=== PATIENT | female | born 1965 | race Caucasian/White ===

== ENCOUNTER 2017-11-02 11:31 | Outpatient (CLI) | payer BC, SELFPAY ==
[2017-11-02 11:46] VITALS: BP 132/89; PULSE 65; RESP 20; TEMP 36.7; O2SAT 94
--- NOTE | 2017-11-02 12:06 | DI.REPORT_ITS ---
SYMPTOMS/DIAGNOSIS: SACROILIAC JOINT INJECTION, SACROILIAC JOINT DYSFUNCTION PAIN CLINIC: Fluoroscopy Time: 15.0 sec 6.15 mGy An image submitted from the pain clinic reveals needle localization of the right SI joint in conjunction with a sacroiliac joint injection. Please see Dr. Huber's procedure report for further information.
[2017-11-02 12:08] VITALS: BP 146/92; PULSE 65; RESP 17; O2SAT 96
[2017-11-02] MEDS: methylPREDNISolone ACETATE 80 MG/ML VIAL IJ (12:08)
--- NOTE | 2017-11-02 12:18 | PDOC.PAIN ---
Date of Service: 11/02/17 Time of Service: 12:19 Pain Clinic Procedure Note INTRA-ARTICULAR SI JOINT INJECTION CASSIE NICHOLSON has been referred to the [facility] for intra-articular SI joint injection. COMMENTS: She was previously seen in the office. She is allergic to iodine and chloroprep DX: Sacroiliac joint dysfunction Patient was interviewed and the medical record reviewed. There were no medical, pharmacologic, radiographic or other structural contraindications to attempting fluoroscopically guided intra-articular SI joint injection. Risks and expected side effects as well as potential benefit of the procedure were reviewed and voiced concerns addressed. The printed consent form was signed and witnessed. Standard time-out procedure was performed. Patient was placed in the prone position on the fluoroscopy table and automated blood pressure cuff and pulse oximeter applied. The skin entry point for approaching right SI joint was identified under the most advantageous fluoroscopic view and marked. Following thorough Chlorhexadine preparation of the skin and draping and 1% lidocaine infiltration of the skin entry point and subcutaneous tissues, a 22 gauge spinal needle was placed under fluoroscopic guidance into right SI joint was identified under the most advantageous fluoroscopic view and marked. Following thorough alcohol preparation of the skin and draping and 1% lidocaine infiltration of the skin entry point and subcutaneous tissues, a 22 gauge spinal needle was placed under fluoroscopic guidance into right/left/bilateral:[id number]} Next, 1ml 1% lidocaine, and 80mg Depomedrol were injected intra-articularily with an initial reproduction of a significant component of the usual pain. Vital signs were stable throughout the procedure and were as recorded in the docflowsheet by the nursing staff. If given, dosages of intravenous drugs for anxiolysis and analgesia were documented in MAR. Follow up plans and appointments were discussed with the patient. Post procedure instruction was given as documented in nursing documentation and having met discharge criteria, and was discharged from the [facility]. COMMENTS: Call with any questions. CC: May Watson
--- NOTE | 2017-11-02 12:30 | PDOC.PAIN_ITS ---
Date of Service: 11/02/17 Time of Service: 12:19 Pain Clinic Procedure Note INTRA-ARTICULAR SI JOINT INJECTION CASSIE NICHOLSON has been referred to the [facility] for intra- articular SI joint injection. COMMENTS: She was previously seen in the office. She is allergic to iodine and chloroprep DX: Sacroiliac joint dysfunction Patient was interviewed and the medical record reviewed. There were no medical , pharmacologic, radiographic or other structural contraindications to attempting fluoroscopically guided intra-articular SI joint injection. Risks and expected side effects as well as potential benefit of the procedure were reviewed and voiced concerns addressed. The printed consent form was signed and witnessed. Standard time-out procedure was performed. Patient was placed in the prone position on the fluoroscopy table and automated blood pressure cuff and pulse oximeter applied. The skin entry point for approaching right SI joint was identified under the most advantageous fluoroscopic view and marked. Following thorough Chlorhexadine preparation of the skin and draping and 1% lidocaine infiltration of the skin entry point and subcutaneous tissues, a 22 gauge spinal needle was placed under fluoroscopic guidance into right SI joint was identified under the most advantageous fluoroscopic view and marked. Following thorough alcohol preparation of the skin and draping and 1% lidocaine infiltration of the skin entry point and subcutaneous tissues, a 22 gauge spinal needle was placed under fluoroscopic guidance into right/left/bilateral:[id number]} Next, 1ml 1% lidocaine, and 80mg Depomedrol were injected intra-articularily with an initial reproduction of a significant component of the usual pain. Vital signs were stable throughout the procedure and were as recorded in the docflowsheet by the nursing staff. If given, dosages of intravenous drugs for anxiolysis and analgesia were documented in MAR. Follow up plans and appointments were discussed with the patient. Post procedure instruction was given as documented in nursing documentation and having met discharge criteria, and was discharged from the [facility]. COMMENTS: Call with any questions. CC: May Watson
== END 2017-11-02 11:32 ==
PROVIDERS: PCP Nurse Practitioner Family; Visit Provider Preventive Medicine Occupational Medicine
DX: M54.5 Low back pain (principal); M53.3 Sacrococcygeal disorders, not elsewhere classified
CPT/HCPCS: 27096; 72200; J1040

== ENCOUNTER 2017-11-15 11:16 | Outpatient (CLI) | payer BC, SELFPAY ==
[2017-11-15 12:23] LABS: COMMENT (LAB VIEW ONLY) 133.81 mg/dL; Microalb ug/mg Crea 9.9 ug/mg Cr
[2017-11-15 12:33] LABS: ALT 69 U/L (12-78); AST 60 U/L (15-37); Albumin 3.6 g/dL (3.4-5.0); Alkaline Phosphatase 197 U/L (46-116); Anion Gap 8.2 mmol/L (3-11); BUN 19 mg/dL (7-18); Bilirubin, Total 0.1 mg/dL (0.2-1.0); CO2 27.8 mmol/L (21.0-32.0); CREATININE 0.77 mg/dL (0.55-1.02); Calcium 8.6 mg/dL (8.5-10.1); Chloride 104 mmol/L (98-107); Glucose 138 mg/dL (70-100); Potassium 4.5 mmol/L (3.5-5.1); Sodium 140 mmol/L (136-145); Total Protein 7.1 g/dL (6.4-8.2)
[2017-11-15 12:58] LABS: Hemoglobin A1C 7.1 % (4.5-6.2)
== END 2017-11-15 11:36 ==
PROVIDERS: PCP Nurse Practitioner Family; Visit Provider Nurse Practitioner Family
DX: I10 Essential (primary) hypertension (principal); E11.9 Type 2 diabetes mellitus without complications; K76.0 Fatty (change of) liver, not elsewhere classified
CPT/HCPCS: 36415; 80053; 82043; 82570; 83036

== ENCOUNTER 2018-01-16 12:38 | Outpatient (CLI) | payer BC, SELFPAY ==
[2018-01-16 12:54] VITALS: BP 135/91; PULSE 74; RESP 18; TEMP 37.2; O2SAT 97
--- NOTE | 2018-01-16 13:58 | PDOC.PAIN2_ITS ---
History of Present Illness History of Present Illness Chief Complaint: Right mid posterior chest pain Review of Systems Medications/Allergies Allergies Allergy/AdvReac Type Severity Reaction Status Date / Time Iodine and Iodide Containing Allergy Mild Skin Rash Unverified 01/16/18 12:50 Produc codeine AdvReac Intermediate Nausea Unverified 01/16/18 12:50 prochlorperazine edisylate AdvReac Intermediate Nausea Unverified 01/16/18 12:50 [From Compazine] prochlorperazine maleate AdvReac Intermediate Nausea Unverified 01/16/18 12:50 [From Compazine] oxycodone HCl [From Percocet] AdvReac Mild Nausea Unverified 01/16/18 12:50 CHLORA PREP Allergy Intermediate skin Uncoded 01/16/18 12:50 blisters STERI STRIPS Allergy Intermediate skin Uncoded 01/16/18 12:50 blisters Medications: Current Medications Bupivacaine HCl (Marcaine 0.5% Sdv) 0 ml IJ DIRECTED MICA Stop: 01/16/18 23:59 Dexamethasone Sodium Phosphate () 0 mg IJ DIRECTED MICA Stop: 01/16/18 23:59 Lidocaine HCl (Xylocaine-Mpf 1% Inj) 0 ml IJ DIRECTED MICA Stop: 01/16/18 23:59 Methylprednisolone Acetate (Depo-Medrol) 0 mg IJ DIRECTED MICA Stop: 01/16/18 23:59 Objective Exam Vitals and I&O: Vital Signs Temperature 37.2 C 01/16/18 12:54 Pulse 74 01/16/18 12:54 Respiratory Rate 18 01/16/18 12:54 Blood Pressure 135/91 H 01/16/18 12:54 Pulse Oximetry 97 01/16/18 12:54 Oxygen Delivery Method Room Air 01/16/18 12:54 Oxygen Flow Rate 0 01/16/18 12:54 Procedures Procedures: Procedure: Trigger point injection Timeout and informed consent was obtained. Patient has tenderness palpation in the paraspinous muscles on the right side of her thoracic spine at the mid to lower thoracic region. Patient was sterilely prepped with alcohol. Using a 27-gauge 1.5 inch needle total of 8 dose of 1% lidocaine was injected at 2 different locations. Patient tolerated procedure well. Pain went from a 7/10-3/10. Stool. She will follow- up as needed. She is now complaining of pain in the right SI region again. Her last injection was in September 2017 which he has had at least 2 months relief. Impression: #1 myofascial pain right chest wall. #2 right SI joint dysfunction Recommendation: #1. If she still having mid back pain would obtain an x-ray of thoracic spine. If another trigger point injection is anticipated will use ultrasound guidance. 2. We will schedule her for repeat right SI joint injection. Ambulatory Orders Medication Instructions Recorded lorazepam [Ativan] 1 mg PO BID 01/04/13 aspirin [Aspir-81] 1 tab PO DAILY 12/19/13 cyproheptadine 8 mg PO HS 10/28/14 multivitamin [Daily Multi-Vitamin] 1 ea PO DAILY 10/28/14 lancets #100 ea 04/15/15 citalopram 40 mg PO DAILY tab-cap 06/28/16 fluticasone [Flonase Allergy 1 - 2 spry NS DAILY PRN #3 bottle 11/10/16 Relief] losartan 100 mg PO DAILY #90 tab-cap 01/13/17 atenolol 25 mg PO DAILY #45 tab-cap 01/23/17 olanzapine 15 mg PO DAILY tab-cap 02/02/17 hydroxyzine pamoate [Vistaril] 25 mg PO PRN 03/24/17 prazosin 4 mg PO HS 03/24/17 nitroglycerin [Nitrostat] 0.4 mg SUBLINGUAL Q5 MIN PRN X3 05/26/17 PRN #1 bottle atorvastatin 40 mg PO DAILY #90 tab-cap 06/02/17 rabeprazole 20 mg PO DAILY #90 tab-cap 06/23/17 carbamazepine 200 - 400 mg PO See Instructions 08/17/17 tab-cap amlodipine 5 mg PO BID #180 tab-cap 08/21/17 blood sugar diagnostic [Blood #120 strip 08/25/17 Glucose Test Strip] insulin glargine [Lantus Solostar] 64 units SUB-Q HS #3 box 08/25/17 pen needle, diabetic [Pen [place]] #4 box 08/25/17 empagliflozin 25 mg tablet 25 mg PO DAILY #90 tab-cap 11/20/17 insulin aspart U-100 100 unit/mL 4 unit SC AC #15 syringe 11/23/17 subcutaneous pen nystatin 100,000 unit/gram topical 1 applic TP BID #15 gm 11/23/17 cream blood-glucose meter #1 each 11/24/17 cyclobenzaprine 10 mg tablet 10 mg PO BID PRN 30 Days #60 tab 01/01/18
[2018-01-16] MEDS: Lidocaine 1% Pres-Free 5 ML VIAL IJ (14:36)
== END 2018-01-16 12:58 ==
PROVIDERS: PCP Nurse Practitioner Family; Visit Provider Anesthesiology Pain Medicine
DX: R07.89 Other chest pain (principal); M54.5 Low back pain; M53.3 Sacrococcygeal disorders, not elsewhere classified
CPT/HCPCS: 20552

== ENCOUNTER 2018-01-30 09:53 | Outpatient (CLI) | payer BC, SELFPAY ==
--- NOTE | 2018-01-30 06:00 | DI.RAD_ITS ---
SYMPTOM/DIAGNOSIS: SACROILIAC JOINT DYSFUNCTION C-ARM FLUOROSCOPY: Fluoroscopy Time: 51.1sec,21.79mgy Fluoroscopy was provided for guidance with Pain Clinic injection. Hard copy images show needle placement at the right S-I joint. Please see procedure note for details.
[2018-01-30 10:02] VITALS: BP 127/91; PULSE 94; RESP 22; TEMP 36.8; O2SAT 97
[2018-01-30] MEDS: Omnipaque 240 MG/ML 50 ML BTL IJ ×2 (11:04→11:24)
[2018-01-30] MEDS: methylPREDNISolone ACETATE 80 MG/ML VIAL IJ (11:25)
[2018-01-30] MEDS: Bupivacaine 0.5% Pres-Free 10 ML VIAL IJ (11:26)
[2018-01-30 11:30] VITALS: BP 131/82; PULSE 94; RESP 21; O2SAT 93
--- NOTE | 2018-01-30 11:42 | PDOC.PAIN ---
Pain Clinic Procedure Note Current Active Problems Problem Status Onset Sacroiliac joint dysfunction of right side Chronic INTRA-ARTICULAR SI JOINT INJECTION CASSIE NICHOLSON has been referred to the [facility] for intra-articular SI joint injection. COMMENTS: Patient had previous SI joint injection that lasted for approximately 3 months. This will be her third SI joint injection. Patient was interviewed and the medical record reviewed. There were no medical, pharmacologic, radiographic or other structural contraindications to attempting fluoroscopically guided intra-articular SI joint injection. Risks and expected side effects as well as potential benefit of the procedure were reviewed and voiced concerns addressed. The printed consent form was signed and witnessed. Standard time-out procedure was performed. Patient was placed in the prone position on the fluoroscopy table and automated blood pressure cuff and pulse oximeter applied. The skin entry point for approaching {right/} SI joints was identified under the most advantageous fluoroscopic view and marked. Following thorough Chlorhexadine preparation of the skin and draping and 1% lidocaine infiltration of the skin entry point and subcutaneous tissues, a 22 gauge spinal needle was placed under fluoroscopic guidance into {right} SI joints was identified under the most advantageous fluoroscopic view and marked. Following thorough Chlorhexadine preparation of the skin and draping and 1% lidocaine infiltration of the skin entry point and subcutaneous tissues, a 22 gauge spinal needle was placed under fluoroscopic guidance into {right} SI joint. Intra-articular placement was confirmed by a clear arthrogram resulting from the injection of 0.25ml Omnipaque 240, 1ml 0.5% bupivacaine, and half ml (40mg) of 80mg concentration Depomedrol were injected intra-articularily with an initial reproduction of a significant component of the usual pain. Vital signs were stable throughout the procedure and were as recorded in the docflowsheet by the nursing staff. If given, dosages of intravenous drugs for anxiolysis and analgesia were documented in MAR. Follow up plans and appointments were discussed with the patient. Post procedure instruction was given as documented in nursing documentation and having met discharge criteria, and was discharged from the [facility]. COMMENTS: Pain went from 5/10-0/10. She will follow-up as needed. Consider evaluating for facet arthropathy if still having back pain above the level. Consider SI joint fusion if not getting long-term relief. CC: May Watson
--- NOTE | 2018-01-30 11:45 | PDOC.PAIN_ITS ---
Pain Clinic Procedure Note Current Active Problems Problem Status Onset Sacroiliac joint dysfunction of right side Chronic INTRA-ARTICULAR SI JOINT INJECTION CASSIE NICHOLSON has been referred to the [facility] for intra- articular SI joint injection. COMMENTS: Patient had previous SI joint injection that lasted for approximately 3 months. This will be her third SI joint injection. Patient was interviewed and the medical record reviewed. There were no medical , pharmacologic, radiographic or other structural contraindications to attempting fluoroscopically guided intra-articular SI joint injection. Risks and expected side effects as well as potential benefit of the procedure were reviewed and voiced concerns addressed. The printed consent form was signed and witnessed. Standard time-out procedure was performed. Patient was placed in the prone position on the fluoroscopy table and automated blood pressure cuff and pulse oximeter applied. The skin entry point for approaching {right/} SI joints was identified under the most advantageous fluoroscopic view and marked. Following thorough Chlorhexadine preparation of the skin and draping and 1% lidocaine infiltration of the skin entry point and subcutaneous tissues, a 22 gauge spinal needle was placed under fluoroscopic guidance into {right} SI joints was identified under the most advantageous fluoroscopic view and marked. Following thorough Chlorhexadine preparation of the skin and draping and 1% lidocaine infiltration of the skin entry point and subcutaneous tissues, a 22 gauge spinal needle was placed under fluoroscopic guidance into {right} SI joint. Intra-articular placement was confirmed by a clear arthrogram resulting from the injection of 0.25ml Omnipaque 240, 1ml 0.5% bupivacaine, and half ml (40mg) of 80mg concentration Depomedrol were injected intra- articularily with an initial reproduction of a significant component of the usual pain. Vital signs were stable throughout the procedure and were as recorded in the docflowsheet by the nursing staff. If given, dosages of intravenous drugs for anxiolysis and analgesia were documented in MAR. Follow up plans and appointments were discussed with the patient. Post procedure instruction was given as documented in nursing documentation and having met discharge criteria, and was discharged from the [facility]. COMMENTS: Pain went from 5/10-0/10. She will follow-up as needed. Consider evaluating for facet arthropathy if still having back pain above the level. Consider SI joint fusion if not getting long-term relief. CC: May Watson
== END 2018-01-30 10:13 ==
PROVIDERS: PCP Nurse Practitioner Family; Visit Provider Anesthesiology Pain Medicine
DX: M54.5 Low back pain (principal); M53.3 Sacrococcygeal disorders, not elsewhere classified; G89.29 Other chronic pain
CPT/HCPCS: 27096; 72200; J1040; Q9967

== ENCOUNTER 2018-02-20 09:36 | Outpatient (CLI) | payer BC, SELFPAY ==
[2018-02-20 09:42] VITALS: BP 137/89; PULSE 69; RESP 18; TEMP 37; O2SAT 95
[2018-02-20 10:09] VITALS: PULSE 72; O2SAT 95
--- NOTE | 2018-02-20 10:20 | PDOC.PAIN ---
Pain Clinic Procedure Note Current Active Problems Problem Status Onset Muscle pain Acute RIGHT LATISSIMUS DORSI MUSCLE INJECTIONS Pre-Procedural Evaluation: CASSIE NICHOLSON has been referred to the [facility] for a right Latissimus Dorsi trigger point injection for a chief complaint of right lateral chest wall pain over the right latissimus dorsi muscle. Pre-procedure Pain Score 5/10 Patient was interviewed and the medical record reviewed. There were no medical, pharmacologic, radiographic, or other structural contraindications to preforming a trigger point injection. Risks and expected side effects as well as potential benefits of the procedure were reviewed. The patient consent form was signed and witnessed. Standard time-out procedure was performed. Procedure Description: The patient was placed in the prone position and automated blood pressure cuff and pulse oximeter applied for monitoring during the procedure and recorded in the medical record. The site was then prepared in the usual sterile fashion, using thorough alcohol preparation of the skin and sterile draping. Skin and subcutaneous tissues were anesthetized with 2 mL of 1% Lidocaine. A 22G 3.5 inch needle was placed in three locations along the Latissimus Dorsi muscle. Once the needle tip was at the target area, a mixture of 1mL of 1% Lidocaine and 1/3 cc of Depomedrol (40mg/cc) was delivered to each target after negative aspiration for blood. The needle was place lateral to the rib cage and from posterior to anterior and never pointing at the lungs.. Post-procedure Pain Score: 0/10 Vital signs were stable throughout the procedure and were as recorded in the docflowsheet by the nursing staff. Follow up plans and appointments were discussed with the patient.Post procedure instruction was given as documented in nursing documentation and having met discharge criteria, they were discharged from the [facility]. COMMENTS: She will watch her blood sugars. This procedure can be completed up to 3 times every 12 months if it if found to be helpful.
[2018-02-20] MEDS: methylPREDNISolone ACETATE 40 MG/ML VIAL IM (10:28)
== END 2018-02-20 09:56 ==
PROVIDERS: PCP Nurse Practitioner Family; Visit Provider Preventive Medicine Occupational Medicine
DX: M79.12 Myalgia of auxiliary muscles, head and neck (principal)
CPT/HCPCS: 20552; J1030

== ENCOUNTER 2018-04-12 00:51 | Outpatient (CLI) | payer BC, SELFPAY ==
--- NOTE | 2018-04-12 14:38 | DI.MRI_ITS ---
SYMPTOMS/DIAGNOSIS: MID THORACIC BACK PAIN RADIATING TO RT, M54.6 THORACIC SPINE MRI: MRI examination of the thoracic spine was performed according to the usual protocol. No bony signal abnormality seen. The bony spinal canal and neural foramina appear well maintained. No disc herniation seen. The spinal cord shows normal diameter and normal signal throughout. CONCLUSION: Negative thoracic spine MRI.
== END 2018-04-12 01:11 ==
PROVIDERS: PCP Nurse Practitioner Family; Visit Provider Nurse Practitioner Family
DX: M54.6 Pain in thoracic spine (principal)
CPT/HCPCS: 72146

== ENCOUNTER 2018-04-17 00:38 | Outpatient (CLI) | payer BC, SELFPAY ==
--- NOTE | 2018-04-17 11:39 | DI.MAMMO_ITS ---
SYMPTOM/DIAGNOSIS: SCREENING, Z12.31 MAMMOGRAMS: Mammograms were interpreted according to the usual protocol including computer analysis with CAD system, tomosynthesis and C view imaging. Comparison is made with prior examinations. Breast density, Category B. No suspicious masses or microcalcifications are seen. There is no definite evidence of malignancy. IMPRESSION: Negative mammogram. Routine screening is recommended. Category 1. MQSA ASSESSMENT OF FINDINGS: Negative. Category 1. Patient will receive a letter notifying them of these results. BI-RADS category B. There are scattered areas of fibroglandular density.
== END 2018-04-17 00:58 ==
PROVIDERS: PCP Nurse Practitioner Family; Visit Provider Nurse Practitioner Family
DX: Z12.31 Encounter for screening mammogram for malignant neoplasm of breast (principal)
CPT/HCPCS: 77063; 77067

== ENCOUNTER 2018-07-17 16:06 | Emergency (ER) | payer BC, SELFPAY ==
[2018-07-17 16:10] VITALS: BP 159/96; PULSE 91; RESP 16; TEMP 36.7; O2SAT 95
--- NOTE | 2018-07-17 16:26 | W.ED.GENAD ---
Discharge Plan Disposition Patient Disposition: HOME Condition: Fair Discharge Details Chief Complaint: Nk/Back Pain Clinical Impression: Back pain, Back muscle spasm Primary Care Provider: May Watson ED Provider: Mary Negron Home Meds and New Rx's Prescriptions: New diazepam [Valium] 5 mg tablet 5 mg PO TID-QID PRN (Reason: muscle spasm) Qty: 10 RF: 0 Continued nystatin 100,000 unit/gram cream 1 applic TP BID Qty: 15 RF: 0 Novolog Flexpen U-100 Insulin 100 unit/mL insulin pen 6 unit SC AC RF: 0 cyproheptadine 4 MG tablet 8 mg PO HS RF: 0 lancets 1 EACH misc 1 ea Miscellaneous AC & HS Qty: 100 RF: 11 citalopram 40 MG tablet 40 mg PO DAILY RF: 0 olanzapine 10 MG tablet 15 mg PO DAILY RF: 0 prazosin 2 MG capsule 4 mg PO HS RF: 0 hydroxyzine pamoate [Vistaril] 25 MG capsule 25 mg PO PRN RF: 0 amlodipine 5 MG tablet 5 mg PO BID Qty: 180 RF: 3 Blood Glucose Test 1 EACH strip 1 ea Miscellaneous AC & HS Qty: 120 RF: 11 pen needle, diabetic [Pen Needle] 1 EACH needle 1 ea SQ QID Qty: 4 RF: 3 Jardiance 25 mg tablet 25 mg PO DAILY Qty: 90 RF: 3 blood-glucose meter misc .Route .MEDSUPPLY Qty: 1 RF: 0 losartan 100 mg tablet 100 mg PO DAILY Qty: 90 RF: 3 atenolol 50 mg tablet 25 mg PO DAILY Qty: 45 RF: 3 atorvastatin 40 mg tablet 40 mg PO DAILY Qty: 90 RF: 3 carbamazepine 200 mg tablet 200 mg PO TID RF: 0 Lantus Solostar U-100 Insulin 100 unit/mL (3 mL) insulin pen 64 unit Sub-Q HS Qty: 30 RF: 3 rabeprazole 20 mg tablet,delayed release (DR/EC) 20 mg PO DAILY Qty: 90 RF: 3 gabapentin 600 mg tablet 600 mg PO TID 60 Days Qty: 180 RF: 5 fluticasone propionate [Flonase Allergy Relief] 50 mcg/actuation spray,suspension 1 - 2 spray NS DAILY PRN (Reason: nasal congestion) Qty: 3 RF: 3 lorazepam [Ativan] 1 MG tablet 1 mg PO BID RF: 0 aspirin [Aspir-81] 81 MG tablet,delayed release (DR/EC) 1 tab PO DAILY RF: 0 nitroglycerin [Nitrostat] 0.4 MG tablet, sublingual 0.4 mg Sublingual Q5 MIN PRN X3 PRNQty: 1 RF: 0 Discontinued tizanidine 4 mg tablet 4 mg PO TID PRN (Reason: muscle spasticity) 60 Days Qty: 180 RF: 5 No Action naproxen 500 mg tablet 500 mg PO BID Qty: 10 RF: 1 diazepam 5 mg tablet 5 mg PO BID-TID PRN (Reason: muscle spasm pain) Qty: 14 RF: 0 Discharge Instructions Instructions: Diazepam (By mouth), Muscle Spasm (ED) Additional Instructions: Encourage hydration. Encourage gentle stretching and frequent ambulation. Continue with pain medications as previously prescribed. Stop the tizanidine and use the Valium as prescribed to help with muscle spasms. Do not drive while taking this medication. Please contact pain management and primary care tomorrow to schedule follow-up as soon as possible for reevaluation discussed continued medication management. If you develop fever/chills, weakness, sensation changes, changes in your bowel or bladder habits or other new/worsening symptoms please seek care urgently once again. Referrals: Janel Mcneil [NURSE PRACTITIONER] - May Watson NP [Primary Care Provider] - Discharge Data Discharge Date/Time-TO BE ENTERED AT DEPARTURE: 07/17/18 16:54 Medical Decision Making Barby is a 52 year old female with history of chornic back pain presenting today with c/c of back spasms. Reviewed notes from pain management, this has been an issue for hte patient hisotrically. She has been on Tizanidine which initially helped but has stopped working well for her over the past several weeks. States that spasms have bene increasing and can radiate along her right side. Denies recent trauma. No fevers/chills. No bowel/bladder dysfunction. Neuro exam is intact. Patient has palpable pain over area of spasm on the right side. No evidence of rash. Lungs are clear. Patient has no signs of infection. No midline tenderness on exam. Patient had been on baclofen as well as other anti-inflammatories without success. This seems to be primarily spasm driven, plan to treat with new muscle relaxer. Advised that she stop the tizanidine, will prescribe Valium. Advised that this is addicting and will only give a short course to help with this exacerbating situation. Advised that she will need to follow-up with her primary care pain management in regard to her chronic back pain further. As the patient drove herself here, I am unable to give her any at this time but will prescribe a few since she may take some once home. She was given strict return precautions. All of her questions and concerns were addressed and she is in agreement this plan. HPI General Mode of arrival: ambulatory. Date/Time Provider Initiated Documentation: 07/17/18 16:25. Limitations to Documentation: no limitations. Information obtained by: patient and RN notes reviewed. History of Present Illness 52 year old F presents to the emergency department with the chief complaint of right sided back spasms, described as severe, with intensity rated at 9. Quality is described as other (spasm), and is localized to the back. Patient reports no radiation. Patient started experiencing this week(s) (3) and it has been constant. No relieving factors improve symptom(s), Immoblization worsens symptoms . Patient notes denies chest pain, cough, diaphoresis, fever/chills, headaches, nausea/vomiting, rash, shortness of breath and weakness. Related Data Home Medications Medication Instructions Recorded Confirmed lorazepam [Ativan] 1 mg PO BID 01/04/13 07/18/18 aspirin [Aspir-81] 1 tab PO DAILY 12/19/13 07/18/18 cyproheptadine 8 mg PO HS 10/28/14 07/18/18 lancets #100 ea 04/15/15 07/18/18 citalopram 40 mg PO DAILY tab-cap 06/28/16 07/18/18 olanzapine 15 mg PO DAILY tab-cap 02/02/17 07/18/18 hydroxyzine pamoate [Vistaril] 25 mg PO PRN 03/24/17 07/18/18 prazosin 4 mg PO HS 03/24/17 07/18/18 nitroglycerin [Nitrostat] 0.4 mg SUBLINGUAL Q5 MIN PRN X3 05/26/17 07/18/18 PRN #1 bottle amlodipine 5 mg PO BID #180 tab-cap 08/21/17 07/18/18 Blood Glucose Test #120 strip 08/25/17 07/18/18 pen needle, diabetic [Pen Needle] #4 box 08/25/17 07/18/18 empagliflozin 25 mg tablet 25 mg PO DAILY #90 tab-cap 11/20/17 07/18/18 nystatin 100,000 unit/gram topical 1 applic TP BID #15 gm 11/23/17 07/18/18 cream blood-glucose meter #1 each 11/24/17 07/18/18 losartan 100 mg tablet 100 mg PO DAILY #90 tab-cap 01/17/18 07/18/18 atenolol 50 mg tablet 25 mg PO DAILY #45 tab-cap 02/07/18 07/18/18 atorvastatin 40 mg tablet 40 mg PO DAILY #90 tab-cap 04/09/18 07/18/18 carbamazepine 200 mg tablet 200 mg PO TID 04/11/18 07/18/18 insulin glargine (U-100) 100 64 unit SUB-Q HS #30 syringe 04/26/18 07/18/18 unit/mL (3 mL) subcutaneous pen rabeprazole 20 mg tablet,delayed 20 mg PO DAILY #90 tab-cap 05/02/18 07/18/18 release gabapentin 600 mg tablet 600 mg PO TID 60 Days #180 tab 05/14/18 07/18/18 fluticasone propionate 50 1 - 2 spray NS DAILY PRN #3 unit 05/31/18 07/18/18 mcg/actuation nasal spray,suspension insulin aspart U- 100 100 unit/mL 6 unit SC AC syringe 07/02/18 07/18/18 subcutaneous pen diazepam [Valium] 5 mg PO TID-QID PRN #10 tab 07/17/18 07/18/18 diazepam 5 mg tablet 5 mg PO BID-TID PRN #14 tab 07/18/18 07/18/18 naproxen 500 mg tablet 500 mg PO BID #10 tab 07/18/18 07/18/18 Previous Rx's Medication Instructions Recorded nitroglycerin [Nitrostat] 0.4 mg SUBLINGUAL Q5 MIN PRN X3 05/26/17 PRN #1 bottle amlodipine 5 mg PO BID #180 tab-cap 08/21/17 Blood Glucose Test #120 strip 08/25/17 pen needle, diabetic [Pen Needle] #4 box 08/25/17 empagliflozin 25 mg tablet 25 mg PO DAILY #90 tab-cap 11/20/17 nystatin 100,000 unit/gram topical 1 applic TP BID #15 gm 11/23/17 cream blood-glucose meter #1 each 11/24/17 losartan 100 mg tablet 100 mg PO DAILY #90 tab-cap 01/17/18 atenolol 50 mg tablet 25 mg PO DAILY #45 tab-cap 02/07/18 atorvastatin 40 mg tablet 40 mg PO DAILY #90 tab-cap 04/09/18 insulin glargine (U-100) 100 64 unit SUB-Q HS #30 syringe 04/26/18 unit/mL (3 mL) subcutaneous pen rabeprazole 20 mg tablet,delayed 20 mg PO DAILY #90 tab-cap 05/02/18 release gabapentin 600 mg tablet 600 mg PO TID 60 Days #180 tab 05/14/18 fluticasone propionate 50 1 - 2 spray NS DAILY PRN #3 unit 05/31/18 mcg/actuation nasal spray,suspension diazepam [Valium] 5 mg PO TID-QID PRN #10 tab 07/17/18 diazepam 5 mg tablet 5 mg PO BID-TID PRN #14 tab 07/18/18 naproxen 500 mg tablet 500 mg PO BID #10 tab 07/18/18 Allergies Allergy/AdvReac Type Severity Reaction Status Date / Time Iodine and Iodide Containing Allergy Mild Skin Rash Verified 07/18/18 13:18 Produc codeine AdvReac Intermediate Nausea Verified 07/18/18 13:18 prochlorperazine edisylate AdvReac Intermediate Nausea Verified 07/18/18 13:18 [From Compazine] prochlorperazine maleate AdvReac Intermediate Nausea Verified 07/18/18 13:18 [From Compazine] oxycodone HCl [From Percocet] AdvReac Mild Nausea Verified 07/18/18 13:18 CHLORA PREP Allergy Intermediate skin Uncoded 07/17/18 16:19 blisters STERI STRIPS Allergy Intermediate skin Uncoded 07/17/18 16:19 blisters General Stated Complaint: Nk/Back Pain FRED: 4 Review of Systems Constitutional Reports as per HPI, Denies chills, Denies fatigue, Denies fever(s) and Denies headache(s) ENT Denies headache(s) and Denies neck pain Cardiovascular Reports as per HPI, Denies chest pain and Denies dyspnea Respiratory Reports as per HPI, Denies cough and Denies dyspnea Gastrointestinal Denies abdominal pain and Denies change in bowel habits Genitourinary Denies flank pain, Denies urinary incontinence and Denies urinary hesitancy Musculoskeletal Reports as per HPI, Reports back pain, Reports muscle cramps, Denies muscle weakness, Denies neck pain and Denies numbness Integumentary/Breasts Reports as per HPI and Denies rash Neurologic Reports as per HPI, Denies headache(s) and Denies numbness Endocrine Denies fatigue [facility] Medical History Unstable angina pectoris (Inactive 06/07/17) PTSD (post-traumatic stress disorder) (Chronic) LEISA (obstructive sleep apnea) (Chronic 09/21/14) Migraine headache (Chronic 10/28/14) Hypertension (Chronic 10/28/14) Hyperlipidemia (Chronic 10/28/14) Heart murmur (Chronic 10/28/14) Gastroesophageal reflux disease with esophagitis (Chronic) Fatty liver (Chronic 02/05/15) DM (diabetes mellitus), type 2 (Chronic 10/28/14) Cholelithiasis (Chronic 10/28/14) Bipolar affective disorder (Chronic) Allergic rhinitis (Chronic 10/28/14) Adult BMI > 30 (Chronic) 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) Allergic rhinitis Bipolar disorder GERD (gastroesophageal reflux disease) Heart murmur History of migraine headaches Hyperlipidemia LEISA (obstructive sleep apnea) PTSD (post-traumatic stress disorder) T2DM (type 2 diabetes mellitus) Unstable angina pectoris Surgical History Arthroplasty of knee (Resolved 01/22/16) partial hysterectomy (Resolved) varicose veins (Resolved 08/23/04) Cholecystectomy (04/09/12) Colonscopy (06/11/15) EGD (11/14/06) EGD w/biopsies (06/11/15) EGD with biopsy (09/08/08) EGD/colonoscopy (07/19/04) Excision, Lipoma (06/12/08) Left heart Catheterization, Angiography (03/29/18) ORIF radial fx (10/05/15) Revision L carpal tunnel release (04/18/14) Social History Smoking/Tobacco Use Status: Never Alcohol Intake: current Alcohol Intake frequency: holidays/special occasions only Drug use: Never Substance use type: does not use Adopted: Yes Caregiver/Support person: No Household members: other Details: but not together Number of Children: 2 Communication Needs: None Education Level: high school Details: 8th Pets and animals: Yes Pets and animals: dog(s) Sexually active: Yes Current gender identity: female What type of physical activity do you participate in: walking Duration: 15-30 minutes/day Frequency: daily Seatbelt use: always Drive intox or ride w/intox route delivery service driver: No Water heater temp set <120 deg: Yes Working smoke detector in home: Yes Fire extinguisher in home: Yes Carbon monox detector in home: Yes Firearms in home: Yes Do you feel safe in your relationship?: Yes Exam Const General: cooperative, healthy appearing, comfortable, no acute distress and well developed Nutritional Appearance: well nourished and obese Orientation: alert and awake HENMT Head: normal to inspection Mouth: moist mucous membranes Neck Neck: normal visual inspection and full ROM Resp Effort & Inspection: normal respiratory effort, able to speak in complete sentences and no respiratory distress Auscultation: clear to auscultation bilaterally, no rales, no rhonchi and no wheezes Cardio Rate: regular rate Rhythm: regular rhythm Heart Sounds: S1 normal and S2 normal GI Inspection: obesity Palpation: soft, not firm, no guarding and nontender Back/Spine/Pelvis Back: no CVA tenderness Thoracic/Lumbar Spine: No thoraco-lumbar ROM normal (limited with extension and rotation to the left), thoraco-lumbar spasm (right side lumbar spine) and No lumbar spinal tenderness (no midline or paraspinal tenderness) Sacroiliac joints: on the right tender to palpation Skin General skin exam: no rashes or lesions noted Trauma: no lacerations or abrasions Neuro General: alert and awake Cognition: normal cognition Speech: speech normal Gait: normal gait Motor: muscle tone normal throughout and strength 5/5 throughout Sensory Exam: no sensory deficits noted (no saddle paresthesias) Extrem General: normal to inspection, normal capillary refill, no joint enlargement, no pedal edema, no calf tenderness and normal gait Psych Appearance: grossly normal and well kempt Mental Status: mental status grossly normal Speech and Movement: speech and movement normal Course Vital Signs Temperature 36.7 C 07/17/18 16:10 Pulse 91 H 07/17/18 16:10 Respiratory Rate 16 07/17/18 16:10 Blood Pressure 159/96 H 07/17/18 16:10 Pulse Oximetry 95 07/17/18 16:10 Temperature 36.7 C 07/17/18 16:10 Temperature Source Temporal Artery Scan 07/17/18 16:10 Pulse 91 H 07/17/18 16:10 Respiratory Rate 16 07/17/18 16:10 Respiratory Effort Non-Labored 07/17/18 16:14 Blood Pressure 159/96 H 07/17/18 16:10 Blood Pressure Position Sitting 07/17/18 16:10 Pulse Oximetry 95 07/17/18 16:10 Oxygen Delivery Method Room Air 07/17/18 16:10 Oxygen Flow Rate 0 07/17/18 16:10 Pain Level 9 07/17/18 16:10
[2018-07-17 16:53] VITALS: BP 159/96; PULSE 91; RESP 16; TEMP 36.7; O2SAT 95
== END 2018-07-17 16:54 | disposition home or self-care (01) ==
PROVIDERS: Emergency Provider Physician Assistant; PCP Nurse Practitioner Family
DX: M62.830 Muscle spasm of back (principal); G89.29 Other chronic pain; M54.9 Dorsalgia, unspecified
CPT/HCPCS: 99283

== ENCOUNTER 2018-07-25 12:09 | Outpatient (CLI) | payer BC, SELFPAY ==
[2018-07-25 13:48] LABS: Anion Gap 10.1 mmol/L (3-11); BUN 19 mg/dL (7-18); CO2 26.9 mmol/L (21.0-32.0); CREATININE 0.66 mg/dL (0.55-1.02); Calcium 8.3 mg/dL (8.5-10.1); Chloride 106 mmol/L (98-107); Glucose 213 mg/dL (70-100); Potassium 4.2 mmol/L (3.5-5.1); Sodium 143 mmol/L (136-145)
== END 2018-07-25 12:29 ==
PROVIDERS: PCP Nurse Practitioner Family; Visit Provider Student in an Organized Health Care Education/Training Program
DX: F19.90 Other psychoactive substance use, unspecified, uncomplicated (principal)
CPT/HCPCS: 36415; 80048

== ENCOUNTER 2018-08-13 14:16 | Outpatient (REF) | payer BC, SELFPAY ==
[2018-08-16 13:11] LABS: 6-monoacetylmorphine Not Detected ng/mL (Cutoff: 25); Amphetamines Negative ng/mL (Cutoff: 500); Barbiturates Negative ng/mL (Cutoff: 200); Benzodiazepines Negative ng/mL (Cutoff: 100); Buprenorphine Not Detected ng/mL (Cutoff: 5); Cocaine Negative ng/mL (Cutoff: 150); Codeine Not Detected ng/mL (Cutoff: 25); Comment Normal; Creatinine, U 49.1 mg/dL; Dihydrocodeine Not Detected ng/mL (Cutoff: 25); EDDP Not Detected ng/mL (Cutoff: 25); Fentanyl Not Detected ng/mL (Cutoff: 2); Hydrocodone Not Detected ng/mL (Cutoff: 25); Hydromorphone Not Detected ng/mL (Cutoff: 25); Hydromorphone-3-beta-glucuroni Not Detected ng/mL (Cutoff: 100); Meperidine Not Detected ng/mL (Cutoff: 25); Methadone Not Detected ng/mL (Cutoff: 25); Morphine Not Detected ng/mL (Cutoff: 25); N-desmethyltapentadol Not Detected ng/mL (Cutoff: 50); Naloxone Not Detected ng/mL (Cutoff: 25); Norbuprenorphine Not Detected ng/mL (Cutoff: 5); Norfentanyl Not Detected ng/mL (Cutoff: 2); Norhydrocodone Not Detected ng/mL (Cutoff: 25); Normeperidine Not Detected ng/mL (Cutoff: 25); Noroxycodone Not Detected ng/mL (Cutoff: 25); Noroxymorphone Not Detected ng/mL (Cutoff: 25); O-desmethyltramadol Present ng/mL (Cutoff: 25); Phencyclidine Negative ng/mL (Cutoff: 25); Propoxyphene Not Detected ng/mL (Cutoff: 25); Specific Gravity 1.011; Tapentadol Not Detected ng/mL (Cutoff: 25); Tetrahydrocannabinol Negative ng/mL (Cutoff: 50); Tramadol Present ng/mL (Cutoff: 25); pH 5.5
== END 2018-08-13 14:36 ==
LOC: LBN 14:16
PROVIDERS: PCP Nurse Practitioner Family; Visit Provider Nurse Practitioner Family
DX: Z79.891 Long term (current) use of opiate analgesic (principal)
CPT/HCPCS: 80307; 80364

== ENCOUNTER 2018-10-02 09:55 | Outpatient (CLI) | payer BC, SELFPAY ==
[2018-10-02 10:04] VITALS: BP 139/86; PULSE 66; RESP 20; TEMP 36.8; O2SAT 95
--- NOTE | 2018-10-02 10:31 | PDOC.PAIN_ITS ---
Pain Clinic Procedure Note Current Active Problems Problem Status Onset Sacroiliac joint dysfunction of right side INTRA-ARTICULAR SI JOINT INJECTION CASSIE NICHOLSON has been referred to the [facility] for intra- articular SI joint injection. COMMENTS: Great relief for >12 months with the last right SIJ injection. Allergy to Iodine so we used Alcohol skin prep and no Iodine contrast. Patient was interviewed and the medical record reviewed. There were no medical, pharmacologic, radiographic or other structural contraindications to attempting fluoroscopically guided intra-articular SI joint injection. Risks and expected side effects as well as potential benefit of the procedure were reviewed and voiced concerns addressed. The printed consent form was signed and witnessed. Standard time-out procedure was performed. Patient was placed in the prone position on the fluoroscopy table and automated blood pressure cuff and pulse oximeter applied. The skin entry point for approaching right SI joint was identified under the most advantageous fluoroscopic view and marked. Following thorough Chlorhexadine preparation of the skin and draping and 1% lidocaine infiltration of the skin entry point and subcutaneous tissues, a 22 gauge 5 spinal needle was placed under fluoroscopic guidance into right SI joint was identified under the most advantageous fluoroscopic view and marked. Following thorough Chlorhexadine preparation of the skin and draping and 1% lidocaine infiltration of the skin entry point and subcutaneous tissues, a 22 gauge spinal needle was placed under fluoroscopic guidance into right SI joint. Intra-articular placement was confirmed by AP and lateral non-contrasted images, 1ml 1% lidocaine, and 80mg Depomedrol (80 mg/cc) were injected intra-articularily with an initial reproduction of a significant component of the usual pain. Vital signs were stable throughout the procedure and were as recorded in the docflowsheet by the nursing staff. If given, dosages of intravenous drugs for anxiolysis and analgesia were documented in MAR. Follow up plans and appointments were discussed with the patient. Post procedure instruction was given as documented in nursing documentation and having met discharge criteria, and was discharged from the [facility]. COMMENTS: If this procedure is found to be effective, it can be completed up to 3 times per 12 months. CC: May Watson APRN
--- NOTE | 2018-10-02 10:32 | DI.RAD_ITS ---
SYMPTOM/DIAGNOSIS: SACROILIAC JOINT DYSFUNCTION. PAIN CLINIC: Fluoroscopy Time: 17.7 seconds fluoroscopy was utilized by Dr. Huber during the performance of a right sacroiliac joint injection. Please refer to the procedure report for complete details.
[2018-10-02] MEDS: methylPREDNISolone ACETATE 80 MG/ML VIAL IM (10:34)
[2018-10-02 10:48] VITALS: BP 155/88; PULSE 65; RESP 18; O2SAT 94
== END 2018-10-02 10:15 ==
PROVIDERS: PCP Nurse Practitioner Family; Visit Provider Preventive Medicine Occupational Medicine
DX: M54.5 Low back pain (principal); M53.3 Sacrococcygeal disorders, not elsewhere classified
CPT/HCPCS: 27096; 72200; J1040

== ENCOUNTER 2018-11-06 08:59 | Outpatient (REF) | payer BC, SELFPAY ==
[2018-11-09 12:43] LABS: 6-monoacetylmorphine Not Detected ng/mL (Cutoff: 25); Amphetamines Negative ng/mL (Cutoff: 500); Barbiturates Negative ng/mL (Cutoff: 200); Benzodiazepines Negative ng/mL (Cutoff: 100); Buprenorphine Not Detected ng/mL (Cutoff: 5); Cocaine Negative ng/mL (Cutoff: 150); Codeine Not Detected ng/mL (Cutoff: 25); Comment Normal; Creatinine, U 115.5 mg/dL; Dihydrocodeine Not Detected ng/mL (Cutoff: 25); EDDP Not Detected ng/mL (Cutoff: 25); Fentanyl Not Detected ng/mL (Cutoff: 2); Hydrocodone Not Detected ng/mL (Cutoff: 25); Hydromorphone Not Detected ng/mL (Cutoff: 25); Hydromorphone-3-beta-glucuroni Not Detected ng/mL (Cutoff: 100); Meperidine Not Detected ng/mL (Cutoff: 25); Methadone Not Detected ng/mL (Cutoff: 25); Morphine Not Detected ng/mL (Cutoff: 25); N-desmethyltapentadol Not Detected ng/mL (Cutoff: 50); Naloxone Not Detected ng/mL (Cutoff: 25); Norbuprenorphine Not Detected ng/mL (Cutoff: 5); Norfentanyl Not Detected ng/mL (Cutoff: 2); Norhydrocodone Not Detected ng/mL (Cutoff: 25); Normeperidine Not Detected ng/mL (Cutoff: 25); Noroxycodone Not Detected ng/mL (Cutoff: 25); Noroxymorphone Not Detected ng/mL (Cutoff: 25); O-desmethyltramadol Present ng/mL (Cutoff: 25); Phencyclidine Negative ng/mL (Cutoff: 25); Propoxyphene Not Detected ng/mL (Cutoff: 25); Specific Gravity 1.016; Tapentadol Not Detected ng/mL (Cutoff: 25); Tetrahydrocannabinol Negative ng/mL (Cutoff: 50); Tramadol Present ng/mL (Cutoff: 25); pH 5.7
== END 2018-11-06 09:19 ==
LOC: LBN 08:59
PROVIDERS: PCP Nurse Practitioner Family; Visit Provider Nurse Practitioner Family
DX: M54.5 Low back pain (principal); M62.830 Muscle spasm of back; Z79.891 Long term (current) use of opiate analgesic
CPT/HCPCS: 80307; 80364

== ENCOUNTER 2018-11-26 01:04 | Outpatient (CLI) | payer BC, SELFPAY ==
[2018-11-26 11:05] LABS: Hemoglobin A1C 6.9 % (4.5-6.2)
[2018-11-26 11:28] LABS: COMMENT (LAB VIEW ONLY) 115.31 mg/dL; Microalb ug/mg Crea 7.5 ug/mg Cr
[2018-11-26 11:32] LABS: ALT 56 U/L (14-59); AST 37 U/L (15-37); Albumin 3.6 g/dL (3.4-5.0); Alkaline Phosphatase 175 U/L (46-116); Anion Gap 6.9 mmol/L (3-11); BUN 19 mg/dL (7-18); Bilirubin, Total 0.2 mg/dL (0.2-1.0); CO2 31.1 mmol/L (21.0-32.0); CREATININE 0.67 mg/dL (0.55-1.02); Calcium 8.6 mg/dL (8.5-10.1); Calculated LDL 80 mg/dL; Chloride 105 mmol/L (98-107); Cholesterol 149 mg/dL (50-200); Glucose 130 mg/dL (70-100); HDL Cholesterol 41 mg/dL (40-60); Potassium 4.3 mmol/L (3.5-5.1); Sodium 143 mmol/L (136-145); Total Protein 6.8 g/dL (6.4-8.2); Triglyceride 143 mg/dL (30-150)
== END 2018-11-26 01:24 ==
PROVIDERS: PCP Nurse Practitioner Family; Visit Provider Nurse Practitioner Family
DX: E78.5 Hyperlipidemia, unspecified (principal); E11.9 Type 2 diabetes mellitus without complications; I10 Essential (primary) hypertension; K76.0 Fatty (change of) liver, not elsewhere classified
CPT/HCPCS: 36415; 80053; 80061; 82043; 82570; 83036

== ENCOUNTER 2019-01-09 21:54 | Emergency (ER) | payer BC, SELFPAY ==
--- NOTE | 2019-01-09 00:12 | DI.CT_ITS ---
EXAM: CT RENAL COLIC WO CLINICAL HISTORY: right sided back pain TECHNIQUE: CT examination of the abdomen and pelvis was performed without contrast administration. COMPARISON: ABD PELVIS WITH CONTRAST from 05/15/2015 FINDINGS: Images obtained through the lung bases are unremarkable. Visualized portions of the liver and splee n appear intact. Adrenals and kidneys are unremarkable in appearance. No evidence of urinary tract calcification or obstruction. Urinary bladder nearly empty. No significant abdominal wall hernia se en. Slight prominence of mesenteric lymph nodes, nonspecific. Appendix is normal except for apparen t small quantity of ingested high density material. No evidence of bowel obstruction or diverticulit is. Uterus atrophic or absent. Abdominal aorta is of normal diameter. Gallbladder has been surgically removed. No biliary dilatation seen. Pancreas is unremarkable. IMPRESSION: No evidence of acute intra-abdominal process. No urinary tract calcification or obstruction.
[2019-01-09 21:49] VITALS: BP 142/91; PULSE 98; RESP 24; TEMP 36.4; O2SAT 94
--- NOTE | 2019-01-09 21:50 | W.ED.GENAD ---
Discharge Plan Disposition Patient Disposition: HOME Condition: Good Discharge Details Chief Complaint: Nk/Back Pain Clinical Impression: Back pain Primary Care Provider: May Watson ED Provider: Cristi Anglin Home Meds and New Rx's Prescriptions: No Action gabapentin 600 mg tablet 600 mg PO TID 60 Days Qty: 180 RF: 5 nystatin 100,000 unit/gram cream 1 applic TP BID PRN (Reason: intertrigo) Qty: 15 RF: 3 Narcan 4 mg/actuation spray,non-aerosol 1 spray ALICIA ONCE PRNRF: 0 tramadol 50 mg tablet 50 mg PO BID MDD 2 tablets/day PRN (Reason: pain) 28 Days Qty: 56 RF: 0 cyproheptadine 4 MG tablet 8 mg PO HS RF: 0 (DME) lancets 1 EACH misc 1 ea Miscellaneous AC & HS Qty: 100 RF: 11 citalopram 40 MG tablet 40 mg PO DAILY RF: 0 olanzapine 10 MG tablet 15 mg PO DAILY RF: 0 prazosin 2 MG capsule 4 mg PO HS RF: 0 hydroxyzine pamoate [Vistaril] 25 MG capsule 25 mg PO PRN RF: 0 (DME) Blood Glucose Test 1 EACH strip 1 ea Miscellaneous AC & HS Qty: 120 RF: 11 (DME) pen needle, diabetic [Pen Needle] 1 EACH needle 1 ea SQ QID Qty: 4 RF: 3 (DME) blood-glucose meter misc See Dose Instructions .Route .MEDSUPPLY Qty: 1 RF: 0 losartan 100 mg tablet 100 mg PO DAILY Qty: 90 RF: 3 atenolol 50 mg tablet 25 mg PO DAILY Qty: 45 RF: 3 atorvastatin 40 mg tablet 40 mg PO DAILY Qty: 90 RF: 3 carbamazepine 200 mg tablet 200 mg PO TID RF: 0 rabeprazole 20 mg tablet,delayed release (DR/EC) 20 mg PO DAILY Qty: 90 RF: 3 fluticasone propionate [Flonase Allergy Relief] 50 mcg/actuation spray,suspension 1 - 2 spray NS DAILY PRN (Reason: nasal congestion) Qty: 3 RF: 3 amlodipine 5 mg tablet 5 mg PO BID Qty: 180 RF: 3 Jardiance 25 mg tablet 25 mg PO DAILY Qty: 90 RF: 3 (DME) FreeStyle Laila 14 Day Sensor Kit See Rx Instructions .ROUTE .MEDSUPPLY Qty: 6 RF: 3 (DME) FreeStyle Laila 14 Day [facility] [place] Rx Instructions .ROUTE .MEDSUPPLY Qty: 1 RF: 0 Novolog Flexpen U-100 Insulin 100 unit/mL (3 mL) insulin pen 6 unit SC AC Qty: 6 RF: 3 Lantus Solostar U-100 Insulin 100 unit/mL (3 mL) insulin pen 64 unit Sub-Q HS Qty: 18 RF: 3 lorazepam [Ativan] 1 MG tablet 1 mg PO BID RF: 0 aspirin [Aspir-81] 81 MG tablet,delayed release (DR/EC) 1 tab PO DAILY RF: 0 nitroglycerin [Nitrostat] 0.4 MG tablet, sublingual 0.4 mg Sublingual Q5 MIN PRN X3 PRNQty: 1 RF: 0 Discharge Instructions Instructions: Back Pain (ED) Additional Instructions: At this time your CT scan shows no acute concerning life-threatening abnormalities. Your pain appears to be consistent with your exacerbations of your regular back pain. Please continue your home medications. Please use the heating pad as directed. The Lidoderm patch can stay on for 12 hours. If you notice any worsening of your symptoms, or any new symptoms such as vomiting, diarrhea, fever, chills, shortness of breath, chest pain, numbness, numbness or tingling in her groin, bowel or bladder incontinence, weakness, or fainting , please return immediately to the emergency department for reevaluation. Please follow up with your primary care provider as soon as possible for reassessment and reevaluation. As always, it was a pleasure participating in your medical care today. Referrals: May Watson NP [Primary Care Provider] - Discharge Data Discharge Date/Time-TO BE ENTERED AT DEPARTURE: 01/10/19 01:30 Medical Decision Making <PIETER Oconnell - Last Filed: 01/15/19 15:49> Patient is a 53-year-old female presents today with chief complaint of right lower back pain. She reports that 2 weeks ago she slipped and fell on his right side. States that she just had her pedicure and that the lotion on her feet cause her to fall onto her right hip. States that initially she was not having any discomfort in her back but that over the past 2 days, pain is progressive. She reports the pain is as severe. Patient has a sore throat for muscle spasms. She does describe this as a spasm pain but states is much more intense than her typical back pain. She denies any incontinence. No change in bowel bladder habits. No fevers. Denies pain radiating in any limbs. No weakness, paresthesias. On exam, patient appears quite uncomfortable. She is frequently readjusting and every movement, it seems to cause increased discomfort. She is afebrile. No pain is elicited on exam. She indicates the right SI joint and superior to this is area of discomfort but no CVA tenderness. No midline tenderness, no paraspinal tenderness with palpation. I am unable to palpate any area of muscle spasm at this time. Abdomen is benign. Patient is sounding like a potential kidney stone. She is reported but the pain does not radiate into the extremity, can radiate slightly forward into the abdomen just to be consistent with kidney stone. She has not had this historically. No hematuria or dysuria. Patient does feel that discomfort is associated with her previous back pain and spasm. Will give Tylenol, ibuprofen, Valium and Lidoderm patch. Immediately after the patient received her p.o. medications include Tylenol, ibuprofen and Valium, patient began vomiting. Medications that she took in promptly came back up. Will begin an IV, hydrate the patient, obtain baseline labs and give medication through this alternative route. Labs reviewed, no leukocytosis patient is anemic. BUN is slightly elevated 22. Elevated at 180 which is typical for the patient. Urinalysis significant for trace ketones and 11 mg/dL glucose. Is negative. Patient is feeling improved after the above intervention. patient to get a renal noncontrast CT. Patient is requesting further analgesics prior to CT as she is concern for laying supine. Will augment the above with 1 mg of Dilaudid. At the end of my shift, care was transitioned to Dr. Anglin with imaging and final disposition pending. <Cristi Anglin, - Last Filed: 01/10/19 00:59> Case was signed out to me by my colleague Mary Vilchis. We are pending CT scan results at that time. CT scan results have returned demonstrate no evidence of acute intra-abdominal or back pathology. Per virtual radiology. On reassessment the patient states that she feels 100% better. She still does have some mild lingering pain. Repeat bedside exam demonstrates no evidence of saddle anesthesia, no clinical history of bowel or bladder incontinence, and signs and symptoms clinically inconsistent with cauda equina syndrome. At this time with the patient's notable improvement of symptomatology I do feel that she can be safely discharged home with close follow-up. We discussed red flags which to return, and patient and family understand. I have extensively reviewed the treatment plan and discharge instructions with the patient and their family. I have addressed all patient concerns at this time. The patient and family was made aware of what symptoms to monitor for that would warrant a return to the emergency department. Discussed the plan with the patient and family, they demonstrate verbal understanding and agreement with our assessment and plan at this time. FINDINGS: Liver: Normal. No mass. Gallbladder and bile ducts: Cholecystectomy. Pancreas: Normal. No ductal dilation. Spleen: Normal. No splenomegaly. Adrenals: Normal. No mass. Kidneys and ureters: Nonspecific bilateral perinephric fat stranding. Stomach and bowel: Unremarkable. No obstruction. No mucosal thickening. Appendix: Tiny foci of high density within the appendix (series 2 image 93) likely represent residual contrast from previous study or possibly tiny appendicolith. There is no evidence of appendicitis. Intraperitoneal space: Unremarkable. No free air. No significant fluid collection. Vasculature: Mild atherosclerotic calcification. No abdominal aortic aneurysm. Lymph nodes: Scattered subcentimeter mesenteric lymph nodes similar to the comparison study. No pathologically enlarged lymph nodes demonstrated. Scattered subcentimeter inguinal lymph nodes similar to prior study. Bladder: Unremarkable as visualized. Reproductive: Uterus not visualized consistent with a hysterectomy. Bones/joints: Unremarkable. No acute fracture. Soft tissues: Unremarkable. IMPRESSION: No acute findings to account for the patient's symptoms. Thank you for allowing us to participate in the care of your patient. Dictated and Authenticated by: Volodymyr Sanchez MD 01/10/2019 12:44 AM Eastern Time ([place] & [place]) HPI <PIETER Oconnell - Last Filed: 01/15/19 15:49> General Mode of arrival: EMS. Date/Time Provider Initiated Documentation: 01/09/19 23:30. Limitations to Documentation: no limitations. Information obtained by: patient, EMS and RN notes reviewed. History of Present Illness 53 year old F presents to the emergency department with the chief complaint of right lower back pain, described as severe and similar to prior episodes, with intensity rated at 10. Quality is described as stabbing, and is localized to the back. Patient reports no radiation. Patient started experiencing this week(s) (fell 2 weeks ago which started but pain exacerbated tonight) and it has been constant. Immobilization improves symptom(s), Movement worsens symptoms . Patient notes no other symptoms.. Patient did receive the following treatments prior to arrival, other (tramadol) Related Data Home Medications Medication Instructions Recorded Confirmed lorazepam [Ativan] 1 mg PO BID 01/04/13 01/09/19 aspirin [Aspir-81] 1 tab PO DAILY 12/19/13 01/09/19 cyproheptadine 8 mg PO HS 10/28/14 01/09/19 lancets #100 ea 04/15/15 01/09/19 citalopram 40 mg PO DAILY tab-cap 06/28/16 01/09/19 olanzapine 15 mg PO DAILY tab-cap 02/02/17 01/09/19 hydroxyzine pamoate [Vistaril] 25 mg PO PRN 03/24/17 01/09/19 prazosin 4 mg PO HS 03/24/17 01/09/19 nitroglycerin [Nitrostat] 0.4 mg SUBLINGUAL Q5 MIN PRN X3 05/26/17 01/09/19 PRN #1 bottle Blood Glucose Test #120 strip 08/25/17 01/09/19 pen needle, diabetic [Pen Needle] #4 box 08/25/17 01/09/19 blood-glucose meter #1 each 11/24/17 01/09/19 losartan 100 mg tablet 100 mg PO DAILY #90 tab-cap 01/17/18 01/09/19 atenolol 50 mg tablet 25 mg PO DAILY #45 tab-cap 02/07/18 01/09/19 atorvastatin 40 mg tablet 40 mg PO DAILY #90 tab-cap 04/09/18 01/09/19 carbamazepine 200 mg tablet 200 mg PO TID 04/11/18 01/09/19 rabeprazole 20 mg tablet,delayed 20 mg PO DAILY #90 tab-cap 05/02/18 01/09/19 release fluticasone propionate 50 1 - 2 spray NS DAILY PRN #3 unit 05/31/18 01/09/19 mcg/actuation nasal spray,suspension amlodipine 5 mg tablet 5 mg PO BID #180 tab-cap 08/10/18 01/09/19 gabapentin 600 mg tablet 600 mg PO TID 60 Days #180 tab 08/13/18 01/09/19 naloxone 4 mg/actuation nasal spray 1 spray ALICIA ONCE PRN 09/05/18 01/09/19 empagliflozin 25 mg tablet 25 mg PO DAILY #90 tab-cap 11/15/18 01/09/19 nystatin 100,000 unit/gram topical 1 applic TP BID PRN #15 gm 11/29/18 01/09/19 cream flash glucose scanning reader #1 each 11/30/18 01/09/19 flash glucose sensor #6 each 11/30/18 01/09/19 tramadol 50 mg tablet 50 mg PO BID PRN 28 Days #56 tab 01/02/19 01/09/19 MDD 2 tablets/day insulin aspart U-100 100 unit/mL 6 unit SC AC #6 syringe 01/14/19 (3 mL) subcutaneous pen insulin glargine 100 unit/mL (3 64 unit SUB-Q HS #18 syringe 01/14/19 mL) subcutaneous pen Previous Rx's Medication Instructions Recorded nitroglycerin [Nitrostat] 0.4 mg SUBLINGUAL Q5 MIN PRN X3 05/26/17 PRN #1 bottle Blood Glucose Test #120 strip 08/25/17 pen needle, diabetic [Pen Needle] #4 box 08/25/17 blood-glucose meter #1 each 11/24/17 losartan 100 mg tablet 100 mg PO DAILY #90 tab-cap 01/17/18 atenolol 50 mg tablet 25 mg PO DAILY #45 tab-cap 02/07/18 atorvastatin 40 mg tablet 40 mg PO DAILY #90 tab-cap 04/09/18 rabeprazole 20 mg tablet,delayed 20 mg PO DAILY #90 tab-cap 05/02/18 release fluticasone propionate 50 1 - 2 spray NS DAILY PRN #3 unit 05/31/18 mcg/actuation nasal spray,suspension amlodipine 5 mg tablet 5 mg PO BID #180 tab-cap 08/10/18 gabapentin 600 mg tablet 600 mg PO TID 60 Days #180 tab 08/13/18 empagliflozin 25 mg tablet 25 mg PO DAILY #90 tab-cap 11/15/18 nystatin 100,000 unit/gram topical 1 applic TP BID PRN #15 gm 11/29/18 cream flash glucose scanning reader #1 each 11/30/18 flash glucose sensor #6 each 11/30/18 tramadol 50 mg tablet 50 mg PO BID PRN 28 Days #56 tab 01/02/19 MDD 2 tablets/day insulin aspart U-100 100 unit/mL 6 unit SC AC #6 syringe 01/14/19 (3 mL) subcutaneous pen insulin glargine 100 unit/mL (3 64 unit SUB-Q HS #18 syringe 01/14/19 mL) subcutaneous pen Allergies Allergy/AdvReac Type Severity Reaction Status Date / Time Iodine and Iodide Containing Allergy Mild Skin Rash Verified 01/09/19 21:59 Produc codeine AdvReac Intermediate Nausea Verified 01/09/19 21:59 prochlorperazine edisylate AdvReac Intermediate Nausea Verified 01/09/19 21:59 [From Compazine] prochlorperazine maleate AdvReac Intermediate Nausea Verified 01/09/19 21:59 [From Compazine] oxycodone HCl [From Percocet] AdvReac Mild Nausea Verified 01/09/19 21:59 CHLORA PREP Allergy Intermediate skin Uncoded 01/09/19 21:59 blisters STERI STRIPS Allergy Intermediate skin Uncoded 01/09/19 21:59 blisters General FRED: 4 Review of Systems <PIETER Oconnell - Last Filed: 01/15/19 15:49> Constitutional Constitutional: Reports as per HPI, Denies chills, Denies fatigue, Denies fever(s), Denies frequent falls and Denies headache(s) Eyes Eyes: Denies change in vision ENT Ears, Nose, Mouth, and Throat: Denies headache(s) Cardiovascular Cardiovascular: Denies chest pain, Denies dyspnea and Denies dyspnea on exertion Respiratory Respiratory: Denies cough, Denies dyspnea and Denies dyspnea on exertion Gastrointestinal Gastrointestinal: Denies abdominal pain, Denies change in bowel habits and Denies fecal incontinence Genitourinary Genitourinary: Reports as per HPI, Denies urinary incontinence and Denies urinary hesitancy Musculoskeletal Musculoskeletal: Reports as per HPI, Reports back pain, Denies muscle weakness, Denies numbness, Denies radiating pain into limb, Reports stiffness and Denies tingling Integumentary/Breasts Skin/Breast: Reports as per HPI and Denies rash Neurologic Neurologic: Reports as per HPI, Denies frequent falls, Denies headache(s), Denies focal weakness, Denies numbness, Denies radicular pain, Denies sensory deficit, Denies tingling and Denies paresthesias Endocrine Endocrine: Denies fatigue PFS <PIETER Oconnell - Last Filed: 01/15/19 15:49> Medical History Adult BMI > 30 (Chronic) Allergic rhinitis (Chronic 10/28/14) Aortic regurgitation (Chronic) 05/26/2017 echo: mild-moderate --> repeat echo 2-3 years Back pain (Chronic 10/28/14) Bipolar affective disorder (Chronic) [facility] Bipolar disorder Cholelithiasis (Chronic 10/28/14) Chronic pain (Chronic) Drug overdose (Resolved 10/28/14) Fatty liver (Chronic 02/05/15) GI consult, probable metabolic syndrome Gastroesophageal reflux disease with esophagitis (Chronic) Heart murmur History of colonic polyps (Inactive 06/11/15) History of migraine headaches Hyperlipidemia (Chronic 10/28/14) 11/2016 labwork: 10-year ASCVD risk = ~5.7% --> continue current moderate intensity statin therapy Hypertension (Chronic 10/28/14) Migraine headache (Chronic 10/28/14) LEISA (obstructive sleep apnea) (Chronic 09/21/14) moderate, AHI 15, Dr Elliott [facility] PTSD (post-traumatic stress disorder) (Chronic) [facility] 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 Dr. Stearns. Cholecystectomy (04/09/12) Colonscopy (06/11/15) Reji Dumont EGD (11/14/06) EGD w/biopsies (06/11/15) Reji Dumont MD EGD with biopsy (09/08/08) EGD/colonoscopy (07/19/04) Excision, Lipoma (06/12/08) right back Left heart Catheterization, Angiography (06/01/17) ORIF radial fx (10/05/15) [facility] 1998 or 1999 de Quervain's release left wrist Dr [id number] L distal radius and ulna partial hysterectomy (Resolved) retained ovaries per pt Revision L carpal tunnel release (04/18/14) Flexor tenosynovectomy, hardware removal, Dr Ocasio [facility] varicose veins (Resolved 08/23/04) Social History Smoking/Tobacco Use Status: Never Alcohol Intake: current Alcohol Intake frequency: holidays/special occasions only Drug use: Never Substance use type: does not use Adopted: Yes Caregiver/Support person: No Household members: other Details: but not together Number of Children: 2 Communication Needs: None Education Level: high school Details: 8th Pets and animals: Yes Pets and animals: dog(s) Sexually active: Yes Current gender identity: female What type of physical activity do you participate in: walking Duration: 15-30 minutes/day Frequency: daily Seatbelt use: always Drive intox or ride w/intox contract driver: No Water heater temp set <120 deg: Yes Working smoke detector in home: Yes Fire extinguisher in home: Yes Carbon monox detector in home: Yes Firearms in home: Yes Do you feel safe at home: Yes Do you feel safe in your relationship?: Yes Exam <PIETER Oconnell - Last Filed: 01/15/19 15:49> Const General: cooperative, healthy appearing, well developed, well groomed and acute distress mild (patient appears uncomfortable) Nutritional Appearance: well nourished and obese Orientation: alert and awake Eyes General: appearance normal, both eyes and all related structures Neck Neck: normal visual inspection, full ROM, no lymphadenopathy and no meningeal signs Resp Effort & Inspection: normal respiratory effort and able to speak in complete sentences Auscultation: clear to auscultation bilaterally, no rales, no rhonchi and no wheezes Cardio Rate: regular rate Rhythm: regular rhythm Heart Sounds: S1 normal and S2 normal GI Inspection: obesity Palpation: soft, not firm, no guarding, not rigid and nontender Auscultation: normal bowel sounds Back/Spine/Pelvis Back: no CVA tenderness Cervical Spine: normal cervical lordosis, cervical ROM normal, No cervical spasm and No cervical spinal tenderness Thoracic/Lumbar Spine: thoracic and lumbar spine normal to inspection, No thoraco-lumbar ROM normal (limited with all movements, particularly worse with forward flexion), No paraspinal tenderness, No thoraco-lumbar spasm, No thoracic spinal tenderness and No lumbar spinal tenderness Pelvis: no pain with anterior-posterior compression and no pain with lateral compression Sacroiliac joints: on the right nontender (this is where patient points as area of discomfort) Skin General skin exam: no rashes or lesions noted Neuro General: alert and awake Cognition: normal cognition Speech: speech normal Gait: antalgic (bending slightly forward) Motor: muscle tone normal throughout, strength 5/5 throughout, no movement abnormalities noted and no fasciculations Sensory Exam: no sensory deficits noted (no saddle paresthesias) DTR's: Rt Patellar: 2+, Lt Patellar: 2+, Rt Ankle: 2+ and Lt Ankle: 2+ Extrem General: normal to inspection, full ROM, normal capillary refill, no joint enlargement, no pedal edema, no calf tenderness and normal gait Psych Appearance: grossly normal and well kempt Mental Status: mental status grossly normal Speech and Movement: speech and movement normal Sign Out <PIETER Oconnell - Last Filed: 01/15/19 15:49> Sign Out Data: Sign Out Comment: Care transitioned to Dr. Anglin with imaging pending. Right lower back pain, CT to evaluate for possible stone. Improving after pain medication. Last updated by Mary Negron PA at 01/10/19 00:04
[2019-01-09] MEDS: Ibuprofen 600 MG TAB PO (22:11)
[2019-01-09] MEDS: Acetaminophen 325 MG TAB 650 MG PO (22:11)
[2019-01-09] MEDS: diazePAM 5 MG TAB PO (22:11)
[2019-01-09] MEDS: Lidocaine 5% Patch 1 PATCH TP (22:12)
[2019-01-09] MEDS: Ondansetron 4 MG/2 ML VIAL IVP (22:44)
[2019-01-09] MEDS: Ketorolac 30 MG/ML VIAL IVP (22:44)
[2019-01-09] MEDS: Normal Saline 1,000 ML 1000 ML IV (22:45)
[2019-01-09] MEDS: diazePAM 10 MG/2 ML SYR 5 MG IVP (22:49)
[2019-01-09 22:50] LABS: Abs Immature Grans 0.02 k/cumm (0.0-0.09); Absolute Basophil Count 0.02 k/cumm (0.0-0.2); Absolute Eosinophil Count 0.08 k/cumm (0.0-0.7); Absolute Lymphocyte Count 1.71 k/cumm (1.2-3.4); Absolute Monocyte Count 0.48 k/cumm (0.11-0.7); Absolute Neutrophil Count 5.04 k/cumm (1.2-6.7); Basophils % 0.3; Eosinophils % 1.1; HCT 45.2 % (36.0-46.0); HGB 14.8 g/dL (12.0-15.5); Immature Grans % 0.3; Lymphocytes % 23.3; Mean Corp. HGB Concentration 32.7 g/dL (32.0-36.0); Mean Corpuscular Hemoglobin 28.7 pg (27.0-33.0); Mean Corpuscular Volume 87.8 fL (80-95); Mean Platelet Volume 10.8 fL (8.0-11.0); Monocytes % 6.5; Neutrophils % 68.5; Platelet Count 202 x1000/uL (130-400); RBC 5.15 m/cumm (4.00-5.20); RBC Distribution Width 13.4 % (11.7-14.6); White Blood Cell Count 7.35 k/cumm (4.4-10.8)
[2019-01-09 23:02] LABS: ALT 49 U/L (14-59); AST 27 U/L (15-37); Albumin 3.7 g/dL (3.4-5.0); Alkaline Phosphatase 180 U/L (46-116); Anion Gap 11.5 mmol/L (3-11); BUN 22 mg/dL (7-18); Bilirubin, Total 0.2 mg/dL (0.2-1.0); CO2 26.5 mmol/L (21.0-32.0); CREATININE 0.81 mg/dL (0.55-1.02); Calcium 9.1 mg/dL (8.5-10.1); Chloride 103 mmol/L (98-107); Glucose 148 mg/dL (70-100); Potassium 4.2 mmol/L (3.5-5.1); Sodium 141 mmol/L (136-145); Total Protein 7.9 g/dL (6.4-8.2)
[2019-01-09] MEDS: HYDROmorphone 2 MG/ML VIAL 1 MG IVP (23:36)
[2019-01-09 23:43] LABS: Bilirubin Negative (Negative); Blood Negative (Negative); Clarity Clear (Clear); Glucose 500 mg/dL (Negative); Ketones Trace mg/dL (Negative); Leukocyte Esterase Negative (Negative); Nitrite Negative (Negative); Urobilinogen 0.2 EU/dL (Up TO 0.2); pH 5.5 (5-8)
[2019-01-10 00:42] VITALS: BP 146/87; PULSE 98; RESP 18; O2SAT 95
--- NOTE | 2019-01-10 00:44 | DI.VRAD_ITS ---
PROCEDURE INFORMATION: Exam: CT Abdomen And Pelvis Without Contrast Exam date and time: 01/09/2019 11:51 PM Clinical history: 53 years old, female; Abdominal pain; Localized; Patient HX: Fall onto right side 2 weeks ago TECHNIQUE: Imaging protocol: Computed tomography of the abdomen and pelvis without contrast. Radiation optimization: All CT scans at this facility use at least one of these dose optimization techniques: automated exposure control; mA and/or kV adjustment per patient size (includes targeted exams where dose is matched to clinical indication); or iterative reconstruction. COMPARISON: CT ABD PELVIS WITH CONTRAST 05/15/2015 1:35 PM FINDINGS: Liver: Normal. No mass. Gallbladder and bile ducts: Cholecystectomy. Pancreas: Normal. No ductal dilation. Spleen: Normal. No splenomegaly. Adrenals: Normal. No mass. Kidneys and ureters: Nonspecific bilateral perinephric fat stranding. Stomach and bowel: Unremarkable. No obstruction. No mucosal thickening. Appendix: Tiny foci of high density within the appendix (series 2 image 93) likely represent residual contrast from previous study or possibly tiny appendicolith. There is no evidence of appendicitis. Intraperitoneal space: Unremarkable. No free air. No significant fluid collection. Vasculature: Mild atherosclerotic calcification. No abdominal aortic aneurysm. Lymph nodes: Scattered subcentimeter mesenteric lymph nodes similar to the comparison study. No pathologically enlarged lymph nodes demonstrated. Scattered subcentimeter inguinal lymph nodes similar to prior study. Bladder: Unremarkable as visualized. Reproductive: Uterus not visualized consistent with a hysterectomy. Bones/joints: Unremarkable. No acute fracture. Soft tissues: Unremarkable. IMPRESSION: No acute findings to account for the patient's symptoms. Dictated and Authenticated by: Volodymyr Sanchez MD. Ordering:KAMAR Hernandez MD
[2019-01-10] MEDS: diazePAM 10 MG/2 ML SYR 5 MG IVP (01:01)
[2019-01-10 01:25] VITALS: BP 133/79; PULSE 82; RESP 17; TEMP 36.8; O2SAT 94
== END 2019-01-10 01:30 | disposition home or self-care (01) ==
LOC: ER 01-10 01:34
PROVIDERS: Physician Assistant; Emergency Provider Student in an Organized Health Care Education/Training Program; PCP Nurse Practitioner Family
DX: M54.5 Low back pain (principal); W01.0XXA Fall on same level from slipping, tripping and stumbling without subsequent striking against object, initial encounter; I10 Essential (primary) hypertension; E11.9 Type 2 diabetes mellitus without complications; Z79.4 Long term (current) use of insulin
CPT/HCPCS: 80053; 99283; 74176; 81003; 85025; J1885; J2405; J3360

== ENCOUNTER 2019-01-27 10:50 | Emergency (ER) | payer BC, SELFPAY ==
[2019-01-27] VITALS (18 sets, daily range): BP systolic 131–163; BP diastolic 84–106; PULSE 66–76; RESP 28; TEMP 36.6; O2SAT 91–98
[2019-01-27] MEDS: Normal Saline 1,000 ML 1000 ML IV ×2 (11:19→13:19)
[2019-01-27 11:25] LABS: Abs Immature Grans 0.02 k/cumm (0.0-0.09); Absolute Basophil Count 0.02 k/cumm (0.0-0.2); Absolute Eosinophil Count 0.02 k/cumm (0.0-0.7); Absolute Lymphocyte Count 1.67 k/cumm (1.2-3.4); Absolute Monocyte Count 0.27 k/cumm (0.11-0.7); Absolute Neutrophil Count 5.38 k/cumm (1.2-6.7); Basophils % 0.3; Eosinophils % 0.3; HGB 14.8 g/dL (12.0-15.5); Immature Grans % 0.3; Lymphocytes % 22.6; Mean Corp. HGB Concentration 33.6 g/dL (32.0-36.0); Mean Corpuscular Hemoglobin 29.2 pg (27.0-33.0); Mean Platelet Volume 11.1 fL (8.0-11.0); Monocytes % 3.7; Neutrophils % 72.8; Platelet Count 263 x1000/uL (130-400); RBC 5.06 m/cumm (4.00-5.20); White Blood Cell Count 7.38 k/cumm (4.4-10.8)
--- NOTE | 2019-01-27 11:34 | W.ED.GENAD ---
Discharge Plan Disposition Patient Disposition: HOME Condition: Improving Discharge Details Chief Complaint: Nausea/Vomit/Diar Clinical Impression: Abdominal pain, vomiting, and diarrhea Primary Care Provider: May Watson ED Provider: Marysol Saez Home Meds and New Rx's Prescriptions: New promethazine 25 mg tablet 25 mg PO TID PRN (Reason: nausea and vomiting) Qty: 7 RF: 0 Continued gabapentin 600 mg tablet 600 mg PO TID 60 Days Qty: 180 RF: 5 nystatin 100,000 unit/gram cream 1 applic TP BID PRN (Reason: intertrigo) Qty: 15 RF: 3 Narcan 4 mg/actuation spray,non-aerosol 1 spray ALICIA ONCE PRNRF: 0 tramadol 50 mg tablet 50 mg PO BID MDD 2 tablets/day PRN (Reason: pain) 28 Days Qty: 56 RF: 0 cyproheptadine 4 MG tablet 8 mg PO HS RF: 0 (DME) lancets 1 EACH misc 1 ea Miscellaneous AC & HS Qty: 100 RF: 11 citalopram 40 MG tablet 40 mg PO DAILY RF: 0 olanzapine 10 MG tablet 15 mg PO DAILY RF: 0 prazosin 2 MG capsule 4 mg PO HS RF: 0 hydroxyzine pamoate [Vistaril] 25 MG capsule 25 mg PO PRN RF: 0 (DME) Blood Glucose Test 1 EACH strip 1 ea Miscellaneous AC & HS Qty: 120 RF: 11 (DME) pen needle, diabetic [Pen Needle] 1 EACH needle 1 ea SQ QID Qty: 4 RF: 3 (DME) blood-glucose meter misc See Dose Instructions .Route .MEDSUPPLY Qty: 1 RF: 0 atorvastatin 40 mg tablet 40 mg PO DAILY Qty: 90 RF: 3 carbamazepine 200 mg tablet 200 mg PO TID RF: 0 rabeprazole 20 mg tablet,delayed release (DR/EC) 20 mg PO DAILY Qty: 90 RF: 3 fluticasone propionate [Flonase Allergy Relief] 50 mcg/actuation spray,suspension 1 - 2 spray NS DAILY PRN (Reason: nasal congestion) Qty: 3 RF: 3 amlodipine 5 mg tablet 5 mg PO BID Qty: 180 RF: 3 Jardiance 25 mg tablet 25 mg PO DAILY Qty: 90 RF: 3 (DME) FreeStyle Laila 14 Day Sensor Kit See Rx Instructions .ROUTE .MEDSUPPLY Qty: 6 RF: 3 (DME) FreeStyle Laila 14 Day Sunspot Misc See Rx Instructions .ROUTE .MEDSUPPLY Qty: 1 RF: 0 Novolog Flexpen U-100 Insulin 100 unit/mL (3 mL) insulin pen 6 unit SC AC Qty: 6 RF: 3 Lantus Solostar U-100 Insulin 100 unit/mL (3 mL) insulin pen 64 unit Sub-Q HS Qty: 18 RF: 3 atenolol 50 mg tablet 25 mg PO DAILY Qty: 45 RF: 3 losartan 100 mg tablet 100 mg PO DAILY Qty: 90 RF: 3 lorazepam [Ativan] 1 MG tablet 1 mg PO BID RF: 0 aspirin [Aspir-81] 81 MG tablet,delayed release (DR/EC) 1 tab PO DAILY RF: 0 nitroglycerin [Nitrostat] 0.4 MG tablet, sublingual 0.4 mg Sublingual Q5 MIN PRN X3 PRNQty: 1 RF: 0 Discharge Instructions Instructions: Acute Nausea and Vomiting (ED), Acute Diarrhea (ED), Abdominal Pain (ED) Additional Instructions: Drink plenty of fluids and get plenty of rest. Alternate Tylenol and Motrin as needed and directed for pain. Take the Phenergan as needed and directed for nausea and vomiting. Be sure to follow a bland diet over the next few days including crackers, rice, pretzels, toast. Advance your diet as tolerated. Follow-up with your primary care doctor within the next week for reevaluation. Return to the emergency department if you develop any worsening or new concerning symptoms. Discharge Data Discharge Date/Time-TO BE ENTERED AT DEPARTURE: 01/27/19 14:07 Discharge Physician: Marysol Saez Medical Decision Making 1105 -- 53-year-old female with a history of obesity, diabetes, GERD, hypertension, hyperlipidemia, PTSD who presents with vomiting and upper abdominal pain since last evening. Glucose at home today for 140. She did not take her meds today. States the vomitus has been food or clear. She denies any known sick contacts, antibiotics, recent travel or food source as the cause. She denies fever or diarrhea. She states the abdominal pain is upper and cramping and aching and she associates it mainly with her vomiting. Afebrile. Patient appears uncomfortable due to nausea. Minimal epigastric tenderness. Differential diagnosis includes gastroenteritis, peptic ulcer, gastritis, small bowel obstruction, etc. Will place an IV, bolus IV fluids, screening labs, urinalysis as well as CT abdomen and pelvis. 1230 --radiology called to state that they scanned the contrast after she was given this and it indicated that she had an iodine allergy. Discussed with patient and she states she mainly gets skin rash with topical iodine but has never had IV contrast as far she knows. When questioned about throat swelling she then admits to this but she had not complained of this initially. Will give 50 mg of Benadryl and 125 of Solu-Medrol. Patient is also complaining of persistent pain and now starting with diarrhea. Will give a dose of morphine and reassess. 1400 --labs and imaging reviewed and unremarkable. Normal white blood cell count. Normal electrolytes. Troponin negative. Urinalysis negative for infection. CT negative for any acute findings. Patient states she feels much better and denies any further nausea vomiting or pain. She has had no further episodes of diarrhea. She denies any rash or any sensation of throat swelling, itching or difficulty breathing. She states she has tolerated Phenergan in the past. We will send home with a prescription for Phenergan. She is advised to follow-up with her primary care doctor return here at any time if worse. Medical Records Medical records reviewed: Yes I reviewed the patient's medical records. Imaging Data Radiologic Study: Radiologist's impression: CT Abdomen And Pelvis With Contrast Exam date and time: 01/27/2019 12:32 PM Age: 53 years old Clinical history: Other: Upper abd pain, vomiting; Additional info: First scan did not have adequate contrast highlighting patients anatomy. 2nd scan performed. TECHNIQUE: Imaging protocol: Computed tomography of the abdomen and pelvis with intravenous contrast. Radiation optimization: All CT scans at this facility use at least one of these dose optimization techniques: automated exposure control; mA and/or kV adjustment per patient size (includes targeted exams where dose is matched to clinical indication); or iterative reconstruction. Contrast material: OMNIPAQUE 350; Contrast volume: 128 ml; Contrast route: IV; COMPARISON: CT RENAL COLIC WO 01/10/2019 12:09 AM FINDINGS: Liver: Normal. No mass. Gallbladder and bile ducts: Status post cholecystectomy. Pancreas: Normal. No ductal dilation. Spleen: Normal. No splenomegaly. Adrenals: Normal. No mass. Kidneys and ureters: Left renal cyst. Stomach and bowel: Diverticulosis without acute diverticulitis. Appendix: No evidence of appendicitis. Intraperitoneal space: Unremarkable. No free air. No significant fluid collection. Vasculature: Unremarkable. No abdominal aortic aneurysm. Lymph nodes: Shotty pericecal adenopathy. Bladder: Unremarkable as visualized. Reproductive: Status post hysterectomy. Bones/joints: Mild lumbar spondylosis. Soft tissues: Unremarkable. IMPRESSION: No acute abnormality seen to account for the patient's symptoms. Lab Data Lab results reviewed: Yes I reviewed the patient's lab results. Labs: Laboratory Tests Range/Units 01/27/19 01/27/19 01/27/19 11:04 11:04 11:31 WBC (4.4-10.8) k/cumm 7.38 RBC (4.00-5.20) m/cumm 5.06 Hgb (12.0-15.5) g/dL 14.8 Hct (36.0-46.0) % 44.0 MCV (80-95) fL 87.0 MCH (27.0-33.0) pg 29.2 MCHC (32.0-36.0) g/dL 33.6 RDW (11.7-14.6) % 13.0 Plt Count (130-400) x1000/uL 263 MPV (8.0-11.0) fL 11.1 H Immature Gran % 0.3 Neutrophils % 72.8 Lymphocytes % 22.6 Monocytes % 3.7 Eosinophils % 0.3 Basophils % 0.3 Absolute Neutrophils (1.2-6.7) k/cumm 5.38 Absolute Lymphocytes (1.2-3.4) k/cumm 1.67 Absolute Monocytes (0.11-0.7) k/cumm 0.27 Absolute Eosinophils (0.0-0.7) k/cumm 0.02 Absolute Basophils (0.0-0.2) k/cumm 0.02 Sodium (136-145) mmol/L 136 Potassium (3.5-5.1) mmol/L 3.9 Chloride (98-107) mmol/L 105 Carbon Dioxide (21.0-32.0) mmol/L 24.1 Anion Gap (3-11) mmol/L 6.9 BUN (7-18) mg/dL 11 Creatinine (0.55-1.02) mg/dL 0.69 Estimated GFR/1.73 m2 (mL/min/1.73m2) >= 60.00 Glucose (74-106) mg/dL 142 H Calcium (8.5-10.1) mg/dL 8.9 Magnesium (1.8-2.4) mg/dL 1.9 Total Bilirubin (0.2-1.0) mg/dL 0.3 AST (15-37) U/L 34 ALT (14-59) U/L 45 Alkaline Phosphatase (46-116) U/L 171 H Troponin I (<0.06) ng/Ml < 0.05 Total Protein (6.4-8.2) g/dL 7.6 Albumin (3.4-5.0) g/dL 3.7 Urine Color (Yellow) Yellow Urine Clarity (Clear) Clear Urine pH (5-8) 6.0 Ur Specific Clute (1.005-1.025) 1.020 Urine Protein (Negative) mg/dL Trace H Urine Ketones (Negative) mg/dL 80 H Urine Blood (Negative) Negative Urine Nitrite (Negative) Negative Urine Bilirubin (Negative) Negative Urine Urobilinogen (Up TO 0.2) EU/dL 0.2 Ur Leukocyte Esterase (Negative) Negative Urine RBC (0-2) HPF Negative Urine WBC (0-5) HPF 0-2 Ur Epithelial Cells (Negative) HPF Many Urine Crystals (Negative) HPF Negative Urine Bacteria (Negative) HPF Few Urine Casts (Negative) LPF Negative Urine Mucus (Negative) Moderate Ur Culture Indicated? No/sq. contamination Urine Glucose (Negative) mg/dL 500 H HPI General Mode of arrival: ambulatory. Date/Time Provider Initiated Documentation: 01/27/19 10:52. Limitations to Documentation: no limitations. Information obtained by: patient. History of Present Illness 53 year old F presents to the emergency department with the chief complaint of vomiting, described as moderate, Quality is described as aching, and is localized to the abdomen. Patient started experiencing this day(s) (1) and it has been constant. No relieving factors improve symptom(s), No exacerbating factors reported . Patient notes fever/chills (chills, no known fever ), malaise and nausea/vomiting (multiple times); denies chest pain, cough, diaphoresis, headaches, loss of appetite, rash, seizure, shortness of breath, syncope and weakness. Patient did receive the following treatments prior to arrival, none Related Data Home Medications Medication Instructions Recorded Confirmed lorazepam [Ativan] 1 mg PO BID 01/04/13 01/27/19 aspirin [Aspir-81] 1 tab PO DAILY 12/19/13 01/27/19 cyproheptadine 8 mg PO HS 10/28/14 01/27/19 lancets #100 ea 04/15/15 01/27/19 citalopram 40 mg PO DAILY tab-cap 06/28/16 01/27/19 olanzapine 15 mg PO DAILY tab-cap 02/02/17 01/27/19 hydroxyzine pamoate [Vistaril] 25 mg PO PRN 03/24/17 01/27/19 prazosin 4 mg PO HS 03/24/17 01/27/19 nitroglycerin [Nitrostat] 0.4 mg SUBLINGUAL Q5 MIN PRN X3 05/26/17 01/27/19 PRN #1 bottle Blood Glucose Test #120 strip 08/25/17 01/27/19 pen needle, diabetic [Pen Needle] #4 box 08/25/17 01/27/19 blood-glucose meter #1 each 11/24/17 01/27/19 atorvastatin 40 mg tablet 40 mg PO DAILY #90 tab-cap 04/09/18 01/27/19 carbamazepine 200 mg tablet 200 mg PO TID 04/11/18 01/27/19 rabeprazole 20 mg tablet,delayed 20 mg PO DAILY #90 tab-cap 05/02/18 01/27/19 release fluticasone propionate 50 1 - 2 spray NS DAILY PRN #3 unit 05/31/18 01/27/19 mcg/actuation nasal spray,suspension amlodipine 5 mg tablet 5 mg PO BID #180 tab-cap 08/10/18 01/27/19 gabapentin 600 mg tablet 600 mg PO TID 60 Days #180 tab 08/13/18 01/27/19 naloxone 4 mg/actuation nasal spray 1 spray ALICIA ONCE PRN 09/05/18 01/27/19 empagliflozin 25 mg tablet 25 mg PO DAILY #90 tab-cap 11/15/18 01/27/19 nystatin 100,000 unit/gram topical 1 applic TP BID PRN #15 gm 11/29/18 01/27/19 cream flash glucose scanning reader #1 each 11/30/18 01/27/19 flash glucose sensor #6 each 11/30/18 01/27/19 tramadol 50 mg tablet 50 mg PO BID PRN 28 Days #56 tab 01/02/19 01/27/19 MDD 2 tablets/day insulin aspart U-100 100 unit/mL 6 unit SC AC #6 syringe 01/14/19 01/27/19 (3 mL) subcutaneous pen insulin glargine 100 unit/mL (3 64 unit SUB-Q HS #18 syringe 01/14/19 01/27/19 mL) subcutaneous pen atenolol 50 mg tablet 25 mg PO DAILY #45 tab-cap 01/23/19 01/27/19 losartan 100 mg tablet 100 mg PO DAILY #90 tab-cap 01/23/19 01/27/19 promethazine 25 mg PO TID PRN #7 tab 01/27/19 Previous Rx's Medication Instructions Recorded nitroglycerin [Nitrostat] 0.4 mg SUBLINGUAL Q5 MIN PRN X3 05/26/17 PRN #1 bottle Blood Glucose Test #120 strip 08/25/17 pen needle, diabetic [Pen Needle] #4 box 08/25/17 blood-glucose meter #1 each 11/24/17 atorvastatin 40 mg tablet 40 mg PO DAILY #90 tab-cap 04/09/18 rabeprazole 20 mg tablet,delayed 20 mg PO DAILY #90 tab-cap 05/02/18 release fluticasone propionate 50 1 - 2 spray NS DAILY PRN #3 unit 05/31/18 mcg/actuation nasal spray,suspension amlodipine 5 mg tablet 5 mg PO BID #180 tab-cap 08/10/18 gabapentin 600 mg tablet 600 mg PO TID 60 Days #180 tab 08/13/18 empagliflozin 25 mg tablet 25 mg PO DAILY #90 tab-cap 11/15/18 nystatin 100,000 unit/gram topical 1 applic TP BID PRN #15 gm 11/29/18 cream flash glucose scanning reader #1 each 11/30/18 flash glucose sensor #6 each 11/30/18 tramadol 50 mg tablet 50 mg PO BID PRN 28 Days #56 tab 01/02/19 MDD 2 tablets/day insulin aspart U-100 100 unit/mL 6 unit SC AC #6 syringe 01/14/19 (3 mL) subcutaneous pen insulin glargine 100 unit/mL (3 64 unit SUB-Q HS #18 syringe 01/14/19 mL) subcutaneous pen atenolol 50 mg tablet 25 mg PO DAILY #45 tab-cap 01/23/19 losartan 100 mg tablet 100 mg PO DAILY #90 tab-cap 01/23/19 promethazine 25 mg PO TID PRN #7 tab 01/27/19 Allergies Allergy/AdvReac Type Severity Reaction Status Date / Time Iodine and Iodide Containing Allergy Mild Skin Rash Verified 01/27/19 11:10 Produc codeine AdvReac Intermediate Nausea Verified 01/27/19 11:10 prochlorperazine edisylate AdvReac Intermediate Nausea Verified 01/27/19 11:10 [From Compazine] prochlorperazine maleate AdvReac Intermediate Nausea Verified 01/27/19 11:10 [From Compazine] oxycodone HCl [From Percocet] AdvReac Mild Nausea Verified 01/27/19 11:10 CHLORA PREP Allergy Intermediate skin Uncoded 01/27/19 11:10 blisters STERI STRIPS Allergy Intermediate skin Uncoded 01/27/19 11:10 blisters General Stated Complaint: Nausea/Vomit/Diar FRED: 3 Review of Systems All systems reviewed & are unremarkable except as noted in HPI and below Constitutional Constitutional: Reports as per HPI, Reports chills and Denies fever(s) Eyes Eyes: Denies blurry vision ENT Ears, Nose, Mouth, and Throat: Denies dizziness, Denies sore throat and Denies throat swelling Cardiovascular Cardiovascular: Denies chest pain and Denies dyspnea Respiratory Respiratory: Denies cough and Denies dyspnea Gastrointestinal Gastrointestinal: Reports abdominal pain, Denies diarrhea and Reports vomiting Genitourinary Genitourinary: Denies hematuria and Denies dysuria Musculoskeletal Musculoskeletal: Denies back pain and Denies numbness Integumentary/Breasts Skin/Breast: Denies lesions and Denies rash Neurologic Neurologic: Denies dizziness, Denies focal weakness and Denies numbness Allergic/Immunologic Allergic/Immunologic: Denies throat swelling [facility] Medical History Adult BMI > 30 (Chronic) Allergic rhinitis (Chronic 10/28/14) Aortic regurgitation (Chronic) 05/26/2017 echo: mild-moderate --> repeat echo 2-3 years Back pain (Chronic 10/28/14) Bipolar affective disorder (Chronic) [facility] Bipolar disorder Cholelithiasis (Chronic 10/28/14) Chronic pain (Chronic) Drug overdose (Resolved 10/28/14) Fatty liver (Chronic 02/05/15) GI consult, probable metabolic syndrome Gastroesophageal reflux disease with esophagitis (Chronic) Heart murmur History of colonic polyps (Inactive 06/11/15) History of migraine headaches Hyperlipidemia (Chronic 10/28/14) 11/2016 labwork: 10-year ASCVD risk = ~5.7% --> continue current moderate intensity statin therapy Hypertension (Chronic 10/28/14) Migraine headache (Chronic 10/28/14) LEISA (obstructive sleep apnea) (Chronic 09/21/14) moderate, AHI 15, Dr Elliott [facility] PTSD (post-traumatic stress disorder) (Chronic) [facility] 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 Dr. Stearns. Cholecystectomy (04/09/12) Colonscopy (06/11/15) Reji Dumont EGD (11/14/06) EGD w/biopsies (06/11/15) Reji Dumont MD EGD with biopsy (09/08/08) EGD/colonoscopy (07/19/04) Excision, Lipoma (06/12/08) right back Left heart Catheterization, Angiography (06/01/17) ORIF radial fx (10/05/15) [facility] 1998 or 1999 de Quervain's release left wrist Dr [id number] L distal radius and ulna partial hysterectomy (Resolved) retained ovaries per pt Revision L carpal tunnel release (04/18/14) Flexor tenosynovectomy, hardware removal, Dr Ocasio [facility] varicose veins (Resolved 08/23/04) Social History Smoking/Tobacco Use Status: Never Alcohol Intake: current Alcohol Intake frequency: holidays/special occasions only Drug use: Never Substance use type: does not use Adopted: Yes Caregiver/Support person: No Household members: other Details: but not together Number of Children: 2 Communication Needs: None Education Level: high school Details: 8th Pets and animals: Yes Pets and animals: dog(s) Sexually active: Yes Current gender identity: female What type of physical activity do you participate in: walking Duration: 15-30 minutes/day Frequency: daily Seatbelt use: always Drive intox or ride w/intox charter driver: No Water heater temp set <120 deg: Yes Working smoke detector in home: Yes Fire extinguisher in home: Yes Carbon monox detector in home: Yes Firearms in home: Yes Do you feel safe at home: Yes Do you feel safe in your relationship?: Yes Exam Const General: cooperative, healthy appearing and no acute distress HENMT Head: normal to inspection Face and sinus: normal facial exam Eyes General: appearance normal, both eyes and all related structures EOM: EOM intact bilaterally Neck Neck: normal visual inspection and No submandibular swelling Lymphatic: no lymphadenopathy noted Chest Chest: normal inspection of the chest and no tenderness Resp Effort & Inspection: normal respiratory effort and able to speak in complete sentences Auscultation: clear to auscultation bilaterally Cardio Rate: regular rate Rhythm: regular rhythm GI Inspection: normal to inspection Palpation: soft, not firm, not rigid and tender in the epigastrum Auscultation: normal bowel sounds Skin General skin exam: no rashes or lesions noted Neuro General: alert, awake and oriented x3 Cognition: normal cognition Speech: speech normal Motor: muscle tone normal throughout Sensory Exam: no sensory deficits noted Extrem General: normal to inspection, full ROM, normal capillary refill, no calf tenderness bilaterally and no edema Psych Appearance: grossly normal Mental Status: mental status grossly normal Speech and Movement: speech and movement normal Affect: normal affect Course Vital Signs Vital signs: Vital Signs Temperature 97.8 F 01/27/19 10:58 Pulse 76 01/27/19 10:58 Respiratory Rate 28 H 01/27/19 10:58 Blood Pressure 154/106 H 01/27/19 10:58 Pulse Oximetry 98 01/27/19 10:58 Temperature 97.8 F 01/27/19 10:58 Temperature Source Oral 01/27/19 10:58 Pulse 76 01/27/19 10:58 Respiratory Rate 28 H 01/27/19 10:58 Respiratory Effort Non-Labored 01/27/19 10:59 Blood Pressure 154/106 H 01/27/19 10:58 Blood Pressure Position Sitting 01/27/19 10:58 Pulse Oximetry 98 01/27/19 10:58 Oxygen Delivery Method Room Air 01/27/19 10:58 Oxygen Flow Rate 0 01/27/19 10:58 Pain Level 0 01/27/19 10:58 Lab/Test Results Lab/Test Results: Laboratory Tests Range/Units 01/27/19 11:04 WBC (4.4-10.8) k/cumm 7.38 RBC (4.00-5.20) m/cumm 5.06 Hgb (12.0-15.5) g/dL 14.8 Hct (36.0-46.0) % 44.0 MCV (80-95) fL 87.0 MCH (27.0-33.0) pg 29.2 MCHC (32.0-36.0) g/dL 33.6 RDW (11.7-14.6) % 13.0 Plt Count (130-400) x1000/uL 263 MPV (8.0-11.0) fL 11.1 H Immature Gran % 0.3 Neutrophils % 72.8 Lymphocytes % 22.6 Monocytes % 3.7 Eosinophils % 0.3 Basophils % 0.3 Absolute Neutrophils (1.2-6.7) k/cumm 5.38 Absolute Lymphocytes (1.2-3.4) k/cumm 1.67 Absolute Monocytes (0.11-0.7) k/cumm 0.27 Absolute Eosinophils (0.0-0.7) k/cumm 0.02 Absolute Basophils (0.0-0.2) k/cumm 0.02
[2019-01-27] MEDS: Metoclopramide 10 MG/2 ML VIAL IVP (11:37)
[2019-01-27] MEDS: Ketorolac 30 MG/ML VIAL IVP (11:37)
[2019-01-27] MEDS: Normal Saline 50 ML 100 ML (11:37)
[2019-01-27 11:38] LABS: ALT 45 U/L (14-59); AST 34 U/L (15-37); Albumin 3.7 g/dL (3.4-5.0); Alkaline Phosphatase 171 U/L (46-116); Anion Gap 6.9 mmol/L (3-11); BUN 11 mg/dL (7-18); Bilirubin, Total 0.3 mg/dL (0.2-1.0); CO2 24.1 mmol/L (21.0-32.0); CREATININE 0.69 mg/dL (0.55-1.02); Calcium 8.9 mg/dL (8.5-10.1); Chloride 105 mmol/L (98-107); Glucose 142 mg/dL (74-106); Magnesium 1.9 mg/dL (1.8-2.4); Potassium 3.9 mmol/L (3.5-5.1); Sodium 136 mmol/L (136-145); Total Protein 7.6 g/dL (6.4-8.2); Troponin I < 0.05 ng/Ml (<0.06)
[2019-01-27 11:41] LABS: Bilirubin Negative (Negative); Blood Negative (Negative); Clarity Clear (Clear); Glucose 500 mg/dL (Negative); Ketones 80 mg/dL (Negative); Leukocyte Esterase Negative (Negative); Nitrite Negative (Negative); Urobilinogen 0.2 EU/dL (Up TO 0.2)
[2019-01-27 11:49] LABS: Bacteria Few HPF (Negative); C & S Indicated? No/Sq. Contamination; Casts Negative LPF (Negative); Crystals Negative HPF (Negative); Epithelial Cells Many HPF (Negative); Mucus Moderate (Negative); RBC Negative HPF (0-2); WBC 0-2 HPF (0-5)
--- NOTE | 2019-01-27 12:51 | DI.CT_ITS ---
EXAM: CT ABDOMEN PELVIS W CLINICAL HISTORY: upper abd pain, vomiting TECHNIQUE: Post IV contrast. Without oral contrast. 128 cc's of Omnipaque 350 was utilized. COMPARISON: CT RENAL COLIC WO from 01/10/2019 FINDINGS: Lung bases are clear. Liver shows diffuse fatty infiltration. Patient is status post cholecystectomy . There is no biliary dilatation. The pancreas, spleen, adrenals and kidneys are unremarkable. Bladde r appears intact. The patient is status post hysterectomy. The ovaries are normal in size. There are a few scattered diverticula. There is no evidence of diverticulitis. There is a normal quantity of st ool. The appendix appears normal. There is no small bowel dilatation, free air or free fluid. Mild at herosclerotic changes of the abdominal aorta. IMPRESSION: No acute abnormality.
[2019-01-27] MEDS: Omnipaque 350 MG/ML 100 ML BTL IJ (12:52)
[2019-01-27] MEDS: Normal Saline Flush 10 ML SYR IVP (12:54)
[2019-01-27] MEDS: methylPREDNISolone SUCC 125 MG VIAL IVP (13:09)
[2019-01-27] MEDS: diphenhydrAMINE 50 MG/ML VIAL IVP (13:10)
--- NOTE | 2019-01-27 13:45 | DI.VRAD_ITS ---
PROCEDURE INFORMATION: Exam: CT Abdomen And Pelvis With Contrast Exam date and time: 01/27/2019 12:32 PM Age: 53 years old Clinical history: Other: Upper abd pain, vomiting; Additional info: First scan did not have adequate contrast highlighting patients anatomy. 2nd scan performed. TECHNIQUE: Imaging protocol: Computed tomography of the abdomen and pelvis with intravenous contrast. Radiation optimization: All CT scans at this facility use at least one of these dose optimization techniques: automated exposure control; mA and/or kV adjustment per patient size (includes targeted exams where dose is matched to clinical indication); or iterative reconstruction. Contrast material: OMNIPAQUE 350; Contrast volume: 128 ml; Contrast route: IV; COMPARISON: CT RENAL COLIC WO 01/10/2019 12:09 AM FINDINGS: Liver: Normal. No mass. Gallbladder and bile ducts: Status post cholecystectomy. Pancreas: Normal. No ductal dilation. Spleen: Normal. No splenomegaly. Adrenals: Normal. No mass. Kidneys and ureters: Left renal cyst. Stomach and bowel: Diverticulosis without acute diverticulitis. Appendix: No evidence of appendicitis. Intraperitoneal space: Unremarkable. No free air. No significant fluid collection. Vasculature: Unremarkable. No abdominal aortic aneurysm. Lymph nodes: Shotty pericecal adenopathy. Bladder: Unremarkable as visualized. Reproductive: Status post hysterectomy. Bones/joints: Mild lumbar spondylosis. Soft tissues: Unremarkable. IMPRESSION: No acute abnormality seen to account for the patient's symptoms. COMMENT: Preliminary interpretation is based on receipt of 1321 image(s). A final report will be issued subsequently. Dictated and Authenticated by: Kristan Dewitt MD. Ordering:DAJUAN Gregg MD
[2019-01-27] MEDS: Promethazine 25 MG TAB 50 MG PO (14:04)
== END 2019-01-27 14:07 | disposition home or self-care (01) ==
PROVIDERS: Emergency Provider Physician Assistant; PCP Nurse Practitioner Family
DX: R10.13 Epigastric pain (principal); R11.2 Nausea with vomiting, unspecified; R19.7 Diarrhea, unspecified; I10 Essential (primary) hypertension; E11.9 Type 2 diabetes mellitus without complications; Z79.4 Long term (current) use of insulin
CPT/HCPCS: 36415; 80053; 96361; 96374; 96375; 99285; 74177; 81003; 81015; 83735; 84484; 85025; J1200; J1885; J2765; J2930; J3490

== ENCOUNTER 2019-01-28 08:13 | Observation (INO) | payer BC, SELFPAY ==
[2019-01-28] VITALS (10 sets, daily range): BP systolic 138–163; BP diastolic 77–98; PULSE 58–80; RESP 16–20; TEMP 36.5–37.6; O2SAT 89–98
[2019-01-28] MEDS: Lactated Ringers 1,000 ML 1000 ML IV (08:50)
[2019-01-28] MEDS: Ondansetron 4 MG/2 ML VIAL IVP ×2 (09:01→17:26)
[2019-01-28 09:11] LABS: Abs Immature Grans 0.01 k/cumm (0.0-0.09); Absolute Basophil Count 0.02 k/cumm (0.0-0.2); Absolute Eosinophil Count 0.01 k/cumm (0.0-0.7); Absolute Neutrophil Count 5.88 k/cumm (1.2-6.7); Basophils % 0.3; Eosinophils % 0.1; HCT 42.4 % (36.0-46.0); HGB 14.1 g/dL (12.0-15.5); Immature Grans % 0.1; Lymphocytes % 18.9; Mean Corp. HGB Concentration 33.3 g/dL (32.0-36.0); Mean Corpuscular Hemoglobin 29.1 pg (27.0-33.0); Mean Corpuscular Volume 87.4 fL (80-95); Mean Platelet Volume 10.8 fL (8.0-11.0); Monocytes % 6.3; Neutrophils % 74.3; Platelet Count 265 x1000/uL (130-400); RBC 4.85 m/cumm (4.00-5.20); RBC Distribution Width 13.1 % (11.7-14.6); White Blood Cell Count 7.92 k/cumm (4.4-10.8)
[2019-01-28 09:22] LABS: ALT 44 U/L (14-59); AST 36 U/L (15-37); Albumin 3.6 g/dL (3.4-5.0); Alkaline Phosphatase 162 U/L (46-116); Anion Gap 10.2 mmol/L (3-11); BUN 13 mg/dL (7-18); Bilirubin, Total 0.3 mg/dL (0.2-1.0); CO2 25.8 mmol/L (21.0-32.0); CREATININE 0.77 mg/dL (0.55-1.02); Calcium 8.8 mg/dL (8.5-10.1); Chloride 106 mmol/L (98-107); Glucose 131 mg/dL (74-106); Potassium 3.8 mmol/L (3.5-5.1); Sodium 142 mmol/L (136-145); Total Protein 7.5 g/dL (6.4-8.2)
[2019-01-28 09:23] LABS: Magnesium 2.1 mg/dL (1.8-2.4)
[2019-01-28 09:32] LABS: Troponin I < 0.05 ng/Ml (<0.06)
[2019-01-28 09:38] LABS: Lipase 67 U/L (73-393)
[2019-01-28] MEDS: Lactated Ringers 1,000 ML 125 ML IV (09:45)
[2019-01-28] MEDS: Pantoprazole 40 MG VIAL IVP (10:01)
--- NOTE | 2019-01-28 10:38 | ED.GENADUL_ITS ---
Discharge Plan Discharge Details Chief Complaint: Nausea/Vomit/Diar Primary Care Provider: May Watson ED Provider: Ileana Naqvi Home Meds and New Rx's Prescriptions: No Action gabapentin 600 mg tablet 600 mg PO TID 60 Days Qty: 180 RF: 5 nystatin 100,000 unit/gram cream 1 applic TP BID PRN (Reason: intertrigo) Qty: 15 RF: 3 Narcan 4 mg/actuation spray,non-aerosol 1 spray ALICIA ONCE PRNRF: 0 tramadol 50 mg tablet 50 mg PO BID MDD 2 tablets/day PRN (Reason: pain) 28 Days Qty: 56 RF: 0 cyproheptadine 4 MG tablet 8 mg PO HS RF: 0 (DME) lancets 1 EACH misc 1 ea Miscellaneous AC & HS Qty: 100 RF: 11 citalopram 40 MG tablet 40 mg PO DAILY RF: 0 olanzapine 10 MG tablet 15 mg PO DAILY RF: 0 prazosin 2 MG capsule 4 mg PO HS RF: 0 hydroxyzine pamoate [Vistaril] 25 MG capsule 25 mg PO PRN RF: 0 (DME) Blood Glucose Test 1 EACH strip 1 ea Miscellaneous AC & HS Qty: 120 RF: 11 (DME) pen needle, diabetic [Pen Needle] 1 EACH needle 1 ea SQ QID Qty: 4 RF: 3 (DME) blood-glucose meter misc See Dose Instructions .Route .MEDSUPPLY Qty: 1 RF: 0 atorvastatin 40 mg tablet 40 mg PO DAILY Qty: 90 RF: 3 carbamazepine 200 mg tablet 200 mg PO TID RF: 0 rabeprazole 20 mg tablet,delayed release (DR/EC) 20 mg PO DAILY Qty: 90 RF: 3 fluticasone propionate [Flonase Allergy Relief] 50 mcg/actuation spray,suspension 1 - 2 spray NS DAILY PRN (Reason: nasal congestion) Qty: 3 RF: 3 amlodipine 5 mg tablet 5 mg PO BID Qty: 180 RF: 3 Jardiance 25 mg tablet 25 mg PO DAILY Qty: 90 RF: 3 (DME) FreeStyle Laila 14 Day Sensor Kit See Rx Instructions .ROUTE .MEDSUPPLY Qty: 6 RF: 3 (DME) FreeStyle Laila 14 Day [place] Misc See Rx Instructions .ROUTE .MEDSUPPLY Qty: 1 RF: 0 Novolog Flexpen U-100 Insulin 100 unit/mL (3 mL) insulin pen 6 unit SC AC Qty: 6 RF: 3 Lantus Solostar U-100 Insulin 100 unit/mL (3 mL) insulin pen 64 unit Sub-Q HS Qty: 18 RF: 3 atenolol 50 mg tablet 25 mg PO DAILY Qty: 45 RF: 3 losartan 100 mg tablet 100 mg PO DAILY Qty: 90 RF: 3 lorazepam [Ativan] 1 MG tablet 1 mg PO BID RF: 0 aspirin [Aspir-81] 81 MG tablet,delayed release (DR/EC) 1 tab PO DAILY RF: 0 nitroglycerin [Nitrostat] 0.4 MG tablet, sublingual 0.4 mg Sublingual Q5 MIN PRN X3 PRNQty: 1 RF: 0 promethazine 25 mg tablet 25 mg PO TID PRN (Reason: nausea and vomiting) Qty: 7 RF: 0 Medical Decision Making There is a 53-year-old woman who presents for intractable nausea and vomiting. Patient reports she was seen in the emergency room yesterday had CT evaluation as well as labs. Was provided multiple medications to try to control her nausea. Patient reports she has had 3 days of nausea vomiting and diarrhea. Diarrhea did begin yesterday. Diarrhea is mostly watery with some associated mucus in her bowel movements. Patient is complaining of epigastric discomfort which is persistent at this time. Patient has numerous episodes of vomiting daily which is certainly could be contributing to her epigastric discomfort. Patient is a diabetic as well as has a psych history. Patient is concerned that she has been unable to hold down her medications for the last 3 days. Patient's blood sugars have been within normal range at home per her account. Patient denies urinary urgency, frequency or dysuria. Patient again is feeling dehydrated after persistent vomiting at home since discharge yesterday. Patient does report historically she did require admission to the hospital after a similar episode of persistent vomiting. Patient denies any significant change in her abdominal discomfort. Patient reports persistent abdominal distention. IV fluids again ordered, LR ordered, Zofran, morphine ordered for patient's discomfort. Labs obtained. Will defer CT imaging at this time as she had a normal CAT scan yesterday with similar complaints with minimal change Patient reports no significant improvement after approximately 45 minutes after initial medications provided. Will add Phenergan as well as another dose of morphine and Protonix. Labs are quite reassuring today. No significant leukocytosis. No significant shift or electrolyte abnormalities. Lipase is not noted to be elevated. I consider gastroparesis as a possible source of patient's persistence and difficult management of her vomiting. Gastritis remains in the differential diagnosis. Patient has no significant identifying factors relating to infection, she is afebrile and she has no associated leukocytosis. Patient is status post cholecystectomy several years ago. After discussion with this patient her preference is to be admitted at this time. Spoke with Hosptialist, Dr. Peralta, who will admit this patient. HPI General Date/Time Provider Initiated Documentation: 01/28/19 08:14 . HPI Narrative: This is a 53-year-old patient who presents to the emergency room today for persistent nausea. Patient reports nausea with several episodes of vomiting. Patient was discharged with Phenergan yesterday. Patient reports unable to hold down anything. No relief with nausea medications. Patient reports she is been unable to take her insulin and diabetic meds for the last 3 days. Patient reports significant upper abdominal pain. Patient did have a CT evaluation of her abdomen yesterday which did not reveal any significant acute pathology. Patient has upper abdominal discomfort associated with several episodes of vomiting daily, constant nausea. Patient reports associated watery diarrhea with associated mucus. Which began yesterday. Patient denies measured fever or chills. Patient denies urinary urgency, frequency or dysuria. Patient is feeling weak and fatigued. Denies active chest pain. Denies neck or back pain. No extremity swelling. No blood in vomitus or bowel movements. Related Data Home Medications Medication Instructions Recorded Confirmed lorazepam [Ativan] 1 mg PO BID 01/04/13 01/28/19 aspirin [Aspir-81] 1 tab PO DAILY 12/19/13 01/28/19 cyproheptadine 8 mg PO HS 10/28/14 01/28/19 lancets #100 ea 04/15/15 01/28/19 citalopram 40 mg PO DAILY tab-cap 06/28/16 01/28/19 olanzapine 15 mg PO DAILY tab-cap 02/02/17 01/28/19 hydroxyzine pamoate [Vistaril] 25 mg PO PRN 03/24/17 01/28/19 prazosin 4 mg PO HS 03/24/17 01/28/19 nitroglycerin [Nitrostat] 0.4 mg SUBLINGUAL Q5 MIN PRN X3 05/26/17 01/28/19 PRN #1 bottle Blood Glucose Test #120 strip 08/25/17 01/28/19 pen needle, diabetic [Pen Needle] #4 box 08/25/17 01/28/19 blood-glucose meter #1 each 11/24/17 01/28/19 atorvastatin 40 mg tablet 40 mg PO DAILY #90 tab-cap 04/09/18 01/28/19 carbamazepine 200 mg tablet 200 mg PO TID 04/11/18 01/28/19 rabeprazole 20 mg tablet,delayed 20 mg PO DAILY #90 tab-cap 05/02/18 01/28/19 release fluticasone propionate 50 1 - 2 spray NS DAILY PRN #3 unit 05/31/18 01/28/19 mcg/actuation nasal spray,suspension amlodipine 5 mg tablet 5 mg PO BID #180 tab-cap 08/10/18 01/28/19 gabapentin 600 mg tablet 600 mg PO TID 60 Days #180 tab 08/13/18 01/28/19 naloxone 4 mg/actuation nasal spray 1 spray ALICIA ONCE PRN 09/05/18 01/28/19 empagliflozin 25 mg tablet 25 mg PO DAILY #90 tab-cap 11/15/18 01/28/19 nystatin 100,000 unit/gram topical 1 applic TP BID PRN #15 gm 11/29/18 01/28/19 cream flash glucose scanning reader #1 each 11/30/18 01/28/19 flash glucose sensor #6 each 11/30/18 01/28/19 tramadol 50 mg tablet 50 mg PO BID PRN 28 Days #56 tab 01/02/19 01/28/19 MDD 2 tablets/day insulin aspart U-100 100 unit/mL 6 unit SC AC #6 syringe 01/14/19 01/28/19 (3 mL) subcutaneous pen insulin glargine 100 unit/mL (3 64 unit SUB-Q HS #18 syringe 01/14/19 01/28/19 mL) subcutaneous pen atenolol 50 mg tablet 25 mg PO DAILY #45 tab-cap 01/23/19 01/28/19 losartan 100 mg tablet 100 mg PO DAILY #90 tab-cap 01/23/19 01/28/19 promethazine 25 mg PO TID PRN #7 tab 01/27/19 01/28/19 Previous Rx's Medication Instructions Recorded nitroglycerin [Nitrostat] 0.4 mg SUBLINGUAL Q5 MIN PRN X3 05/26/17 PRN #1 bottle Blood Glucose Test #120 strip 08/25/17 pen needle, diabetic [Pen Needle] #4 box 08/25/17 blood-glucose meter #1 each 11/24/17 atorvastatin 40 mg tablet 40 mg PO DAILY #90 tab-cap 04/09/18 rabeprazole 20 mg tablet,delayed 20 mg PO DAILY #90 tab-cap 05/02/18 release fluticasone propionate 50 1 - 2 spray NS DAILY PRN #3 unit 05/31/18 mcg/actuation nasal spray,suspension amlodipine 5 mg tablet 5 mg PO BID #180 tab-cap 08/10/18 gabapentin 600 mg tablet 600 mg PO TID 60 Days #180 tab 08/13/18 empagliflozin 25 mg tablet 25 mg PO DAILY #90 tab-cap 11/15/18 nystatin 100,000 unit/gram topical 1 applic TP BID PRN #15 gm 11/29/18 cream flash glucose scanning reader #1 each 11/30/18 flash glucose sensor #6 each 11/30/18 tramadol 50 mg tablet 50 mg PO BID PRN 28 Days #56 tab 01/02/19 MDD 2 tablets/day insulin aspart U-100 100 unit/mL 6 unit SC AC #6 syringe 01/14/19 (3 mL) subcutaneous pen insulin glargine 100 unit/mL (3 64 unit SUB-Q HS #18 syringe 01/14/19 mL) subcutaneous pen atenolol 50 mg tablet 25 mg PO DAILY #45 tab-cap 01/23/19 losartan 100 mg tablet 100 mg PO DAILY #90 tab-cap 01/23/19 promethazine 25 mg PO TID PRN #7 tab 01/27/19 Allergies Allergy/AdvReac Type Severity Reaction Status Date / Time Iodine and Iodide Containing Allergy Mild Skin Rash Verified 01/28/19 08:25 Produc codeine AdvReac Intermediate Nausea Verified 01/28/19 08:25 prochlorperazine edisylate AdvReac Intermediate Nausea Verified 01/28/19 08:25 [From Compazine] prochlorperazine maleate AdvReac Intermediate Nausea Verified 01/28/19 08:25 [From Compazine] oxycodone HCl [From Percocet] AdvReac Mild Nausea Verified 01/28/19 08:25 CHLORA PREP Allergy Intermediate skin Uncoded 01/28/19 08:25 blisters STERI STRIPS Allergy Intermediate skin Uncoded 01/28/19 08:25 blisters General Stated Complaint: Nausea/Vomit/Diar FRED: 3 Review of Systems All systems reviewed & are unremarkable except as noted in HPI and below Constitutional Constitutional: Denies chills, Reports fatigue, Denies fever(s) and Reports malaise ENT Ears, Nose, Mouth, and Throat: Reports dry mouth and Denies otalgia Cardiovascular Cardiovascular: Denies chest pain and Denies syncope Respiratory Respiratory: Denies cough Gastrointestinal Gastrointestinal: Reports abdominal pain, Reports diarrhea, Reports nausea and Reports vomiting Neurologic Neurologic: Denies syncope Endocrine Endocrine: Reports fatigue [facility] Social History Smoking/Tobacco Use Status: Never Alcohol Intake: never Drug use: Never Substance use type: does not use Adopted: Yes Caregiver/Support person: No Household members: other Details: but not together Number of Children: 2 Communication Needs: None Education Level: high school Details: 8th Pets and animals: Yes Pets and animals: dog(s) Sexually active: Yes Current gender identity: female What type of physical activity do you participate in: walking Duration: 15-30 minutes/day Frequency: daily Seatbelt use: always Drive intox or ride 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 Well hydrated. Alert and alert. HENMT: Head nomocephalic, normal to inspection. Atraumatic. Hearing grossly normal. External ear canal no erythema or swelling. TM normal bilaterally. Nose normal to inspection. No rhinnorhea. Normal facial exam. Oral mucosa normal. Tounge normal. Dentition normal. Normal posterior oropharynx. Uvula midline. EYES: General normal appearance. Alignment normal. Eyelids normal. Conjunctiva normal. Sclera normal. PERRL. NECK: Normal visual inspection. FROM. No lymphadenopathy. Trachea midline. No Midline tenderness. CHEST: Normal insepection of the chest. RESP: Normal respiratory effort. Speaking full sentences. No cough. No wheezing. No retractions. Clear to auscaltation. Breath sound equal and present bilaterally. CARDIO: No JVD. Normal PMI. Regular Rate. Regular Rhythm. Normal peripheral pulses. GI: Normal inspection of abdomen. Soft. Moderate epigastric tenderness. Hypoactive bowel sounds present in all 4 quadrants. No rebound. No gaurding. SKIN: Normal. Dry. No rashes. NEURO: Alert and awake. Speech clear. PSYCH: Normal affect. Cooperative. Course Vital Signs Vital signs: Vital Signs Temperature 36.6 C 01/28/19 08:18 Pulse 80 01/28/19 08:18 Respiratory Rate 20 01/28/19 08:18 Blood Pressure 162/98 H 01/28/19 08:18 Pulse Oximetry 96 01/28/19 08:18 Temperature 36.6 C 01/28/19 08:18 Temperature Source Temporal Artery Scan 01/28/19 08:18 Pulse 80 01/28/19 08:18 Respiratory Rate 20 01/28/19 08:18 Respiratory Effort Non-Labored 01/28/19 08:23 Blood Pressure 162/98 H 01/28/19 08:18 Blood Pressure Position Supine 01/28/19 08:18 Pulse Oximetry 96 01/28/19 08:18 Oxygen Delivery Method Room Air 01/28/19 08:18 Oxygen Flow Rate 0 01/28/19 08:18 Pain Level 8 01/28/19 09:02 Lab/Test Results Lab/Test Results: 01/28/19 08:39 Nasopharynx Influenza Types A,B Antigen - Final Laboratory Tests Range/Units 01/28/19 01/28/19 01/28/19 08:50 08:50 08:50 WBC (4.4-10.8) k/cumm 7.92 RBC (4.00-5.20) m/cumm 4.85 Hgb (12.0-15.5) g/dL 14.1 Hct (36.0-46.0) % 42.4 MCV (80-95) fL 87.4 MCH (27.0-33.0) pg 29.1 MCHC (32.0-36.0) g/dL 33.3 RDW (11.7-14.6) % 13.1 Plt Count (130-400) x1000/uL 265 MPV (8.0-11.0) fL 10.8 Immature Gran % 0.1 Neutrophils % 74.3 Lymphocytes % 18.9 Monocytes % 6.3 Eosinophils % 0.1 Basophils % 0.3 Absolute Neutrophils (1.2-6.7) k/cumm 5.88 Absolute Lymphocytes (1.2-3.4) k/cumm 1.50 Absolute Monocytes (0.11-0.7) k/cumm 0.50 Absolute Eosinophils (0.0-0.7) k/cumm 0.01 Absolute Basophils (0.0-0.2) k/cumm 0.02 Sodium (136-145) mmol/L 142 Potassium (3.5-5.1) mmol/L 3.8 Chloride (98-107) mmol/L 106 Carbon Dioxide (21.0-32.0) mmol/L 25.8 Anion Gap (3-11) mmol/L 10.2 BUN (7-18) mg/dL 13 Creatinine (0.55-1.02) mg/dL 0.77 Estimated GFR/1.73 m2 (mL/min/1.73m2) >= 60.00 Glucose (74-106) mg/dL 131 H Calcium (8.5-10.1) mg/dL 8.8 Magnesium (1.8-2.4) mg/dL 2.1 Total Bilirubin (0.2-1.0) mg/dL 0.3 AST (15-37) U/L 36 ALT (14-59) U/L 44 Alkaline Phosphatase (46-116) U/L 162 H Troponin I (<0.06) ng/Ml < 0.05 Total Protein (6.4-8.2) g/dL 7.5 Albumin (3.4-5.0) g/dL 3.6 Lipase (73-393) U/L 67 L
[2019-01-28 11:06] LABS: Clarity Clear (Clear)
[2019-01-28 11:07] LABS: Bilirubin Negative (Negative); Blood Trace-intact (Negative); Glucose 500 mg/dL (Negative); Ketones 40 mg/dL (Negative); Leukocyte Esterase Negative (Negative); Nitrite Negative (Negative); Urobilinogen 0.2 EU/dL (Up TO 0.2); pH 5.5 (5-8)
[2019-01-28 11:29] LABS: Bacteria Few HPF (Negative); C & S Indicated? No; Casts Negative LPF (Negative); Crystals Negative HPF (Negative); Epithelial Cells Few HPF (Negative); Mucus Trace (Negative); RBC 0-2 HPF (0-2); WBC 0-2 HPF (0-5)
[2019-01-28 12:05] LABS: Troponin I < 0.05 ng/Ml (<0.06)
[2019-01-28] MEDS: Normal Saline 1,000 ML 100 ML IV ×2 (12:26→22:26)
[2019-01-28] MEDS: diphenhydrAMINE 50 MG/ML VIAL IM/IVP (12:27)
[2019-01-28] MEDS: Gabapentin 600 MG TAB PO ×2 (14:27→20:01)
[2019-01-28] MEDS: Enoxaparin 40 MG/0.4 ML SYR SC (14:27)
[2019-01-28] MEDS: methylPREDNISolone SUCC 40 MG VIAL 20 MG IVP ×2 (14:28→21:18)
[2019-01-28] MEDS: MORPHine 2 MG/ML SYR IVP (15:37)
--- NOTE | 2019-01-28 15:52 | W.PM.HP.N ---
Date of service: 01/28/19 Time of Service: 15:52 Assessment and Plan Assessment and plan (1) Nausea & vomiting: Status: Acute Assessment and plan: Persistent. Differentials include gastroparesis, gastritis, viral process. Troponin <0.05 x2, third pending. Continue IV fluids, antiemetics, morphine for pain as needed. NPO after midnight for gastric emptying study tomorrow. Repeat labs tomorrow morning. (2) Type 2 diabetes mellitus, with long-term current use of insulin: Status: Chronic Assessment and plan: Continue long-acting insulin at decreased dose in the setting of poor p.o. intake. Monitor blood glucose at AC. Short acting insulin per sliding scale. Adjust insulin regimen as needed. Qualifiers: Diabetes mellitus complication status: without complication Qualified Code(s): E11.9 - Type 2 diabetes mellitus without complications; Z79.4 - extermination inspector (current) use of insulin (3) Bipolar affective disorder: Status: Chronic Assessment and plan: Appears stable. Continue home regimen. (4) Gastroesophageal reflux disease with esophagitis: Status: Chronic Assessment and plan: With epigastric discomfort in the setting of GI upset with nausea and vomiting. Continue IV Protonix. (5) Hypertension: Status: Chronic Assessment and plan: Blood pressure within a reasonable range. Continue home regimen, continue to monitor blood pressure. Qualifiers: Hypertension type: essential hypertension Qualified Code(s): I10 - Essential (primary) hypertension (6) Hyperlipidemia: Status: Chronic Assessment and plan: Continue atorvastatin. Qualifiers: Hyperlipidemia type: unspecified Qualified Code(s): E78.5 - Hyperlipidemia, unspecified (7) LEISA (obstructive sleep apnea): Status: Chronic Assessment and plan: CPAP while asleep. (8) DVT prophylaxis: Status: Acute Assessment and plan: Subcutaneous Lovenox. (9) Discharge planning issues: Status: Acute Assessment and plan: She is a FULL CODE. This case was discussed with Dr. Peralta who is in agreement. History of Present Illness History of Present Illness Chief Complaint: Nausea, vomiting, abdominal pain. Narrative: Malia Wynne is a very pleasant 53 year old female with a past medical history significant for type 2 diabetes, obstructive sleep apnea, for which she wears CPAP, migraines, GERD, bipolar disorder, history of suicide attempts, back pain, history of fatty liver, who presented to the emergency department yesterday with nausea and vomiting. She was treated and released. She presented again today with reports of persistent nausea and vomiting as well as abdominal cramping and diarrhea. She was started on IV fluids and received zofran and morphine and then phenergan and protonix due to persistent symptoms. Imaging of her abdomen was not repeated today as her CT abdomen/pelvis yesterday was unremarkable. Her labs did not show leukocytosis or electrolyte abnormalities. Her blood glucose was 131 by labs in the ED. Her UA was not suspicious for infection. Flu swab was negative. Her troponins were <0.05x2. She is admitted to the med/surg floor for further evaluation and management. At the time of her presentation, she had just received an antiemetic, her nausea was under control. She continues to have abdominal cramping and epigastric discomfort. She has not vomited since she has been on the med/surg floor. She had watery diarrhea last night, no diarrhea today. She reported dizziness when standing prior to coming in to the hospital. She has not been eating or drinking at home as she does not have an appetite. She denies chest pain/pressure, palpitations, shortness of breath, coughing, wheezing. No dysuria, hematuria, frequency or urgency of urination. She is concerned about not keeping her medications down for days. Review of Systems All systems reviewed & are unremarkable except as noted in HPI and below [facility] Medical History Adult BMI > 30 (Chronic) Allergic rhinitis (Chronic 10/28/14) Aortic regurgitation (Chronic) 05/26/2017 echo: mild-moderate --> repeat echo 2-3 years Back pain (Chronic 10/28/14) Bipolar affective disorder (Chronic) [facility] Bipolar disorder Cholelithiasis (Chronic 10/28/14) Chronic pain (Chronic) Drug overdose (Resolved 10/28/14) Fatty liver (Chronic 02/05/15) GI consult, probable metabolic syndrome Gastroesophageal reflux disease with esophagitis (Chronic) Heart murmur History of colonic polyps (Inactive 06/11/15) History of migraine headaches Hyperlipidemia (Chronic 10/28/14) 11/2016 labwork: 10-year ASCVD risk = ~5.7% --> continue current moderate intensity statin therapy Hypertension (Chronic 08/25/15) Migraine headache (Chronic 10/28/14) LEISA (obstructive sleep apnea) (Chronic 09/21/14) moderate, AHI 15, Dr Elliott [facility] PTSD (post-traumatic stress disorder) (Chronic) 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 Dr. Stearns. Cholecystectomy (04/09/12) Colonscopy (06/11/15) Reji Dumont EGD (11/14/06) EGD w/biopsies (06/11/15) Reji Dumont MD EGD with biopsy (09/08/08) EGD/colonoscopy (07/19/04) Excision, Lipoma (06/12/08) right back Left heart Catheterization, Angiography (06/01/17) ORIF radial fx (10/05/15) [facility] 1998 or 1999 de Quervain's release left wrist Dr [id number] L distal radius and ulna partial hysterectomy (Resolved) retained ovaries per pt Revision L carpal tunnel release (04/18/14) Flexor tenosynovectomy, hardware removal, Dr Ocasio [facility] varicose veins (Resolved 08/23/04) Family History Mother Heart disease Cancer lung Father Diabetes Heart disease CABG triple vessel, pacemaker Social History Smoking/Tobacco Use Status: Never Alcohol Intake: never Drug use: Never Substance use type: does not use Adopted: Yes Caregiver/Support person: No Household members: other Details: but not together Number of Children: 2 Communication Needs: None Education Level: high school Details: 8th Pets and animals: Yes Pets and animals: dog(s) Sexually active: Yes Current gender identity: female What type of physical activity do you participate in: walking Duration: 15-30 minutes/day Frequency: daily Seatbelt use: always Drive intox or ride w/intox box truck driver: No Water heater temp set <120 deg: Yes Working smoke detector in home: Yes Fire extinguisher in home: Yes Carbon monox detector in home: Yes Firearms in home: Yes Do you feel safe at home: Yes Do you feel safe in your relationship?: Yes Meds Home Medications and Allergies Home Medications Medication Instructions Recorded Confirmed Type lorazepam [Ativan] 1 mg PO BID 01/04/13 01/28/19 History aspirin [Aspir-81] 1 tab PO DAILY 12/19/13 01/28/19 History cyproheptadine 8 mg PO HS 10/28/14 01/28/19 History lancets #100 ea 04/15/15 01/28/19 History citalopram 40 mg PO DAILY tab-cap 06/28/16 01/28/19 History olanzapine 15 mg PO DAILY tab-cap 02/02/17 01/28/19 History hydroxyzine pamoate [Vistaril] 25 mg PO PRN 03/24/17 01/28/19 History prazosin 4 mg PO HS 03/24/17 01/28/19 History nitroglycerin [Nitrostat] 0.4 mg SUBLINGUAL Q5 MIN PRN X3 05/26/17 01/28/19 Rx PRN #1 bottle Blood Glucose Test #120 strip 08/25/17 01/28/19 Rx pen needle, diabetic [Pen Needle] #4 box 08/25/17 01/28/19 Rx blood-glucose meter #1 each 11/24/17 01/28/19 Rx atorvastatin 40 mg tablet 40 mg PO DAILY #90 tab-cap 04/09/18 01/28/19 Rx carbamazepine 200 mg tablet 200 mg PO TID 04/11/18 01/28/19 History rabeprazole 20 mg tablet,delayed 20 mg PO DAILY #90 tab-cap 05/02/18 01/28/19 Rx release fluticasone propionate 50 1 - 2 spray NS DAILY PRN #3 unit 05/31/18 01/28/19 Rx mcg/actuation nasal spray,suspension amlodipine 5 mg tablet 5 mg PO BID #180 tab-cap 08/10/18 01/28/19 Rx gabapentin 600 mg tablet 600 mg PO TID 60 Days #180 tab 08/13/18 01/28/19 Rx naloxone 4 mg/actuation nasal spray 1 spray ALICIA ONCE PRN 07/03/19 11/25/19 History empagliflozin 25 mg tablet 25 mg PO DAILY #90 tab-cap 11/15/18 01/28/19 Rx nystatin 100,000 unit/gram topical 1 applic TP BID PRN #15 gm 11/29/18 01/28/19 Rx cream flash glucose scanning reader #1 each 11/30/18 01/28/19 Rx flash glucose sensor #6 each 11/30/18 01/28/19 Rx tramadol 50 mg tablet 50 mg PO BID PRN 28 Days #56 tab 01/02/19 01/28/19 Rx MDD 2 tablets/day insulin aspart U-100 100 unit/mL 6 unit SC AC #6 syringe 01/14/19 01/28/19 Rx (3 mL) subcutaneous pen insulin glargine 100 unit/mL (3 64 unit SUB-Q HS #18 syringe 01/14/19 01/28/19 Rx mL) subcutaneous pen atenolol 50 mg tablet 25 mg PO DAILY #45 tab-cap 01/23/19 01/28/19 Rx losartan 100 mg tablet 100 mg PO DAILY #90 tab-cap 01/23/19 01/28/19 Rx promethazine 25 mg PO TID PRN #7 tab 01/27/19 01/28/19 Rx Allergies Allergy/AdvReac Type Severity Reaction Status Date / Time Iodine and Iodide Containing Allergy Mild Skin Rash Verified 01/28/19 08:25 Produc codeine AdvReac Intermediate Nausea Verified 01/28/19 08:25 prochlorperazine edisylate AdvReac Intermediate Nausea Verified 01/28/19 08:25 [From Compazine] prochlorperazine maleate AdvReac Intermediate Nausea Verified 01/28/19 08:25 [From Compazine] oxycodone HCl [From Percocet] AdvReac Mild Nausea Verified 01/28/19 08:25 CHLORA PREP Allergy Intermediate skin Uncoded 01/28/19 08:25 blisters STERI STRIPS Allergy Intermediate skin Uncoded 01/28/19 08:25 blisters Exam Narrative Exam Narrative: General: Middle aged female, awake and alert, in NAD. pleasant and cooperative, answers questions appropriately. HEENT: normocephalic, atraumatic, pupils symmetrical and round, EOMI, mucous membranes moist. Neck: supple, no JVD. Cardiovascular: heart has regular rate and rhythm, no murmur appreciated, nontachycardic. Respiratory: respirations even and unlabored, lung sounds clear throughout. GI: normoactive bowel sounds, diffuse mild tenderness noted on palpation of abdomen, increased tenderness in epigastric region. abdomen nondistended. Extremities: no clubbing, cyanosis or edema. Results Labs Result diagrams: 01/28/19 08:50 01/28/19 08:50 Labs: Laboratory Results - last 24 hr 01/28/19 01/28/19 01/28/19 08:50 08:50 08:50 WBC 7.92 RBC 4.85 Hgb 14.1 Hct 42.4 MCV 87.4 MCH 29.1 MCHC 33.3 RDW 13.1 Plt Count 265 MPV 10.8 Immature Gran % 0.1 Neutrophils % 74.3 Lymphocytes % 18.9 Monocytes % 6.3 Eosinophils % 0.1 Basophils % 0.3 Absolute Neutrophils 5.88 Absolute Lymphocytes 1.50 Absolute Monocytes 0.50 Absolute Eosinophils 0.01 Absolute Basophils 0.02 Sodium 142 Potassium 3.8 Chloride 106 Carbon Dioxide 25.8 Anion Gap 10.2 BUN 13 Creatinine 0.77 Estimated GFR/1.73 m2 >= 60.00 Glucose 131 H Calcium 8.8 Magnesium 2.1 Total Bilirubin 0.3 AST 36 ALT 44 Alkaline Phosphatase 162 H Troponin I < 0.05 Total Protein 7.5 Albumin 3.6 Lipase 67 L Urine Color Urine Clarity Urine pH Ur Specific [place] Urine Protein Urine Ketones Urine Blood Urine Nitrite Urine Bilirubin Urine Urobilinogen Ur Leukocyte Esterase Urine RBC Urine WBC Ur Epithelial Cells Urine Crystals Urine Bacteria Urine Casts Urine Mucus Ur Culture Indicated? Urine Glucose 01/28/19 01/28/19 10:53 11:35 WBC RBC Hgb Hct MCV MCH MCHC RDW Plt Count MPV Immature Gran % Neutrophils % Lymphocytes % Monocytes % Eosinophils % Basophils % Absolute Neutrophils Absolute Lymphocytes Absolute Monocytes Absolute Eosinophils Absolute Basophils Sodium Potassium Chloride Carbon Dioxide Anion Gap BUN Creatinine Estimated GFR/1.73 m2 Glucose Calcium Magnesium Total Bilirubin AST ALT Alkaline Phosphatase Troponin I < 0.05 Total Protein Albumin Lipase Urine Color Yellow Urine Clarity Clear Urine pH 5.5 Ur Specific [place] 1.020 Urine Protein Negative Urine Ketones 40 H Urine Blood Trace-intact H Urine Nitrite Negative Urine Bilirubin Negative Urine Urobilinogen 0.2 Ur Leukocyte Esterase Negative Urine RBC 0-2 Urine WBC 0-2 Ur Epithelial Cells Few Urine Crystals Negative Urine Bacteria Few Urine Casts Negative Urine Mucus Trace Ur Culture Indicated? No Urine Glucose 500 H Last Vital Signs Temp 37.3 C 01/28/19 15:45 Pulse 64 01/28/19 15:45 Resp 18 01/28/19 15:45 BP 141/85 H 01/28/19 15:45 Pulse Ox 92 L 01/28/19 15:45
[2019-01-28 16:44] LABS: Troponin I < 0.05 ng/Ml (<0.06)
[2019-01-28] MEDS: traMADol 50 MG TAB PO (18:31)
[2019-01-28] MEDS: LORazepam 1 MG TAB PO (20:01)
[2019-01-28] MEDS: amLODIPine 5 MG TAB PO (20:01)
[2019-01-28] MEDS: carBAMazepine 200 MG TAB PO (20:01)
[2019-01-28] MEDS: Prazosin 1 MG CAP 4 MG PO (21:17)
[2019-01-28] MEDS: Cyproheptadine 4 MG TAB 8 MG PO (21:17)
[2019-01-28] MEDS: Acetaminophen 325 MG TAB PO (23:49)
[2019-01-29 00:05] VITALS: BP 148/78; PULSE 63; RESP 18; TEMP 35.9; O2SAT 93
[2019-01-29 03:47] VITALS: BP 170/80; PULSE 64; RESP 20; TEMP 36.8; O2SAT 94
[2019-01-29] MEDS: Acetaminophen 325 MG TAB PO (04:51)
[2019-01-29] MEDS: methylPREDNISolone SUCC 40 MG VIAL 20 MG IVP ×2 (05:30→13:36)
[2019-01-29 06:56] LABS: Abs Immature Grans 0.01 k/cumm (0.0-0.09); Absolute Basophil Count 0.02 k/cumm (0.0-0.2); Absolute Lymphocyte Count 2.15 k/cumm (1.2-3.4); Absolute Monocyte Count 0.39 k/cumm (0.11-0.7); Absolute Neutrophil Count 4.38 k/cumm (1.2-6.7); Basophils % 0.3; HCT 40.1 % (36.0-46.0); Immature Grans % 0.1; Lymphocytes % 30.9; Mean Corp. HGB Concentration 32.4 g/dL (32.0-36.0); Mean Corpuscular Volume 89.3 fL (80-95); Monocytes % 5.6; Neutrophils % 63.1; Platelet Count 198 x1000/uL (130-400); RBC 4.49 m/cumm (4.00-5.20); RBC Distribution Width 12.8 % (11.7-14.6); White Blood Cell Count 6.95 k/cumm (4.4-10.8)
[2019-01-29 07:13] LABS: Anion Gap 8.4 mmol/L (3-11); BUN 17 mg/dL (7-18); CO2 28.6 mmol/L (21.0-32.0); CREATININE 0.61 mg/dL (0.55-1.02); Calcium 8.2 mg/dL (8.5-10.1); Chloride 106 mmol/L (98-107); Glucose 81 mg/dL (74-106); Potassium 3.8 mmol/L (3.5-5.1); Sodium 143 mmol/L (136-145)
[2019-01-29 07:26] LABS: Troponin I < 0.05 ng/Ml (<0.06)
[2019-01-29 07:40] VITALS: BP 158/88; PULSE 88; RESP 17; TEMP 36.7; O2SAT 97
--- NOTE | 2019-01-29 08:13 | INITIAL_ITS ---
- If Service Date Differs Date of service: 01/29/19 Time of Service: 08:13 Care Management Initial Assess REASON FOR HOSPITALIZATION:: Intractable, Nausea/Vomiting PAST MEDICAL HISTORY/PAST SURGICAL HISTORY:: diabetes, hypertension, hyperlipidemia, GERD, chronic back pain and PTSD. Surgical Hx: cholecystectomy, hysterectomy, other (Tonsillectomy, left wrist fracture repair) PREVIOUS FUNCTIONAL STATUS/SOCIAL/FAMILY SUPPORTS:: Malia lives in her own home in [place], [place] with her spouse Gautam. 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 Her spouse is the manager party of a [employer] in [employer] [facility] [employer]. Pt is independent at home and has four grandchildren that she sees often. ADVANCE DIRECTIVES:: None on file, offer to complete with the patient Has patient been provided with information about the portal?: Yes Did the patient sign up for the portal?: No (already enrolled) CODE STATUS:: Full Code
[2019-01-29 09:16] VITALS: PULSE 144
[2019-01-29] MEDS: Normal Saline 1,000 ML 100 ML IV (09:26)
[2019-01-29] MEDS: Normal Saline Flush 10 ML SYR IVP (09:26)
[2019-01-29 10:15] VITALS: O2SAT 93
[2019-01-29] MEDS: Losartan 50 MG TAB 100 MG PO (10:16)
[2019-01-29] MEDS: Atenolol 50 MG TAB 25 MG PO (10:16)
[2019-01-29] MEDS: Gabapentin 600 MG TAB PO ×2 (10:16→13:36)
[2019-01-29] MEDS: LORazepam 1 MG TAB PO (10:16)
[2019-01-29] MEDS: OLANZapine 5 MG TAB 15 MG PO (10:16)
[2019-01-29] MEDS: Ondansetron 4 MG/2 ML VIAL IVP (10:16)
[2019-01-29] MEDS: carBAMazepine 200 MG TAB PO ×2 (10:17→13:36)
[2019-01-29] MEDS: amLODIPine 5 MG TAB PO (10:17)
[2019-01-29] MEDS: Aspirin E.C. 81 MG TABEC PO (10:17)
[2019-01-29] MEDS: Citalopram 20 MG TAB 40 MG PO (10:21)
--- NOTE | 2019-01-29 13:34 | DI.NM_ITS ---
EXAM: NM GASTRIC EMPTYING CLINICAL HISTORY: Intractable vomiting. COMPARISON: CT ABDOMEN AND PELVIS W from 01/27/2019 EXAMINATION: 1.0 millicuries of technetium 99m sulfur colloid were administered via p.o. standard me al. The patient ate a very small portion of the medial, less than 1 ounce of liquid egg, 1/4 piece o f toast and 2 ounces of water. FINDINGS: At the 1-hour time period, there is greater activity than at the initial time period. The 2-hour and 4-hour counts were within the normal range. IMPRESSION: Somewhat limited exam due to limited quantity of radioactive meal eaten by patient. There may be a d elay in initial gastric emptying; however, the gastric emptying at 2 hours and 4 hours was in the nor mal range.
[2019-01-29] MEDS: Enoxaparin 40 MG/0.4 ML SYR SC (13:37)
[2019-01-29 15:05] VITALS: PULSE 62
--- NOTE | 2019-01-29 15:35 | W.PM.DS.N ---
Date of service: 01/29/19 Time of Service: 15:35 DS: Diagnosis Discharge Diagnosis (1) Nausea & vomiting: Status: Resolved (2) Type 2 diabetes mellitus, with long-term current use of insulin: Status: Chronic (3) Bipolar affective disorder: Status: Chronic (4) Gastroesophageal reflux disease with esophagitis: Status: Chronic (5) Hypertension: Status: Chronic (6) Hyperlipidemia: Status: Chronic (7) LEISA (obstructive sleep apnea): Status: Chronic (8) DVT prophylaxis: Status: Acute (9) Discharge planning issues: Status: Acute Discharge Plan Disposition Patient Disposition: HOME Condition: Improving Discharge Details Chief Complaint: Nausea/Vomit/Diar Clinical Impression: Abdominal pain with vomiting Reason For Visit: INTRACTABLE NAUSEA/VOMITING Admit Date/Time: 01/28/19 11:17 Admit Provider: Lorne Peralta Attending Provider: Lorne Peralta Primary Care Provider: Mya Watson ED Provider: Ileana Naqvi Hospital Course Hospital Course: Malia Wynne is a very pleasant 53 year old female with a past medical history significant for type 2 diabetes, obstructive sleep apnea, for which she wears CPAP, migraines, GERD, bipolar disorder, history of suicide attempts, back pain, history of fatty liver, who presented to the emergency department 2 days ago with nausea and vomiting. She was treated and released. She presented again yesterday with reports of persistent nausea and vomiting as well as abdominal cramping and diarrhea. She was started on IV fluids and received zofran and morphine and then phenergan and protonix due to persistent symptoms. Imaging of her abdomen was not repeated today as her CT abdomen/pelvis was unremarkable at her visit the day prior. Her labs did not show leukocytosis or electrolyte abnormalities. Her blood glucose was 131 by labs in the ED. Her UA was not suspicious for infection. Flu swab was negative. Her troponins were trended and <0.05. She was admitted to the [facility] floor for further evaluation and management. She remained on IV fluids overnight. She went for a gastric emptying study the day following her admission with the following results: Somewhat limited exam due to limited quantity of radioactive meal eaten by patient. There may be a delay in initial gastric emptying; however, the gastric emptying at 2 hours and 4 hours was in the normal range. By the afternoon on her day of discharge, she was no longer experiencing nausea or vomiting, she went several hours without antiemetics and was able to tolerate oral intake. She did not have any watery diarrhea during her inpatient hospitalization. Her symptoms were likely related to a viral process which may have been exacerbated by anxiety. Her labs on the day of discharge revealed no leukocytosis, no electrolyte abnormalities and her renal function was normal. Due to her poor PO intake, her long acting insulin was reduced to a 1/2 dose at HS. She is advised to take a reduced dose of her long-acting insulin on the evening of her discharge and resume her normal diet as tolerated. She will be discharged home in improved condition with follow-up scheduled with her primary care provider. Home Meds and New Rx's Prescriptions: Continued gabapentin 600 mg tablet 600 mg PO TID 60 Days Qty: 180 RF: 5 nystatin 100,000 unit/gram cream 1 applic TP BID PRN (Reason: intertrigo) Qty: 15 RF: 3 Narcan 4 mg/actuation spray,non-aerosol 1 spray ALICIA ONCE PRNRF: 0 cyproheptadine 4 MG tablet 8 mg PO HS RF: 0 (DME) lancets 1 EACH misc 1 ea Miscellaneous AC & HS Qty: 100 RF: 11 citalopram 40 MG tablet 40 mg PO DAILY RF: 0 olanzapine 10 MG tablet 15 mg PO DAILY RF: 0 prazosin 2 MG capsule 4 mg PO HS RF: 0 hydroxyzine pamoate [Vistaril] 25 MG capsule 25 mg PO PRN RF: 0 (DME) Blood Glucose Test 1 EACH strip 1 ea Miscellaneous AC & HS Qty: 120 RF: 11 (DME) pen needle, diabetic [Pen Needle] 1 EACH needle 1 ea SQ QID Qty: 4 RF: 3 (DME) blood-glucose meter misc See Dose Instructions .Route .MEDSUPPLY Qty: 1 RF: 0 atorvastatin 40 mg tablet 40 mg PO DAILY Qty: 90 RF: 3 carbamazepine 200 mg tablet 200 mg PO TID RF: 0 rabeprazole 20 mg tablet,delayed release (DR/EC) 20 mg PO DAILY Qty: 90 RF: 3 fluticasone propionate [Flonase Allergy Relief] 50 mcg/actuation spray,suspension 1 - 2 spray NS DAILY PRN (Reason: nasal congestion) Qty: 3 RF: 3 amlodipine 5 mg tablet 5 mg PO BID Qty: 180 RF: 3 Jardiance 25 mg tablet 25 mg PO DAILY Qty: 90 RF: 3 (DME) FreeStyle Laila 14 Day Sensor Kit See Rx Instructions .ROUTE .MEDSUPPLY Qty: 6 RF: 3 (DME) FreeStyle Laila 14 Day [place] Misc See Rx Instructions .ROUTE .MEDSUPPLY Qty: 1 RF: 0 Novolog Flexpen U-100 Insulin 100 unit/mL (3 mL) insulin pen 6 unit SC AC Qty: 6 RF: 3 Lantus Solostar U-100 Insulin 100 unit/mL (3 mL) insulin pen 64 unit Sub-Q HS Qty: 18 RF: 3 atenolol 50 mg tablet 25 mg PO DAILY Qty: 45 RF: 3 losartan 100 mg tablet 100 mg PO DAILY Qty: 90 RF: 3 tramadol 50 mg tablet 50 mg PO BID MDD 2 tablets/day PRN (Reason: pain) 28 Days Qty: 56 RF: 0 lorazepam [Ativan] 1 MG tablet 1 mg PO BID RF: 0 aspirin [Aspir-81] 81 MG tablet,delayed release (DR/EC) 1 tab PO DAILY RF: 0 nitroglycerin [Nitrostat] 0.4 MG tablet, sublingual 0.4 mg Sublingual Q5 MIN PRN X3 PRNQty: 1 RF: 0 promethazine 25 mg tablet 25 mg PO TID PRN (Reason: nausea and vomiting) Qty: 7 RF: 0 melatonin 10 mg Tablet 12 mg PO HS RF: 0 Discharge Instructions Instructions: Acute Nausea and Vomiting (DC) Additional Instructions: Resume your normal diet slowly. Take a reduced dose of your long acting insulin tonight (glargine) as discussed, 32 units tonight. Check your blood sugar in the morning. Resume your usual insulin regimen as you increase your diet. Follow up with your PCP as scheduled. Take care! Stand Alone Forms: Nursing Discharge Form Referrals: May Watson NP [Primary Care Provider] - 02/04/19 10:00 am Activity:: Activity as Tolerated Equipment/Supplies:: No Equipment Needed Diet:: As Tolerated Discharge Orders Discharge Orders: Discharge Order (Routine); Ordered 01/29/19 Ordered By: Nahomy Perea DS: Summary Status at Discharge Functional status at discharge: independent ambulation Overall status at discharge: patient is progressing back to baseline Mental Status: mental status grossly normal Speech and Movement: speech and movement normal Mood: congruent mood Affect: normal affect Exam Narrative Exam Narrative: General: Middle aged female, awake and alert, in NAD. pleasant and cooperative, answers questions appropriately. HEENT: normocephalic, atraumatic, pupils symmetrical and round, EOMI, mucous membranes moist. Neck: supple, no JVD. Cardiovascular: heart has regular rate and rhythm, no murmur appreciated, nontachycardic. Respiratory: respirations even and unlabored, lung sounds clear throughout. GI: normoactive bowel sounds, nontender on palpation, nondistended. Extremities: no clubbing, cyanosis or edema. Psych Mental Status: mental status grossly normal Speech and Movement: speech and movement normal Mood: congruent mood Affect: normal affect DS: Data Vitals/I&O Vitals and I&O: Vital Signs Temperature 36.7 C 01/29/19 07:40 Temperature Source Tympanic 01/29/19 07:40 Pulse 144 H 01/29/19 09:16 Pulse Rhythm Regular 01/29/19 08:00 Respiratory Rate 17 01/29/19 07:40 Respiratory Effort Non-Labored 01/29/19 08:00 Respiratory Depth Normal 01/29/19 08:00 Respiratory Pattern Normal 01/29/19 08:00 Blood Pressure 158/88 H 01/29/19 07:40 Blood Pressure Position Supine 01/28/19 08:18 Pulse Oximetry 93 L 01/29/19 10:15 Oxygen Delivery Method Nasal Cannula 01/29/19 10:15 Oxygen Flow Rate 1 01/29/19 10:15 Pain Level 0 01/29/19 07:40 Comment 01/28/19 20:15 Intake & Output 01/28/19 01/29/19 01/29/19 23:59 11:59 23:59 Intake Total 2309.500 / 3360.500 1004.334 / 1004.334 Output Total 400 / 400 1600 / 1600 Balance 1909.500 / 2960.500 -595.666 / -595.666 Weight 112.1 kg Intake: IV 1489.500 / 2540.500 1004.334 / 1004.334 Oral 820 / 820 Output: Urine 400 / 400 1600 / 1600 Other: Urine Color Yellow Light Zara Urine Appearance Clear Clear Urine Odor Strong Voiding Methods Toilet Toilet Data Completed and Pending Completed studies during hospitalization [Text1]: 01/27/2019: EXAM: CT ABDOMEN PELVIS W CLINICAL HISTORY: upper abd pain, vomiting TECHNIQUE: Post IV contrast. Without oral contrast. 128 cc's of Omnipaque 350 was utilized. COMPARISON: CT RENAL COLIC WO from 01/10/2019 FINDINGS: Lung bases are clear. Liver shows diffuse fatty infiltration. Patient is status post cholecystectomy. There is no biliary dilatation. The pancreas, spleen, adrenals and kidneys are unremarkable. Bladder appears intact. The patient is status post hysterectomy. The ovaries are normal in size. There are a few scattered diverticula. There is no evidence of diverticulitis. There is a normal quantity of stool. The appendix appears normal. There is no small bowel dilatation, free air or free fluid. Mild atherosclerotic changes of the abdominal aorta. IMPRESSION: No acute abnormality. 01/29/2019: EXAM: NM GASTRIC EMPTYING CLINICAL HISTORY: Intractable vomiting. COMPARISON: CT ABDOMEN AND PELVIS W from 01/27/2019 EXAMINATION: 1.0 millicuries of technetium 99m sulfur colloid were administered via p.o. standard meal. The patient ate a very small portion of the medial, less than 1 ounce of liquid egg, 1/4 piece of toast and 2 ounces of water. FINDINGS: At the 1-hour time period, there is greater activity than at the initial time period. The 2-hour and 4-hour counts were within the normal range. IMPRESSION: Somewhat limited exam due to limited quantity of radioactive meal eaten by patient. There may be a delay in initial gastric emptying; however, the gastric emptying at 2 hours and 4 hours was in the normal range. Labs on day of discharge: Labs from last 24 hours 01/29/19 01/29/19 01/28/19 06:05 06:05 16:05 WBC 6.95 RBC 4.49 Hgb 13.0 Hct 40.1 MCV 89.3 MCH 29.0 MCHC 32.4 RDW 12.8 Plt Count 198 MPV 11.0 Immature Gran % 0.1 Neutrophils % 63.1 Lymphocytes % 30.9 Monocytes % 5.6 Eosinophils % 0.0 Basophils % 0.3 Absolute Neutrophils 4.38 Absolute Lymphocytes 2.15 Absolute Monocytes 0.39 Absolute Eosinophils 0.00 Absolute Basophils 0.02 Sodium 143 Potassium 3.8 Chloride 106 Carbon Dioxide 28.6 Anion Gap 8.4 BUN 17 Creatinine 0.61 Estimated GFR/1.73 m2 >= 60.00 Glucose 81 D Calcium 8.2 L Magnesium 2.0 Troponin I < 0.05 < 0.05 [facility] Medical History Adult BMI > 30 (Chronic) Allergic rhinitis (Chronic 10/28/14) Aortic regurgitation (Chronic) 05/26/2017 echo: mild-moderate --> repeat echo 2-3 years Back pain (Chronic 10/28/14) Bipolar affective disorder (Chronic) [facility] Bipolar disorder Cholelithiasis (Chronic 10/28/14) Chronic pain (Chronic) Drug overdose (Resolved 10/28/14) Fatty liver (Chronic 02/05/15) GI consult, probable metabolic syndrome Gastroesophageal reflux disease with esophagitis (Chronic) Heart murmur History of colonic polyps (Inactive 06/11/15) History of migraine headaches Hyperlipidemia (Chronic 10/28/14) 11/2016 labwork: 10-year ASCVD risk = ~5.7% --> continue current moderate intensity statin therapy Hypertension (Chronic 10/28/14) Migraine headache (Chronic 10/28/14) LEISA (obstructive sleep apnea) (Chronic 09/21/14) moderate, AHI 15, Dr Elliott 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 Dr. Stearns. Cholecystectomy (04/09/12) Colonscopy (06/11/15) Reji Dumont EGD (11/14/06) EGD w/biopsies (06/11/15) Reji Dumont MD EGD with biopsy (09/08/08) EGD/colonoscopy (07/19/04) Excision, Lipoma (06/12/08) right back Left heart Catheterization, Angiography (06/01/17) ORIF radial fx (10/05/15) [facility] 1998 or 1999 de Quervain's release left wrist Dr [id number]-RAX-[id number] L distal radius and ulna partial hysterectomy (Resolved) retained ovaries per pt Revision L carpal tunnel release (04/18/14) Flexor tenosynovectomy, hardware removal, Dr Ocasio [facility] varicose veins (Resolved 08/23/04) Family History Mother Heart disease Cancer lung Father Diabetes Heart disease CABG triple vessel, pacemaker Social History Smoking/Tobacco Use Status: Never Alcohol Intake: never Drug use: Never Substance use type: does not use Adopted: Yes Caregiver/Support person: No Household members: other Details: but not together Number of Children: 2 Communication Needs: None Education Level: high school Details: 8th Pets and animals: Yes Pets and animals: dog(s) Sexually active: Yes Current gender identity: female What type of physical activity do you participate in: walking Duration: 15-30 minutes/day Frequency: daily Seatbelt use: always Drive intox or ride w/intox lift driver: No Water heater temp set <120 deg: Yes Working smoke detector in home: Yes Fire extinguisher in home: Yes Carbon monox detector in home: Yes Firearms in home: Yes Do you feel safe at home: Yes Do you feel safe in your relationship?: Yes
--- NOTE | 2019-01-29 15:48 | CHAPLAIN ---
Malia was talking on her phone when I visited, but asked me to stay. She said she still isn't feeling well, and didn't sleep well last night. She expects her sister to be in to visit later today. Malia seemed restless and unable to get comfortable. After a few minutes, she returned to her call.
--- NOTE | 2019-01-29 15:57 | INITIAL_ITS ---
- If Service Date Differs Date of service: 01/29/19 Time of Service: 15:57 Care Management Initial Assess REASON FOR HOSPITALIZATION:: Intractable, Nausea/Vomiting PAST MEDICAL HISTORY/PAST SURGICAL HISTORY:: Medical History: Adult BMI > 30, Allergic rhinitis, Aortic regurgitation - 05/26/2017 echo: mild-moderate --> repeat echo 2-3 years, Back pain, Bipolar affective disorder - [facility], Bipolar disorder, Cholelithiasis, Chronic pain, Drug overdose, Fatty liver - GI consult, probable metabolic syndrome,. Gastroesophageal reflux disease with esophagitis, Heart murmur, History of colonic polyps, History of migraine headaches, Hyperlipidemia - 11/2016 labwork: 10-year ASCVD risk = ~5.7% --> continue current moderate intensity statin therapy, Hypertension, Migraine headache, LEISA (obstructive sleep apnea) - moderate, AHI 15, Dr Elliott [facility], PTSD (post-t raumatic stress disorder) - [facility], Sacroiliac joint dysfunction of right side, Type 2 diabetes mellitus, with long-term current use of insulin, and Unstable angina pectoris - Coronary angiography 06/01/17 [facility] [place] [facility]. Surgical History: Arthroplasty of knee - L with limited medial femoral chondroplasty. Dr. Stearns., Cholecystectomy, Colonoscopy, EGD, EGD w/biopsies, EGD with biopsy, EGD/colonoscopy, Excision, Lipoma - right back,. Left heart Catheterization, Angiography, ORIF radial fx - [facility] 1998 or 1999 -. de Quervain's release left wrist - Dr CárdenasCot-CUM-[facility] L distal radius and ulna. partial hysterectomy - retained ovaries per pt, Revision L carpal tunnel release - Flexor tenosynovectomy, hardware removal, and varicose veins. PREVIOUS FUNCTIONAL STATUS/SOCIAL/FAMILY SUPPORTS:: Malia lives in her own home in [place], [place], with her , Gautam. She has two daughters and a sister who live locally and are supportive of her. Malia reports she is i ndependent at home. She cooks and cleans and says her sister is going to help her get caught up on laundry and housework after she is home, as she did not feel well enough to do her chores prior to coming to the hospital. CURRENT FUNCTIONAL STATUS:: Malia is sitting up in bed watching television when CM comes to meet with her. Her sister is present in the room. Malia reports she is feeling better and is looking forward to returning home. ADVANCE DIRECTIVES:: None on file. Has patient been provided with information about the portal?: Yes Did the patient sign up for the portal?: No (already enrolled) CODE STATUS:: Full Code INSURANCE COVERAGE / FINANCIAL ISSUES:: BS CURRENT HOME/COMMUNITY SERVICES/EQUIPMENT:: Malia reports she is independent at baseline and does not use any medical equipment. She receives therapy services through [facility]. PRIMARY CARE PHYSICIAN:: May Watson APRN POTENTIAL DISCHARGE NEEDS:: Follow-up appointment with primary care physician. PATIENT/FAMILY EDUCATION NEEDS:: Review discharge plan, limitations, and follow- up plan of care, including Ask Me Three and self-management. ANTICIPATED BARRIERS TO DISCHARGE:: None anticipated at this time. TRANSPORTATION:: Family will transport Malia home via private vehicle when ready. PLAN:: Malia will be discharged home when medically cleared by provider. Anticipate no additional services needed at time of discharge. Family member will transport patient home upon discharge.
--- NOTE | 2019-01-29 16:47 | PDOC.CMDIS ---
- If Service Date Differs Date of service: 01/29/19 Time of Service: 16:47 LACE Index Scoring Tool - Questions: Length of Stay (in days): 1 Acuity (Admit via E.D.?): Yes Comorbidities: Diabetes w/o Complication, Mild Liver/Renal Disease E.D. Visits: 3 - Answers: Total Score: 10 Risk of Readmission: High Risk Care Management Discharge Reason for Hospitalization: Intractable, Nausea/Vomiting Discharge Plan: Malia is being discharged home. She will follow up with her PCP as directed. Patient/Family Education Needs: Nursing will review discharge instructions with Malia regarding medications and activity level. Malia is able to verbalize reason for hospitalization and how to manage care at home.
--- NOTE | 2019-01-29 17:02 | W.INDIABCONS ---
Date of service: 01/29/19 Time of Service: 17:02 Diabetes Inpatient Consult DESCRIPTION/ASSESSMENT: Appreciate diabetes consult for Malia Wynne who is hospitalized with nausea/vomiting. BMI 39 A1c 6.9 Blood sugars 87-130 during her stay. At home she takes 64u Glargine and 6u mealtime insulin as well as empagloiflozin. She is known to us from outpatient diabetes. She is well managed at this time and has not had an A1c higher than 7 or so in the past few years. INTERVENTION: No intervention suggested at this time. PLAN: Malia is aware of our services and will be in touch as she feels the need or as her provider suggests. Time Spent in Nutritional Counseling and Treatment: 0 face to face
== END 2019-01-29 16:37 | disposition home or self-care (01) ==
LOC: ER 12:02 → MS 12:04
PROVIDERS: Admitting Provider Internal Medicine; Emergency Provider Physician Assistant; PCP Nurse Practitioner Family; Visit Provider Internal Medicine
DX: R11.2 Nausea with vomiting, unspecified (principal); R19.7 Diarrhea, unspecified; E11.9 Type 2 diabetes mellitus without complications; Z79.4 Long term (current) use of insulin; F31.89 Other bipolar disorder; K21.0 Gastro-esophageal reflux disease with esophagitis; I10 Essential (primary) hypertension; E78.5 Hyperlipidemia, unspecified; G47.33 Obstructive sleep apnea (adult) (pediatric); Z91.5 Personal history of self-harm; Z71.3 Dietary counseling and surveillance
CPT/HCPCS: 36415; 36416; 78265; 80048; 80053; 82962; 83690; 87449; 96361; 96365; 96375; 99219; 99239; 99285; J1650; 81003; 81015; 83735; 84484; 85025; 99217; 99284; G0378; J1200; J2270; J2405

== ENCOUNTER 2019-03-05 12:43 | Outpatient (REF) | payer BC, SELFPAY ==
[2019-03-08 13:37] LABS: 2-Hydroxy Ethyl Flurazepam Not Detected ng/mL (Cutoff: 10); 6-monoacetylmorphine Not Detected ng/mL (Cutoff: 25); Alpha-Hydroxy Midazolam Not Detected ng/mL (Cutoff: 10); Alpha-Hydroxy Triazolam Not Detected ng/mL (Cutoff: 10); Alpha-Hydroxyalprazolam Not Detected ng/mL (Cutoff: 10); Alpha-OH-alprazolam Glucuronid Not Detected ng/mL (Cutoff: 50); Alprazolam Not Detected ng/mL (Cutoff: 10); Amphetamines Negative ng/mL (Cutoff: 500); Barbiturates Negative ng/mL (Cutoff: 200); Buprenorphine Not Detected ng/mL (Cutoff: 5); Chlordiazepoxide Not Detected ng/mL (Cutoff: 10); Clobazam Not Detected ng/mL (Cutoff: 10); Clonazepam Not Detected ng/mL (Cutoff: 10); Cocaine Negative ng/mL (Cutoff: 150); Codeine Not Detected ng/mL (Cutoff: 25); Comment Normal; Creatinine, U 93.4 mg/dL; Diazepam Not Detected ng/mL (Cutoff: 10); Dihydrocodeine Not Detected ng/mL (Cutoff: 25); EDDP Not Detected ng/mL (Cutoff: 25); Fentanyl Not Detected ng/mL (Cutoff: 2); Flurazepam Not Detected ng/mL (Cutoff: 10); Hydrocodone Not Detected ng/mL (Cutoff: 25); Hydromorphone Not Detected ng/mL (Cutoff: 25); Hydromorphone-3-beta-glucuroni Not Detected ng/mL (Cutoff: 100); Lorazepam Not Detected ng/mL (Cutoff: 10); Lorazepam Glucuronide Present ng/mL (Cutoff: 50); Meperidine Not Detected ng/mL (Cutoff: 25); Methadone Not Detected ng/mL (Cutoff: 25); Midazolam Not Detected ng/mL (Cutoff: 10); Morphine Not Detected ng/mL (Cutoff: 25); N-Desmethylclobazam Not Detected ng/mL (Cutoff: 200); N-desmethyltapentadol Not Detected ng/mL (Cutoff: 50); Naloxone Not Detected ng/mL (Cutoff: 25); Norbuprenorphine Not Detected ng/mL (Cutoff: 5); Norfentanyl Not Detected ng/mL (Cutoff: 2); Norhydrocodone Not Detected ng/mL (Cutoff: 25); Normeperidine Not Detected ng/mL (Cutoff: 25); Noroxycodone Not Detected ng/mL (Cutoff: 25); Noroxymorphone Not Detected ng/mL (Cutoff: 25); O-desmethyltramadol Present ng/mL (Cutoff: 25); Oxazepam Glucuronide Not Detected ng/mL (Cutoff: 50); Phencyclidine Negative ng/mL (Cutoff: 25); Prazepam Not Detected ng/mL (Cutoff: 10); Propoxyphene Not Detected ng/mL (Cutoff: 25); Tapentadol Not Detected ng/mL (Cutoff: 25); Temazepam Not Detected ng/mL (Cutoff: 10); Temazepam Glucuronide Not Detected ng/mL (Cutoff: 50); Tetrahydrocannabinol Negative ng/mL (Cutoff: 50); Tramadol Present ng/mL (Cutoff: 25); Triazolam Not Detected ng/mL (Cutoff: 10); Zolpidem Phenyl-4-Carboxy acid Not Detected ng/mL (Cutoff: 10); pH 5.9
== END 2019-03-05 13:03 ==
LOC: LBN 12:43
PROVIDERS: PCP Nurse Practitioner Family; Visit Provider Nurse Practitioner Family
DX: G89.29 Other chronic pain (principal); Z79.891 Long term (current) use of opiate analgesic
CPT/HCPCS: 80307; 80347; 80364

== ENCOUNTER 2019-07-25 09:04 | Outpatient (REF) | payer MEDICAID, SELFPAY ==
[2019-08-01 03:28] LABS: 2-Hydroxy Ethyl Flurazepam Not Detected ng/mL (Cutoff: 10); 6-monoacetylmorphine Not Detected ng/mL (Cutoff: 25); Alpha-Hydroxy Midazolam Not Detected ng/mL (Cutoff: 10); Alpha-Hydroxy Triazolam Not Detected ng/mL (Cutoff: 10); Alpha-Hydroxyalprazolam Not Detected ng/mL (Cutoff: 10); Alpha-OH-alprazolam Glucuronid Not Detected ng/mL (Cutoff: 50); Alprazolam Not Detected ng/mL (Cutoff: 10); Amphetamines Negative ng/mL (Cutoff: 500); Barbiturates Negative ng/mL (Cutoff: 200); Buprenorphine Not Detected ng/mL (Cutoff: 5); Chlordiazepoxide Not Detected ng/mL (Cutoff: 10); Clobazam Not Detected ng/mL (Cutoff: 10); Clonazepam Not Detected ng/mL (Cutoff: 10); Cocaine Negative ng/mL (Cutoff: 150); Codeine Not Detected ng/mL (Cutoff: 25); Comment Normal; Creatinine, U 95.8 mg/dL; Diazepam Not Detected ng/mL (Cutoff: 10); Dihydrocodeine Not Detected ng/mL (Cutoff: 25); EDDP Not Detected ng/mL (Cutoff: 25); Fentanyl Not Detected ng/mL (Cutoff: 2); Flurazepam Not Detected ng/mL (Cutoff: 10); Hydrocodone Not Detected ng/mL (Cutoff: 25); Hydromorphone Not Detected ng/mL (Cutoff: 25); Hydromorphone-3-beta-glucuroni Not Detected ng/mL (Cutoff: 100); Lorazepam Not Detected ng/mL (Cutoff: 10); Lorazepam Glucuronide Present ng/mL (Cutoff: 50); Meperidine Not Detected ng/mL (Cutoff: 25); Methadone Not Detected ng/mL (Cutoff: 25); Midazolam Not Detected ng/mL (Cutoff: 10); Morphine Not Detected ng/mL (Cutoff: 25); N-Desmethylclobazam Not Detected ng/mL (Cutoff: 200); N-desmethyltapentadol Not Detected ng/mL (Cutoff: 50); Naloxone Not Detected ng/mL (Cutoff: 25); Norbuprenorphine Not Detected ng/mL (Cutoff: 5); Norfentanyl Not Detected ng/mL (Cutoff: 2); Norhydrocodone Not Detected ng/mL (Cutoff: 25); Normeperidine Not Detected ng/mL (Cutoff: 25); Noroxycodone Not Detected ng/mL (Cutoff: 25); Noroxymorphone Not Detected ng/mL (Cutoff: 25); O-desmethyltramadol Present ng/mL (Cutoff: 25); Oxazepam Glucuronide Not Detected ng/mL (Cutoff: 50); Phencyclidine Negative ng/mL (Cutoff: 25); Prazepam Not Detected ng/mL (Cutoff: 10); Propoxyphene Not Detected ng/mL (Cutoff: 25); Specific Gravity 1.013; Tapentadol Not Detected ng/mL (Cutoff: 25); Temazepam Not Detected ng/mL (Cutoff: 10); Temazepam Glucuronide Not Detected ng/mL (Cutoff: 50); Tetrahydrocannabinol Negative ng/mL (Cutoff: 50); Tramadol Present ng/mL (Cutoff: 25); Triazolam Not Detected ng/mL (Cutoff: 10); Zolpidem Phenyl-4-Carboxy acid Not Detected ng/mL (Cutoff: 10); pH 5.5
== END 2019-07-25 09:24 ==
LOC: LBN 09:04
PROVIDERS: PCP Nurse Practitioner Family; Visit Provider Nurse Practitioner Family
DX: G89.29 Other chronic pain (principal); Z79.891 Long term (current) use of opiate analgesic
CPT/HCPCS: 80307; 80347; 80364

== ENCOUNTER 2019-08-20 13:20 | Outpatient (CLI) | payer MEDICAID, SELFPAY ==
[2019-08-20 13:37] VITALS: BP 107/73; PULSE 56; RESP 17; TEMP 37.4; O2SAT 99
[2019-08-20] MEDS: methylPREDNISolone ACETATE 80 MG/ML VIAL (14:07)
[2019-08-20 14:10] VITALS: BP 114/64; PULSE 64; RESP 14; O2SAT 96
--- NOTE | 2019-08-20 14:15 | DI.RAD_ITS ---
EXAM: XR PAIN CLINIC SACRIOILIAC 2V CLINICAL HISTORY: Sacroiliac Joint Dysfunction. TECHNIQUE: Fluoroscopy was provided for the referring physician for guidance with performing injecti on procedure. COMPARISON: No exams were available for comparison FINDINGS: Please see procedure note for details. Fluoro Time: 27.6 seconds RADIATION DOSE DELIVERED:
--- NOTE | 2019-08-20 14:18 | PDOC.PAIN_ITS ---
Pain Clinic Procedure Note Procedure Note Procedure Note: INTRA-ARTICULAR SI JOINT INJECTION Date of Service: August 20, 2019 Patient: Malia Wynne Provider: Bi Browne MD COMMENTS: patient has bilateral lower back pain with radiation to buttock. she did well from prior SI joint injection. Listed iodine allergy, no contrast was used in the prior procedure. Pre-operative diagnosis: disorder of sacrum Post-operative diagnosis: same as above Maliaradha Wynne has been referred to the [facility] for intra- articular SI joint injection. Ms Wynne was interviewed and the medical record reviewed. There were no medical, pharmacologic, radiographic or other structural contraindications to attempting fluoroscopically guided intra-articular SI joint injection. Risks and expected side effects as well as potential benefit of the procedure were reviewed with Malia , and her voiced concerns were addressed. The printed consent form was signed and witnessed. Standard time-out procedure was performed. Malia was placed in the prone position on the fluoroscopy table and automated blood pressure cuff and pulse oximeter applied. The skin entry point for approaching the bilateral sacroiliac joint was identified under the most ad vantageous fluoroscopic view and marked. Following thorough alcohol preparation of the skin (patient has allergy to betadine and chlorohextadine) and draping and 1% lidocaine infiltration of the skin entry point and subcutaneous tissues, a 22 gauge spinal needle was placed under fluoroscopic guidance into the bilateral sacroiliac joint. Intra-articular placement was confirmed by AP and lateral images, due to allergy to iodine, no contrast was used for this procedure.On each side, 1ml 1% Lidocaine and 40mg of Depomedrol (80mg/ml) was injected intra-articularily with an initial reproduction of a significant component of the usual pain. The needle was flushed with 0.5 cc of 1% Lidocaine and removed without difficulty. Malia s vital signs were stable throughout the procedure and were as recorded in the docflowsheet by the nursing staff. Follow up plans and appointments were discussed with the Malia . Post procedure instruction was given as documented in nursing documentation and having met discharge criteria, Malia was discharged from the [facility]. COMMENTS: No complications. patient tolerated procedure well. I personally performed this entire procedure. Bi Browne MD Pain Management
== END 2019-08-20 13:40 ==
PROVIDERS: PCP Nurse Practitioner Family; Visit Provider Internal Medicine
DX: M53.3 Sacrococcygeal disorders, not elsewhere classified (principal)
CPT/HCPCS: 27096; 72200; J1040

== ENCOUNTER 2019-09-03 09:53 | Outpatient (CLI) | payer MEDICAID, SELFPAY ==
--- NOTE | 2019-09-03 10:15 | DI.US_ITS ---
EXAM: US LOWER EXTREMITY VENOUS RT CLINICAL HISTORY: Check for DVT m79.669 pain lower leg TECHNIQUE: Right lower extremity venous ultrasound performed using grayscale, color-flow, and spectr al Doppler analysis. COMPARISON: No exams were available for comparison FINDINGS: The right common femoral, femoral and popliteal veins demonstrate normal compressibility, augmentatio n, and color Doppler. The posterior tibial veins are patent. The saphenofemoral junction is unremark able. There is no evidence of a Gonzalez cyst. The soft tissues are unremarkable. IMPRESSION: No DVT. DATA REPOSITORY:
== END 2019-09-03 10:13 ==
PROVIDERS: PCP Nurse Practitioner Family; Visit Provider Family Medicine
DX: M79.661 Pain in right lower leg (principal)
CPT/HCPCS: 93971

== ENCOUNTER 2019-10-07 21:01 | Emergency (ER) | payer MEDICAID, SELFPAY ==
[2019-10-07] VITALS (23 sets, daily range): BP systolic 82–116; BP diastolic 46–67; PULSE 57–70; RESP 12–20; TEMP 36.5; O2SAT 90–97
--- NOTE | 2019-10-07 21:00 | RT.EKG_ITS ---
APPROVED REPORT Exam: Resting ECG Patient Location: E HR:66 bpm ECG Measurements Heart Rate 66 AXIS RI 195 P 34 QRSd 105 QRS -19 QT 413 T 62 QTc 434 <Conclusion> Sinus rhythm.rate 66, narrow qrs, no st elev
--- NOTE | 2019-10-07 21:07 | ED.GENADUL_ITS ---
Discharge Plan Disposition Patient Disposition: AGAINST MEDICAL ADVICE Condition: Serious Discharge Details Chief Complaint: Chest Pain Clinical Impression: Chest pain in adult, Dizziness Primary Care Provider: May Watson ED Provider: Ann-Marie Singh Home Meds and New Rx's Prescriptions: Continued nystatin 100,000 unit/gram cream 1 applic TP BID PRN (Reason: intertrigo) Qty: 15 RF: 3 fluticasone propionate [Flonase Allergy Relief] 50 mcg/actuation spray,suspension 1 - 2 spray NS DAILY PRN (Reason: nasal congestion) Qty: 3 RF: 3 aspirin 81 mg tablet,delayed release (DR/EC) 81 mg PO DAILY Qty: 30 RF: 11 melatonin 10 mg tablet 20 mg PO HS Qty: 60 RF: 11 tramadol 50 mg tablet 50 mg PO BID MDD 2 tablets/day PRN (Reason: pain) 28 Days Qty: 56 RF: 0 gabapentin 300 mg capsule 300 mg PO DIRECTED 28 Days Qty: 140 RF: 11 cyproheptadine 4 MG tablet 8 mg PO HS RF: 0 (DME) lancets 1 EACH misc 1 ea Miscellaneous AC & HS Qty: 100 RF: 11 olanzapine 10 MG tablet 15 mg PO DAILY RF: 0 prazosin 2 MG capsule 4 mg PO HS RF: 0 hydroxyzine pamoate [Vistaril] 25 MG capsule 25 mg PO PRN RF: 0 (DME) Blood Glucose Test 1 EACH strip 1 ea Miscellaneous AC & HS Qty: 120 RF: 11 (DME) blood-glucose meter misc See Dose Instructions .Route .MEDSUPPLY Qty: 1 RF: 0 (DME) FreeStyle Laila 14 Day Sensor Kit See Rx Instructions .ROUTE .MEDSUPPLY Qty: 6 RF: 3 (DME) FreeStyle Laila 14 Day [place] Misc See Rx Instructions .ROUTE .MEDSUPPLY Qty: 1 RF: 0 insulin aspart U-100 [Novolog Flexpen U-100 Insulin] 100 unit/mL (3 mL) insulin pen 6 unit SC AC Qty: 6 RF: 3 (DME) pen needle, diabetic [Pen Needle] 31 gauge x 5/16 needle 1 ea SQ QID Qty: 400 RF: 3 atenolol 50 mg tablet 25 mg PO DAILY Qty: 45 RF: 3 Jardiance 25 mg tablet 25 mg PO DAILY Qty: 90 RF: 3 nitroglycerin [Nitrostat] 0.4 mg tablet, sublingual 0.4 mg Sublingual Q5 MIN PRN X3 PRN (Reason: chest pain) Qty: 1 RF: 0 lorazepam [Ativan] 1 mg tablet 1 mg PO TID RF: 0 carbamazepine 200 mg tablet 400 mg PO HS RF: 0 citalopram 40 mg tablet 40 mg PO BID RF: 0 valsartan 320 mg tablet 320 mg PO DAILY Qty: 90 RF: 3 esomeprazole magnesium 40 mg capsule,delayed release(DR/EC) 40 mg PO DAILY Qty: 90 RF: 3 amlodipine 5 mg tablet 5 mg PO BID Qty: 180 RF: 3 atorvastatin 40 mg tablet 40 mg PO DAILY Qty: 90 RF: 3 Lantus Solostar U-100 Insulin 100 unit/mL (3 mL) insulin pen 64 unit Sub-Q HS Qty: 18 RF: 3 Discharge Instructions Instructions: Chest Pain (ED), Dizziness (ED) Additional Instructions: At this time you have opted to leave AGAINST MEDICAL ADVICE. Please understand that I cannot rule out cardiac injury or heart attack without further evaluation work-up and diagnostic imaging. This could result in disability, worsening of your condition including . Follow up with primary care provider in 2-3 days. Return to ED sooner if any worsening or concerns. Referrals: May Watson NP [Primary Care Provider] - Medical Decision Making 54-year-old female presents the ED with chief complaint of chest pain which began approximately 1 hour prior to arrival after standing up from a sitting position. She does have a history of diabetes mellitus type 2, aortic regurgitation, heart murmur, hyperlipidemia, unstable angina pectoris, hypertension, has had a left heart catheterization, angiography in 2018, obstructive sleep apnea, and PTSD. She reports the pain as a heaviness she does report some mild back pain which began earlier today no radiation into her neck or left arm. Denies any shortness of breath or cough. Does take a daily 81 aspirin daily and her normal medications. Denies any nausea vomiting diarrhea hematochezia or hematemesis no hemoptysis. At this time cardiac work-up ordered including CBC, CMP, serial troponins, d- dimer, and a pro BNP due to history of right lower extremity swelling. Aspirin 243 mg chewable given patient did take 81 mg aspirin prior to arrival. 2136: Patient received 0.4 mg sublingual nitro x1, shortly thereafter came hypotensive with a blood pressure of 82/56, patient placed in flat position, 1 L normal saline is up wide open. Patient is alert and oriented continuing to complain of weakness, left-sided chest pain, and headache. Blood pressure is now 95/51. 2234: Patient reevaluation, feeling much better, blood pressure is now 104/61 heart rate 67, patient is resting quietly in bed breathing eupneic. Patient states her chest pain is gone at this time she reports continued mild dizziness but no other complaints. Discussed serial troponin which is due approximately midnight which patient refused. Discussed inability to rule out cardiac event heart attack or angina without second troponin, verbalized understanding. Patient states I just want to go home. Patient is refusing admission for any further testing or observation at this time. CBC is largely within normal limits, CMP sodium is 138, potassium 3.7, BUN is 20 which is up from previous lab value of 17 in January 2019, creatinine 1.04, GFR is 55.02, glucose is 227, calcium 8.4, magnesium 1.7, alk phos is 155 initial troponin is less than 0.05, BNP is 14. Discussed results with patient. 8: Discussed once again patient with patient reasoning for serial troponin which patient is adamantly refusing is requesting to leave discussed AGAINST MEDICAL ADVICE, verbalized understanding. Patient requesting to leave AMA. The patient appears clinically sober and is not under the influence of any known substances. Discussed risks and benefits with patient. Patient verbalizes understanding of situation and the risks of leaving including worsening condition, developing disability, including but not limited to .Discussed results of labs and imaging, if they were performed and recommendations for further treatment and/or observation. The patient verbalizes understanding of the results discussed. Every effort was made to involve family if appropriate and situation discussed. At this time patient has opted to leave against medical advice. Patient is alert and oriented and has the capacity to make own decisions. Differential diagnosis includes but not limited to coronary artery disease, angina, aortic aneurysm, PE, pneumonia, dehydration, CVA, anxiety. HPI General Mode of arrival: ambulatory . Date/Time Provider Initiated Documentation: 10/07/19 21:02 . Limitations to Documentation: no limitations . Information obtained by: patient . HPI Narrative: 54-year-old female presents the ED with chief complaint of chest pain which began approximately 1 hour prior to arrival after standing up from a sitting position. She does have a history of diabetes mellitus type 2, aortic regurgitation, heart murmur, hyperlipidemia, unstable angina pectoris, hypertension, obstructive sleep apnea, and PTSD. She reports the pain as a heaviness she does report some mild back pain which began earlier today no radiation into her neck or left arm. Denies any shortness of breath or cough. Does take a daily 81 aspirin daily and her normal medications. Denies any nausea vomiting diarrhea hematochezia or hematemesis no hemoptysis. Related Data Home Medications Medication Instructions Recorded Confirmed cyproheptadine 8 mg PO HS 10/28/14 10/07/19 lancets #100 ea 04/15/15 09/24/19 olanzapine 15 mg PO DAILY tab-cap 02/02/17 10/07/19 hydroxyzine pamoate [Vistaril] 25 mg PO PRN 03/24/17 10/07/19 prazosin 4 mg PO HS 03/24/17 10/07/19 Blood Glucose Test #120 strip 08/25/17 09/24/19 blood-glucose meter #1 each 11/24/17 09/24/19 nystatin 100,000 unit/gram topical 1 applic TP BID PRN #15 gm 11/29/18 10/07/19 cream flash glucose scanning reader #1 each 11/30/18 09/24/19 flash glucose sensor #6 each 11/30/18 09/24/19 insulin aspart U-100 100 unit/mL 6 unit SC AC #6 syringe 01/14/19 10/07/19 (3 mL) subcutaneous pen pen needle, diabetic 31 gauge x #400 each 03/01/19 09/24/1907/19 atenolol 50 mg tablet 25 mg PO DAILY #45 tab-cap 03/25/19 10/07/19 empagliflozin 25 mg tablet 25 mg PO DAILY #90 tab-cap 03/25/19 10/07/19 nitroglycerin 0.4 mg sublingual 0.4 mg SUBLINGUAL Q5 MIN PRN X3 03/25/19 10/07/19 tablet PRN #1 bottle carbamazepine 200 mg tablet 400 mg PO HS tab 05/08/19 10/07/19 citalopram 40 mg tablet 40 mg PO BID tab-cap 05/08/19 10/07/19 lorazepam 1 mg tablet 1 mg PO TID tab 05/08/19 10/07/19 valsartan 320 mg tablet 320 mg PO DAILY #90 tab-cap 06/13/19 10/07/19 aspirin 81 mg tablet,delayed 81 mg PO DAILY #30 tab-cap 06/20/19 10/07/19 release fluticasone propionate 50 1 - 2 spray NS DAILY PRN #3 unit 06/20/19 10/07/19 mcg/actuation nasal spray,suspension esomeprazole magnesium 40 mg 40 mg PO DAILY #90 cap 07/11/19 10/07/19 capsule,delayed release melatonin 10 mg tablet 20 mg PO HS #60 tab-cap 07/25/19 10/07/19 amlodipine 5 mg tablet 5 mg PO BID #180 tab-cap 08/29/19 10/07/19 atorvastatin 40 mg tablet 40 mg PO DAILY #90 tab-cap 08/29/19 10/07/19 insulin glargine 100 unit/mL (3 64 unit SUB-Q HS #18 syringe 08/29/19 10/07/19 mL) subcutaneous pen gabapentin 300 mg capsule 300 mg PO DIRECTED 28 Days #140 09/24/19 10/07/19 cap tramadol 50 mg tablet 50 mg PO BID PRN 28 Days #56 tab 09/24/19 10/07/19 MDD 2 tablets/day Previous Rx's Medication Instructions Recorded Blood Glucose Test #120 strip 08/25/17 blood-glucose meter #1 each 11/24/17 nystatin 100,000 unit/gram topical 1 applic TP BID PRN #15 gm 11/29/18 cream flash glucose scanning reader #1 each 11/30/18 flash glucose sensor #6 each 11/30/18 insulin aspart U-100 100 unit/mL 6 unit SC AC #6 syringe 01/14/19 (3 mL) subcutaneous pen pen needle, diabetic 31 gauge x #400 each 03/01/1907/19 atenolol 50 mg tablet 25 mg PO DAILY #45 tab-cap 03/25/19 empagliflozin 25 mg tablet 25 mg PO DAILY #90 tab-cap 03/25/19 nitroglycerin 0.4 mg sublingual 0.4 mg SUBLINGUAL Q5 MIN PRN X3 03/25/19 tablet PRN #1 bottle valsartan 320 mg tablet 320 mg PO DAILY #90 tab-cap 06/13/19 aspirin 81 mg tablet,delayed 81 mg PO DAILY #30 tab-cap 06/20/19 release fluticasone propionate 50 1 - 2 spray NS DAILY PRN #3 unit 06/20/19 mcg/actuation nasal spray,suspension esomeprazole magnesium 40 mg 40 mg PO DAILY #90 cap 07/11/19 capsule,delayed release melatonin 10 mg tablet 20 mg PO HS #60 tab-cap 07/25/19 amlodipine 5 mg tablet 5 mg PO BID #180 tab-cap 08/29/19 atorvastatin 40 mg tablet 40 mg PO DAILY #90 tab-cap 08/29/19 insulin glargine 100 unit/mL (3 64 unit SUB-Q HS #18 syringe 08/29/19 mL) subcutaneous pen gabapentin 300 mg capsule 300 mg PO DIRECTED 28 Days #140 09/24/19 cap tramadol 50 mg tablet 50 mg PO BID PRN 28 Days #56 tab 09/24/19 MDD 2 tablets/day Allergies Allergy/AdvReac Type Severity Reaction Status Date / Time Iodine and Iodide Containing Allergy Mild Skin Rash Verified 10/07/19 21:20 Produc codeine AdvReac Intermediate Nausea Verified 10/07/19 21:20 prochlorperazine edisylate AdvReac Intermediate Nausea Verified 10/07/19 21:20 [From Compazine] prochlorperazine maleate AdvReac Intermediate Nausea Verified 10/07/19 21:20 [From Compazine] oxycodone HCl [From Percocet] AdvReac Mild Nausea Verified 10/07/19 21:20 CHLORA PREP Allergy Intermediate skin Uncoded 10/07/19 21:20 blisters STERI STRIPS Allergy Intermediate skin Uncoded 10/07/19 21:20 blisters General FRED: 3 Review of Systems Narrative: Constitutional: Negative for weight loss, alert and oriented, well groomed, obese body habitus, appears uncomfortable. HEENT: Denies trauma, headaches, blurry vision, nasal discharge, sore throat, trouble swallowing. Chest: Denies palpitations, irregular rhythm, positive chest pain left-sided mild back pain started approximately 1 hour prior to arrival Respiratory: Denies Shortness of breath, cough, hemoptysis. GI: Denies abdominal pain, nausea, vomiting, diarrhea, constipation. : Denies dysuria, hematuria, flank pain, rectal bleeding. Neuro: Denies dizziness, blurry vision,, syncope, headache or facial numbness. Positive weakness and lightheadedness after receiving 1 0.4 mg sublingual nitro. Hematologic: Denies easy bruising, intolerance to heat or cold, hair loss. [facility] Medical History Adult BMI > 30 (Chronic) Allergic rhinitis (Chronic 10/28/14) Aortic regurgitation (Chronic) 05/26/2017 echo: mild-moderate --> repeat echo 2-3 years Back pain (Chronic 10/28/14) Bipolar affective disorder (Chronic) [facility] Bipolar disorder Cholelithiasis (Chronic 10/28/14) Chronic pain (Chronic) Drug overdose (Resolved 10/28/14) Fatty liver (Chronic 02/05/15) GI consult, probable metabolic syndrome Gastroesophageal reflux disease with esophagitis (Chronic) Heart murmur History of colonic polyps (Inactive 06/11/15) History of migraine headaches Hyperlipidemia (Chronic 10/28/14) 11/2016 labwork: 10-year ASCVD risk = ~5.7% --> continue current moderate intensity statin therapy Hypertension (Chronic 10/28/14) Insomnia (Acute) Migraine headache (Chronic 10/28/14) LEISA (obstructive sleep apnea) (Chronic 09/21/14) moderate, AHI 15, Dr Elliott [facility] PTSD (post-traumatic stress disorder) (Chronic) [facility] 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 Dr. Stearns. Cholecystectomy (04/09/12) Colonscopy (06/11/15) Reji Dumont EGD (11/14/06) EGD w/biopsies (06/11/15) Reji Dumont MD EGD with biopsy (09/08/08) EGD/colonoscopy (07/19/04) Excision, Lipoma (04/09/09) right back Left heart Catheterization, Angiography (06/01/17) ORIF radial fx (10/05/15) [facility] 1998 or 1999 de Quervain's release left wrist Dr [id number] L distal radius and ulna partial hysterectomy (Resolved) retained ovaries per pt Revision L carpal tunnel release (04/18/14) Flexor tenosynovectomy, hardware removal, Dr Ocasio [facility] varicose veins (Resolved 08/23/04) Family History Mother Heart disease Cancer lung Father Diabetes Heart disease CABG triple vessel, pacemaker Social History Smoking/Tobacco Use Status: Never Alcohol Intake: never Drug use: Daily Substance use type: marijuana Adopted: Yes Caregiver/Support person: No Household members: other Details: but not together Number of Children: 2 Communication Needs: None Education Level: high school Details: 8th Pets and animals: Yes Pets and animals: dog(s) Sexually active: Yes Current gender identity: female What type of physical activity do you participate in: walking Duration: 15-30 minutes/day Frequency: daily Seatbelt use: always Drive intox or ride w/intox limb driver: No Water heater temp set <120 deg: Yes Working smoke detector in home: Yes Fire extinguisher in home: Yes Carbon monox detector in home: Yes Firearms in home: Yes Do you feel safe at home: Yes Do you feel safe in your relationship?: Yes Exam Narrative Exam Narrative: Constitutional: Alert and oriented x3. Appears stated age. Obese body habitus. Head: Normocephalic, no trauma. Eyes: Pupils PERRLA, Red reflex noted, EOM's intact. Eyelids symmetrical without lesions, discharge, or swelling. ENT: Bilateral TM's WNL, External ear normal to inspection, no mastoid TTP, swelling, or erythema, Nasal turbinates WNL, no nasal discharge. Normal dentition, Posterior pharynx WNL, no exudate. Chest: RRR, Normal S1, S2, distal pulses intact. Reports left-sided chest hea viness with mild left upper back pain began approximately 1/2 hours prior to arrival. Resp: Lungs clear to auscultation bilaterally, no wheezes, rales, or rhonchi. Musculoskeletal: 5/5 strength to all four extremities. Skin: No suspicious rashes or lesions. Capillary refill less than 2 sec. does have some varicose veins noted to right lower extremity which she reports has been seen before in the past increased pain. Neurologic: Cranial nerves II-XII intact. Alert and oriented x 3. DTR's intact. Hematologic/Lymphatic: No ecchymosis, no lymphadenopathy.
[2019-10-07] MEDS: Aspirin 81 MG CHEW 243 MG CH (21:22)
--- NOTE | 2019-10-07 21:24 | NUR.NOTE ---
Nursing Note: Patient noted to have soft blood pressures, confirmed with Provider Francisco to give just 1 SL Nitro and monitor. Patient instructed to ring call omer for any changes in symptoms.
[2019-10-07 21:26] LABS: Abs Immature Grans 0.03 10^3/uL (0.0-0.06); Absolute Basophil Count 0.04 10^3/uL (0.0-0.2); Absolute Eosinophil Count 0.06 10^3/uL (0.0-0.7); Absolute Lymphocyte Count 2.45 10^3/uL (1.2-3.4); Absolute Monocyte Count 0.64 10^3/uL (0.1-0.8); Absolute Neutrophil Count 5.63 10^3/uL (1.2-6.7); Basophils % 0.5; Eosinophils % 0.7; HCT 42.8 % (36.0-46.0); HGB 13.8 g/dL (11.2-15.7); Immature Grans % 0.3; Lymphocytes % 27.7; MCH 29.3 pg (27.0-33.0); MCHC 32.2 % (32.0-36.0); MCV 90.9 fL (80-95); MPV 11.2 fL (8.0-11.0); Monocytes % 7.2; Neutrophils % 63.6; Platelet Count 202 10^3/uL (130-400); RBC 4.71 10^6/uL (3.93-5.22); RDW 12.8 % (11.7-14.6); RDW-SD 42.2 fL; WBC 8.85 10^3/uL (4.4-10.8)
[2019-10-07] MEDS: Normal Saline 1,000 ML 1000 ML IV (21:34)
--- NOTE | 2019-10-07 21:36 | NUR.NOTE ---
Nursing Note: Patient felt dizzy and no relief of chest pain after nitro. Blood pressure dropped to 82/45. 1L of NS to assist with blood pressure. Repeat blood pressure up to 95/51.
[2019-10-07 21:47] LABS: ALT 53 U/L (14-59); AST 33 U/L (15-37); Albumin 3.4 g/dL (3.4-5.0); Alkaline Phosphatase 155 U/L (46-116); Anion Gap 9.2 mmol/L (3-11); BUN 20 mg/dL (7-18); Bilirubin, Total 0.1 mg/dL (0.2-1.0); CO2 26.8 mmol/L (21.0-32.0); CREATININE 1.04 mg/dL (0.55-1.02); Calcium 8.4 mg/dL (8.5-10.1); Chloride 102 mmol/L (98-107); Estimated GFR 55.02 (mL/min/1.73m2); Glucose 227 mg/dL (74-106); Magnesium 1.7 mg/dL (1.8-2.4); Potassium 3.7 mmol/L (3.5-5.1); Sodium 138 mmol/L (136-145); Total Protein 6.9 g/dL (6.4-8.2); Troponin I < 0.05 ng/mL (<0.06)
[2019-10-07 21:49] LABS: NT-proBNP 14 pg/mL (<300)
[2019-10-07 22:41] LABS: D-Dimer 472 ng/mlFEU (<500)
== END 2019-10-07 22:55 | disposition left against medical advice (07) ==
PROVIDERS: Emergency Provider Registered Nurse Emergency; PCP Nurse Practitioner Family
DX: R07.9 Chest pain, unspecified (principal); R42 Dizziness and giddiness; M54.6 Pain in thoracic spine; I25.10 Atherosclerotic heart disease of native coronary artery without angina pectoris; Z53.29 Procedure and treatment not carried out because of patient's decision for other reasons; E11.9 Type 2 diabetes mellitus without complications; Z79.4 Long term (current) use of insulin; I10 Essential (primary) hypertension
CPT/HCPCS: 36415; 80053; 93005; 96360; 99285; 83735; 83880; 84484; 85025; 85379; 93010

== ENCOUNTER 2019-10-12 22:23 | Emergency (ER) | payer MEDICAID, SELFPAY ==
[2019-10-12] VITALS (15 sets, daily range): BP systolic 94–118; BP diastolic 55–68; PULSE 66–76; RESP 13–20; O2SAT 86–96
--- NOTE | 2019-10-12 22:15 | RT.EKG_ITS ---
APPROVED REPORT Exam: Resting ECG Patient Location: E HR:74 bpm ECG Measurements Heart Rate 74 AXIS TN 182 P 33 QRSd 99 QRS -16 QT 389 T 54 QTc 431 Conclusion Sinus rhythm...normal P axis, V-rate 60- 99 Probable left atrial enlargement...P >50mS, <-0.10mV V1 Consider anterior infarct...Q >30mS in V2-V5
--- NOTE | 2019-10-12 22:30 | DI.CT_ITS ---
EXAM: CT THORAX CTA CLINICAL HISTORY: chest pain. TECHNIQUE: Imaging Protocol: Axial CT angiography was performed with multi-slice acquisition and mu lti-planar and/or 3D reconstructions. CONTRAST MATERIAL: Intravenous: Omnipaque 350 Contrast volume:100 mL COMPARISON: CT CT ABDOMEN PELVIS W from 01/27/2019 FINDINGS: Pulmonary Arteries: No evidence of filling defect to suggest pulmonary emboli. Tracheobronchial tree: Patent where visualized. Mediastinum and Shadia: No dominant adenopathy or fluid collection. Pulmonary parenchyma: No consolidation or dominant measurable mass. No architectural distortion. Depe ndent atelectasis in the bases. Pleura: No effusion or pneumothorax. Heart: The heart is not dilated. Mild coronary artery calcification. No pericardial effusion. Aorta: Thoracic aorta non-dilated. No aneurysm or dissection. Upper abdomen: Unremarkable. Bones: Degenerative changes. Soft tissues: Unremarkable. IMPRESSION: No evidence of pulmonary embolism, thoracic aortic dissection or aneurysm. RADIATION DOSE DELIVERED: 570.03mGy.cm Total DLP 570.03mGy.cm Total DLP DATA REPOSITORY: All CT scans at this facility are submitted to the National Radiology Data Registry (NRDR) Dose Index Registry (DIR) with the [employer] (ACR). RADIATION OPTIMIZATION: All CT scans at this facility use at least one of these dose optimization te chniques: automated exposure control; mA and/or kV adjustment per patient size (includes targeted exa ms where dose is matched to clinical indication); or iterative reconstruction.
--- NOTE | 2019-10-12 22:33 | W.ED.GENAD ---
Discharge Plan Disposition Patient Disposition: AGAINST MEDICAL ADVICE Condition: Stable Discharge Details Chief Complaint: Chest Pain Clinical Impression: Chest pain Primary Care Provider: May Watson ED Provider: Joe Lee Page Meds and New Rx's Prescriptions: Continued nystatin 100,000 unit/gram cream 1 applic TP BID PRN (Reason: intertrigo) Qty: 15 RF: 3 fluticasone propionate [Flonase Allergy Relief] 50 mcg/actuation spray,suspension 1 - 2 spray NS DAILY PRN (Reason: nasal congestion) Qty: 3 RF: 3 aspirin 81 mg tablet,delayed release (DR/EC) 81 mg PO DAILY Qty: 30 RF: 11 melatonin 10 mg tablet 20 mg PO HS Qty: 60 RF: 11 tramadol 50 mg tablet 50 mg PO BID MDD 2 tablets/day PRN (Reason: pain) 28 Days Qty: 56 RF: 0 gabapentin 300 mg capsule 300 mg PO DIRECTED 28 Days Qty: 140 RF: 11 cyproheptadine 4 MG tablet 8 mg PO HS RF: 0 (DME) lancets 1 EACH misc 1 ea Miscellaneous AC & HS Qty: 100 RF: 11 olanzapine 10 MG tablet 15 mg PO DAILY RF: 0 prazosin 2 MG capsule 4 mg PO HS RF: 0 hydroxyzine pamoate [Vistaril] 25 MG capsule 25 mg PO PRN RF: 0 (DME) Blood Glucose Test 1 EACH strip 1 ea Miscellaneous AC & HS Qty: 120 RF: 11 (DME) blood-glucose meter misc See Dose Instructions .Route .MEDSUPPLY Qty: 1 RF: 0 (DME) FreeStyle Laila 14 Day Sensor Kit See Rx Instructions .ROUTE .MEDSUPPLY Qty: 6 RF: 3 (DME) FreeStyle Laila 14 Day [place] Misc See Rx Instructions .ROUTE .MEDSUPPLY Qty: 1 RF: 0 insulin aspart U-100 [Novolog Flexpen U-100 Insulin] 100 unit/mL (3 mL) insulin pen 6 unit SC AC Qty: 6 RF: 3 (DME) pen needle, diabetic [Pen Needle] 31 gauge x 5/16 needle 1 ea SQ QID Qty: 400 RF: 3 atenolol 50 mg tablet 25 mg PO DAILY Qty: 45 RF: 3 Jardiance 25 mg tablet 25 mg PO DAILY Qty: 90 RF: 3 nitroglycerin [Nitrostat] 0.4 mg tablet, sublingual 0.4 mg Sublingual Q5 MIN PRN X3 PRN (Reason: chest pain) Qty: 1 RF: 0 lorazepam [Ativan] 1 mg tablet 1 mg PO TID RF: 0 carbamazepine 200 mg tablet 400 mg PO HS RF: 0 citalopram 40 mg tablet 40 mg PO BID RF: 0 valsartan 320 mg tablet 320 mg PO DAILY Qty: 90 RF: 3 esomeprazole magnesium 40 mg capsule,delayed release(DR/EC) 40 mg PO DAILY Qty: 90 RF: 3 amlodipine 5 mg tablet 5 mg PO BID Qty: 180 RF: 3 atorvastatin 40 mg tablet 40 mg PO DAILY Qty: 90 RF: 3 Lantus Solostar U-100 Insulin 100 unit/mL (3 mL) insulin pen 64 unit Sub-Q HS Qty: 18 RF: 3 Discharge Instructions Instructions: Chest Pain (ED) Additional Instructions: follow up with your primary care provider and the stress test that has been ordered if you have worsening pain, feel more ill or feel shortness of breath return to the emergency department Medical Decision Making 54 yo female with hx of aortic regurgitation, t2dm, ptsd, htn, hld, gerd, nonsmoker, bipolar, who per chart review had a clean cath in 2018 comes in with chest pain. She has been having chest pain intermittently for 3 weeks. Was seen in the ED on 10/06 with initial negative troponin and she declined to stay for admission or repeat troponin. She denies any vomit, no fevers, no cough. She has pain in the left side of her chest with no rashes, does have some reproducible pain when palpated no crepitus, clear lungs on exam. Could be chest wall pain but will repeat troponin and ecg, heart score is 3. Pain radiates to back so will obtain cta of chest to eval for dissection. No evidence of dvt on exam and no pleuritic chest pain so doubt PE. She became hypotensive with nitro last visit so will hold on this at this time labs and imaging unremarkable and she remains hd stable. She still has some left sided reproducible pain. I recommended admission which she declined. I then recommended she at least stay for a 3 hour ekg and troponin which she declined. SHe has capacity to make her own decisions and understands risks of leaving including and disability and is willing to accept these risks and is not under the influence of drugs or alcohol. I did advise she can return if she changes her mind and did recommend following up with pcp and has an outpt stress test ordered. Differential Diagnosis Differential Diagnosis: chest wall pain, acs, dissection, pna Medical Records Medical records reviewed: Yes I reviewed the patient's medical records. Imaging Data Radiologic Study: Attestation: I personally reviewed and interpreted this imaging study as follows: Imaging: CT Scan Radiologist's impression: no acute findings Lab Data Lab results reviewed: Yes I reviewed the patient's lab results. ECG Data Attestation: I personally reviewed and interpreted this ECG (s) as follows: Prior ECG tracings: available for review Interpretation: sinus rhythm, rate of 74, pr [address] t wave ischemic changes from prior ekg HPI General Mode of arrival: wheelchair. Date/Time Provider Initiated Documentation: 10/12/19 22:24. Limitations to Documentation: no limitations. Information obtained by: patient. History of Present Illness 54 year old F presents to the emergency department with the chief complaint of chest pain, described as moderate, Patient started experiencing this minute(s) (30) No relieving factors improve symptom(s), No exacerbating factors reported . Patient did receive the following treatments prior to arrival, none Related Data Home Medications Medication Instructions Recorded Confirmed cyproheptadine 8 mg PO HS 10/28/14 10/09/19 lancets #100 ea 04/15/15 10/09/19 olanzapine 15 mg PO DAILY tab-cap 02/02/17 10/09/19 hydroxyzine pamoate [Vistaril] 25 mg PO PRN 03/24/17 10/09/19 prazosin 4 mg PO HS 03/24/17 10/09/19 Blood Glucose Test #120 strip 08/25/17 10/09/19 blood-glucose meter #1 each 11/24/17 10/09/19 nystatin 100,000 unit/gram topical 1 applic TP BID PRN #15 gm 11/29/18 10/09/19 cream flash glucose scanning reader #1 each 11/30/18 10/09/19 flash glucose sensor #6 each 11/30/18 10/09/19 insulin aspart U-100 100 unit/mL 6 unit SC AC #6 syringe 01/14/19 10/09/19 (3 mL) subcutaneous pen pen needle, diabetic 31 gauge x #400 each 03/01/19 10/09/1907/19 atenolol 50 mg tablet 25 mg PO DAILY #45 tab-cap 03/25/19 10/09/19 empagliflozin 25 mg tablet 25 mg PO DAILY #90 tab-cap 03/25/19 10/09/19 nitroglycerin 0.4 mg sublingual 0.4 mg SUBLINGUAL Q5 MIN PRN X3 03/25/19 10/09/19 tablet PRN #1 bottle carbamazepine 200 mg tablet 400 mg PO HS tab 05/08/19 10/09/19 citalopram 40 mg tablet 40 mg PO BID tab-cap 05/08/19 10/09/19 lorazepam 1 mg tablet 1 mg PO TID tab 05/08/19 10/09/19 valsartan 320 mg tablet 320 mg PO DAILY #90 tab-cap 06/13/19 10/09/19 aspirin 81 mg tablet,delayed 81 mg PO DAILY #30 tab-cap 06/20/19 10/09/19 release fluticasone propionate 50 1 - 2 spray NS DAILY PRN #3 unit 06/20/19 10/09/19 mcg/actuation nasal spray,suspension esomeprazole magnesium 40 mg 40 mg PO DAILY #90 cap 07/11/19 10/09/19 capsule,delayed release melatonin 10 mg tablet 20 mg PO HS #60 tab-cap 07/25/19 10/09/19 amlodipine 5 mg tablet 5 mg PO BID #180 tab-cap 08/29/19 10/09/19 atorvastatin 40 mg tablet 40 mg PO DAILY #90 tab-cap 08/29/19 10/09/19 insulin glargine 100 unit/mL (3 64 unit SUB-Q HS #18 syringe 08/29/19 10/09/19 mL) subcutaneous pen gabapentin 300 mg capsule 300 mg PO DIRECTED 28 Days #140 09/24/19 10/09/19 cap tramadol 50 mg tablet 50 mg PO BID PRN 28 Days #56 tab 09/24/19 10/09/19 MDD 2 tablets/day Previous Rx's Medication Instructions Recorded Blood Glucose Test #120 strip 08/25/17 blood-glucose meter #1 each 11/24/17 nystatin 100,000 unit/gram topical 1 applic TP BID PRN #15 gm 11/29/18 cream flash glucose scanning reader #1 each 11/30/18 flash glucose sensor #6 each 11/30/18 insulin aspart U-100 100 unit/mL 6 unit SC AC #6 syringe 01/14/19 (3 mL) subcutaneous pen pen needle, diabetic 31 gauge x #400 each 03/01/1907/19 atenolol 50 mg tablet 25 mg PO DAILY #45 tab-cap 03/25/19 empagliflozin 25 mg tablet 25 mg PO DAILY #90 tab-cap 03/25/19 nitroglycerin 0.4 mg sublingual 0.4 mg SUBLINGUAL Q5 MIN PRN X3 03/25/19 tablet PRN #1 bottle valsartan 320 mg tablet 320 mg PO DAILY #90 tab-cap 06/13/19 aspirin 81 mg tablet,delayed 81 mg PO DAILY #30 tab-cap 06/20/19 release fluticasone propionate 50 1 - 2 spray NS DAILY PRN #3 unit 06/20/19 mcg/actuation nasal spray,suspension esomeprazole magnesium 40 mg 40 mg PO DAILY #90 cap 07/11/19 capsule,delayed release melatonin 10 mg tablet 20 mg PO HS #60 tab-cap 07/25/19 amlodipine 5 mg tablet 5 mg PO BID #180 tab-cap 08/29/19 atorvastatin 40 mg tablet 40 mg PO DAILY #90 tab-cap 08/29/19 insulin glargine 100 unit/mL (3 64 unit SUB-Q HS #18 syringe 08/29/19 mL) subcutaneous pen gabapentin 300 mg capsule 300 mg PO DIRECTED 28 Days #140 09/24/19 cap tramadol 50 mg tablet 50 mg PO BID PRN 28 Days #56 tab 09/24/19 MDD 2 tablets/day Allergies Allergy/AdvReac Type Severity Reaction Status Date / Time Iodine and Iodide Containing Allergy Mild Skin Rash Verified 10/12/19 22:32 Produc codeine AdvReac Intermediate Nausea Verified 10/12/19 22:32 prochlorperazine edisylate AdvReac Intermediate Nausea Verified 10/12/19 22:32 [From Compazine] prochlorperazine maleate AdvReac Intermediate Nausea Verified 10/12/19 22:32 [From Compazine] oxycodone HCl [From Percocet] AdvReac Mild Nausea Verified 10/12/19 22:32 CHLORA PREP Allergy Intermediate skin Uncoded 10/12/19 22:32 blisters STERI STRIPS Allergy Intermediate skin Uncoded 10/12/19 22:32 blisters General Stated Complaint: Chest Pain FRED: 3 Review of Systems All systems reviewed & are unremarkable except as noted in HPI and below Constitutional Constitutional: Denies chills, Denies fever(s) and Denies weakness Cardiovascular Cardiovascular: Denies dyspnea Respiratory Respiratory: Denies cough and Denies dyspnea Gastrointestinal Gastrointestinal: Denies abdominal pain, Denies nausea and Denies vomiting Musculoskeletal Musculoskeletal: Denies joint swelling Neurologic Neurologic: Denies weakness Psychiatric Psychiatric: Denies depression [facility] Medical History (Updated 10/12/19 @ 23:47 by Joe Lee MD) Adult BMI > 30 (Chronic) Allergic rhinitis (Chronic 10/28/14) Aortic regurgitation (Chronic) 05/26/2017 echo: mild-moderate --> repeat echo 2-3 years Back pain (Chronic 10/28/14) Bipolar affective disorder (Chronic) [facility] [place] Bipolar disorder Cholelithiasis (Chronic 10/28/14) Chronic pain (Chronic) Drug overdose (Resolved 10/28/14) Fatty liver (Chronic 02/05/15) GI consult, probable metabolic syndrome Gastroesophageal reflux disease with esophagitis (Chronic) Heart murmur History of colonic polyps (Inactive 06/11/15) History of migraine headaches Hyperlipidemia (Chronic 10/28/14) 11/2016 labwork: 10-year ASCVD risk = ~5.7% --> continue current moderate intensity statin therapy Hypertension (Chronic 10/28/14) Insomnia (Acute) Migraine headache (Chronic 10/28/14) LEISA (obstructive sleep apnea) (Chronic 09/21/14) moderate, AHI 15, Dr Elliott [facility] PTSD (post-traumatic stress disorder) (Chronic) [facility] [place] 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 Dr. Stearns. Cholecystectomy (04/09/12) Colonscopy (06/11/15) Reji Dumont EGD (11/14/06) EGD w/biopsies (06/11/15) Reji Dumont MD EGD with biopsy (09/08/08) EGD/colonoscopy (07/19/04) Excision, Lipoma (06/12/08) right back Left heart Catheterization, Angiography (06/01/17) ORIF radial fx (10/05/15) LR 1998 or 1999 de Quervain's release left wrist Dr [id number] L distal radius and ulna partial hysterectomy (Resolved) retained ovaries per pt Revision L carpal tunnel release (04/18/14) Flexor tenosynovectomy, hardware removal, Dr Ocasio [facility] varicose veins (Resolved 08/23/04) Family History Mother Heart disease Cancer lung Father Diabetes Heart disease CABG triple vessel, pacemaker Social History Smoking/Tobacco Use Status: Never Alcohol Intake: never Drug use: Daily Substance use type: marijuana Details: medical marijuana Adopted: Yes Caregiver/Support person: No Household members: other Details: but not together Number of Children: 2 Communication Needs: None Education Level: high school Details: 8th Pets and animals: Yes Pets and animals: dog(s) Sexually active: Yes Current gender identity: female What type of physical activity do you participate in: walking Duration: 15-30 minutes/day Frequency: daily Seatbelt use: always Drive intox or ride w/intox hydraulic lift driver: No Water heater temp set <120 deg: Yes Working smoke detector in home: Yes Fire extinguisher in home: Yes Carbon monox detector in home: Yes Firearms in home: Yes Do you feel safe at home: Yes Do you feel safe in your relationship?: Yes Exam Const General: no acute distress Orientation: alert HENMT Head: normal to inspection Ears: external ears normal General nose exam: external nose normal Mouth: moist mucous membranes Eyes General: appearance normal, both eyes and all related structures Neck Neck: normal visual inspection Resp Effort & Inspection: normal respiratory effort and able to speak in complete sentences Cardio Rate: regular rate Skin General skin exam: no rashes or lesions noted Neuro General: patient alert and patient oriented x3 Extrem General: normal to inspection Psych Mental Status: mental status grossly normal Course Vital Signs Vital signs: Vital Signs Pulse 76 10/12/19 22:29 Respiratory Rate 20 10/12/19 22:29 Blood Pressure 104/63 10/12/19 22:29 Pulse Oximetry 90 L 10/12/19 22:29 Pulse 76 10/12/19 22:29 Respiratory Rate 20 10/12/19 22:29 Blood Pressure 104/63 10/12/19 22:29 Pulse Oximetry 90 L 10/12/19 22:29 Pain Level 9 10/12/19 22:29
[2019-10-12 22:46] LABS: Abs Immature Grans 0.02 10^3/uL (0.0-0.06); Absolute Basophil Count 0.02 10^3/uL (0.0-0.2); Absolute Eosinophil Count 0.13 10^3/uL (0.0-0.7); Absolute Lymphocyte Count 2.56 10^3/uL (1.2-3.4); Absolute Monocyte Count 0.42 10^3/uL (0.1-0.8); Absolute Neutrophil Count 4.79 10^3/uL (1.2-6.7); Basophils % 0.3; Eosinophils % 1.6; HCT 42.5 % (36.0-46.0); HGB 13.8 g/dL (11.2-15.7); Immature Grans % 0.3; Lymphocytes % 32.2; MCH 29.2 pg (27.0-33.0); MCHC 32.5 % (32.0-36.0); MCV 89.9 fL (80-95); MPV 11.1 fL (8.0-11.0); Monocytes % 5.3; Neutrophils % 60.3; Nucleated RBC 0 %; Platelet Count 198 10^3/uL (130-400); RBC 4.73 10^6/uL (3.93-5.22); RDW 12.6 % (11.7-14.6); RDW-SD 41.4 fL; WBC 7.94 10^3/uL (4.4-10.8)
[2019-10-12] MEDS: Omnipaque 350 MG/ML 100 ML BTL IV (22:56)
[2019-10-12] MEDS: fentaNYL 100 MCG/2 ML VIAL IVP (23:07)
[2019-10-12 23:08] LABS: ALT 56 U/L (14-59); AST 39 U/L (15-37); Albumin 3.4 g/dL (3.4-5.0); Alkaline Phosphatase 155 U/L (46-116); Anion Gap 11.3 mmol/L (3-11); BUN 16 mg/dL (7-18); Bilirubin, Total 0.2 mg/dL (0.2-1.0); CO2 24.7 mmol/L (21.0-32.0); CREATININE 1.04 mg/dL (0.55-1.02); Calcium 8.3 mg/dL (8.5-10.1); Chloride 103 mmol/L (98-107); Estimated GFR 55.02 (mL/min/1.73m2); Glucose 209 mg/dL (74-106); Lipase 107 U/L (73-393); Magnesium 1.8 mg/dL (1.8-2.4); NT-proBNP 27 pg/mL (<300); Potassium 3.9 mmol/L (3.5-5.1); Sodium 139 mmol/L (136-145)
[2019-10-12 23:16] LABS: Bilirubin, Direct < 0.05 mg/dL (0.00-0.20); INR 0.9 (0.9-1.1); PTT Activated 23.4 sec (21.0-31.4); Prothrombin Time 9.5 sec (9.3-11.0); Troponin I < 0.05 ng/mL (<0.06)
--- NOTE | 2019-10-12 23:27 | DI.VRAD_ITS ---
PROCEDURE INFORMATION: Exam: CT Angiography Chest With Contrast Exam date and time: 10/12/2019 10:39 PM Age: 54 years old Clinical indication: Other: Chest pain TECHNIQUE: Imaging protocol: Computed tomographic angiography of the chest with intravenous contrast. 3D rendering: MIP and/or 3D reconstructed images were created by the technologist. Contrast material: OMNIPAQUE 350; Contrast volume: 100 ml; Contrast route: INTRAVENOUS (IV); COMPARISON: CR CHEST 2 VIEWS PA,LAT 05/25/2017 7:48 PM FINDINGS: Pulmonary arteries: Normal. No pulmonary emboli. Aorta: Unremarkable. No aortic aneurysm. No aortic dissection. Lungs: Unremarkable. No consolidation. No masses. Pleural space: Unremarkable. No pneumothorax. No pleural effusion. Heart: Unremarkable. No cardiomegaly. No pericardial effusion. Lymph nodes: Unremarkable. No enlarged lymph nodes. Bones/joints: Unremarkable. No acute fracture. Soft tissues: Unremarkable. IMPRESSION: No acute findings. Dictated and Authenticated by: Joe Pena MD. Ordering:JORGE LUIS Diaz MD
== END 2019-10-12 23:55 | disposition left against medical advice (07) ==
PROVIDERS: Emergency Provider Emergency Medicine; PCP Nurse Practitioner Family
DX: R07.9 Chest pain, unspecified (principal); Z53.29 Procedure and treatment not carried out because of patient's decision for other reasons; E11.9 Type 2 diabetes mellitus without complications; Z79.4 Long term (current) use of insulin; I35.1 Nonrheumatic aortic (valve) insufficiency; I10 Essential (primary) hypertension
CPT/HCPCS: 36415; 71275; 80053; 83690; 93005; 96374; 99285; 82248; 83735; 83880; 84484; 85025; 85610; 85730; 93010; 99284; J3010; J3490

== ENCOUNTER 2019-10-17 00:23 | Outpatient (CLI) | payer MEDICAID, SELFPAY ==
--- NOTE | 2019-10-17 06:45 | DI.NM_ITS ---
APPROVED REPORT Exam: Pharmacologic Patient Location: Out-Patient Room/Bed: Stress Nurse: Shweta Ratliff RN BMI: 39.86 Baseline Rhythm: Sinus Rhythm Comment: Minimal ST elevation: inferior leads Indications: Patient has been to the ED twice in the last three weeks for intermittent left sided dagoberto st pain (Iasting approximately 40 minutes) at rest. She reports back pain between shoulder blades, di zziness, diaphoresis and low blood pressures (75/55) with these episodes. Medical History Medical History: Aortic Regurgitation, GERD, Obesity, Bipolar, LEISA, PTSD, Unstable Angina Pectoris, H eart Murmur. Cardiac Medications: Aspirin, Prazosin, Atenolol, Valsartan, Amlodipine, Atorvastatin. Allergies: Iodine, Codeine, Compazine, Chlora Prep, Steri Strips. Cardiac Risk Factors: FHX of CAD, HTN, Hyperlipidemia, Diabetes (insulin) Previous Cardiac Procedures: PCI Pretest Chest Pain Characteristics: None. Exercise History: Sedentary Physical Disabilities: Unable to tolerate treadmill per patient. Lung Sounds: Clear to auscultation Heart Sounds: Regular Stress Test Details Test: Pharmacologic stress testing performed using 0.4 mg of regadenoson per 5 mL given IV over 10 s econds. Nuclear Acquisition: Rest Tc-99m/Stress Tc-99m 1 day Rest Isotope: Tc-99m Sestamibi. Dose: 15.0 Date: 10/17/2019 Injection Time: 0930 Stress Isotope: Tc-99m Sestamibi. Dose: 45.0 Date: 10/17/2019 Injection Time: 1210 HR Resting HR Supine: 61 bpm Max Heart Rate (APMHR): 165 bpm Target HR (85% APMHR): 140 bpm Max HR Achieved: 101 bpm % of APMHR: 61 BP Resting BP Supine: 146/82 mmHg Max BP: 150/84 mmHg ECG Resting ECG: Sinus Rhythm Stress ECG: Sinus Rhythm ST Change: Normal Arrhythmia: None Recovery ECG: Sinus Rhythm Recovery ST Change: Normal Recovery Arrhythmia: None Clinical Stress Symptoms: No symptoms reported per patient. Stress ECG Conclusion 1. Is a pharmacological stress test. 2. Patient no symptoms suggestive of ischemia 3. EKG portion of his exam is nondiagnostic. Stress Test Summary STAGE HR BP Symptoms NOTES Supine 61 146/82 1 min post Lexiscan injection 98 138/74 3 min post Lexiscan injection 86 138/82 6 min post Lexiscan injection 78 150/84 MPI Conclusion The ejection fraction was 64% with stress. There were no wall motion abnormalities. There is a small fixed perfusion defect at the apex which likely represents artifact. There is no ev idence of ischemia. Radiologist Interpretation Radiologist Interpretation by: Alvarado Barker MD Interpretation Date/Time: 10/17/2019 16:18:32
[2019-10-17] MEDS: Regadenoson 0.4 MG/5 ML SYR IVP (12:06)
== END 2019-10-17 00:43 ==
PROVIDERS: PCP Nurse Practitioner Family; Visit Provider Internal Medicine
DX: R07.9 Chest pain, unspecified (principal); Z82.49 Family history of ischemic heart disease and other diseases of the circulatory system; I10 Essential (primary) hypertension; E78.5 Hyperlipidemia, unspecified; E11.9 Type 2 diabetes mellitus without complications; Z79.4 Long term (current) use of insulin
CPT/HCPCS: 78452; 93017; J2785

== ENCOUNTER 2019-11-04 12:16 | Outpatient (REF) | payer MEDICAID, SELFPAY ==
[2019-11-04 19:55] LABS: COMMENT (LAB VIEW ONLY) 81.71 mg/dL; Microalb ug/mg Crea 9.9 ug/mg Cr
== END 2019-11-04 12:36 ==
LOC: LBN 12:16
PROVIDERS: PCP Nurse Practitioner Family; Visit Provider Nurse Practitioner Family
DX: E11.9 Type 2 diabetes mellitus without complications (principal)
CPT/HCPCS: 82043; 82570

== ENCOUNTER 2019-11-05 00:49 | Outpatient (CLI) | payer MEDICAID, SELFPAY ==
--- NOTE | 2019-11-05 14:15 | DI.RAD_ITS ---
EXAM: XR HIP RT COMPLETE AP PELVIS CLINICAL HISTORY: Lateral R hip pain ?bursitis vs. other?, pain rt hip, M25.551. TECHNIQUE: 2D digital imaging was performed. COMPARISON: No exams were available for comparison FINDINGS: BONES: No acute fracture is present. No bony destructive lesion is seen. JOINTS: No dislocation present. SOFT TISSUE: Normal. IMPRESSION: Unremarkable radiographs of the right hip. Unremarkable radiographs of the pelvis. DATA REPOSITORY: RADIATION DOSE DELIVERED:
== END 2019-11-05 01:09 ==
PROVIDERS: PCP Nurse Practitioner Family; Visit Provider Nurse Practitioner Family
DX: M25.551 Pain in right hip (principal)
CPT/HCPCS: 73502

== ENCOUNTER 2019-11-05 04:38 | Outpatient (CLI) | payer MEDICAID, SELFPAY ==
[2019-11-05 14:09] LABS: Abs Immature Grans 0.01 10^3/uL (0.0-0.06); Absolute Basophil Count 0.04 10^3/uL (0.0-0.2); Absolute Eosinophil Count 0.11 10^3/uL (0.0-0.7); Absolute Lymphocyte Count 2.04 10^3/uL (1.2-3.4); Absolute Monocyte Count 0.45 10^3/uL (0.1-0.8); Absolute Neutrophil Count 3.59 10^3/uL (1.2-6.7); Basophils % 0.6; Eosinophils % 1.8; HCT 41.4 % (36.0-46.0); HGB 13.7 g/dL (11.2-15.7); Immature Grans % 0.2; Lymphocytes % 32.7; MCH 29.5 pg (27.0-33.0); MCHC 33.1 % (32.0-36.0); MCV 89.2 fL (80-95); MPV 10.6 fL (8.0-11.0); Monocytes % 7.2; Neutrophils % 57.5; Nucleated RBC 0 %; Platelet Count 164 10^3/uL (130-400); RBC 4.64 10^6/uL (3.93-5.22); RDW 12.7 % (11.7-14.6); RDW-SD 41.3 fL; WBC 6.24 10^3/uL (4.4-10.8)
[2019-11-05 15:11] LABS: ALT 67 U/L (14-59); AST 48 U/L (15-37); Albumin 3.6 g/dL (3.4-5.0); Alkaline Phosphatase 165 U/L (46-116); Anion Gap 6.3 mmol/L (3-11); BUN 16 mg/dL (7-18); Bilirubin, Total 0.2 mg/dL (0.2-1.0); CO2 29.7 mmol/L (21.0-32.0); CREATININE 0.65 mg/dL (0.55-1.02); Calcium 8.5 mg/dL (8.5-10.1); Calculated LDL 76 mg/dL (<100); Chloride 107 mmol/L (98-107); Cholesterol 147 mg/dL (<200); Glucose 122 mg/dL (74-106); HDL Cholesterol 39 mg/dL (40-60); Potassium 4.2 mmol/L (3.5-5.1); Sodium 143 mmol/L (136-145); Total Protein 6.8 g/dL (6.4-8.2); Triglyceride 162 mg/dL (<150)
== END 2019-11-05 04:58 ==
PROVIDERS: PCP Nurse Practitioner Family; Visit Provider Nurse Practitioner Family
DX: E78.5 Hyperlipidemia, unspecified (principal); E11.9 Type 2 diabetes mellitus without complications; Z79.4 Long term (current) use of insulin
CPT/HCPCS: 36415; 80053; 80061; 85025

== ENCOUNTER 2019-11-18 10:47 | Outpatient (REF) | payer MEDICAID, SELFPAY ==
[2019-11-22 09:41] LABS: 2-Hydroxy Ethyl Flurazepam Not Detected ng/mL (Cutoff: 10); 6-monoacetylmorphine Not Detected ng/mL (Cutoff: 25); Alpha-Hydroxy Midazolam Not Detected ng/mL (Cutoff: 10); Alpha-Hydroxy Triazolam Not Detected ng/mL (Cutoff: 10); Alpha-Hydroxyalprazolam Not Detected ng/mL (Cutoff: 10); Alpha-OH-alprazolam Glucuronid Not Detected ng/mL (Cutoff: 50); Alprazolam Not Detected ng/mL (Cutoff: 10); Amphetamines Negative ng/mL (Cutoff: 500); Barbiturates Negative ng/mL (Cutoff: 200); Buprenorphine Not Detected ng/mL (Cutoff: 5); Chlordiazepoxide Not Detected ng/mL (Cutoff: 10); Clobazam Not Detected ng/mL (Cutoff: 10); Clonazepam Not Detected ng/mL (Cutoff: 10); Cocaine Negative ng/mL (Cutoff: 150); Codeine Not Detected ng/mL (Cutoff: 25); Comment Normal; Creatinine, U 69.6 mg/dL; Diazepam Not Detected ng/mL (Cutoff: 10); Dihydrocodeine Not Detected ng/mL (Cutoff: 25); EDDP Not Detected ng/mL (Cutoff: 25); Fentanyl Not Detected ng/mL (Cutoff: 2); Flurazepam Not Detected ng/mL (Cutoff: 10); Hydrocodone Not Detected ng/mL (Cutoff: 25); Hydromorphone Not Detected ng/mL (Cutoff: 25); Hydromorphone-3-beta-glucuroni Not Detected ng/mL (Cutoff: 100); Lorazepam Not Detected ng/mL (Cutoff: 10); Lorazepam Glucuronide Present ng/mL (Cutoff: 50); Meperidine Not Detected ng/mL (Cutoff: 25); Methadone Not Detected ng/mL (Cutoff: 25); Midazolam Not Detected ng/mL (Cutoff: 10); Morphine Not Detected ng/mL (Cutoff: 25); N-Desmethylclobazam Not Detected ng/mL (Cutoff: 200); N-desmethyltapentadol Not Detected ng/mL (Cutoff: 50); Naloxone Not Detected ng/mL (Cutoff: 25); Norbuprenorphine Not Detected ng/mL (Cutoff: 5); Norfentanyl Not Detected ng/mL (Cutoff: 2); Norhydrocodone Not Detected ng/mL (Cutoff: 25); Normeperidine Not Detected ng/mL (Cutoff: 25); Noroxycodone Not Detected ng/mL (Cutoff: 25); Noroxymorphone Not Detected ng/mL (Cutoff: 25); O-desmethyltramadol Present ng/mL (Cutoff: 25); Oxazepam Glucuronide Not Detected ng/mL (Cutoff: 50); Phencyclidine Negative ng/mL (Cutoff: 25); Prazepam Not Detected ng/mL (Cutoff: 10); Propoxyphene Not Detected ng/mL (Cutoff: 25); Specific Gravity 1.013; Tapentadol Not Detected ng/mL (Cutoff: 25); Temazepam Not Detected ng/mL (Cutoff: 10); Temazepam Glucuronide Not Detected ng/mL (Cutoff: 50); Tetrahydrocannabinol Negative ng/mL (Cutoff: 50); Tramadol Present ng/mL (Cutoff: 25); Triazolam Not Detected ng/mL (Cutoff: 10); Zolpidem Phenyl-4-Carboxy acid Not Detected ng/mL (Cutoff: 10); pH 5.2
== END 2019-11-18 11:07 ==
LOC: LBN 10:47
PROVIDERS: PCP Nurse Practitioner Family; Visit Provider Nurse Practitioner Family
DX: G89.29 Other chronic pain (principal); Z79.891 Long term (current) use of opiate analgesic
CPT/HCPCS: 80307; 80347; 80364

== ENCOUNTER 2020-01-10 03:50 | Outpatient (CLI) | payer MEDICAID, SELFPAY ==
--- NOTE | 2020-01-10 10:35 | DI.MRI_ITS ---
EXAM: MR LUMBAR SPINE WO CLINICAL HISTORY: RT SCIATICA, BACK PAIN,M54.31. TECHNIQUE: Multiplanar multisequence MRI of the Lumbar spine was performed. COMPARISON: MR MRI - LUMBAR SPINE WO CONTRAST from 08/14/2017 FINDINGS: Bones: The last intervertebral disc space is designated the L5/S1 level for the numbering purpose of this examination. The vertebral body heights are well maintained. Disc desiccation is seen at L2-3 , L3-4 and L5-S1. Alignment is satisfactory. There are endplate degenerative signal changes at all le vels of the lumbar spine. There is a hemangioma again seen in the L4 vertebral body. Cord: The conus tip ends at the L1 level. It is of normal size and signal intensity. T12-L1: No disc herniations or bulges are present. No central spinal canal or neural foraminal stenos is. L1-2: No disc herniations or bulges are present. No central spinal canal or neural foraminal stenosis . L2-3: No disc herniations or bulges are present. No central spinal canal or neural foraminal stenosis . L3-4: No disc herniations or bulges are present. No central spinal canal or neural foraminal stenosis . L4-5: No disc herniations or bulges are present. No central spinal canal or neural foraminal stenosis . L5-S1: No disc herniations or bulges are present. Mild degenerative changes of the facets. No centr al spinal canal or neural foraminal stenosis. Soft tissues: The visualized SI joints and sacrum are well maintained. The paraspinal soft tissues ar e unremarkable. IMPRESSION: Mild degenerative disc disease. No focal disc herniations, central spinal canal or neural foraminal stenosis. DATA REPOSITORY:
== END 2020-01-10 04:10 ==
PROVIDERS: PCP Nurse Practitioner Family; Visit Provider Nurse Practitioner Family
DX: M47.816 Spondylosis without myelopathy or radiculopathy, lumbar region (principal); M54.31 Sciatica, right side
CPT/HCPCS: 72148

== ENCOUNTER 2020-02-10 15:18 | Outpatient (REF) | payer MEDICAID, SELFPAY ==
[2020-02-13 16:50] LABS: 2-Hydroxy Ethyl Flurazepam Not Detected ng/mL (Cutoff: 10); 6-monoacetylmorphine Not Detected ng/mL (Cutoff: 25); Alpha-Hydroxy Midazolam Not Detected ng/mL (Cutoff: 10); Alpha-Hydroxy Triazolam Not Detected ng/mL (Cutoff: 10); Alpha-Hydroxyalprazolam Not Detected ng/mL (Cutoff: 10); Alpha-OH-alprazolam Glucuronid Not Detected ng/mL (Cutoff: 50); Alprazolam Not Detected ng/mL (Cutoff: 10); Amphetamines Negative ng/mL (Cutoff: 500); Barbiturates Negative ng/mL (Cutoff: 200); Buprenorphine Not Detected ng/mL (Cutoff: 5); Chlordiazepoxide Not Detected ng/mL (Cutoff: 10); Clobazam Not Detected ng/mL (Cutoff: 10); Clonazepam Not Detected ng/mL (Cutoff: 10); Cocaine Negative ng/mL (Cutoff: 150); Codeine Not Detected ng/mL (Cutoff: 25); Comment Normal; Creatinine, U 69.8 mg/dL; Diazepam Not Detected ng/mL (Cutoff: 10); Dihydrocodeine Not Detected ng/mL (Cutoff: 25); EDDP Not Detected ng/mL (Cutoff: 25); Fentanyl Not Detected ng/mL (Cutoff: 2); Flurazepam Not Detected ng/mL (Cutoff: 10); Hydrocodone Not Detected ng/mL (Cutoff: 25); Hydromorphone Not Detected ng/mL (Cutoff: 25); Hydromorphone-3-beta-glucuroni Not Detected ng/mL (Cutoff: 100); Lorazepam Not Detected ng/mL (Cutoff: 10); Lorazepam Glucuronide Present ng/mL (Cutoff: 50); Meperidine Not Detected ng/mL (Cutoff: 25); Methadone Not Detected ng/mL (Cutoff: 25); Midazolam Not Detected ng/mL (Cutoff: 10); Morphine Not Detected ng/mL (Cutoff: 25); N-Desmethylclobazam Not Detected ng/mL (Cutoff: 200); N-desmethyltapentadol Not Detected ng/mL (Cutoff: 50); Naloxone Not Detected ng/mL (Cutoff: 25); Norbuprenorphine Not Detected ng/mL (Cutoff: 5); Norfentanyl Not Detected ng/mL (Cutoff: 2); Norhydrocodone Not Detected ng/mL (Cutoff: 25); Normeperidine Not Detected ng/mL (Cutoff: 25); Noroxycodone Not Detected ng/mL (Cutoff: 25); Noroxymorphone Not Detected ng/mL (Cutoff: 25); O-desmethyltramadol Present ng/mL (Cutoff: 25); Oxazepam Glucuronide Not Detected ng/mL (Cutoff: 50); Phencyclidine Negative ng/mL (Cutoff: 25); Prazepam Not Detected ng/mL (Cutoff: 10); Propoxyphene Not Detected ng/mL (Cutoff: 25); Specific Gravity 1.012; Tapentadol Not Detected ng/mL (Cutoff: 25); Temazepam Not Detected ng/mL (Cutoff: 10); Temazepam Glucuronide Not Detected ng/mL (Cutoff: 50); Tetrahydrocannabinol Negative ng/mL (Cutoff: 50); Tramadol Present ng/mL (Cutoff: 25); Triazolam Not Detected ng/mL (Cutoff: 10); Zolpidem Phenyl-4-Carboxy acid Not Detected ng/mL (Cutoff: 10); pH 5.6
== END 2020-02-10 15:38 ==
LOC: LBN 15:18
PROVIDERS: PCP Nurse Practitioner Family; Visit Provider Nurse Practitioner Family
DX: Z79.891 Long term (current) use of opiate analgesic (principal)
CPT/HCPCS: 80307; 80347; 80364

== ENCOUNTER 2020-02-11 10:54 | Outpatient (CLI) | payer MEDICAID, SELFPAY ==
--- NOTE | 2020-02-11 06:00 | DI.RAD_ITS ---
EXAM: XR PAIN CLINIC SACRIOILIAC 2V CLINICAL HISTORY: DX: SACROILLIAC JOINT DYSFUNCTION TECHNIQUE: 2D and realtime digital imaging was performed. COMPARISON: No exams were available for comparison FINDINGS: C-arm fluoroscopy was utilized by Dr. Huber during reported SI joint injection. Hard copies show need le placement at right and left SI joints. Fluoro time, 28.3 seconds IMPRESSION: RADIATION DOSE DELIVERED: Total DLP
[2020-02-11 11:04] VITALS: BP 137/88; PULSE 71; RESP 16; TEMP 37; O2SAT 94
[2020-02-11 11:36] VITALS: BP 146/92; PULSE 67; RESP 20; O2SAT 96
[2020-02-11] MEDS: methylPREDNISolone ACETATE 80 MG/ML VIAL IJ (11:36)
--- NOTE | 2020-02-11 12:37 | PDOC.PAIN_ITS ---
Pain Clinic Procedure Note Procedure Note Procedure Note: INTRA-ARTICULAR SI JOINT INJECTION CASSIE NICHOLSON has been referred to the [facility] for intra- articular SI joint injection. COMMENTS: This is a repeat procedure from 08/20/19. She had excellent relief from this procedure for 3-4 months. She is allergic to Iodine and Chloroprep. DX: Bilateral sacroiliac joint dysfunction Patient was interviewed and the medical record reviewed. There were no medical, pharmacologic, radiographic or other structural contraindications to attempting fluoroscopically guided intra-articular SI joint injection. Risks and expected side effects as well as potential benefit of the procedure were reviewed and voiced concerns addressed. The printed consent form was signed and witnessed. Standard time-out procedure was performed. Patient was placed in the prone position on the fluoroscopy table and automated blood pressure cuff and pulse oximeter applied. The skin entry point for approaching bilateral SI joints was identified under the most advantageous fluoroscopic view and marked. Following thorough Chlorhexadine preparation of the skin and draping and 1% lidocaine infiltration of the skin entry point and subcutaneous tissues, a 22 gauge spinal needle was placed under fluoroscopic guidance into bilateral SI joints was identified under the most advantageous fluoroscopic view and marked. Following thorough Alcohol preparation of the skin and draping and 1% lidocaine infiltration of the skin entry point and subcutaneous tissues, a 22 gauge spinal needle was placed under fluoroscopic guidance into bilateral SI joints. Intra-articular placement was confirmed fluoroscopy. Next 1ml 1% lidocaine and 40mg Depomedrol were injected into each joint intra-articularily with an initial reproduction of a significant component of the usual pain. The needle was flushed with 1 cc of 1% Lidocaine and removed. Vital signs were stable throughout the procedure and were as recorded in the docflowsheet by the nursing staff. If given, dosages of intravenous drugs for anxiolysis and analgesia were documented in MAR. Follow up plans and appointments were discussed with the patient. Post procedur e instruction was given as documented in nursing documentation and having met discharge criteria, and was discharged from the [facility]. COMMENTS: If this procedure is found to be helpful, it can be completed up to 3 times per 12 months. CC: May Watson APRN
== END 2020-02-11 11:14 ==
PROVIDERS: PCP Nurse Practitioner Family; Visit Provider Preventive Medicine Occupational Medicine
DX: M53.3 Sacrococcygeal disorders, not elsewhere classified (principal)
CPT/HCPCS: 27096; 72200; J1040

== ENCOUNTER 2020-04-30 18:15 | Outpatient (REF) | payer MEDICAID, SELFPAY ==
[2020-05-03 15:50] LABS: 2-Hydroxy Ethyl Flurazepam Not Detected ng/mL (Cutoff: 10); 6-monoacetylmorphine Not Detected ng/mL (Cutoff: 25); Alpha-Hydroxy Midazolam Not Detected ng/mL (Cutoff: 10); Alpha-Hydroxy Triazolam Not Detected ng/mL (Cutoff: 10); Alpha-Hydroxyalprazolam Not Detected ng/mL (Cutoff: 10); Alpha-OH-alprazolam Glucuronid Not Detected ng/mL (Cutoff: 50); Alprazolam Not Detected ng/mL (Cutoff: 10); Amphetamines Negative ng/mL (Cutoff: 500); Barbiturates Negative ng/mL (Cutoff: 200); Buprenorphine Not Detected ng/mL (Cutoff: 5); Chlordiazepoxide Not Detected ng/mL (Cutoff: 10); Clobazam Not Detected ng/mL (Cutoff: 10); Clonazepam Not Detected ng/mL (Cutoff: 10); Cocaine Negative ng/mL (Cutoff: 150); Codeine Not Detected ng/mL (Cutoff: 25); Comment Normal; Creatinine, U 49.1 mg/dL; Diazepam Not Detected ng/mL (Cutoff: 10); Dihydrocodeine Not Detected ng/mL (Cutoff: 25); EDDP Not Detected ng/mL (Cutoff: 25); Fentanyl Not Detected ng/mL (Cutoff: 2); Flurazepam Not Detected ng/mL (Cutoff: 10); Hydrocodone Not Detected ng/mL (Cutoff: 25); Hydromorphone Not Detected ng/mL (Cutoff: 25); Hydromorphone-3-beta-glucuroni Not Detected ng/mL (Cutoff: 100); Lorazepam Not Detected ng/mL (Cutoff: 10); Lorazepam Glucuronide Present ng/mL (Cutoff: 50); Meperidine Not Detected ng/mL (Cutoff: 25); Methadone Not Detected ng/mL (Cutoff: 25); Midazolam Not Detected ng/mL (Cutoff: 10); Morphine Not Detected ng/mL (Cutoff: 25); N-Desmethylclobazam Not Detected ng/mL (Cutoff: 200); N-desmethyltapentadol Not Detected ng/mL (Cutoff: 50); Naloxone Not Detected ng/mL (Cutoff: 25); Norbuprenorphine Not Detected ng/mL (Cutoff: 5); Norfentanyl Not Detected ng/mL (Cutoff: 2); Norhydrocodone Not Detected ng/mL (Cutoff: 25); Normeperidine Not Detected ng/mL (Cutoff: 25); Noroxycodone Not Detected ng/mL (Cutoff: 25); Noroxymorphone Not Detected ng/mL (Cutoff: 25); O-desmethyltramadol Present ng/mL (Cutoff: 25); Oxazepam Glucuronide Not Detected ng/mL (Cutoff: 50); Phencyclidine Negative ng/mL (Cutoff: 25); Prazepam Not Detected ng/mL (Cutoff: 10); Propoxyphene Not Detected ng/mL (Cutoff: 25); Specific Gravity 1.006; Tapentadol Not Detected ng/mL (Cutoff: 25); Temazepam Not Detected ng/mL (Cutoff: 10); Temazepam Glucuronide Not Detected ng/mL (Cutoff: 50); Tetrahydrocannabinol Negative ng/mL (Cutoff: 50); Tramadol Not Detected ng/mL (Cutoff: 25); Triazolam Not Detected ng/mL (Cutoff: 10); Zolpidem Phenyl-4-Carboxy acid Not Detected ng/mL (Cutoff: 10); pH 8.4
== END 2020-04-30 18:16 | disposition home or self-care (01) ==
LOC: NCHCN 18:15
PROVIDERS: PCP Nurse Practitioner Family; Visit Provider Nurse Practitioner Family
DX: M54.5 Low back pain (principal); Z79.899 Other long term (current) drug therapy
CPT/HCPCS: 80307; 80347; 80364

== ENCOUNTER 2020-06-05 11:04 | Outpatient (CLI) | payer MEDICAID, SELFPAY ==
--- NOTE | 2020-06-05 10:45 | DI.RAD_ITS ---
EXAM: XR KNEE RT 3V AP,LAT,EDNA CLINICAL HISTORY: right knee injury TECHNIQUE: COMPARISON: CR RIGHT KNEE COMPLETE from 01/04/2013 FINDINGS: Three views were obtained. On the lateral view, there appears to be a knee joint effusion. There ar e slight degenerative changes of the joints of the knee. There is no evidence of acute fracture or d islocation. IMPRESSION: RADIATION DOSE DELIVERED: Total DLP
== END 2020-06-05 11:05 | disposition home or self-care (01) ==
LOC: DIORS 11:04
PROVIDERS: PCP Nurse Practitioner Family; Referring Provider Nurse Practitioner Family; Visit Provider Physician Assistant
DX: M17.11 Unilateral primary osteoarthritis, right knee (principal)
CPT/HCPCS: 73562

== ENCOUNTER 2020-07-29 13:07 | Outpatient (REF) | payer MEDICAID, SELFPAY ==
[2020-08-03 08:11] LABS: 2-Hydroxy Ethyl Flurazepam Not Detected ng/mL (Cutoff: 10); 3,4-methylenedioxyamphetamine Not Detected ng/mL (Cutoff: 100); 3,4-methylenedioxyethylampheta Not Detected ng/mL (Cutoff: 100); 3,4-methylenedioxymethamphetam Not Detected ng/mL (Cutoff: 100); 6-monoacetylmorphine Not Detected ng/mL (Cutoff: 25); Alpha-Hydroxy Midazolam Not Detected ng/mL (Cutoff: 10); Alpha-Hydroxy Triazolam Not Detected ng/mL (Cutoff: 10); Alpha-Hydroxyalprazolam Not Detected ng/mL (Cutoff: 10); Alpha-OH-alprazolam Glucuronid Not Detected ng/mL (Cutoff: 50); Alprazolam Not Detected ng/mL (Cutoff: 10); Amphetamine Not Detected ng/mL (Cutoff: 100); Barbiturates Negative ng/mL (Cutoff: 200); Buprenorphine Not Detected ng/mL (Cutoff: 5); Chlordiazepoxide Not Detected ng/mL (Cutoff: 10); Clobazam Not Detected ng/mL (Cutoff: 10); Clonazepam Not Detected ng/mL (Cutoff: 10); Cocaine Negative ng/mL (Cutoff: 150); Codeine Not Detected ng/mL (Cutoff: 25); Comment Normal; Creatinine, U 51.7 mg/dL; Diazepam Not Detected ng/mL (Cutoff: 10); Dihydrocodeine Not Detected ng/mL (Cutoff: 25); EDDP Not Detected ng/mL (Cutoff: 25); Ephedrine Not Detected ng/mL (Cutoff: 100); Fentanyl Not Detected ng/mL (Cutoff: 2); Flurazepam Not Detected ng/mL (Cutoff: 10); Hydrocodone Not Detected ng/mL (Cutoff: 25); Hydromorphone Not Detected ng/mL (Cutoff: 25); Hydromorphone-3-beta-glucuroni Not Detected ng/mL (Cutoff: 100); Lorazepam Not Detected ng/mL (Cutoff: 10); Lorazepam Glucuronide Present ng/mL (Cutoff: 50); Meperidine Not Detected ng/mL (Cutoff: 25); Methadone Not Detected ng/mL (Cutoff: 25); Methamphetamine Not Detected ng/mL (Cutoff: 100); Methylphenidate Not Detected ng/mL (Cutoff: 20); Midazolam Not Detected ng/mL (Cutoff: 10); Morphine Not Detected ng/mL (Cutoff: 25); N-Desmethylclobazam Not Detected ng/mL (Cutoff: 200); N-desmethyltapentadol Not Detected ng/mL (Cutoff: 50); Naloxone Not Detected ng/mL (Cutoff: 25); Norbuprenorphine Not Detected ng/mL (Cutoff: 5); Norfentanyl Not Detected ng/mL (Cutoff: 2); Norhydrocodone Not Detected ng/mL (Cutoff: 25); Normeperidine Not Detected ng/mL (Cutoff: 25); Noroxycodone Not Detected ng/mL (Cutoff: 25); Noroxymorphone Not Detected ng/mL (Cutoff: 25); O-desmethyltramadol Present ng/mL (Cutoff: 25); Oxazepam Glucuronide Not Detected ng/mL (Cutoff: 50); Phencyclidine (PCP) Not Detected ng/mL (Cutoff: 20); Phentermine Not Detected ng/mL (Cutoff: 100); Prazepam Not Detected ng/mL (Cutoff: 10); Propoxyphene Not Detected ng/mL (Cutoff: 25); Pseudoephedrine Not Detected ng/mL (Cutoff: 100); Ritalinic Acid Not Detected ng/mL (Cutoff: 100); Specific Gravity 1.011; Tapentadol Not Detected ng/mL (Cutoff: 25); Temazepam Not Detected ng/mL (Cutoff: 10); Temazepam Glucuronide Not Detected ng/mL (Cutoff: 50); Tetrahydrocannabinol Negative ng/mL (Cutoff: 50); Tramadol Present ng/mL (Cutoff: 25); Triazolam Not Detected ng/mL (Cutoff: 10); Zolpidem Phenyl-4-Carboxy acid Not Detected ng/mL (Cutoff: 10); pH 6.6
== END 2020-07-29 13:08 | disposition home or self-care (01) ==
LOC: LBN 13:07
PROVIDERS: PCP Nurse Practitioner Family; Visit Provider Nurse Practitioner Family
DX: M54.6 Pain in thoracic spine (principal); G89.29 Other chronic pain; Z79.891 Long term (current) use of opiate analgesic
CPT/HCPCS: 80307; 80347; 80364

== ENCOUNTER 2020-10-21 02:42 | Outpatient (CLI) | payer MEDICAID, SELFPAY ==
[2020-10-21 09:14] LABS: Abs Immature Grans 0.02 10^3/uL (0.0-0.06); Absolute Basophil Count 0.04 10^3/uL (0.0-0.2); Absolute Eosinophil Count 0.06 10^3/uL (0.0-0.7); Absolute Lymphocyte Count 1.85 10^3/uL (1.2-3.4); Absolute Neutrophil Count 4.13 10^3/uL (1.2-6.7); Basophils % 0.6; Eosinophils % 0.9; HCT 42.2 % (36.0-46.0); HGB 13.4 g/dL (11.2-15.7); Immature Grans % 0.3; MCH 28.8 pg (27.0-33.0); MCHC 31.8 % (32.0-36.0); MCV 90.8 fL (80-95); MPV 10.4 fL (8.0-11.0); Monocytes % 7.6; Neutrophils % 62.6; Nucleated RBC 0 %; Platelet Count 182 10^3/uL (130-400); RBC 4.65 10^6/uL (3.93-5.22); RDW 12.9 % (11.7-14.6); RDW-SD 42.1 fL
[2020-10-21 09:25] LABS: ALT 46 U/L (14-59); AST 40 U/L (15-37); Albumin 3.4 g/dL (3.4-5.0); Alkaline Phosphatase 160 U/L (46-116); BUN 13 mg/dL (7-18); Bilirubin, Total 0.1 mg/dL (0.2-1.0); CREATININE 0.8 mg/dL (0.55-1.02); Calcium 8.9 mg/dL (8.5-10.1); Calculated LDL 54 mg/dL (<100); Chloride 109 mmol/L (98-107); Cholesterol 127 mg/dL (<200); Glucose 151 mg/dL (74-106); HDL Cholesterol 40 mg/dL (40-60); Potassium 4.2 mmol/L (3.5-5.1); Sodium 146 mmol/L (136-145); TROPONIN-I 7.2 ug/mL (4.0-12.0); Triglyceride 169 mg/dL (<150)
[2020-10-21 09:27] LABS: COMMENT (LAB VIEW ONLY) 99.91 mg/dL; Microalb ug/mg Crea 15.2 ug/mg Cr
[2020-10-21 09:28] LABS: Hemoglobin A1C 7.4 % (<5.7)
== END 2020-10-21 02:43 | disposition home or self-care (01) ==
LOC: LBO 02:42
PROVIDERS: PCP Nurse Practitioner Family; Visit Provider Nurse Practitioner Family
DX: E11.9 Type 2 diabetes mellitus without complications (principal); Z79.4 Long term (current) use of insulin; I10 Essential (primary) hypertension; E78.5 Hyperlipidemia, unspecified; K76.0 Fatty (change of) liver, not elsewhere classified; F31.89 Other bipolar disorder; Z51.81 Encounter for therapeutic drug level monitoring
CPT/HCPCS: 36415; 80053; 80061; 80156; 82043; 82570; 83036; 85025

== ENCOUNTER 2020-11-16 02:14 | Outpatient (CLI) | payer MEDICAID, SELFPAY ==
--- NOTE | 2020-11-16 | DI.US_ITS ---
Exam(s) US LOWER EXTREMITY VENOUS RT EXAM: US LOWER EXTREMITY VENOUS RT CLINICAL HISTORY: ? EHIT FOLLOWING GSV ABLATION, VARICOSE VEINS LOWER EXT RT, I83.90, LEVEL. TECHNIQUE: Lower extremity venous ultrasound performed using grayscale, color-flow, and spectral Do ppler analysis. COMPARISON: No exams were available for comparison FINDINGS: The common femoral, femoral and popliteal veins demonstrate normal compressibility, augmentation, and color Doppler. The posterior tibial veins are patent. The patient is status post saphenous vein abl ation. Thrombus is seen within the saphenous vein 5 cm distal to the saphenofemoral junction. No he matoma or Gonzalez's cyst is seen. IMPRESSION: Status post saphenous vein ablation. No evidence of DVT. DATA REPOSITORY:
== END 2020-11-16 02:34 ==
PROVIDERS: PCP Nurse Practitioner Family; Visit Provider Registered Nurse
DX: I83.91 Asymptomatic varicose veins of right lower extremity (principal); Z98.890 Other specified postprocedural states
CPT/HCPCS: 93971

== ENCOUNTER 2020-12-31 08:37 | Emergency (ER) | payer MEDICAID, SELFPAY ==
[2020-12-31] VITALS (16 sets, daily range): BP systolic 135–169; BP diastolic 76–93; PULSE 70–81; RESP 16; TEMP 36.4–36.5; O2SAT 89–96
--- NOTE | 2020-12-31 09:00 | DI.RAD_ITS ---
Exam(s) XR PORTABLE CHEST AP EXAM: XR PORTABLE CHEST AP CLINICAL HISTORY: fever. TECHNIQUE: 2D digital imaging was performed. COMPARISON: CR CHEST 2 VIEWS PA,LAT from 05/25/2017 FINDINGS: Heart size is upper normal. The mediastinum is not widened. Lungs are clear. No infiltrates nor obvious pleural effusions. IMPRESSION: No acute pulmonary findings on this single AP portable view of the chest. DATA REPOSITORY: RADIATION DOSE DELIVERED: All CT scans at this facility use at least one of these dose optimization techniques: automated exposure control; mA and/or kV adjustment per patient size (includes targeted e xams where dose is matched to clinical indication); or iterative reconstruction.
--- NOTE | 2020-12-31 09:10 | ED.GENADUL_ITS ---
Discharge Plan Disposition Patient Disposition: HOME Condition: Improving Discharge Details Clinical Impression: Nausea vomiting and diarrhea, Febrile illness Primary Care Provider: Hunter Don ED Provider: Donald Daniels Home Meds and New Rx's Prescriptions: New ondansetron HCl [Zofran] 4 mg tablet 4 mg PO Q8H PRNQty: 10 RF: 0 Continued nystatin 100,000 unit/gram cream 1 applic TP BID PRN (Reason: intertrigo) Qty: 15 RF: 3 insulin aspart U-100 [Novolog Flexpen U-100 Insulin] 100 unit/mL (3 mL) insulin pen 8 unit SC AC Qty: 6 RF: 3 gabapentin 300 mg capsule 600 mg PO BID 28 Days Qty: 112 RF: 11 tramadol 50 mg tablet 50 mg PO BID PRN (Reason: pain) Qty: 60 RF: 0 cyproheptadine 4 MG tablet 8 mg PO HS RF: 0 (DME) lancets 1 EACH misc 1 ea Miscellaneous AC & HS Qty: 100 RF: 11 olanzapine 10 MG tablet 15 mg PO DAILY RF: 0 prazosin 2 MG capsule 4 mg PO HS RF: 0 (DME) Blood Glucose Test 1 EACH strip 1 ea Miscellaneous AC & HS Qty: 120 RF: 11 (DME) blood-glucose meter misc See Dose Instructions .Route .MEDSUPPLY Qty: 1 RF: 0 nitroglycerin [Nitrostat] 0.4 mg tablet, sublingual 0.4 mg Sublingual Q5 MIN PRN X3 PRN (Reason: chest pain) Qty: 1 RF: 0 lorazepam [Ativan] 1 mg tablet 1 mg PO TID RF: 0 carbamazepine 200 mg tablet 400 mg PO HS RF: 0 citalopram 40 mg tablet 40 mg PO BID RF: 0 vilazodone 40 mg tablet 40 mg PO DAILY RF: 0 valsartan 320 mg tablet 320 mg PO DAILY Qty: 90 RF: 3 (DME) pen needle, diabetic [Pen Needle] 31 gauge x 5/16 needle 1 ea SQ QID Qty: 400 RF: 3 aspirin 81 mg tablet,delayed release (DR/EC) 81 mg PO DAILY Qty: 30 RF: 11 esomeprazole magnesium 40 mg capsule,delayed release(DR/EC) 40 mg PO DAILY Qty: 90 RF: 3 melatonin 10 mg tablet 20 mg PO HS Qty: 60 RF: 11 fluticasone propionate [Flonase Allergy Relief] 50 mcg/actuation spray,suspension 1 - 2 spray NS DAILY PRN (Reason: nasal congestion) Qty: 3 RF: 3 atorvastatin 40 mg tablet 40 mg PO DAILY Qty: 90 RF: 3 amlodipine 5 mg tablet 5 mg PO BID Qty: 180 RF: 3 Jardiance 25 mg tablet 25 mg PO DAILY Qty: 90 RF: 3 (DME) syndee.stocking,knee,reg,smal Misc See Rx Instructions .ROUTE .MEDSUPPLY Qty: 12 RF: 0 (DME) FreeStyle Laila 14 Day Sensor Kit See Rx Instructions .ROUTE .MEDSUPPLY Qty: 6 RF: 3 (DME) FreeStyle Laila 14 Day Brice Misc See Rx Instructions .ROUTE .MEDSUPPLY Qty: 1 RF: 0 Lantus Solostar U-100 Insulin 100 unit/mL (3 mL) insulin pen 66 unit Sub-Q HS Qty: 5 RF: 3 atenolol 25 mg tablet 25 mg PO DAILY Qty: 84 RF: 0 Discharge Instructions Instructions: Acute Nausea and Vomiting (ED), Fever in Adults (ED) Additional Instructions: Examination does not reveal any signs of focal infection that would require antibiotics. Laboratory values do not reveal any obvious emergent process. Zofran as directed, plenty of fluids to avoid dehydration, advance diet as tolerated. You may take [id number] Imodium for your diarrhea symptoms. Please watch for new or worsening symptoms and return to the ER for any concerns. Lastly, I do recommend reaching out your primary care provider to discuss your ER visit, ongoing symptoms, need for outpatient reevaluation peer Medical Decision Making 55-year-old female presenting to the ER reporting 3-day history of nausea, vomiting, diarrhea, mild dry cough, fever 3 days ago but no fever over the past 2 days. She reports because of the nausea and vomiting she has not taken her medications over the past 24 hours but was able to hold down Tylenol last night. Clinically she appears well, nontoxic, hemodynamically stable. There are no focal findings on her examination. She was fully vaccinated against Covid. Will obtain IV access, give IV fluid, 1 L of normal saline and 1 L of lactated Ringer's, give 4 mg IV Zofran and obtain CBC, CMP, urinalysis, chest x-ray and Covid swab. Given her overall clinical presentation, she is afebrile, appears well, nontoxic, will not pursue a lactate, procalcitonin, blood cultures, etc. If the patient is able to provide a stool sample will also test that. Patient received Zofran and fluid, reporting clinically feeling better. Laboratory values reveal no evidence of leukocytosis, anemia, electrolyte abnormality. Creatinine 0.8 with a GFR greater than 60. Glucose 116. Liver enzymes slightly elevated ALT this appears to be near her baseline. Urine with greater than 160 ketones, trace intact blood, trace leukoesterase with 5-10 red and white cells, many epithelial cells. Patient denies any abdominal pain, dysuria, hematuria, this is likely contamination. Will not treat for UTI Patient requesting medication for her global headache. No nuchal rigidity. Patient remains neurologically intact. 1 g p.o. Tylenol given Covid negative. Given the ketones in the urine, will be sure that she receives both liters of IV fluid. Clinically she remains hemodynamically stable. No vomiting or diarrhea during her observation here in the ER. Discussed findings with patient. She is comfortable discharge at this time. Will provide prescription for Zofran. Strict discharge and return precautions provided. This documentation was generated using Wego[employer]ise dictation system, please disregard any oddities of phrase or misspellings. Medical Records Medical records reviewed: Yes I reviewed the patient's medical records. Imaging Data Radiologic Study: Attestation: I personally reviewed and interpreted this imaging study as follows: Imaging: X-Ray Radiologist's impression: Exam(s) XR PORTABLE CHEST AP EXAM: XR PORTABLE CHEST AP CLINICAL HISTORY: fever. TECHNIQUE: 2D digital imaging was performed. COMPARISON: CR CHEST 2 VIEWS PA,LAT from 05/25/2017 FINDINGS: Heart size is upper normal. The mediastinum is not widened. Lungs are clear. No infiltrates nor obvious pleural effusions. IMPRESSION: No acute pulmonary findings on this single AP portable view of the chest. Lab Data Lab results reviewed: Yes I reviewed the patient's lab results. Labs: Laboratory Tests Range/Units 12/31/20 12/31/20 12/31/20 09:00 09:00 09:15 WBC (4.4-10.8) 10^3/uL 6.73 RBC (3.93-5.22) 10^6/uL 5.22 Hgb (11.2-15.7) g/dL 14.9 Hct (36.0-46.0) % 46.4 H MCV (80-95) fL 88.9 MCH (27.0-33.0) pg 28.5 MCHC (32.0-36.0) % 32.1 RDW (11.7-14.6) % 12.6 Plt Count (130-400) 10^3/uL 248 MPV (8.0-11.0) fL 10.5 Immature Gran % 0.3 Neutrophils % 70.1 Lymphocytes % 23.3 Monocytes % 5.6 Eosinophils % 0.3 Basophils % 0.4 Nucleated RBC % % 0 Absolute Neutrophils (1.2-6.7) 10^3/uL 4.71 Absolute Lymphocytes (1.2-3.4) 10^3/uL 1.57 Absolute Monocytes (0.1-0.8) 10^3/uL 0.38 Absolute Eosinophils (0.0-0.7) 10^3/uL 0.02 Absolute Basophils (0.0-0.2) 10^3/uL 0.03 Sodium (136-145) mmol/L 142 Potassium (3.5-5.1) mmol/L 3.7 Chloride (98-107) mmol/L 105 Carbon Dioxide (21.0-32.0) mmol/L 27.2 Anion Gap (3-11) mmol/L 9.8 BUN (7-18) mg/dL 14 Creatinine (0.55-1.02) mg/dL 0.8 Estimated GFR/1.73 m2 (mL/min/1.73m2) >= 60.00 Glucose (74-106) mg/dL 116 H Calcium (8.5-10.1) mg/dL 9.0 Total Bilirubin (0.2-1.0) mg/dL 0.4 AST (15-37) U/L 50 H ALT (14-59) U/L 95 H Alkaline Phosphatase (46-116) U/L 274 H Total Protein (6.4-8.2) g/dL 8.2 Albumin (3.4-5.0) g/dL 3.7 Urine Color (Yellow) Urine Clarity (Clear) Urine pH (5-8) Ur Specific [place] (1.005-1.025) Urine Protein (Negative) mg/dL Urine Ketones (Negative) mg/dL Urine Blood (Negative) Urine Nitrite (Negative) Urine Bilirubin (Negative) Urine Urobilinogen (Up TO 0.2) EU/dL Ur Leukocyte Esterase (Negative) Urine RBC (0-2) HPF Urine WBC (0-5) HPF Ur Epithelial Cells (Negative) HPF Urine Crystals (Negative) HPF Urine Bacteria (Negative) HPF Urine Casts (Negative) LPF Urine Mucus (Negative) Ur Culture Indicated? Urine Glucose (Negative) mg/dL COVID-19 Source Nasal/Nares SARS-CoV-2 (PCR) (Negative) Negative Range/Units 12/31/20 09:18 WBC (4.4-10.8) 10^3/uL RBC (3.93-5.22) 10^6/uL Hgb (11.2-15.7) g/dL Hct (36.0-46.0) % MCV (80-95) fL MCH (27.0-33.0) pg MCHC (32.0-36.0) % RDW (11.7-14.6) % Plt Count (130-400) 10^3/uL MPV (8.0-11.0) fL Immature Gran % Neutrophils % Lymphocytes % Monocytes % Eosinophils % Basophils % Nucleated RBC % % Absolute Neutrophils (1.2-6.7) 10^3/uL Absolute Lymphocytes (1.2-3.4) 10^3/uL Absolute Monocytes (0.1-0.8) 10^3/uL Absolute Eosinophils (0.0-0.7) 10^3/uL Absolute Basophils (0.0-0.2) 10^3/uL Sodium (136-145) mmol/L Potassium (3.5-5.1) mmol/L Chloride (98-107) mmol/L Carbon Dioxide (21.0-32.0) mmol/L Anion Gap (3-11) mmol/L BUN (7-18) mg/dL Creatinine (0.55-1.02) mg/dL Estimated GFR/1.73 m2 (mL/min/1.73m2) Glucose (74-106) mg/dL Calcium (8.5-10.1) mg/dL Total Bilirubin (0.2-1.0) mg/dL AST (15-37) U/L ALT (14-59) U/L Alkaline Phosphatase (46-116) U/L Total Protein (6.4-8.2) g/dL Albumin (3.4-5.0) g/dL Urine Color (Yellow) Yellow Urine Clarity (Clear) Sl Cloudy Urine pH (5-8) 5.5 Ur Specific [place] (1.005-1.025) >= 1.030 H Urine Protein (Negative) mg/dL 30 H Urine Ketones (Negative) mg/dL >=160 H Urine Blood (Negative) Trace-intact H Urine Nitrite (Negative) Negative Urine Bilirubin (Negative) Small H Urine Urobilinogen (Up TO 0.2) EU/dL 0.2 Ur Leukocyte Esterase (Negative) Trace H Urine RBC (0-2) HPF 5-10 H Urine WBC (0-5) HPF 5-10 Ur Epithelial Cells (Negative) HPF Many Urine Crystals (Negative) HPF Negative Urine Bacteria (Negative) HPF Moderate Urine Casts (Negative) LPF Negative Urine Mucus (Negative) Trace Ur Culture Indicated? No/Sq. Contamination Urine Glucose (Negative) mg/dL 500 H COVID-19 Source SARS-CoV-2 (PCR) (Negative) HPI General Mode of arrival: ambulatory . Date/Time Provider Initiated Documentation: 12/31/20 08:57 . Limitations to Documentation: no limitations . Information obtained by: patient . HPI Narrative: This is a 55-year-old female, past medical history of aortic regurgitation, bipolar affective disorder, chronic pain, GERD, hyperlipidemia, hypertension, obstructive sleep apnea, PTSD, diabetes, obesity with a BMI of 41.0, presenting to the ER today stating she is simply not feeling well, fever of 101 3 days ago, nausea, vomiting, diarrhea, headache, body aches, minimal dry cough. Patient denies smoking, states that she is fully vaccinated against Covid. Denies recent sick contacts or travel. She took Tylenol last night but no ymju-oyt-svjzptg medications today. Patient states because of her nausea and vomiting she has not taken any of her regular medications in the past 24 hours. She denies any neck pain, visual changes, sore throat, productive cough, chest pain and although she reported shortness of breath and her triage note, denies any shortness of breath to me whatsoever. She denies abdominal pain, dysuria, black tarry stools or bright red blood in her stools, skin rash, pain or swelling in her legs. Related Data Home Medications Medication Instructions Recorded Confirmed cyproheptadine 8 mg PO HS 10/28/14 12/31/20 lancets #100 ea 04/15/15 12/16/20 olanzapine 15 mg PO DAILY tab-cap 02/02/17 12/31/20 prazosin 4 mg PO HS 03/24/17 12/31/20 Blood Glucose Test #120 strip 08/25/17 12/16/20 blood-glucose meter #1 each 11/24/17 12/16/20 nystatin 100,000 unit/gram topical 1 applic TP BID PRN #15 gm 11/29/18 12/31/20 cream nitroglycerin 0.4 mg sublingual 0.4 mg SUBLINGUAL Q5 MIN PRN X3 03/25/19 12/31/20 tablet PRN #1 bottle carbamazepine 200 mg tablet 400 mg PO HS tab 05/08/19 12/31/20 citalopram 40 mg tablet 40 mg PO BID tab-cap 05/08/19 12/31/20 lorazepam 1 mg tablet 1 mg PO TID tab 05/08/19 12/31/20 vilazodone 40 mg tablet 40 mg PO DAILY 02/10/20 12/31/20 gabapentin 300 mg capsule 600 mg PO BID 28 Days #112 cap 03/09/20 12/31/20 valsartan 320 mg tablet 320 mg PO DAILY #90 tab-cap 03/30/20 12/31/20 pen needle, diabetic 31 gauge x #400 each 04/08/20 12/16/2007/19 insulin aspart U-100 100 unit/mL 8 unit SC AC #6 syrg 04/16/20 12/31/20 (3 mL) subcutaneous pen aspirin 81 mg tablet,delayed 81 mg PO DAILY #30 tab-cap 05/25/20 12/31/20 release esomeprazole magnesium 40 mg 40 mg PO DAILY #90 cap 06/24/20 12/31/20 capsule,delayed release melatonin 10 mg tablet 20 mg PO HS #60 tab-cap 06/24/20 12/31/20 fluticasone propionate 50 1 - 2 spray NS DAILY PRN #3 unit 07/17/20 12/31/20 mcg/actuation nasal spray,suspension amlodipine 5 mg tablet 5 mg PO BID #180 tab-cap 07/22/20 12/31/20 atorvastatin 40 mg tablet 40 mg PO DAILY #90 tab-cap 07/22/20 12/31/20 empagliflozin 25 mg tablet 25 mg PO DAILY #90 tab-cap 07/22/20 12/31/20 sydnee.stocking,knee,reg,smal #12 ea 07/27/20 12/16/20 flash glucose scanning reader #1 each 08/18/20 12/16/20 flash glucose sensor #6 each 08/18/20 12/16/20 insulin glargine 100 unit/mL (3 66 unit SUB-Q HS #5 syrg 09/02/20 12/31/20 mL) subcutaneous pen atenolol 25 mg tablet 25 mg PO DAILY #84 tab 10/12/20 12/31/20 tramadol 50 mg tablet 50 mg PO BID PRN #60 tab 12/16/20 12/31/20 ondansetron HCl [Zofran] 4 mg PO Q8H PRN #10 tab 12/31/20 Previous Rx's Medication Instructions Recorded Blood Glucose Test #120 strip 08/25/17 blood-glucose meter #1 each 11/24/17 nystatin 100,000 unit/gram topical 1 applic TP BID PRN #15 gm 11/29/18 cream nitroglycerin 0.4 mg sublingual 0.4 mg SUBLINGUAL Q5 MIN PRN X3 03/25/19 tablet PRN #1 bottle gabapentin 300 mg capsule 600 mg PO BID 28 Days #112 cap 03/09/20 valsartan 320 mg tablet 320 mg PO DAILY #90 tab-cap 03/30/20 pen needle, diabetic 31 gauge x #400 each 04/08/2007/19 insulin aspart U-100 100 unit/mL 8 unit SC AC #6 syrg 04/16/20 (3 mL) subcutaneous pen aspirin 81 mg tablet,delayed 81 mg PO DAILY #30 tab-cap 05/25/20 release esomeprazole magnesium 40 mg 40 mg PO DAILY #90 cap 06/24/20 capsule,delayed release melatonin 10 mg tablet 20 mg PO HS #60 tab-cap 06/24/20 fluticasone propionate 50 1 - 2 spray NS DAILY PRN #3 unit 07/17/20 mcg/actuation nasal spray,suspension amlodipine 5 mg tablet 5 mg PO BID #180 tab-cap 07/22/20 atorvastatin 40 mg tablet 40 mg PO DAILY #90 tab-cap 07/22/20 empagliflozin 25 mg tablet 25 mg PO DAILY #90 tab-cap 07/22/20 flash glucose scanning reader #1 each 08/18/20 flash glucose sensor #6 each 08/18/20 insulin glargine 100 unit/mL (3 66 unit SUB-Q HS #5 syrg 09/02/20 mL) subcutaneous pen atenolol 25 mg tablet 25 mg PO DAILY #84 tab 10/12/20 tramadol 50 mg tablet 50 mg PO BID PRN #60 tab 12/16/20 ondansetron HCl [Zofran] 4 mg PO Q8H PRN #10 tab 12/31/20 Allergies Allergy/AdvReac Type Severity Reaction Status Date / Time Iodine and Iodide Containing Allergy Mild Skin Rash Verified 12/31/20 08:55 Produc codeine AdvReac Intermediate Nausea Verified 12/31/20 08:55 prochlorperazine edisylate AdvReac Intermediate Nausea Verified 12/31/20 08:55 [From Compazine] prochlorperazine maleate AdvReac Intermediate Nausea Verified 12/31/20 08:55 [From Compazine] oxycodone HCl [From Percocet] AdvReac Mild Nausea Verified 12/31/20 08:55 CHLORA PREP Allergy Intermediate skin Uncoded 12/31/20 08:55 blisters STERI STRIPS Allergy Intermediate skin Uncoded 12/31/20 08:55 blisters General Stated Complaint: GenMedical FRED: 3 Review of Systems Constitutional Constitutional: Reports fatigue, Reports fever(s) and Reports headache(s) ENT Ears, Nose, Mouth, and Throat: Reports headache(s), Denies neck pain and Denies sore throat Cardiovascular Cardiovascular: Denies chest pain and Denies dyspnea Respiratory Respiratory: Reports cough and Denies dyspnea Gastrointestinal Gastrointestinal: Denies abdominal pain, Denies diarrhea, Reports nausea and Reports vomiting Genitourinary Genitourinary: Denies dysuria Musculoskeletal Musculoskeletal: Reports myalgias and Denies neck pain Integumentary/Breasts Skin/Breast: Denies rash Neurologic Neurologic: Reports headache(s) Endocrine Endocrine: Reports fatigue PFSH Medical History Adult BMI > 30 Allergic rhinitis (10/28/14) Aortic regurgitation 05/26/2017 echo: mild-moderate --> repeat echo 2-3 years Back pain (10/28/14) Bipolar affective disorder [facility] Cholelithiasis (10/28/14) Chronic pain Drug overdose (10/28/14) Fatty liver (02/05/15) GI consult, probable metabolic syndrome Gastroesophageal reflux disease with esophagitis Heart murmur History of colonic polyps (06/11/15) History of migraine headaches Hyperlipidemia (10/28/14) 11/2016 labwork: 10-year ASCVD risk = ~5.7% --> continue current moderate intensity statin therapy Hypertension (10/28/14) Insomnia Internal derangement of right knee Migraine headache (10/28/14) LEISA (obstructive sleep apnea) (09/21/14) moderate, AHI 15, Dr Elliott [facility] does not use CPAP or BIPAP Patellar tendinitis of right knee PTSD (post-traumatic stress disorder) NK Sacroiliac joint dysfunction of right side Type 2 diabetes mellitus, with long-term current use of insulin Unstable angina pectoris (06/07/17) Coronary angiography 06/01/17 [facility] WNL Varicose veins of bilateral lower extremities with pain Surgical History Arthroplasty of knee (01/22/16) L with limited medial femoral chondroplasty. Dr. Stearns. Cholecystectomy (04/09/12) Colonscopy (06/11/15) Reji Dumont EGD w/biopsies (06/11/15) Reji Dumont MD EGD with biopsy (09/08/08) Excision, Lipoma (06/12/08) right back History of vein stripping Left heart Catheterization, Angiography (06/01/17) ORIF radial fx (10/05/15) [facility] 1998 or 1999 de Quervain's release left wrist Dr [id number] L distal radius and ulna partial hysterectomy retained ovaries per pt Revision L carpal tunnel release (04/18/14) Flexor tenosynovectomy, hardware removal, Dr Ocasio [facility] Family History Mother , 65 Heart disease Cancer lung Diabetes Father , 71 Diabetes Heart disease CABG triple vessel, pacemaker Brother No problems noted. Brother No problems noted. Daughter No problems noted. Daughter No problems noted. Maternal Grandfather No problems noted. Paternal Grandfather No problems noted. Maternal Grandmother No problems noted. Paternal Grandmother No problems noted. Social History Smoking/Tobacco Use Status: Never Second Hand Exposure: Yes Smoking risk assessment performed?: Yes Alcohol Intake: never Drug use: Occasionally Substance use type: marijuana Details: medical marijuana Adopted: No Caregiver/Support person: No Foster care: No Household members: none and other Details: but not together Housing: house Number of Children: 2 number of grandchildren: 3 Communication Needs: Corrective Lenses Education Level: middle school Do you need help understanding health information?: Never Pets and animals: Yes Pets and animals: dog(s) Sexually active: No Do you think of yourself as: straight/heterosexual Current gender identity: female What is your relationship status?: How often do you talk on the phone with friends or family?: three or more times per week How often do you get together with friends or relatives?: once per week How often do you attend christian or synagogue services?: decline to answer Do you belong to any clubs or organized social groups?: no Panel score (0-1 are the most socially isolated patients): 1 What type of physical activity do you participate in: walking Duration: < 15 minutes/day Frequency: 1-2 times per week Taryn/Temple: Taoist Special taryn needs: No Seatbelt use: always Helmet use: No Drive intox or ride w/intox package delivery driver: No Water heater temp set <120 deg: Yes Working smoke detector in home: Yes Fire extinguisher in home: Yes Carbon monox detector in home: Yes Firearms in home: Yes Do you feel safe at home: Yes Do you feel safe in your relationship?: Yes Exam Const General: cooperative, healthy appearing, comfortable and no acute distress Orientation: alert, awake and oriented x3 HENMT Head: normal to inspection, normocephalic and atraumatic Face and sinus: normal facial exam Mouth: moist mucous membranes Eyes General: appearance normal, both eyes and all related structures Conjunctivae: conjunctivae normal Neck Neck: normal visual inspection, full ROM, no meningeal signs, trachea midline, supple and nontender Resp Effort & Inspection: normal respiratory effort and able to speak in complete sentences Auscultation: clear to auscultation bilaterally Cardio Rate: regular rate Rhythm: regular rhythm GI Inspection: normal to inspection and obesity Palpation: soft, not firm, no guarding, no pulsatile masses and nontender Auscultation: normal bowel sounds Back/Spine/Pelvis Back: No back tenderness Skin General skin exam: no rashes or lesions noted Neuro General: patient alert, patient awake, moves all extremities and no focal motor deficits Cognition: normal cognition Speech: speech normal Gait: normal gait Sensory Exam: no sensory deficits noted Extrem General: normal to inspection, full ROM and capillary refill normal Psych Appearance: grossly normal Mental Status: mental status grossly normal Course Vital Signs Vital signs: Vital Signs Temperature 36.5 C 12/31/20 08:51 Pulse 81 12/31/20 08:51 Blood Pressure 149/92 H 12/31/20 08:51 Pulse Oximetry 94 12/31/20 08:51 Temperature 36.5 C 12/31/20 08:51 Temperature Source Temporal Artery Scan 12/31/20 08:51 Pulse 81 12/31/20 08:51 Respiratory Effort Non-Labored 12/31/20 08:53 Blood Pressure 149/92 H 12/31/20 08:51 Blood Pressure Position Sitting 12/31/20 08:51 Pulse Oximetry 94 12/31/20 08:51 Oxygen Delivery Method Room Air 12/31/20 08:51 Oxygen Flow Rate 0 12/31/20 08:51 Pain Level 0 12/31/20 08:51
[2020-12-31] MEDS: Normal Saline 1,000 ML 1000 ML IV (09:12)
[2020-12-31 09:20] LABS: Abs Immature Grans 0.02 10^3/uL (0.0-0.06); Absolute Basophil Count 0.03 10^3/uL (0.0-0.2); Absolute Eosinophil Count 0.02 10^3/uL (0.0-0.7); Absolute Lymphocyte Count 1.57 10^3/uL (1.2-3.4); Absolute Monocyte Count 0.38 10^3/uL (0.1-0.8); Absolute Neutrophil Count 4.71 10^3/uL (1.2-6.7); Basophils % 0.4; Eosinophils % 0.3; HCT 46.4 % (36.0-46.0); HGB 14.9 g/dL (11.2-15.7); Immature Grans % 0.3; Lymphocytes % 23.3; MCH 28.5 pg (27.0-33.0); MCHC 32.1 % (32.0-36.0); MCV 88.9 fL (80-95); MPV 10.5 fL (8.0-11.0); Monocytes % 5.6; Neutrophils % 70.1; Nucleated RBC 0 %; Platelet Count 248 10^3/uL (130-400); RBC 5.22 10^6/uL (3.93-5.22); RDW 12.6 % (11.7-14.6); RDW-SD 41.6 fL; WBC 6.73 10^3/uL (4.4-10.8)
[2020-12-31] MEDS: Ondansetron 4 MG/2 ML VIAL IVP (09:21)
[2020-12-31 09:23] LABS: Source Nasal/Nares
[2020-12-31] MEDS: Acetaminophen 500 MG TAB 1000 MG PO (09:26)
[2020-12-31 09:27] LABS: Bilirubin Small (Negative); Blood Trace-intact (Negative); Clarity Sl Cloudy (Clear); Glucose 500 mg/dL (Negative); Ketones >=160 mg/dL (Negative); Leukocyte Esterase Trace (Negative); Nitrite Negative (Negative); Specific Gravity >= 1.030 (1.005-1.025); Urobilinogen 0.2 EU/dL (Up TO 0.2); pH 5.5 (5-8)
[2020-12-31 09:35] LABS: ALT 95 U/L (14-59); AST 50 U/L (15-37); Albumin 3.7 g/dL (3.4-5.0); Alkaline Phosphatase 274 U/L (46-116); Anion Gap 9.8 mmol/L (3-11); BUN 14 mg/dL (7-18); Bilirubin, Total 0.4 mg/dL (0.2-1.0); CO2 27.2 mmol/L (21.0-32.0); CREATININE 0.8 mg/dL (0.55-1.02); Chloride 105 mmol/L (98-107); Glucose 116 mg/dL (74-106); Potassium 3.7 mmol/L (3.5-5.1); Sodium 142 mmol/L (136-145); Total Protein 8.2 g/dL (6.4-8.2)
[2020-12-31 09:36] LABS: Bacteria Moderate HPF (Negative); Epithelial Cells Many HPF (Negative)
[2020-12-31 09:37] LABS: C & S Indicated? No/Sq. Contamination; Casts Negative LPF (Negative); Crystals Negative HPF (Negative); Mucus Trace (Negative)
[2020-12-31] MEDS: Lactated Ringers 1,000 ML 1000 ML IV (09:56)
[2020-12-31 10:17] LABS: COVID-19 PCR Negative (Negative)
== END 2020-12-31 11:24 | disposition home or self-care (01) ==
PROVIDERS: Emergency Provider Physician Assistant; PCP Nurse Practitioner Family
DX: R11.2 Nausea with vomiting, unspecified (principal); R19.7 Diarrhea, unspecified; R50.9 Fever, unspecified; Z20.822 Contact with and (suspected) exposure to COVID-19; Z03.818 Encounter for observation for suspected exposure to other biological agents ruled out
CPT/HCPCS: 36415; 80053; 87635; 96361; 96374; 99284; 71045; 81003; 81015; 85025; 99285; J2405

== ENCOUNTER 2021-03-01 02:49 | Outpatient (CLI) | payer MEDICAID, SELFPAY ==
--- NOTE | 2021-03-01 09:30 | DI.MAMMO_ITS ---
Exam(s) MAMMO SCREENING EXAM: MAMMO SCREENING CLINICAL HISTORY: screening,Z12.39. TECHNIQUE: Bilateral full field digital CC and MLO mammographic images were obtained with 3D tomosyn thesis and utilizing computer aided detection (CAD). COMPARISON: Prior mammograms dating back to 2014, the most recent being April 2018. FINDINGS: There are no new spiculated masses nor malignant appearing microcalcification groups. There is no significant architectural distortion nor skin thickening-retraction. IMPRESSION: No radiographic evidence of malignancy. BI-RADS Category 1 - Negative Breast Density - Category B - Scattered areas of fibroglandular density Breast density Category C or D implies that the patient has dense breast tissue. Dense breast tissue can make it harder to find cancer on a mammogram. Dense breast tissue is also associated with an incr eased risk of breast cancer. This information about the result of the mammogram report was provided to the patient to raise their awareness. Use this report when you speak with the patient about their risks for breast cancer, which includes their family history. At that time, you may recommend additional screening tests (Ultrasoun d or MRI) as these tests may add significant information. A negative radiographic report should not delay biopsy if a dominant or clinically suspicious mass is present. Up to ten percent of cancers are not identified on mammography. A negative report may reinforce clinical impression. Adenosis and dense breasts may obscure an underlying neoplasm. False positive reports average 6 to 10%. Patient will receive a letter notifying them of these results.
== END 2021-03-01 03:09 ==
PROVIDERS: PCP Nurse Practitioner Family; Visit Provider Nurse Practitioner Family
DX: Z12.31 Encounter for screening mammogram for malignant neoplasm of breast (principal)
CPT/HCPCS: 77063; 77067

== ENCOUNTER 2021-04-12 14:06 | Outpatient (REF) | payer BC, MEDICAID, SELFPAY | END 2021-04-12 14:07 | disposition home or self-care (01) | LOC: LBN 14:06 | PROVIDERS: PCP Nurse Practitioner Family; Visit Provider Nurse Practitioner Family | DX: N89.8 Other specified noninflammatory disorders of vagina (principal) | CPT/HCPCS: 87480; 87510; 87660 ==

== ENCOUNTER 2021-05-03 19:22 | Outpatient (REF) | payer BC, MEDICAID, SELFPAY ==
[2021-05-14 12:40] LABS: HSV 1 DNA Result Negative (Negative); HSV 2 DNA Result Negative (Negative); Specimen Description Vaginal
== END 2021-05-03 19:23 | disposition home or self-care (01) ==
LOC: LBN 19:22
PROVIDERS: PCP Nurse Practitioner Family; Visit Provider Obstetrics & Gynecology Gynecology
CPT/HCPCS: 87529

== ENCOUNTER 2021-07-08 10:58 | Outpatient (CLI) | payer BC, MEDICAID, SELFPAY ==
--- NOTE | 2021-07-08 06:00 | DI.RAD_ITS ---
Exam(s) XR PAIN CLINIC SACRIOILIAC 2V EXAM: XR PAIN CLINIC SACRIOILIAC 2V CLINICAL HISTORY: sacroiliac joint dysfunction TECHNIQUE: 2D and realtime digital imaging was performed. COMPARISON: No exams were available for comparison FINDINGS: C-arm fluoroscopy was utilized by Dr. Huber during reported bilateral SI joint injections. Hard copy shows needle placement adjacent to right and left SI joints. IMPRESSION: RADIATION DOSE DELIVERED: Omarir=8.21 mGy
[2021-07-08 11:26] VITALS: BP 132/85; PULSE 70; RESP 20; TEMP 36.7; O2SAT 96
--- NOTE | 2021-07-08 11:55 | PDOC.PAIN_ITS ---
Pain Clinic Procedure Note Procedure Note Procedure Note: INTRA-ARTICULAR SI JOINT INJECTION Malia Wynne has been referred to the [facility] for intra- articular SI joint injection. COMMENTS: She has done exceedingly well with this procedure in the past. Pre- procedure pain VAS was 8/10. Dx: Sacroiliac joint dysfunction Patient was interviewed and the medical record reviewed. There were no medical, pharmacologic, radiographic or other structural contraindications to attempting fluoroscopically guided intra-articular SI joint injection. Risks and expected side effects as well as potential benefit of the procedure were reviewed and voiced concerns addressed. The printed consent form was signed and witnessed. Standard time-out procedure was performed. Patient was placed in the prone position on the fluoroscopy table and automated blood pressure cuff and pulse oximeter applied. The skin entry point for approaching the bilateral SI joints was identified under the most advantageous fluoroscopic view and marked. Following thorough Chlorhexadine preparation of the skin and draping and 1% lidocaine infiltration of the skin entry point and subcutaneous tissues, a 22 gauge 3.5 spinal needle was placed under fluoroscopic guidance into the bilateral SI joints was identified under the most advantageous fluoroscopic view and marked. Intra-articular placement was confirmed by a clear arthrogram resulting from the injection of 0.25ml Omnipaque 240, 1ml 1% lidocaine, and 40mg Depomedrol were injected intra-articularily into each joint with an initial reproduction of a significant component of the usual pain. Vital signs were stable throughout the procedure and were as recorded in the docflowsheet by the nursing staff. If given, dosages of intravenous drugs for anxiolysis and analgesia were documented in MAR. Follow up plans and appointments were discussed with the patient. Post procedure instruction was given as documented in nursing documentation and having met discharge criteria, and was discharged from the [facility]. COMMENTS: Post-procedure pain VAS = 0/10. Sukhwinder Huber DO, MPH [facility]-Pain Management [facility] CC: Hunter Don NP
[2021-07-08] MEDS: Lidocaine 1% Pres-Free 5 ML VIAL (11:57)
[2021-07-08] MEDS: methylPREDNISolone ACETATE 80 MG/ML VIAL IJ (11:57)
[2021-07-08 12:07] VITALS: BP 149/91; PULSE 69; RESP 20; O2SAT 96
== END 2021-07-08 10:59 | disposition home or self-care (01) ==
PROVIDERS: PCP Nurse Practitioner Family; Visit Provider Preventive Medicine Occupational Medicine
DX: M53.3 Sacrococcygeal disorders, not elsewhere classified (principal)
CPT/HCPCS: 27096; 72200; J1040

== ENCOUNTER 2021-07-20 03:36 | Outpatient (CLI) | payer BC, MEDICAID, SELFPAY ==
--- NOTE | 2021-07-20 11:00 | NS.NUTBLAN_ITS ---
Malia was referred for diabetes self management education. She brings in her new Dexcom 6 sensor and reader for set up. Previously, had used the Needbox AS 14 day system however, her insurance only covers Dexcom 6 at this time. DM meds: 25 mg Jardiance, 58 units lantus HS, 8 units aspart at meals Most recent A1C: 7.4% indicates good glycemic control (goal <8%, inview of comorbidities and age). Programed and instructed Malia on how to place Dexcom 6 sensor and how to insert transmitter. Did not want further diet education or follow up appointment to review data. Reviewed briefly, that changes in diet/exercise will lead to reduced reliance on insulin and will help with weight management. No follow up planned. Provided contact information.
== END 2021-07-20 03:37 | disposition home or self-care (01) ==
LOC: DS 03:37
PROVIDERS: PCP Nurse Practitioner Family; Visit Provider Dietitian, Registered
DX: E11.9 Type 2 diabetes mellitus without complications (principal); Z79.4 Long term (current) use of insulin; Z71.3 Dietary counseling and surveillance
CPT/HCPCS: 97802

== ENCOUNTER 2021-08-30 11:10 | Outpatient (CLI) | payer BC, MEDICAID, SELFPAY ==
--- NOTE | 2021-08-30 11:00 | RT.EKG_ITS ---
APPROVED REPORT Exam: Resting ECG Reason for Exam: needed for medication Patient Location: O HR:60 bpm ECG Measurements Heart Rate 60 AXIS MS 208 P 8 QRSd 102 QRS -19 QT 414 T 53 QTc 412 Conclusion Sinus rhythm...normal P axis, V-rate 60- 99 Borderline prolonged MS interval...MS >202, V-rate 50- 90 >300
== END 2021-08-30 11:11 | disposition home or self-care (01) ==
LOC: DI.CM 11:11
PROVIDERS: PCP Nurse Practitioner Family; Visit Provider Nurse Practitioner Family
DX: Z51.81 Encounter for therapeutic drug level monitoring (principal)
CPT/HCPCS: 93010

== ENCOUNTER 2021-08-30 17:50 | Outpatient (REF) | payer BC, MEDICAID, SELFPAY ==
[2021-08-30 12:42] LABS: Bilirubin Small (Negative); Blood Trace-intact (Negative); Clarity Clear (Clear); Glucose 500 mg/dL (Negative); Ketones 15 mg/dL (Negative); Leukocyte Esterase Negative (Negative); Nitrite Negative (Negative); Specific Gravity 1.025 (1.005-1.025); Urobilinogen 0.2 EU/dL (Up TO 0.2)
[2021-08-30 12:59] LABS: RBC 0-2 HPF (0-2); WBC Negative HPF (0-5)
[2021-08-30 13:00] LABS: Bacteria Negative HPF (Negative); C & S Indicated? No; Casts Negative LPF (Negative); Crystals Negative HPF (Negative); Epithelial Cells Rare HPF (Negative); Mucus Negative (Negative)
[2021-08-30 20:49] LABS: Abs Immature Grans 0.01 10^3/uL (0.0-0.06); Absolute Basophil Count 0.04 10^3/uL (0.0-0.2); Absolute Eosinophil Count 0.03 10^3/uL (0.0-0.7); Absolute Lymphocyte Count 1.89 10^3/uL (1.2-3.4); Absolute Monocyte Count 0.49 10^3/uL (0.1-0.8); Absolute Neutrophil Count 5.35 10^3/uL (1.2-6.7); Basophils % 0.5; Eosinophils % 0.4; HGB 14.9 g/dL (11.2-15.7); Immature Grans % 0.1; Lymphocytes % 24.2; MCH 29.3 pg (27.0-33.0); MCHC 33.1 % (32.0-36.0); MCV 89 fL (80-95); MPV 11.3 fL (8.0-11.0); Monocytes % 6.3; Neutrophils % 68.5; Platelet Count 236 10^3/uL (130-400); RBC 5.08 10^6/uL (3.93-5.22); RDW 12.6 % (11.7-14.6); RDW-SD 40.5 fL; WBC 7.81 10^3/uL (4.4-10.8)
[2021-08-30 20:52] LABS: ALT 59 U/L (14-59); AST 57 U/L (15-37); Albumin 3.7 g/dL (3.4-5.0); Alkaline Phosphatase 148 U/L (46-116); Anion Gap 9.4 mmol/L (3-11); BUN 12 mg/dL (7-18); Bilirubin, Total 0.3 mg/dL (0.2-1.0); CO2 28.6 mmol/L (21.0-32.0); CREATININE 0.7 mg/dL (0.55-1.02); Calcium 8.7 mg/dL (8.5-10.1); Chloride 105 mmol/L (98-107); Glucose 96 mg/dL (74-106); Lipase 32 U/L (73-393); Sodium 143 mmol/L (136-145); Total Protein 7.1 g/dL (6.4-8.2)
[2021-08-31 14:08] LABS: COVID-19 RT-PCR UVMMC Result Negative (Negative)
== END 2021-08-30 17:51 | disposition home or self-care (01) ==
LOC: LBN 17:50
PROVIDERS: PCP Nurse Practitioner Family; Visit Provider Nurse Practitioner Family
DX: R11.2 Nausea with vomiting, unspecified (principal); R39.89 Other symptoms and signs involving the genitourinary system; Z20.822 Contact with and (suspected) exposure to COVID-19; R82.998 Other abnormal findings in urine
CPT/HCPCS: 80053; 83690; U0003; 81003; 81015; 85025

== ENCOUNTER 2021-09-10 10:50 | Outpatient (CLI) | payer BC, MEDICAID, SELFPAY ==
[2021-09-10 11:39] LABS: Source Nasal/Nares
[2021-09-10 17:17] LABS: COVID-19 PCR Negative (Negative)
== END 2021-09-10 10:51 | disposition home or self-care (01) ==
LOC: LBO 10:53
PROVIDERS: PCP Nurse Practitioner Family; Visit Provider Surgery
DX: Z20.822 Contact with and (suspected) exposure to COVID-19 (principal); Z01.818 Encounter for other preprocedural examination
CPT/HCPCS: 87635

== ENCOUNTER 2021-09-13 11:10 | Day surgery (SDC) | payer BC, MEDICAID, SELFPAY ==
--- NOTE | 2021-09-13 06:18 | ANES.PREOP_ITS ---
General Info Date of Service Date Performed: 09/13/21 Height: 5 ft 6 in Weight: 103.419 kg Body Mass Index (BMI): 36.8 Surgical Procedure: Operation Date: 09/13/21 12:50 Proposed Procedure Side Surgeon p Gastroscopy Liliam Lora MD Meds Allergies and Home Medications Allergies Allergy/AdvReac Type Severity Reaction Status Date / Time Iodine and Iodide Containing Allergy Mild Skin Rash Verified 09/13/21 11:32 Produc codeine AdvReac Intermediate Nausea Verified 09/13/21 11:32 prochlorperazine edisylate AdvReac Intermediate Nausea Verified 09/13/21 11:32 [From Compazine] prochlorperazine maleate AdvReac Intermediate Nausea Verified 09/13/21 11:32 [From Compazine] oxycodone HCl [From Percocet] AdvReac Mild Nausea Verified 09/13/21 11:32 CHLORA PREP Allergy Intermediate skin Uncoded 09/13/21 11:32 blisters STERI STRIPS Allergy Intermediate skin Uncoded 09/13/21 11:32 blisters Home Medication Medication Instructions Recorded lancets 28 gauge #100 ea 04/15/15 prazosin 2 mg capsule 4 mg PO HS 03/24/17 blood sugar diagnostic (Blood #120 strips 08/25/17 Glucose Test strips) blood-glucose meter #1 ea 11/24/17 nitroglycerin 0.4 mg sublingual 0.4 mg sublingual Q5 MIN PRN X3 03/25/19 tablet (Nitrostat) PRN chest pain ##1 carbamazepine 200 mg tablet 400 mg PO HS 05/08/19 fluticasone propionate 50 1 - 2 spray NS DAILY PRN nasal 07/17/20 mcg/actuation nasal congestion #3 units spray,suspension (Flonase Allergy Relief) sydnee.stocking,knee,reg,smal #12 ea 07/27/20 insulin glargine 100 unit/mL (3 68 unit (0.68 mL) subcut HS #5 01/04/21 mL) subcutaneous pen (Lantus SYRGS Solostar U-100 Insulin) atenolol 25 mg tablet 25 mg PO DAILY #84 tabs 03/31/21 esomeprazole magnesium 40 mg 40 mg PO DAILY #90 caps 03/31/21 capsule,delayed release aspirin 81 mg tablet,delayed 81 mg PO DAILY #30 tab-caps 04/21/21 release estradiol 0.01% (0.1 mg/gram) 1 g vaginal .COMPLEX #42.5 grams 05/03/21 vaginal cream (Estrace) lorazepam 1 mg tablet (Ativan) 1 mg PO DAILY PRN 05/03/21 nystatin 100,000 unit/gram topical 1 applic topical BID PRN 05/03/21 cream intertrigo #15 grams melatonin 10 mg tablet 20 mg PO HS #60 tab-caps 05/19/21 polyethylene glycol 3350 17 17 g PO ONCE #238 grams 05/27/21 gram/dose oral powder amlodipine 5 mg tablet 5 mg PO BID #180 tab-caps 06/18/21 atorvastatin 40 mg tablet 40 mg PO DAILY #90 tab-caps 06/18/21 flash glucose scanning reader #1 ea 06/23/21 (FreeStyle Laila 14 Day [place]) flash glucose sensor (FreeStyle #6 ea 06/23/21 Laila 14 Day Sensor kit) blood-glucose meter,continuous #1 ea 06/28/21 (Dexcom [employer]) blood-glucose sensor (Dexcom G6 #3 ea 06/28/21 Sensor device) blood-glucose transmitter (Dexcom #1 ea 06/28/21 G6 Transmitter device) empagliflozin 25 mg tablet 25 mg PO DAILY #90 tab-caps 07/21/21 (Jardiance) insulin aspart U-100 100 unit/mL 8 unit (0.08 mL) subcut AC #6 SYRGS 07/28/21 (3 mL) subcutaneous pen (Novolog Flexpen U-100 Insulin aspart) pen needle, diabetic 31 gauge x #400 ea 07/28/2107/19 (Pen Needle) ondansetron 4 mg disintegrating 4 mg PO Q6H PRN nausea and 09/03/21 tablet vomiting #60 tabs vilazodone 20 mg tablet 20 mg PO DAILY #60 tabs 09/03/21 Current Visit Medications: Current Medications Generic Name Dose Route Start Last Admin Trade Name Freq PRN Reason Stop Dose Admin Ringer's Solution 1,000 mls @ 80 mls/hr 09/13/21 06:00 IV 10/10/21 23:59 INFUSION [facility] IV Miscellaneous Supplies 1 each 09/13/21 06:00 Iv Access IV 10/10/21 23:59 DIRECTED MICA Sodium Chloride 0 ml 09/13/21 06:00 Normal Saline Flush 10 Ml Syr IV 10/10/21 23:59 PRN PRN Sodium Chloride 0 ml 09/13/21 06:00 Normal Saline 10 Ml Vial IJ 10/10/21 23:59 DIRECTED PRN Sterile Water 0 ml 09/13/21 06:00 Water,Injection,Sterile 10 Ml Vial IJ 10/10/21 23:59 DIRECTED PRN PFSH Active Problems Active Problems: Problem Status Onset Code Nausea and vomiting R11.2 Adult BMI > 30 Bipolar affective disorder F31.9 LEISA (obstructive sleep apnea) 09/21/14 G47.33 PTSD (post-traumatic stress disorder) F43.10 History of suicide attempt 10/28/14 Z91.5 Type 2 diabetes mellitus, with long-term current use of insulin E11.9, Z79.4 Aortic regurgitation I35.1 Screening for colon cancer Z12.11 Medical History Medical History Allergic rhinitis (10/28/14) Back pain (10/28/14) Cholelithiasis (10/28/14) Chronic pain Controlled substance agreement signed (06/25/14) broken CSA 08/12/2014 Drug overdose (10/28/14) Fatty liver (02/05/15) GI consult, probable metabolic syndrome Febrile illness Gastroesophageal reflux disease with esophagitis Heart murmur History of colonic polyps (06/11/15) History of migraine headaches Hyperlipidemia (10/28/14) 11/2016 labwork: 10-year ASCVD risk = ~5.7% --> continue current moderate intensity statin therapy Hypertension (10/28/14) Insomnia Internal derangement of right knee Migraine headache (10/28/14) Mixed stress and urge urinary incontinence 04/2019. WWC. no evidence of pelvic organ prolapse to explain patient's symptoms. Nausea vomiting and diarrhea Patellar tendinitis of right knee Sacroiliac joint dysfunction of right side Vaginal bleeding Varicose veins of bilateral lower extremities with pain Vulvitis Surgical History Surgical History (Updated 09/13/21 @ 11:40 by Rachel Nails) Arthroplasty of knee (01/22/16) L with limited medial femoral chondroplasty. Dr. Stearns. Cholecystectomy (04/09/12) Colonscopy (06/11/15) Reji Julia EGD w/biopsies (06/11/15) Reji Dumont MD EGD with biopsy (09/08/08) Excision, Lipoma (06/12/08) right back History of cardiac cath 2018 History of vein stripping Hx of umbilical hernia repair Left heart Catheterization, Angiography (06/01/17) ORIF radial fx (10/05/15) [facility] 1998 or 1999 de Quervain's release left wrist Dr [id number] L distal radius and ulna partial hysterectomy retained ovaries per pt Revision L carpal tunnel release (04/18/14) Flexor tenosynovectomy, hardware removal, Dr Ocasio [facility] Tobacco Smoking/Tobacco Use Status: Never Passive smoking exposure: Yes Second hand exposure: Yes Alcohol Alcohol Intake: never Substance Use Substance use: Never Substance use type: does not use and former substance user Vital Signs and Lab Results Vital Signs Most Recent Vital Signs in EMR: Temp Pulse Resp BP Pulse Ox 36.4 C L 75 18 119/87 95 09/13/21 11:42 09/13/21 11:42 09/13/21 11:42 09/13/21 11:42 09/13/21 11:42 Lab Results Blood Type / Crossmatch: No Data to Display Complete Blood Count: White Blood Count 7.81 10^3/uL (4.4-10.8) 08/30/21 11:20 Red Blood Count 5.08 10^6/uL (3.93-5.22) 08/30/21 11:20 Hemoglobin 14.9 g/dL (11.2-15.7) 08/30/21 11:20 Hematocrit 45.0 % (36.0-46.0) 08/30/21 11:20 Platelet Count 236 10^3/uL (130-400) 08/30/21 11:20 Complete Metabolic Panel: Sodium Level 143 mmol/L (136-145) 08/30/21 11:20 Potassium Level 4.0 mmol/L (3.5-5.1) 08/30/21 11:20 Chloride Level 105 mmol/L (98-107) 08/30/21 11:20 Carbon Dioxide Level 28.6 mmol/L (21.0-32.0) 08/30/21 11:20 Blood Urea Nitrogen 12 mg/dL (7-18) 08/30/21 11:20 Creatinine 0.7 mg/dL (0.55-1.02) 08/30/21 11:20 Estimated GFR/1.73 m2 >= 60.00 (mL/min/1.73m2) 08/30/21 11:20 Calcium Level 8.7 mg/dL (8.5-10.1) 08/30/21 11:20 Albumin 3.7 g/dL (3.4-5.0) 08/30/21 11:20 Glucose Level 96 mg/dL (74-106) 08/30/21 11:20 Liver Function Panel: Alanine Aminotransferase (ALT/SGPT) 59 U/L (14-59) 08/30/21 11: 20 Aspartate Amino Transf (AST/SGOT) 57 U/L (15-37) H 08/30/21 11: 20 Coagulation Panel: No Data to Display Cardiac Panel: No Data to Display Arterial Blood Gas: No Data to Display Venous Blood Gas: No Data to Display Pancreas Panel: Lipase 32 U/L (73-393) 08/30/21 11:20 Thyroid Panel: No Data to Display Infectious Disease: Coronavirus (COVID-19)(PCR) Negative (Negative) 09/10/21 10:55 Coronavirus 2019 Source Nasal/Nares 09/10/21 10:55 Blood Cultures: No Data to Display Toxicology Panel: No Data to Display Imaging and Studies Imaging and Studies Study information below may be from another EMR and interpreted by another provider. Please see original notes in EMR for more complete details. EKG Summary: 08/25: sinus. Stress Test Summary: 2020: ekg is non-diagnostic, LVEF 64%, no WMA, small fixed defect likely artifact, no evidence of ischemia. Echocardiogram Summary: 2018: LVEF 60-65%, no WMA. mild-moderate AR, mild MR, PAS 38 mmhg. Cardiac Catheterization Summary: 2018: normal. Anesthesia Assessment and Plan Anesthesia History Personal History: PONV Family History: No Family History of Anesthesia Complications Exercise Tolerance Exercise Tolerance: Metabolic Equivalents>4 Cardiac & Pulmonary Exam Cardiac Exam: Normal S1/S2 Heart Sounds Pulmonary Exam: Clear Bilateral Breath Sounds Implantable Cardiac Device Does patient have a Pacemaker or an ICD?: No Airway Exam Known Difficult Airway: Yes Mallampati Class: 3 Mouth Opening: Normal (> 3cm) Thyromental Distance: Pediatric Patient Neck Range of Motion: Full ROM Neck Circumference: Normal Teeth Condition: Normal Dentition ASA Classification ASA Score: ASA 3 Emergency Case?: No NPO Status NPO Status: NPO Clears >2 hours, Solids >8 hours Anesthesia Plan Resuscitation Status: Full Code Anesthesia Technique: General Anesthesia Airway Planned: Natural Airway Monitors Used: Standard Monitors Preoperative Comments:: 56 yo female with nausea and vomiting her for EGD. Sig PMHx: LEISA, bipolar/anxiety (loraz), mod AR, DM2, angina, PTSD, fatty liver, HTN, gerd. Previous Anes; LMA 4.
--- NOTE | 2021-09-13 06:35 | ENDO_ITS ---
Date of service: 09/13/21 Time of Service: 12:26 Endoscopy Report DATE OF PROCEDURE: 09/13/21 PRE-OP DIAGNOSIS: Nausea and vomiting POST-OP DIAGNOSIS: same PROCEDURE: EGD with biopsies SURGEON: Liliam Lora ANESTHESIA TYPE: General:No Airway ESTIMATED BLOOD LOSS: 2 PATHOLOGY: other (gastric polyp) COMPLICATIONS: None DISPOSITION: same day INDICATIONS: 56 y/o female with a history of bipolar affective disorder, LEISA, PTSD, Aortic regurg., Type 2 DM, GERD and HTN presented for further evaluation of nausea and vomiting since August 26. Patient states that she went out to eat while visiting her brother in [place] and shortly after she started having N/V.? Since that time she has been seen by express care and given Zofran. She states the zofran is helping a little however, she is not able to take in much by mouth. She states she has mostly been sipping water. She states she feels slightly uncomfortable, but denies abdominal pain. She states that she has been having some dizziness.? She states she tried to eat dry toast and Popsicle however she was not able to keep this down. ? Denies chest pain, palpitations, dyspnea or dyspnea with exertion. [place]ary [place]remarkable [place] [facility] [place] showed EF 64%, no evidence of ischemia. Denies personal or family history of adverse reactions to anesthesia. Denies any history of [place], stroke, seizures, bleeding or clotting disorders. Denies having any implanted metal. Denies any history of chemotherapy or radiation. FINDINGS: ? mild inflammation PROCEDURE DESCRIPTION: After informed consent was obtained the patient was take to the procedure room and placed in a supine position. Monitors were applied and a time out was done. The patients name, date of , procedure type, allergies to medications and metal in their body was reviewed. A bite block was placed and the patient was sedated. Once sedated and comfortable the gastroscope was advanced through the oropharynx which was grossly normal into the esophagus. The proximal, mid and distal esophagus were normal. The scope was advanced into the stomach and through the pylorus into the 3rd portion of the duodenum. The duodenum was noted to be normal. The scope was retracted back into the stomach and biopsies were done to rule out H. pylori. There were no ulcers. There were a few scattered benign fundic polyps. 2 were biopsied. The scope was retroflexed. The cardia and fundus were noted to be normal. There was no hiatal hernia noted. The scope was retracted back into the esophagus. The Z line was regular. The GE junction was at 35 cm. The scope was removed and the patient was woken up and taken back to [facility] in stable condition.
--- NOTE | 2021-09-13 06:37 | W.PM.DSUDISC ---
Discharge Plan Disposition Patient Disposition: HOME Condition: Good Discharge Details Reason For Visit: NAUSEA & VOMITING Attending Provider: Liliam Lora Primary Care Provider: Hunter Don Home Meds and New Rx's Prescriptions: Continued insulin glargine [Lantus Solostar U-100 Insulin] 100 unit/mL (3 mL) insulin pen 68 unit Sub-Q HS Qty: 5 3RF Rx Instructions: Dx: E11.9 to maintain HbA1c less than 7% vilazodone 20 mg tablet 20 mg PO DAILY Qty: 60 0RF Rx Instructions: must administer with a meal/food ondansetron 4 mg tablet,disintegrating 4 mg PO Q6H PRN (Reason: nausea and vomiting) Qty: 60 0RF Rx Instructions: May take 1 tab every 6 hours as needed for nausea lorazepam [Ativan] 1 mg tablet 1 mg PO DAILY PRN estradiol [Estrace] 0.01 % (0.1 mg/gram) cream 1 g vaginal .COMPLEX Qty: 42.5 5RF Rx Instructions: 1 g vaginal for 2 weeks then twice weekly; (DME) lancets 1 EACH misc 1 ea Miscellaneous AC & HS Qty: 100 Rx Instructions: FOR Sixto Contour METER. Dx:E11.9 to keep A1C below 7.0 prazosin 2 MG capsule 4 mg PO HS Label Comments: [facility]: Abel Clark APRN NK (DME) Blood Glucose Test 1 EACH strip 1 ea Miscellaneous AC & HS Qty: 120 11RF Rx Instructions: Sixto Contour Dx: E11.9 to keep A1C below 7.0 (DME) blood-glucose meter misc See Dose Instructions .Route .MEDSUPPLY Qty: 1 0RF Dose Instruction: As directed Rx Instructions: As directed nitroglycerin [Nitrostat] 0.4 mg tablet, sublingual 0.4 mg Sublingual Q5 MIN PRN X3 PRN (Reason: chest pain) Qty: 1 0RF carbamazepine 200 mg tablet 400 mg PO HS fluticasone propionate [Flonase Allergy Relief] 50 mcg/actuation spray,suspension 1 - 2 spray NS DAILY PRN (Reason: nasal congestion) Qty: 3 3RF (DME) sydnee.stocking,knee,reg,smal Misc See Rx Instructions .ROUTE .MEDSUPPLY Qty: 12 Rx Instructions: 07/2020 As directed by [facility] 20-30mmHg compression atenolol 25 mg tablet 25 mg PO DAILY Qty: 84 3RF esomeprazole magnesium 40 mg capsule,delayed release(DR/EC) 40 mg PO DAILY Qty: 90 3RF Rx Instructions: Take 40 mg once daily in the morning at least 20-30 minutes before first meal. aspirin 81 mg tablet,delayed release (DR/EC) 81 mg PO DAILY Qty: 30 11RF nystatin 100,000 unit/gram cream 1 applic TP BID PRN (Reason: intertrigo) Qty: 15 3RF Rx Instructions: Apply thin film to affected area (abdominal skin folds) twice daily until resolution melatonin 10 mg tablet 20 mg PO HS Qty: 60 11RF amlodipine 5 mg tablet 5 mg PO BID Qty: 180 3RF Rx Instructions: to lower blood pressure atorvastatin 40 mg tablet 40 mg PO DAILY Qty: 90 3RF (DME) FreeStyle Laila 14 Day [place] Misc See Rx Instructions .ROUTE .MEDSUPPLY Qty: 1 0RF Rx Instructions: As directed (DME) FreeStyle Laila 14 Day Sensor Kit See Rx Instructions .ROUTE .MEDSUPPLY Qty: 6 3RF Rx Instructions: As directed (DME) Dexcom Precision Mechanical Instrument Maker Misc See Rx Instructions .Route Qty: 1 3RF Rx Instructions: Continuous (DME) Dexcom G6 Transmitter Device See Rx Instructions .Route Qty: 1 3RF Rx Instructions: As directed (DME) Dexcom G6 Sensor Device See Rx Instructions .Route Qty: 3 3RF Rx Instructions: As directed Jardiance 25 mg tablet 25 mg PO DAILY Qty: 90 3RF (DME) pen needle, diabetic [Pen Needle] 31 gauge x 5/16 needle 1 ea SQ QID Qty: 400 3RF Rx Instructions: Dx: E11.9 to maintain HbA1c less than 7% testing 4x/day insulin aspart U-100 [Novolog Flexpen U-100 Insulin] 100 unit/mL (3 mL) insulin pen 8 unit SC AC Qty: 6 3RF Discontinued polyethylene glycol 3350 17 gram/dose powder 17 g PO ONCE Qty: 238 0RF Rx Instructions: To be taken as directed by prescriber's office for colonoscopy prep. Discharge Instructions Additional Instructions: Findings: mild inflammation Follow up: with Your Primary Care physician Please call if you develop: fevers >101.5 Nausea or Vomiting Abdominal pain that is not transient Rectal bleeding that is more then a tbsp A hard abdomen and inability to pass gas DAY SURGERY UNIT POST ENDOSCOPY INSTRUCTIONS Instructions for everyone who is given Anesthesia: For your safety, please do the following for the next 24 Hours: a. Do not drive or operate dangerous equipment b. Do not drink alcohol beverages or use any recreational drugs for the first 24 hours or while taking pain medications. The medications in your body may have a reaction that can be dangerous. c. Do not make any important decisions or sign any important papers 1. Generally there are no restrictions on your activity after a day or so has gone by, but you may feel a bit fatigued for a few days. 2. After you arrive home you may have a light meal and return to a normal diet as you can tolerate it without feeling sick to your stomach. 3. After surgery, you may feel pain or discomfort. This should be only transient, but if it persists please contact your doctor. 4. If there are any questions regarding the findings of your procedure, please feel free to contact your doctor. 6. If you are unable to contact your doctor with a problem, contact the hospital at [phone]. 7. Continue all your regular medications unless directed otherwise. I understand the above instructions and have no questions. Signature of Patient or Responsible Adult Escort Date/Time Name of Responsible Adult Escort Signature of Nurse Date/Time Referrals: Hunter Don, LENS HARDENER [Primary Care Provider] - Activity:: Activity as Tolerated Diet:: As Tolerated Discharge Orders Discharge Orders: Discharge Order (Routine); Ordered 09/13/21 Ordered By: Liliam Lora
[2021-09-13 11:42] VITALS: BP 119/87; PULSE 75; RESP 18; TEMP 36.4; O2SAT 95
[2021-09-13 11:43] VITALS: BMI 36.8
[2021-09-13] MEDS: Lactated Ringers 1,000 ML 80 ML IV (11:55)
--- NOTE | 2021-09-13 12:18 | STOM_PTH ---
PATIENT: Malia Wynne LOC: [facility] U#:[id number] AGE/SX: 56/F ROOM: RE09/13/[address]: Liliam Lora MD : 1965 BED: DIS: 09/13/2021 SPEC #: [id number] RECD: 09/13/21 13:36 STATUS: TJ REQ #: [id number] DEMETRIA: 09/13/21 12:[address]: Liliam Lora DEPT: Surgical Specimen RECD BY: Anisa Diego ENTERED: 09/13/21 13:37 SP TYPE: STOMACH OTHR DR: Hunter Don, KARLA Tissues: 1 - STOMACH BIOPSY 2 - STOMACH BIOPSY Procedures: GROSS AND MICRO LEVEL 4 Comments: [id number]
[2021-09-13 12:27] VITALS: BP 136/86; PULSE 76; RESP 18; TEMP 36.6; O2SAT 94
[2021-09-13 12:53] VITALS: BP 124/90; PULSE 69; RESP 16; TEMP 36.5; O2SAT 96
--- NOTE | 2021-09-13 12:56 | W.ANESPOSTOP ---
Postoperative Evaluation Date, Time and Location Date Performed: 09/13/21 Time Performed: 12:56 Patient Location: Day Surgery Unit Vital Signs Most Recent Imported Vital Signs: Most Recent Vital Signs Temp Pulse Resp BP Pulse Ox 36.6 C 76 18 136/86 94 09/13/21 12:27 09/13/21 12:27 09/13/21 12:27 09/13/21 12:27 09/13/21 12:27 Pain Score Most Recent Pain Score: Most Recent Pain Score Pain Level 0 09/13/21 11:42 Assessment Mental Status: Awake (Alert & Oriented to Patient Baseline) Airway and Respiratory Function: Patent airway with normal (patient baseline) respiratory exam Cardiovascular Function: Hemodynamically Stable Hydration Status: Adequately Hydrated Nausea & Vomiting: No Nausea or Vomiting Pain: Pt. Denies Any Pain Peripheral Nerve Block: Patient did not receive a nerve block
== END 2021-09-13 13:18 | disposition home or self-care (01) ==
PROVIDERS: PCP Nurse Practitioner Family; Visit Provider Surgery
PROC: 0DJ68ZZ Inspection of Stomach, Via Natural or Artificial Opening Endoscopic (ICD-10-PCS; CPT 43235; principal; 2021-09-13 12:45)
DX: R11.2 Nausea with vomiting, unspecified (principal); K31.7 Polyp of stomach and duodenum; E11.9 Type 2 diabetes mellitus without complications; Z79.4 Long term (current) use of insulin; I10 Essential (primary) hypertension; K31.89 Other diseases of stomach and duodenum
CPT/HCPCS: 43239; 88305

== ENCOUNTER 2022-04-20 12:34 | Outpatient (CLI) | payer BC, SELFPAY ==
--- NOTE | 2022-04-20 06:00 | DI.RAD_ITS ---
Exam(s) XR PAIN CLINIC SACRIOILIAC 2V EXAM: XR PAIN CLINIC SACRIOILIAC 2V CLINICAL HISTORY: Dx: Sacroiliac Joint Dysfunction. TECHNIQUE: Fluoroscopy was provided for the referring physician for guidance with performing pain cl inic injection procedure. COMPARISON: No exams were available for comparison FINDINGS: Please see procedure note for details. Fluoro time: 21.2 seconds RADIATION DOSE DELIVERED: Ka,r=3.81 mGy
[2022-04-20 12:47] VITALS: BP 113/76; PULSE 84; RESP 20; TEMP 36.8; O2SAT 97
[2022-04-20] MEDS: methylPREDNISolone ACETATE 80 MG/ML VIAL IJ (13:22)
[2022-04-20 13:24] VITALS: BP 134/84; PULSE 65; RESP 20; O2SAT 99
--- NOTE | 2022-04-20 13:26 | PDOC.PAIN_ITS ---
Date of service: 04/20/22 Time of Service: 13:29 Pain Clinic Procedure Note Procedure Note Procedure Note: INTRA-ARTICULAR SI JOINT INJECTION Malia Wynne has been referred to the [facility] for intra- articular SI joint injection. COMMENTS: She is allergic to Iodine contrast and Chloroprep. She had great relief with the first bilateral SIJ injections on 07/08/21. The pain recently returned. Pre-procedure pain VAS was 7/10 Dx: Sacroiliac joint dysfunction Patient was interviewed and the medical record reviewed. There were no medical, pharmacologic, radiographic or other structural contraindications to attempting fluoroscopically guided intra-articular SI joint injection. Risks and expected side effects as well as potential benefit of the procedure were reviewed and voiced concerns addressed. The printed consent form was signed and witnessed. Standard time-out procedure was performed. Patient was placed in the prone position on the fluoroscopy table and automated blood pressure cuff and pulse oximeter applied. The skin entry point for approaching the bilateral SI joints was identified under the most advantageous fluoroscopic view and marked. Following thorough Isopropyl Alchol preparation of the skin and draping and 1% lidocaine infiltration of the skin entry point and subcutaneous tissues, a 22 gauge spinal needle was placed under fluoroscopic guidance into the bilateral SI joints was identified under the most advantageous fluoroscopic view and marked. 40mg Depomedrol followed by 1ml 1% lidocaine were injected intra-articularily with an initial reproduction of a significant component of the usual pain. Vital signs were stable throughout the procedure and were as recorded in the docflowsheet by the nursing staff. If given, dosages of intravenous drugs for anxiolysis and analgesia were documented in MAR. Follow up plans and appointments were discussed with the patient. Post procedure instruction was given as documented in nursing documentation and having met discharge criteria, and was discharged from the [facility]. COMMENTS: Post-procedure pain VAS was 0/10 to the bilateral low back Sukhwinder Huber DO, MPH [facility] CC: Hunter Don NP
== END 2022-04-20 12:35 | disposition home or self-care (01) ==
LOC: PC 12:34
PROVIDERS: PCP Nurse Practitioner Family; Visit Provider Preventive Medicine Occupational Medicine
DX: M53.3 Sacrococcygeal disorders, not elsewhere classified (principal)
CPT/HCPCS: 27096; 72200; J1040

== ENCOUNTER 2022-05-19 13:37 | Outpatient (CLI) | payer BC, SELFPAY ==
--- NOTE | 2022-05-19 10:08 | DI.RAD_ITS ---
Exam(s) XR TIB/FIB LT EXAM: XR TIB/FIB LT CLINICAL HISTORY: Left leg and ankle injury post fall W19.XXXA FALL S89.92XA INJURY. TECHNIQUE: 2D digital imaging was performed. Two views. COMPARISON: No exams were available for comparison FINDINGS: BONES: No acute fracture is present. No bony destructive lesion is seen. Heel spurs. Visualized por tion of knee and ankle joints are unremarkable. SOFT TISSUE: Edema greater distally. IMPRESSION: Soft tissue swelling. DATA REPOSITORY: RADIATION DOSE DELIVERED:
--- NOTE | 2022-05-19 10:08 | DI.RAD_ITS ---
Exam(s) XR ANKLE LT COMPLETE EXAM: XR ANKLE LT COMPLETE CLINICAL HISTORY: left leg ankle injury post fall W19.XXXA FALL S89.92XA INJURY TECHNIQUE: 2D digital imaging was performed. Three views. COMPARISON: CR LEFT ANKLE COMPLETE from 12/08/2014 FINDINGS: BONES: No acute fracture is present. No bony destructive lesion is seen. Heel spurs. JOINTS:The ankle mortise is normally aligned. SOFT TISSUE: Soft tissue swelling. IMPRESSION: Soft tissue swelling. DATA REPOSITORY: RADIATION DOSE DELIVERED:
== END 2022-05-19 13:57 ==
LOC: DI 13:43
PROVIDERS: PCP Nurse Practitioner Family; Visit Provider Nurse Practitioner Family
DX: S89.82XA Other specified injuries of left lower leg, initial encounter; W19.XXXA Unspecified fall, initial encounter; M77.32 Calcaneal spur, left foot; M79.89 Other specified soft tissue disorders; M25.572 Pain in left ankle and joints of left foot
CPT/HCPCS: 73590; 73610

== ENCOUNTER 2022-07-08 14:48 | Outpatient (REF) | payer BC, SELFPAY ==
[2022-07-08 13:08] LABS: COMMENT (LAB VIEW ONLY) 189.17 mg/dL; Microalb ug/mg Crea 12.1 ug/mg Cr
== END 2022-07-08 14:49 | disposition home or self-care (01) ==
LOC: LBN 14:48
PROVIDERS: PCP Nurse Practitioner Family; Visit Provider Nurse Practitioner Family
DX: E11.9 Type 2 diabetes mellitus without complications (principal)
CPT/HCPCS: 82043; 82570

== ENCOUNTER 2022-07-24 18:03 | Emergency (ER) | payer BC, SELFPAY ==
--- NOTE | 2022-07-24 18:00 | DI.RAD_ITS ---
Exam(s) XR HAND LT COMPLETE EXAM: XR HAND LT COMPLETE CLINICAL HISTORY: 3rd/4th finger injury, r/o fx. TECHNIQUE: 2D digital imaging was performed of the left hand. Three views were obtained. AP, later al and oblique views were obtained. COMPARISON: CR LEFT WRIST COMPLETE from 03/26/2017 FINDINGS: BONES: No acute fracture is present. No bony destructive lesion is seen. The bones are osteopenic. T here is a fixation plate in the distal radius. JOINTS: No dislocation present. There are degenerative changes in the hand and wrist. SOFT TISSUE: Normal. IMPRESSION: No acute fracture or dislocation. DATA REPOSITORY: RADIATION DOSE DELIVERED:
[2022-07-24 18:06] VITALS: BP 131/68; PULSE 60; RESP 18; TEMP 36.9; O2SAT 100
--- NOTE | 2022-07-24 19:09 | DI.VRAD_ITS ---
PROCEDURE INFORMATION: Exam: XR Left Hand Exam date and time: 07/24/2022 18:35 Age: 56 years old Clinical indication: Injury or trauma; Blunt trauma (contusions or hematomas); Left; Injury date: 07/23/22; Injury details: Fall off ladder onto hand; Prior surgery; Surgery date: 6+ months; Surgery type: Wrist hardware; Patient HX: 3rd/4th finger injury, R/O FX TECHNIQUE: Imaging protocol: Radiologic exam of the left hand. Views: 3 or more views. COMPARISON: CR LEFT HAND COMPLETE 03/26/2017 21:08 FINDINGS: Bones/joints: The bones are demineralized. Internal fixation distal radius, chronic healed distal ulnar and radial fractures, intact as visualized. Chronic degenerative changes in the wrist and hand. No acute fracture or subluxation. Soft tissues: Digital soft tissue swelling. IMPRESSION: 1. No acute bony pathology. 2. Chronic findings as described. Dictated and Authenticated by: Arleen Toure MD. Ordering:DAJUAN Gregg MD
--- NOTE | 2022-07-24 19:16 | ED.GENADUL_ITS ---
Discharge Plan Disposition Patient Disposition: Home Condition: Stable Discharge Details Clinical Impression: Contusion of left middle finger, Contusion of left ring finger Primary Care Provider: Hunter Don ED Provider: Marysol Saez Home Meds and New Rx's Prescriptions: Continued ondansetron 4 mg tablet,disintegrating 4 mg PO Q6H PRN (Reason: nausea and vomiting) Qty: 60 0RF Rx Instructions: May take 1 tab every 6 hours as needed for nausea trazodone 50 mg tablet 50 mg PO QHS PRN (Reason: sleep) Qty: 90 3RF lorazepam [Ativan] 1 mg tablet 1 mg PO DAILY PRN (DME) lancets 1 EACH misc 1 ea Miscellaneous AC & HS Qty: 100 Rx Instructions: FOR Sixto Contour METER. Dx:E11.9 to keep A1C below 7.0 (DME) Blood Glucose Test 1 EACH strip 1 ea Miscellaneous AC & HS Qty: 120 11RF Rx Instructions: Sixto Contour Dx: E11.9 to keep A1C below 7.0 (DME) blood-glucose meter misc See Dose Instructions .Route .MEDSUPPLY Qty: 1 0RF Dose Instruction: As directed Rx Instructions: As directed nitroglycerin [Nitrostat] 0.4 mg tablet, sublingual 0.4 mg Sublingual Q5 MIN PRN X3 PRN (Reason: chest pain) Qty: 1 0RF carbamazepine 200 mg tablet 400 mg PO HS fluticasone propionate [Flonase Allergy Relief] 50 mcg/actuation spray,suspension 1 - 2 spray NS DAILY PRN (Reason: nasal congestion) Qty: 3 3RF (DME) sydnee.stocking,knee,reg,smal Misc See Rx Instructions .ROUTE .MEDSUPPLY Qty: 12 Rx Instructions: 07/2020 As directed by [facility] 20-30mmHg compression nystatin 100,000 unit/gram cream 1 applic TP BID PRN (Reason: intertrigo) Qty: 15 3RF Rx Instructions: Apply thin film to affected area (abdominal skin folds) twice daily until resolution (DME) FreeStyle Laila 14 Day [place]urbin Misc See Rx Instructions .ROUTE .MEDSUPPLY Qty: 1 0RF Rx Instructions: As directed (DME) FreeStyle Laila 14 Day Sensor Kit See Rx Instructions .ROUTE .MEDSUPPLY Qty: 6 3RF Rx Instructions: As directed (DME) Dexcom Home Therapy Clinician Misc See Rx Instructions .Route Qty: 1 3RF Rx Instructions: Continuous (DME) Dexcom G6 Transmitter Device See Rx Instructions .Route Qty: 1 3RF Rx Instructions: As directed (DME) pen needle, diabetic [Pen Needle] 31 gauge x 5/16 needle 1 ea SQ QID Qty: 400 3RF Rx Instructions: Dx: E11.9 to maintain HbA1c less than 7% testing 4x/day esomeprazole magnesium 40 mg capsule,delayed release(DR/EC) 40 mg PO DAILY Qty: 90 3RF Rx Instructions: Take 40 mg once daily in the morning at least 20-30 minutes before first meal. atenolol 25 mg tablet 25 mg PO DAILY Qty: 90 3RF (DME) Dexcom G6 Sensor Device See Rx Instructions .Route Qty: 3 10RF Rx Instructions: As directed aspirin 81 mg tablet,delayed release (DR/EC) 81 mg PO DAILY Qty: 90 3RF amlodipine 5 mg tablet 5 mg PO BID Qty: 180 3RF Rx Instructions: to lower blood pressure atorvastatin 40 mg tablet 40 mg PO DAILY Qty: 90 3RF No Action Jardiance 25 mg tablet 25 mg PO DAILY Qty: 30 0RF Discharge Instructions Instructions: Contusion in Adults (ED) Additional Instructions: Your x-rays today showed no evidence of fracture. You can keep the splint in place as long as you are having pain and swelling. Rest, ice, and elevate the affected area as much as possible. Alternate tylenol and motrin as needed and directed for pain. Follow up with your primary care doctor in 1 week as needed and for referral to orthopedics if indicated. Return to the emergency department with any worsening or new concerning symptoms. Referrals: Angel Alvarez MD [ [facility] STAFF PHYSICIAN] - Discharge Data Discharge Date/Time-TO BE ENTERED AT DEPARTURE: 07/24/22 20:19 Discharge Physician: Marysol Saez Medical Decision Making 56-year-old geblf-imfd-nhwbtphk female presents with left third and fourth finger pain after fall down 4 steps onto her left hand earlier today. She has mild edema and ecchymosis noted mostly overlying the left third PIP joint on the dorsal aspect. She has minimal ecchymosis noted to the middle phalanx of the left fourth finger. No obvious deformity. She has neurovascular intact. She was referred for x-rays which were unremarkable. Patient had already purchased aluminum finger splints which she placed today. She is advised to keep these in place as long as she is having pain and swelling. Advised to follow-up with the PCP as needed. She was given orthopedic follow-up information if needed. Usual and customary return precautions given prior to discharge. Medical Records Medical records reviewed: Yes I reviewed the patient's medical records. Imaging Data Radiologic Study: Radiologist's impression: XR HAND LT COMPLETE CLINICAL HISTORY: ? 3rd/4th finger injury, r/o fx.? TECHNIQUE:? 2D digital imaging was performed of the left hand.? Three views were obtained.? AP, lateral and oblique views were obtained. COMPARISON:? CR LEFT WRIST COMPLETE from 03/26/2017 FINDINGS: BONES: No acute fracture is present. No bony destructive lesion is seen. The bones are osteopenic.? There is a fixation plate in the distal radius. JOINTS: No dislocation present. There are degenerative changes in the hand and wrist. SOFT TISSUE: Normal. IMPRESSION: No acute fracture or dislocation.? XR Left Hand Exam date and time: 07/24/2022 18:35 Age: 56 years old Clinical indication: Injury or trauma; Blunt trauma (contusions or hematomas); Left; Injury date: 07/23/22; Injury details: Fall off ladder onto hand; Prior surgery; Surgery date: 6+ months; Surgery type: Wrist hardware; Patient HX: 3rd/4th finger injury, R/O FX TECHNIQUE: Imaging protocol: Radiologic exam of the left hand. Views: 3 or more views. COMPARISON: CR LEFT HAND COMPLETE 03/26/2017 21:08 FINDINGS: Bones/joints: The bones are demineralized. Internal fixation distal radius, chronic healed distal ulnar and radial fractures, intact as visualized. Chronic degenerative changes in the wrist and hand. No acute fracture or subluxation. Soft tissues: Digital soft tissue swelling. IMPRESSION: 1. ? No acute bony pathology. 2. ? Chronic findings as described. HPI General Mode of arrival: ambulatory . Date/Time Provider Initiated Documentation: 07/24/22 18:12 . Limitations to Documentation: no limitations . Information obtained by: patient . HPI Narrative: Patient is a 56-year-old laixa-eqky-woxgsgzx female who presents for evaluation after a left hand injury sustained at home this morning. Patient states she was walking down the stairs when she tripped down 4 steps and landed on her left hand. She is complaining of pain only in her left third and fourth fingers. She did take ibuprofen at 4 PM. She denies any other injuries. Related Data Home Medications Medication Instructions Recorded Confirmed lancets 28 gauge #100 ea 04/15/15 07/08/22 blood sugar diagnostic (Blood #120 strips 08/25/17 07/08/22 Glucose Test strips) blood-glucose meter #1 ea 11/24/17 07/08/22 nitroglycerin 0.4 mg sublingual 0.4 mg sublingual Q5 MIN PRN X3 03/25/19 07/08/22 tablet (Nitrostat) PRN chest pain ##1 carbamazepine 200 mg tablet 400 mg PO HS 05/08/19 07/08/22 fluticasone propionate 50 1 - 2 spray NS DAILY PRN nasal 07/17/20 07/08/22 mcg/actuation nasal congestion #3 units spray,suspension (Flonase Allergy Relief) sydnee.stocking,knee,reg,smal #12 ea 07/27/20 07/08/22 lorazepam 1 mg tablet (Ativan) 1 mg PO DAILY PRN 05/03/21 07/08/22 nystatin 100,000 unit/gram topical 1 applic topical BID PRN 05/03/21 07/08/22 cream intertrigo #15 grams flash glucose scanning reader #1 ea 06/23/21 07/08/22 (FreeStyle Laila 14 Day Durbin) flash glucose sensor (FreeStyle #6 ea 06/23/21 07/08/22 Laila 14 Day Sensor kit) blood-glucose meter,continuous #1 ea 06/28/21 07/08/22 (Dexcom Home Therapy Clinician) blood-glucose transmitter (Dexcom #1 ea 06/28/21 07/08/22 G6 Transmitter device) pen needle, diabetic 31 gauge x #400 ea 07/28/21 07/08/2207/19 (Pen Needle) trazodone 50 mg tablet 50 mg PO QHS PRN sleep #90 tabs 12/17/21 07/08/22 atenolol 25 mg tablet 25 mg PO DAILY #90 tabs 02/18/22 07/08/22 esomeprazole magnesium 40 mg 40 mg PO DAILY #90 caps 02/18/22 07/08/22 capsule,delayed release blood-glucose sensor (Dexcom G6 #3 ea 02/21/22 07/08/22 Sensor device) aspirin 81 mg tablet,delayed 81 mg PO DAILY #90 tab-caps 03/16/22 07/08/22 release amlodipine 5 mg tablet 5 mg PO BID #180 tab-caps 05/18/22 07/08/22 atorvastatin 40 mg tablet 40 mg PO DAILY #90 tab-caps 05/18/22 07/08/22 ondansetron 4 mg disintegrating 4 mg PO Q6H PRN nausea and 07/08/22 07/08/22 tablet vomiting #60 tabs empagliflozin 25 mg tablet 25 mg PO DAILY #30 tab-caps 07/25/22 (Jardiance) Previous Rx's Medication Instructions Recorded blood sugar diagnostic (Blood #120 strips 08/25/17 Glucose Test strips) blood-glucose meter #1 ea 11/24/17 nitroglycerin 0.4 mg sublingual 0.4 mg sublingual Q5 MIN PRN X3 03/25/19 tablet (Nitrostat) PRN chest pain ##1 fluticasone propionate 50 1 - 2 spray NS DAILY PRN nasal 07/17/20 mcg/actuation nasal congestion #3 units spray,suspension (Flonase Allergy Relief) nystatin 100,000 unit/gram topical 1 applic topical BID PRN 05/03/21 cream intertrigo #15 grams flash glucose scanning reader #1 ea 06/23/21 (FreeStyle Laila 14 Day [place]in) flash glucose sensor (FreeStyle #6 ea 06/23/21 Laila 14 Day Sensor kit) blood-glucose meter,continuous #1 ea 06/28/21 (Dexcom Home Therapy Clinician) blood-glucose transmitter (Dexcom #1 ea 06/28/21 G6 Transmitter device) pen needle, diabetic 31 gauge x #400 ea 07/28/2107/19 (Pen Needle) trazodone 50 mg tablet 50 mg PO QHS PRN sleep #90 tabs 12/17/21 atenolol 25 mg tablet 25 mg PO DAILY #90 tabs 02/18/22 esomeprazole magnesium 40 mg 40 mg PO DAILY #90 caps 02/18/22 capsule,delayed release blood-glucose sensor (Dexcom G6 #3 ea 02/21/22 Sensor device) aspirin 81 mg tablet,delayed 81 mg PO DAILY #90 tab-caps 03/16/22 release amlodipine 5 mg tablet 5 mg PO BID #180 tab-caps 05/18/22 atorvastatin 40 mg tablet 40 mg PO DAILY #90 tab-caps 05/18/22 ondansetron 4 mg disintegrating 4 mg PO Q6H PRN nausea and 07/08/22 tablet vomiting #60 tabs empagliflozin 25 mg tablet 25 mg PO DAILY #30 tab-caps 07/25/22 (Jardiance) Allergies Allergy/AdvReac Type Severity Reaction Status Date / Time Iodine and Iodide Containing Allergy Mild Skin Rash Verified 07/24/22 18:11 Produc codeine AdvReac Intermediate Nausea Verified 07/24/22 18:11 prochlorperazine edisylate AdvReac Intermediate Nausea Verified 07/24/22 18:11 [From Compazine] prochlorperazine maleate AdvReac Intermediate Nausea Verified 07/24/22 18:11 [From Compazine] oxycodone HCl [From Percocet] AdvReac Mild Nausea Verified 07/24/22 18:11 CHLORA PREP Allergy Intermediate skin Uncoded 07/24/22 18:11 blisters STERI STRIPS Allergy Intermediate skin Uncoded 07/24/22 18:11 blisters General Stated Complaint: Orthopedic FRED: 4 Review of Systems All systems reviewed & are unremarkable except as noted in HPI and below Constitutional Constitutional: Reports as per HPI, Denies chills and Denies fever(s) Eyes Eyes: Denies blurry vision ENT Ears, Nose, Mouth, and Throat: Denies dizziness, Denies sore throat and Denies throat swelling Cardiovascular Cardiovascular: Denies chest pain and Denies dyspnea Respiratory Respiratory: Denies cough and Denies dyspnea Gastrointestinal Gastrointestinal: Denies abdominal pain, Denies diarrhea and Denies vomiting Genitourinary Genitourinary: Denies hematuria and Denies dysuria Musculoskeletal Musculoskeletal: Denies back pain and Denies numbness Integumentary/Breasts Skin/Breast: Denies lesions and Denies rash Neurologic Neurologic: Denies dizziness, Denies localized weakness and Denies numbness Allergic/Immunologic Allergic/Immunologic: Denies throat swelling PFSH All Active Problems (Updated 07/24/22 @ 19:51 by Marysol Saez DO) Contusion of left middle finger (Acute) Contusion of left ring finger (Acute) Left leg pain (Acute) Insomnia (Acute) History of migraine headaches (Acute) Hypertension (Chronic 10/28/14) Hyperlipidemia (Acute 10/28/14) 11/2016 labwork: 10-year ASCVD risk = ~5.7% --> continue current moderate intensity statin therapy Gastroesophageal reflux disease with esophagitis (Acute) Allergic rhinitis (Acute 10/28/14) Adult BMI > 30 (Chronic) Bipolar affective disorder (Chronic) NKHS LEISA (obstructive sleep apnea) (Chronic 09/21/14) moderate, AHI 15, Dr Elliott [facility] does not use CPAP or BIPAP PTSD (post-traumatic stress disorder) (Chronic) NKHS History of suicide attempt (Acute 10/28/14) Type 2 diabetes mellitus, with long-term current use of insulin (Chronic) Aortic regurgitation (Chronic) 05/26/2017 echo: mild-moderate --> repeat echo 2-3 years Medical History (Updated 07/24/22 @ 19:51 by Marysol Saez DO) Cholelithiasis (10/28/14) Chronic pain Controlled substance agreement signed (06/25/14) broken CSA 08/12/2014 Drug overdose (10/28/14) Fatty liver (02/05/15) GI consult, probable metabolic syndrome History of colonic polyps (06/11/15) Internal derangement of right knee Mixed stress and urge urinary incontinence 04/2019. WW. no evidence of pelvic organ prolapse to explain patient's symptoms. Patellar tendinitis of right knee Sacroiliac joint dysfunction of right side Vaginal bleeding Varicose veins of bilateral lower extremities with pain Vulvitis Surgical History Arthroplasty of knee (01/22/16) L with limited medial femoral chondroplasty. Dr. Stearns. Cholecystectomy (04/09/12) Colonscopy (06/11/15) Reji Dumont EGD w/biopsies (06/11/15) Reji Dumont MD EGD with biopsy (09/08/08) Excision, Lipoma (06/12/08) right back History of cardiac cath 2018 History of vein stripping Hx of umbilical hernia repair Left heart Catheterization, Angiography (06/01/17) ORIF radial fx (10/05/15) [facility] 1998 or 1999 de Quermarielena's release left wrist Dr CárdenasSex-YIR-OROD L distal radius and ulna partial hysterectomy retained ovaries per pt Revision L carpal tunnel release (04/18/14) Flexor tenosynovectomy, hardware removal, Dr Ocasio [facility] Family History (Updated 12/21/21 @ 15:35 by Elaine Coates) Mother , 65 Heart disease Cancer lung Diabetes Father , 74 Diabetes Heart disease CABG triple vessel, pacemaker COVID Brother No problems noted. Brother No problems noted. Daughter No problems noted. Daughter No problems noted. Maternal Grandfather No problems noted. Paternal Grandfather No problems noted. Maternal Grandmother No problems noted. Paternal Grandmother No problems noted. Social History (Updated 12/21/21 @ 15:34 by Elaine Coates) Smoking/Tobacco Use Status: Never Second Hand Exposure: Yes Smoking risk assessment performed?: Yes Alcohol Intake: current Alcohol Intake frequency: holidays/special occasions on ly Drug use: Occasionally Substance use type: marijuana Details: alcohol: months Adopted: No Caregiver/Support person: No Foster care: No Household members: spouse, family and other Housing: house Number of Children: 2 number of grandchildren: 3 Communication Needs: None Education Level: middle school Do you need help understanding health information?: Never Pets and animals: Yes Pets and animals: dog(s) Sexually active: No Do you think of yourself as: straight/heterosexual Current gender identity: female What is your relationship status?: How often do you talk on the phone with friends or family?: three or more times per week How often do you get together with friends or relatives?: once per week Do you belong to any clubs or organized social groups?: no Panel score (0-1 are the most socially isolated patients): 2 What type of physical activity do you participate in: walking Duration: < 15 minutes/day Frequency: 1-2 times per week Taryn/Hinduism: Nondenominational Special taryn needs: No Seatbelt use: always Helmet use: No Drive intox or ride w/intox rolloff driver: No Water heater temp set <120 deg: Yes Working smoke detector in home: Yes Fire extinguisher in home: Yes Carbon monox detector in home: Yes Firearms in home: Yes Do you feel safe at home: Yes Do you feel safe in your relationship?: Yes Exam Const General: cooperative, healthy appearing and no acute distress HENMT Head: normal to inspection Mouth: oral mucosae normal Eyes General: appearance normal, both eyes and all related structures Neck Neck: normal visual inspection Resp Effort & Inspection: normal respiratory effort and able to speak in complete sentences Cardio Rate: regular rate Skin General skin exam: no rashes or lesions noted Neuro General: patient alert, patient awake and patient oriented x3 Motor: muscle tone normal throughout Extrem Hand/finger images: 1. Mild edema and ecchymoses. No deformity. 2. Ecchymoses. No deformity. Other: Tenderness to palpation and pain with range of motion of left 3rd and 4th finger. Normal capillary refill. No obvious deformities. Psych Appearance: grossly normal Affect: normal affect Course Vital Signs Vital signs: Vital Signs Temperature 98.4 F 07/24/22 18:06 Pulse 60 07/24/22 18:06 Respiratory Rate 18 07/24/22 18:06 Blood Pressure 131/68 07/24/22 18:06 Pulse Oximetry 100 07/24/22 18:06 Temperature 98.4 F 07/24/22 18:06 Temperature Source Skin 07/24/22 18:06 Pulse 60 07/24/22 18:06 Respiratory Rate 18 07/24/22 18:06 Blood Pressure 131/68 07/24/22 18:06 Blood Pressure Position Sitting 07/24/22 18:06 Pulse Oximetry 100 07/24/22 18:06 Oxygen Delivery Method Room Air 07/24/22 18:06 Oxygen Flow Rate 0 07/24/22 18:06 Pain Level 6 07/24/22 18:06
== END 2022-07-24 20:19 | disposition home or self-care (01) ==
PROVIDERS: Emergency Provider Physician Assistant; PCP Nurse Practitioner Family
DX: S60.032A Contusion of left middle finger without damage to nail, initial encounter (principal); S60.042A Contusion of left ring finger without damage to nail, initial encounter; W10.9XXA Fall (on) (from) unspecified stairs and steps, initial encounter
CPT/HCPCS: 99283; 73130

== ENCOUNTER 2022-08-15 04:53 | Outpatient (CLI) | payer BC, SELFPAY ==
[2022-08-15 16:54] LABS: COMMENT (LAB VIEW ONLY) 80.97 mg/dL; Microalb ug/mg Crea 13.8 ug/mg Cr
[2022-08-15 16:55] LABS: CREATININE 0.6 mg/dL (0.55-1.02); Calculated LDL 70 mg/dL (<100); Cholesterol 156 mg/dL (<200); Estimated GFR 104.63 (mL/min/1.73m2); HDL Cholesterol 70 mg/dL (40-60); Potassium 3.6 mmol/L (3.5-5.1); Triglyceride 84 mg/dL (<150)
== END 2022-08-15 04:54 | disposition home or self-care (01) ==
LOC: LBO 04:53
PROVIDERS: PCP Nurse Practitioner Family; Visit Provider Nurse Practitioner Family
DX: E78.5 Hyperlipidemia, unspecified (principal); I10 Essential (primary) hypertension; E11.9 Type 2 diabetes mellitus without complications; Z79.4 Long term (current) use of insulin
CPT/HCPCS: 36415; 80061; 82043; 82565; 82570; 84132

== ENCOUNTER 2022-10-13 12:11 | Outpatient (CLI) | payer BC, SELFPAY ==
[2022-10-13 12:16] VITALS: BP 120/75; PULSE 56; RESP 20; TEMP 36.7; O2SAT 98
--- NOTE | 2022-10-13 12:46 | PDOC.PAIN_ITS ---
Date of service: 10/13/22 Time of Service: 12:46 Pain Managment Procedure Note Procedure Note Procedure Note: PROCEDURE NOTE BILATERAL INTRA-ARTICULAR SACROILIAC JOINT INJECTION Date of Service: October 13, 2022 Patient: Malia Wynne Provider: Sukhwinder Huber DO, MPH COMMENTS: I previously evaluated the patient in the office and their symptoms in relation to the sacroiliac joint pain have remained the same. She is allergic to iodine contrast and Chloroprep and thus we plan to not use contrast and use alcohol to prep the skin. Pre-operative diagnosis: Sacroiliac joint dysfunction Post-operative diagnosis: Same Pre-procedure pain: VAS= 4/10 Malia Wynne has been [facility] to [facility] for a Bilateral intra-articular Sacroiliac joint injection. Malia was interviewed and the medical record reviewed. There were no medical, pharmacologic, radiographic or other structural contraindications to attempting a fluoroscopically-guided, contrast-enhanced, intra-articular Sacroiliac joint injection. The risks, benefits, and potential side effects of this procedure were reviewed with the patient. Questions and concerns were addressed. After it was clear that Malia was fully informed about the procedure, the printed consent form was signed by the patient and myself. Malia was placed in the prone position on the fluoroscopy table and an automated blood pressure cuff, 3 lead EKG, and pulse oximeter were applied. The skin entry point for approaching the Left sacroiliac joint was identified under the most advantageous fluoroscopic view and marked. Following thorough alcohol preparation of the skin and draping with sterile surgical drapes, 2 mls of 1% lidocaine was infiltrated into the skin at the entry point and the surrounding subcutaneous tissues. Next, a 3.5 22G spinal needle was placed under fluoroscopic guidance into the Left sacroiliac joint. Intra-articular placement was confirmed reproduction of her symptoms with injection of 0.5 cc of 1% Lidocaine. Next, 1 ml of Depo- Medrol 40 mg/ml was injected intra-articularly with an initial reproduction of a significant component of the usual pain. This was followed with 1 ml of 1% Lidocaine. The needle was then removed without difficulty. (49 ml of Omnipaque-240 was wasted). The exact procedure was completed on the opposite sacroiliac joint. Malia's vital signs were stable throughout the procedure and were as recorded in nursing records. Follow up plans and appointments were discussed with Malia. Post procedure instructions were given as documented in nursing records. Having met discharge criteria, Malia was [facility] from the [facility]. COMMENTS: Post-procedure pain: VAS= 0/10. If the patient receives at least 50% improvement in pain and/or function for at least 3 months, this procedure can be repeated if needed. I personally performed this entire procedure. SUKHWINDER HUBER DO, MPH ABPMR-subspecialty board certification in Pain Medicine [facility] [facility]
--- NOTE | 2022-10-13 12:49 | DI.RAD_ITS ---
Exam(s) XR PAIN CLINIC SACRIOILIAC 2V EXAM: XR PAIN CLINIC SACRIOILIAC 2V CLINICAL HISTORY: Dx: Sacroiliac Joint Dysfunction. TECHNIQUE: Fluoroscopy was provided for the referring physician for guidance with performing pain cl inic injection procedure. COMPARISON: No exams were available for comparison FINDINGS: Please see procedure note for details. Fluoro time: 18.3 seconds RADIATION DOSE DELIVERED: Ka,r=3.35 mGy
[2022-10-13 12:54] VITALS: BP 148/86; PULSE 60; RESP 20; O2SAT 100
[2022-10-13] MEDS: methylPREDNISolone ACETATE 80 MG/ML VIAL IJ (12:55)
== END 2022-10-13 12:12 | disposition home or self-care (01) ==
PROVIDERS: PCP Nurse Practitioner Family; Visit Provider Preventive Medicine Occupational Medicine
DX: M46.1 Sacroiliitis, not elsewhere classified (principal)
CPT/HCPCS: 27096; 72200; J1040

== ENCOUNTER 2023-02-22 16:11 | Outpatient (CLI) | payer MEDICAID, SELFPAY ==
--- NOTE | 2023-02-22 06:00 | DI.RAD_ITS ---
Exam(s) XR PAIN CLINIC SACRIOILIAC 2V EXAM: XR PAIN CLINIC SACRIOILIAC 2V CLINICAL HISTORY: Dx: Sacroiliac Joint Dysfunction TECHNIQUE: 2D and realtime digital imaging was performed. CONTRAST MATERIAL: Refer to procedure report. COMPARISON: No exams were available for comparison FINDINGS: Fluoroscopy was provided for Dr. Huber during the performance of a bilateral sacroiliac joint injecti on. Please refer to the procedure report for complete details. Ka,r=4.34 mGy IMPRESSION:
[2023-02-22 16:55] VITALS: BP 124/83; PULSE 62; RESP 20; TEMP 36.7; O2SAT 98
[2023-02-22 17:48] VITALS: BP 164/81; PULSE 68; RESP 20; O2SAT 98
[2023-02-22] MEDS: methylPREDNISolone ACETATE 80 MG/ML VIAL IJ (17:49)
--- NOTE | 2023-02-24 08:51 | PDOC.PAIN ---
Date of service: 02/22/23 Time of Service: 18:00 Pain Managment Procedure Note Procedure Note Procedure Note: PROCEDURE NOTE BILATERAL INTRA-ARTICULAR SACROILIAC JOINT INJECTION Date of Service: February 22, 2023 Patient: Malia Wynne Provider: Sukhwinder Huber DO, MPH COMMENTS: I previously evaluated the patient in the office and their symptoms in relation to the sacroiliac joint pain have remained the same. She last had this procedure on 10/13/2022 with >3 months of >50% pain improvement. She states that she was also considerable more functional. Pre-operative diagnosis: Sacroiliac joint dysfunction Post-operative diagnosis: Same Pre-procedure pain: VAS= 6/10 Malia Wynne has been referred to our [facility] for a Bilateral intra-articular Sacroiliac joint injection. Malia was interviewed and the medical record reviewed. There were no medical, pharmacologic, radiographic or other structural contraindications to attempting a fluoroscopically-guided, contrast-enhanced, intra-articular Sacroiliac joint injection. The risks, benefits, and potential side effects of this procedure were reviewed with the patient. Questions and concerns were addressed. After it was clear that Malia was fully informed about the procedure, the printed consent form was signed by the patient and myself. Malia was placed in the prone position on the fluoroscopy table and an automated blood pressure cuff, 3 lead EKG, and pulse oximeter were applied. The skin entry point for approaching the Left sacroiliac joint was identified under the most advantageous fluoroscopic view and marked. Following thorough Chlorhexadine preparation of the skin and draping with sterile surgical drapes, 2 mls of 1% lidocaine was infiltrated into the skin at the entry point and the surrounding subcutaneous tissues. Next, a 3.5 22G spinal needle was placed under fluoroscopic guidance into the Left sacroiliac joint. Intra-articular placement was confirmed by a clear arthrogram resulting from the injection of 0.25ml of Omnipaque-240. Next, 1 ml of Depo- Medrol 40 mg/ml was injected intra-articularly with an initial reproduction of a significant component of the usual pain. This was followed with 1 ml of 1% Lidocaine. The needle was then removed without difficulty. (49 ml of Omnipaque-240 was wasted). The exact procedure was completed on the opposite sacroiliac joint. Malia's vital signs were stable throughout the procedure and were as recorded in nursing records. Follow up plans and appointments were discussed with Malia. Post procedure instructions were given as documented in nursing records. Having met discharge criteria, Malia was [facility] from the [facility]. COMMENTS: Post-procedure pain: VAS= 3/10. If the patient receives at least 50% improvement in pain and/or function for at least 3 months, this procedure can be repeated if needed. I personally performed this entire procedure. SUKHWINDER HUBER DO, MPH ABPMR-subspecialty board certification in Pain Medicine [facility] [facility]
== END 2023-02-22 16:12 | disposition home or self-care (01) ==
PROVIDERS: PCP Nurse Practitioner Family; Visit Provider Preventive Medicine Occupational Medicine
DX: M46.1 Sacroiliitis, not elsewhere classified (principal)
CPT/HCPCS: 00123; 27096; 72200; J1040

== ENCOUNTER → 2023-05-02 02:05 | Outpatient (CLI) | payer MEDICAID, SELFPAY ==
--- NOTE | 2023-05-02 13:13 | DI.RAD_ITS ---
Exam(s) XR LUMBAR SPINE COMPLETE EXAM: XR LUMBAR SPINE COMPLETE CLINICAL HISTORY: Fall with injury,LOW BACK PAIN, M54.50. TECHNIQUE: 2D digital imaging was performed. Five views. COMPARISON: MR MR LUMBAR SPINE WO from 01/10/2020 FINDINGS: BONES: No fracture or destructive lesion. Vertebral body heights are maintained. Endplate osteophyte s. Mild facet degenerative changes. DISKS: Intervertebral disc spaces are maintained. ALIGNMENT: Lumbar spinal alignment is within normal limits. SOFT TISSUE: Right upper quadrant surgical clips. IMPRESSION: Mild degenerative changes. DATA REPOSITORY: RADIATION DOSE DELIVERED:
== END ==
PROVIDERS: PCP Nurse Practitioner Family; Visit Provider Nurse Practitioner Family
DX: M54.50 Low back pain, unspecified (principal)
CPT/HCPCS: 72110

== ENCOUNTER → 2023-05-31 21:24 | Outpatient (CLI) | payer MEDICAID, SELFPAY ==
--- NOTE | 2023-05-31 13:15 | DI.RAD_ITS ---
Exam(s) XR HIP PELVIS ADULT BL EXAM: XR HIP PELVIS ADULT BL CLINICAL HISTORY: Chronic/worsening bilat hip pain, m25.551, m25.552. TECHNIQUE: 2D digital imaging was performed. Three views. COMPARISON: CR XR HIP RT COMPLETE AP PELVIS from 11/05/2019 FINDINGS: BONES: No acute fracture is present. No bony destructive lesion is seen. JOINTS: The hip joint spaces are maintained. There is mild bilateral acetabular spurring. No disloc ation present. SI joints and pubic symphysis are unremarkable. SOFT TISSUE: Normal. IMPRESSION: Mild degenerative changes of both hips. DATA REPOSITORY: RADIATION DOSE DELIVERED:
== END ==
PROVIDERS: PCP Nurse Practitioner Family; Visit Provider Nurse Practitioner Family
DX: M25.551 Pain in right hip (principal); M25.552 Pain in left hip; M16.0 Bilateral primary osteoarthritis of hip
CPT/HCPCS: 73521

== ENCOUNTER 2023-06-28 15:44 | Outpatient (CLI) | payer MEDICAID, SELFPAY ==
--- NOTE | 2023-06-28 06:00 | DI.RAD_ITS ---
Exam(s) XR PAIN CLINIC SACRIOILIAC 2V EXAM: XR PAIN CLINIC SACRIOILIAC 2V CLINICAL HISTORY: DX: Bilateral Sacroiliac dysfunction TECHNIQUE: 2D and realtime digital imaging was performed. CONTRAST MATERIAL: Refer to procedure report. COMPARISON: No exams were available for comparison FINDINGS: Fluoroscopy was provided for Dr. Huber during the performance of a bilateral sacroiliac joint injecti ons. Please refer to the procedure report for complete details. Ka,r=3.59 mGy IMPRESSION: RADIATION DOSE DELIVERED: 0.0 0.0 0
[2023-06-28 15:50] VITALS: BP 156/92; PULSE 62; RESP 20; TEMP 36.6; O2SAT 99
--- NOTE | 2023-06-28 16:29 | PDOC.PAIN_ITS ---
Date of service: 06/28/23 Time of Service: 16:30 Pain Managment Procedure Note Procedure Note Procedure Note: PROCEDURE NOTE BILATERAL INTRA-ARTICULAR SACROILIAC JOINT INJECTION Date of Service: June 28, 2023 Patient: Malia Wynne Provider: Sukhwinder Huber DO, MPH COMMENTS: I previously evaluated the patient in the office and their symptoms in relation to the sacroiliac joint pain have remained the same. She is allergic to Iodine contrast and Chloroprep, thus neither was used. She has >3 months of >50% pain relief with her last bilateral SIJ injection from 02/24/23. Pre-operative diagnosis: Sacroiliac joint dysfunction Post-operative diagnosis: Same Pre-procedure pain: VAS= 8/10 Malia Wynne has been referred to [facility] for a Bilateral intra-articular Sacroiliac joint injection. Malia was interviewed and the medical record reviewed. There were no medical, pharmacologic, radiographic or other structural contraindications to attempting a fluoroscopically-guided, intra-articular Sacroiliac joint injection. The risks, benefits, and potential side effects of this procedure were reviewed with the patient. Questions and concerns were addressed. After it was clear that Malia was fully informed about the procedure, the printed consent form was signed by the patient and myself. Malia was placed in the prone position on the fluoroscopy table and an automated blood pressure cuff, 3 lead EKG, and pulse oximeter were applied. The skin entry point for approaching the Left sacroiliac joint was identified under the most advantageous fluoroscopic view and marked. Following thorough alcohol preparation of the skin and draping with sterile surgical drapes, 2 mls of 1% lidocaine was infiltrated into the skin at the entry point and the surrounding subcutaneous tissues. Next, a 3.5 22G spinal needle was placed under fluoroscopic guidance into the Left sacroiliac joint. Next, 1 ml of Depo- Medrol 40 mg/ml was injected intra-articularly with an initial reproduction of a significant component of the usual pain. This was followed with 1 ml of 1% Lidocaine. The needle was then removed without difficulty. (49 ml of Omnipaque- 240 was wasted). The exact procedure was completed on the opposite sacroiliac joint. Hongs vital signs were stable throughout the procedure and were as recorded in nursing records. Follow up plans and appointments were discussed with Malia. Post procedure instructions were given as documented in nursing records. Having met discharge criteria, Malia was [facility] from the [facility]. COMMENTS: Post-procedure pain: VAS= 0/10. If the patient receives at least 50% improvement in pain and/or function for at least 3 months, this procedure can be repeated if needed. I personally performed this entire procedure. SUKHWINDER HUBER DO, MPH ABPMR-subspecialty board certification in Pain Medicine [facility] [facility]
[2023-06-28 16:33] VITALS: BP 169/95; PULSE 64; RESP 17; O2SAT 98
[2023-06-28] MEDS: Nerve Block Tray 1 EACH MC (16:36)
[2023-06-28] MEDS: methylPREDNISolone ACETATE 40 MG/ML VIAL IJ (16:36)
[2023-06-28] MEDS: Lidocaine 1% Pres-Free 5 ML VIAL IJ (16:36)
== END 2023-06-28 15:45 | disposition home or self-care (01) ==
LOC: PC 15:44
PROVIDERS: PCP Nurse Practitioner Family; Visit Provider Preventive Medicine Occupational Medicine
DX: M46.1 Sacroiliitis, not elsewhere classified (principal)
CPT/HCPCS: 27096; 72200; J1010; J2003

== ENCOUNTER 2023-08-11 05:21 | Outpatient (CLI) | payer MEDICAID, SELFPAY ==
[2023-08-11 12:42] LABS: Absolute Basophil Count 0.04 10^3/uL (0.0-0.2); Absolute Eosinophil Count 0.05 10^3/uL (0.0-0.7); Absolute Lymphocyte Count 1.43 10^3/uL (1.2-3.4); Absolute Monocyte Count 0.31 10^3/uL (0.1-0.8); Absolute Neutrophil Count 2.67 10^3/uL (1.2-6.7); Basophils % 0.9 %; Eosinophils % 1.1 %; HCT 37.2 % (36.0-46.0); HGB 12.7 g/dL (11.2-15.7); Lymphocytes % 31.8 %; MCH 31.1 pg (27.0-33.0); MCHC 34.1 % (32.0-36.0); MCV 91 fL (80-95); MPV 11.1 fL (8.0-11.0); Monocytes % 6.9 %; Neutrophils % 59.3 %; Platelet Count 184 10^3/uL (130-400); RBC 4.09 10^6/uL (3.93-5.22); RDW 12.1 % (11.7-14.6)
[2023-08-11 12:43] LABS: Bilirubin Negative (Negative); Blood Negative (Negative); Clarity Clear (Clear); Glucose >=1000 mg/dL (Negative); Ketones Negative (Negative); Leukocyte Esterase Negative (Negative); Nitrite Negative (Negative); Urobilinogen 0.2 mg/dL (Up to 0.2)
[2023-08-11 12:52] LABS: Bacteria Rare HPF (Negative); C & S Indicated? No; Casts Negative LPF (Negative); Epithelial Cells Rare HPF (Negative); Mucus Trace (Negative); RBC 0-2 HPF (0-2); WBC 0-2 HPF (0-5)
[2023-08-11 13:28] LABS: ALT 25 U/L (14-59); AST 20 U/L (15-37); Albumin 3.6 g/dL (3.4-5.0); Alkaline Phosphatase 106 U/L (46-116); Anion Gap 8.7 mmol/L (3-11); BUN 14 mg/dL (7-18); Bilirubin, Direct 0.1 mg/dL (0.0-0.2); Bilirubin, Total 0.3 mg/dL (0.2-1.0); CO2 28.3 mmol/L (21.0-32.0); CREATININE 0.7 mg/dL (0.55-1.02); Calcium 8.4 mg/dL (8.5-10.1); Chloride 107 mmol/L (98-107); Estimated GFR 100.19 (mL/min/1.73m2); Glucose 118 mg/dL (74-106); Potassium 3.8 mmol/L (3.5-5.1); Sodium 144 mmol/L (136-145); T4 5.7 ug/dL (4.7-13.3); TSH 1.43 uIU/Ml (0.36-3.74); Total Protein 6.5 g/dL (6.4-8.2)
[2023-08-11 13:29] LABS: TROPONIN-I 7.5 ug/mL (4.0-12.0)
[2023-08-11 13:50] LABS: Crystals Negative HPF (Negative)
[2023-08-11 18:22] LABS: T3, Total 139 ng/dL (97-169)
== END 2023-08-11 05:22 | disposition home or self-care (01) ==
LOC: LOS 05:21
PROVIDERS: PCP Nurse Practitioner Family; Visit Provider Counselor Addiction (Substance Use Disorder)
DX: Z79.899 Other long term (current) drug therapy (principal)
CPT/HCPCS: 36415; 80053; 80076; 80156; 81003; 81015; 84436; 84443; 84480; 85025

== ENCOUNTER 2023-09-20 20:55 | Outpatient (REF) | payer MEDICAID, SELFPAY ==
[2023-09-20 21:41] LABS: COMMENT (LAB VIEW ONLY) 102.59 mg/dL
== END 2023-09-20 20:56 | disposition home or self-care (01) ==
LOC: LBN 20:55
PROVIDERS: PCP Nurse Practitioner Family; Visit Provider Nurse Practitioner Family
DX: E11.9 Type 2 diabetes mellitus without complications (principal)
CPT/HCPCS: 82043; 82570

== ENCOUNTER 2023-09-21 13:51 | Outpatient (REF) | payer MEDICAID, SELFPAY | END 2023-09-21 13:52 | disposition home or self-care (01) | LOC: LBN 13:51 | PROVIDERS: PCP Nurse Practitioner Family; Visit Provider Obstetrics & Gynecology Gynecology | DX: N39.46 Mixed incontinence (principal) | CPT/HCPCS: 87086 ==

== ENCOUNTER → 2023-09-26 01:04 | Outpatient (CLI) | payer MEDICAID, SELFPAY ==
--- NOTE | 2023-09-26 07:30 | DI.US_ITS ---
Exam(s) US PELVIS TRANSVAGINAL EXAM: US PELVIS TRANSVAGINAL CLINICAL HISTORY: vaginal bleeding,s/p hysterectomy,nl pelvic exam,N93.9,N76.2. TECHNIQUE: Transabdominal and transvaginal pelvic ultrasound was performed using standard protocol. COMPARISON: No exams were available for comparison FINDINGS: UTERUS: Status post hysterectomy. OVARIES: The right ovary was difficult to visualize. Right: 1.4 x 1.1 x 1.5 cm Cyst or mass: No suspicious cystic or solid masses. Left: 2.1 x 1.2 x 1.8 cm Cyst or mass: No suspicious cystic or solid masses. CUL-DE-SAC: Free fluid: None. Other: None. IMPRESSION: 1. Status post hysterectomy. 2. The ovaries appear grossly unremarkable. DATA REPOSITORY:
== END ==
PROVIDERS: PCP Nurse Practitioner Family; Visit Provider Obstetrics & Gynecology Gynecology
DX: N93.9 Abnormal uterine and vaginal bleeding, unspecified (principal); N76.2 Acute vulvitis; N39.46 Mixed incontinence; Z90.710 Acquired absence of both cervix and uterus
CPT/HCPCS: 76830; 76856

== ENCOUNTER 2023-10-30 02:23 | Outpatient (CLI) | payer MEDICAID, SELFPAY ==
--- NOTE | 2023-10-30 07:45 | DI.MRI_ITS ---
Exam(s) MR LUMBAR SPINE WO EXAM: MR LUMBAR SPINE WO CLINICAL HISTORY: Worsening back pain with radiculopathy,m54.50. TECHNIQUE: Multiplanar multisequence MRI of the Lumbar spine was performed. COMPARISON: MR MR LUMBAR SPINE WO from 01/10/2020 CR XR LUMBAR SPINE COMPLETE from 05/02/2023 FINDINGS: Conus medullaris is at normal level. There is no evidence of conus mass nor subjacent clumping of in trathecal nerve roots to suggest arachnoiditis. The distal thecal sac appears unremarkable.There is no evidence of Tarlov intrasacral cysts nor other significant findings within the sacral canal Bones:Compared to 2019 there is now significant Schmorl's node invagination of the superior endplate of L3, not previously present but not acute as there is no abnormal intraosseous signal on stir imagi ng at this level. In addition, there has been development of anterior osteophytes at the L2-3 level. With respect to the individual levels... T12-L1: Unremarkable L1-2: Normal disc height and signal. No disc herniation nor central canal stenosis.No foraminal steno sis L2-3: Relatively preserved disc height. This is the level of Schmorl's node invagination into the leone perior endplate of L3, the depth of this Schmorl's node being 8 mm. There is no Schmorl's node invag ination into the corresponding inferior endplate of L2. At this level there is mild asymmetric left-s ided annular bulging but no large disc herniation nor central canal stenosis.No foraminal stenosis.Fa cet joints at this level appear unremarkable. L3-4: Normal disc height. No disc herniation or central canal stenosis.No foraminal stenosis.No face t arthropathy. L4-5: Normal disc height and signal. No disc herniation or central canal stenosis. No foraminal andree nosis. Mild degenerative changes are evident in both facet joints. L5-S1: Normal disc height and signal. On the sagittal T2 and STIR images there is suggestion of a sm all tear in the subligamentous posterior annulus. However, there is no evidence of distinct focal di sc herniation at this level. No central canal stenosis. No foraminal stenosis. No significant face t arthropathy. Soft tissues: paraspinal soft tissues appear unremarkable. IMPRESSION: 1. Compared to the MRI scan of January 2020 there has been interval development of Schmorl's node in vagination in the superior endplate of L3 although this does not appear acute as there is no bone juan ma evident on STIR imaging. This subacute are somewhat chronic finding which has developed since 0 is also associated with increasing anterior osteophyte formation at this level (L2-3). There is mi ld asymmetric left-sided annular bulging at this level but no prominent disc herniation, significant central canal stenosis nor foraminal stenosis. 2. Other findings as above. DATA REPOSITORY:
== END 2023-10-30 02:43 ==
LOC: DI 02:23
PROVIDERS: PCP Nurse Practitioner Family; Visit Provider Nurse Practitioner Family
DX: M51.16 Intervertebral disc disorders with radiculopathy, lumbar region (principal)
CPT/HCPCS: 72148

== ENCOUNTER 2023-10-31 02:15 | Outpatient (CLI) | payer MEDICAID, SELFPAY ==
--- NOTE | 2023-10-31 11:48 | DI.US_ITS ---
Exam(s) US RENAL EXAM: US RENAL CLINICAL HISTORY: unknown source of blood peripad,R31.9,HEMATURIA. TECHNIQUE: Mac scale, color and spectral Doppler were used. COMPARISON: US US PELVIS TRANSVAGINAL from 09/26/2023 FINDINGS: Right kidney: 12.5cm Echogenicity: Normal Hydronephrosis: No Cyst or mass: No Nephrolithiasis: No Left kidney: 12.7cm Echogenicity: Normal Hydronephrosis: No Cyst or mass: No Nephrolithiasis: No Bladder:Normal. Prevoid vol: 261 cc Postvoid vol:3 cc IMPRESSION: Negative renal ultrasound. DATA REPOSITORY:
== END 2023-10-31 02:35 ==
LOC: DI 02:15
PROVIDERS: PCP Nurse Practitioner Family; Visit Provider Obstetrics & Gynecology Gynecology
DX: R31.9 Hematuria, unspecified (principal)
CPT/HCPCS: 76770

== ENCOUNTER 2023-12-13 10:35 | Outpatient (CLI) | payer MEDICAID, SELFPAY ==
[2023-12-13 11:19] VITALS: BP 130/88; PULSE 61; RESP 20; TEMP 36.6; O2SAT 100
[2023-12-13 11:32] VITALS: O2SAT 97
[2023-12-13 11:33] VITALS: BP 148/101; PULSE 55; PULSE 57; RESP 16; O2SAT 96
[2023-12-13 11:40] VITALS: PULSE 65; RESP 19; O2SAT 95
[2023-12-13 11:46] VITALS: BP 149/94; PULSE 50
[2023-12-13] MEDS: methylPREDNISolone ACETATE 80 MG/ML VIAL IJ (11:48)
[2023-12-13] MEDS: Nerve Block Tray 1 EACH MC (11:48)
--- NOTE | 2023-12-13 11:48 | DI.RAD_ITS ---
Exam(s) XR PAIN CLINIC SACRIOILIAC 2V EXAM: XR PAIN CLINIC SACRIOILIAC 2V CLINICAL HISTORY: DX: Sacroiliac Dysfunction. TECHNIQUE: Fluoroscopy was provided for the referring physician for guidance with performing pain cl inic injection procedure. COMPARISON: No exams were available for comparison FINDINGS: Please see procedure note for details. Fluoro time: 28.8 seconds RADIATION DOSE DELIVERED: Ka,r=5.86 mGy
--- NOTE | 2023-12-13 11:57 | PDOC.PAIN_ITS ---
Date of service: 12/13/23 Time of Service: 11:57 Pain Managment Procedure Note Procedure Note Procedure Note: PROCEDURE NOTE BILATERAL INTRA-ARTICULAR SACROILIAC JOINT INJECTION Date of Service: December 13, 2023 Patient: Malia Wynne Provider: Sukhwinder Huber DO, MPH COMMENTS: I previously evaluated the patient in the office and their symptoms in relation to the sacroiliac joint pain have remained the same. She is allergic to Iodine contrast and Chloroprep and those have been omitted from this procedure. Pre-operative diagnosis: Sacroiliac joint dysfunction ICD-10 M53.3 Post-operative diagnosis: Same Pre-procedure pain: VAS= 8/10 Malia Wynne has been referred to our [facility] for a Bilateral intra-articular Sacroiliac joint injection. Malia was interviewed and the medical record reviewed. There were no medical, pharmacologic, radiographic or other structural contraindications to attempting a fluoroscopically-guided, intra-articular Sacroiliac joint injection. The risks, benefits, and potential side effects of this procedure were reviewed with the patient. Questions and concerns were addressed. After it was clear that Malia was fully informed about the procedure, the printed consent form was signed by the patient and myself. Malia was placed in the prone position on the fluoroscopy table and an automated blood pressure cuff, 3 lead EKG, and pulse oximeter were applied. The skin entry point for approaching the Left sacroiliac joint was identified under the most advantageous fluoroscopic view and marked. Following thorough alcohol preparation of the skin and draping with sterile surgical drapes, 2 mls of 1% lidocaine was infiltrated into the skin at the entry point and the surrounding subcutaneous tissues. Next, a 3.5 22G spinal needle was placed under fluoroscopic guidance into the Left sacroiliac joint. Intra-articular placement was confirmed by fluoroscopic images. Next, 1 ml of Depo- Medrol 40 mg/ml was injected intra-articularly with an initial reproduction of a significant component of the usual pain. This was followed with 1 ml of 1% Lidocaine. The needle was then removed without difficulty. (49 ml of Omnipaque-240 was wasted). The exact procedure was completed on the opposite sacroiliac joint. Hongs vital signs were stable throughout the procedure and were as recorded in nursing records. Follow up plans and appointments were discussed with Malia. Post procedure instructions were given as documented in nursing records. Having met discharge criteria, Malia was [facility] from the [facility]. COMMENTS: Post-procedure pain: VAS= 6/10. If the patient receives at least 50% improvement in pain and/or function for at least 3 months, this procedure can be repeated if needed. She will call in 2 weeks to let us know how she is doing. If her right leg still hurts, we will look into this further. I personally performed this entire procedure. SUKHWINDER HUBER DO, MPH ABPMR-subspecialty board certification in Pain Medicine [facility]
== END 2023-12-13 10:36 | disposition home or self-care (01) ==
LOC: PC 10:35
PROVIDERS: PCP Nurse Practitioner Family; Visit Provider Preventive Medicine Occupational Medicine
DX: M53.3 Sacrococcygeal disorders, not elsewhere classified (principal)
CPT/HCPCS: 27096; 72200; J1010

== ENCOUNTER 2024-01-04 01:49 | Outpatient (CLI) | payer MEDICAID, SELFPAY ==
--- NOTE | 2024-01-04 14:30 | DI.US_ITS ---
APPROVED REPORT EXAM: Comprehensive 2D, Doppler, and color-flow Echocardiogram Patient Location: Out-Patient Manager Brand: Gely Covington RDCS (AE) Indications: Per operative clearance, F/U 2017, Unstable angina, aortic regurgitation Other Information Study Quality: Adequate Conclusion Normal left ventricular wall thickness and chamber size. Ejection fraction is 55%. Wall motion is n ormal Normal right ventricular size and function Both atria are normal in size Aortic valve is sclerotic and trileaflet with mild regurgitation Mildly thickened mitral leaflets, trace to mild mitral regurgitation Trace to mild tricuspid regurgitation. Estimated right ventricular systolic pressure is 20 mmHg Ascending aorta measures 3.61 cm Wall motion Left Ventricle The left ventricle is normal size. The left ventricular systolic function is normal. The left ventric ular ejection fraction is within the normal range. There is normal left ventricular wall thickness. T here is normal LV segmental wall motion. There is no ventricular septal defect visualized. LVEF is 55 %. Right Ventricle The right ventricle is normal size. The right ventricular systolic function is normal. Atria The left atrium size is normal. The right atrium size is normal. The interatrial septum is intact wit h no evidence for an atrial septal defect. Aortic Valve The Aortic valve is sclerotic. Aortic valve is trileaflet. There is no aortic valvular stenosis. Mil d aortic regurgitation. Mitral Valve Mitral valve leaflets are mildly thickened. No evidence of mitral valve stenosis. Trace to mild shy l regurgitation. Tricuspid Valve The tricuspid valve is normal in structure. There is no tricuspid valve stenosis. Trace to mild tricu spid regurgitation. The RVSP is 19.3_ mmHg. Pulmonic Valve The pulmonary valve is normal in structure. There is no pulmonic valvular stenosis. Trace pulmonic re gurgitation. Great Vessels Aortic root is mildly dilated. The ascending aorta is mildly dilated. Aortic arch is normal in calib er. IVC is normal in size and collapses >50% with inspiration. Pericardium There is no pericardial effusion. 2D Dimensions IVSD d PLAX 0.83 cm F: 0.6-1.0 Ao Root d 3.56 cm F: 2.7 - 3.3 LVPW d PLAX 0.85 cm F: 0.6 - 1.0 Ao Asc Diam d 3.61 cm F: 2.3 - 3.1 LVID d PLAX 4.44 cm F: 3.8 - 5.2 LVDs 3.13 cm F: 2.2 - 3.5 LV EF Teichholz 56.7 % FS 29.51 % LV EDV (Teich) 89.8 mL LV ESV (Teich) 38.9 mL M-Mode TAPSE 2.50 cm (M/F) >1.7 Auto EF LV EDV A4C 145.9 mL LV EDV A2C 129.2 mL LV EDV BP 137.4 mL LV ESV A4C 66.3 mL LV ESV A2C 58.1 mL LV ESV BP 62.0 mL LVEF(%) A4C 54.6 % LVEF(%) A2C 55.0 % LVEF(%) BP 54.9 % LV SV A4C 79.6 ml LV SV A2C 71.1 ml LV SV BP 75.4 ml LV CO A4C 4.4 L/min LV CO A2C 3.5 L/min LV CO BP 4.0 L/min HR A4C 55.22 BPM HR A2C 49.66 BPM LV EDV Index (BP) LA Volume LA Length A4C 5.5 cm LA Length A2C 5.5 cm LA Area A4C s 18.87 cm2 LA Area A2C s 20.28 cm2 LA Vol A4C A-L 54.81 mL LA Vol A2C A-L 63.44 mL LA Vol Biplane A-L 59.0 mL LA Vol/BSA A4C A-L LA Vol/BSA A2C A-L LA Vol/BSA BP A-L 30.9 mL/m2 LA Vol A4C MOD 49.1 mL LA Vol A2C MOD 58.5 mL LA Vol BP MOD 53.6 mL RA Volume RA Area A4C 13.0 cm2 RA ESV A4C (A-L) 35.0mL RA Vol/BSA A4C A-L RA Length A4C 4.1 cm RA ESV A4C (MOD) 32.7mL LV Diastology MV E' medial 0.092 (>0.07 m/s) MV E Vmax 0.87 (0.4-1.3 m/s) MV E/E' MED 9.44 (<14) MV A Vmax 0.85 (0.4-1.3 m/s) MV E' lateral 0.108 (>0.1 m/s) E/A Ratio 1.0 MV E/E' LAT 8.11 (<14) MV E' Average 0.100 m/s MV E/E'(average) 8.73 Aortic Valve AoV Vmax 1.40 m/s LVOT Vmax 1.10 m/s AoV Peak Grad 37.0 mmHg LVOT Peak Grad 4.8 mmHg AoV Area (Vmax) 2.28 cm2 LVOT VTI 0.241 m AoV VTI 0.321 m LVOT Mean Grad 2.3 mmHg AoV Mean Wade. 0.96 m/s LVOT SV 70.37 mL AoV Mean Grad 4.2 mmHg LVOT Diam s 1.90 cm AoV Area (VTI) 2.19 cm2 AV Regurg Peak Gr. 7.89 mmHg Velocity Ratio 0.79 AR Decel [place] 1.6m/sec2 AR DT 2468 msec AR PHT 716 msec AR Vmax 4.06 m/s Mitral Valve MV DT 202 (160-240 msec) MV Vmax TIPS 0.97 m/s MV Mean Grad 1.8 (<2mmHg) MV VTI 0.456 m Pulmonary Valve PV Vmax 0.98 (0.5-1.5 m/s) RVOT Vmax 0.71 m/s PV Peak Grad 3.9 mmHg RVOT Peak Gr. 2.0 mmHg PV Mean Wade 0.68 m/s RVOT VTI 0.171 m PV Mean Grad 2.1 mmHg RVOT Mean Gr. 1.1 mmHg Tricuspid Valve RA Pressure 3.00 mmHg TR Vmax 2.02 m/s TV S' 0.13 m/s TR Peak Grad 16.3 mmHg RVSP (TR) 19.3 mmHg
== END 2024-01-04 02:09 ==
LOC: DI 01:49
PROVIDERS: PCP Nurse Practitioner Family; Visit Provider Surgery
DX: I20.0 Unstable angina (principal); I35.1 Nonrheumatic aortic (valve) insufficiency
CPT/HCPCS: 93306

== ENCOUNTER 2024-05-02 13:28 | Outpatient (CLI) | payer MEDICAID, SELFPAY ==
[2024-05-02] VITALS (7 sets, daily range): BP systolic 153–208; BP diastolic 91–119; PULSE 59–68; RESP 13–22; TEMP 37.1; O2SAT 92–97
--- NOTE | 2024-05-02 14:33 | PDOC.PAIN_ITS ---
Date of service: 05/02/24 Time of Service: 14:33 Pain Managment Procedure Note Procedure Note Procedure Note: PROCEDURE NOTE BILATERAL INTRA-ARTICULAR SACROILIAC JOINT INJECTION Date of Service: May 02, 2024 Patient: Malia Wynne Provider: Sukhwinder Huber DO, MPH COMMENTS: I previously evaluated the patient in the office and their symptoms in relation to the sacroiliac joint pain have remained the same. Allergies to iodine contrast and chloroprep, thus neither was used. Pre-operative diagnosis: Sacroiliac joint dysfunction ICD-10 M53.3 Post-operative diagnosis: Same Pre-procedure pain: VAS= 8/10 Malia Wynne has been referred to our [facility] for a Bilateral intra-articular Sacroiliac joint injection. Malia was interviewed and the medical record reviewed. There were no medical, pharmacologic, radiographic or other structural contraindications to attempting a fluoroscopically-guided, contrast-enhanced, intra-articular Sacroiliac joint injection. The risks, benefits, and potential side effects of this procedure were reviewed with the patient. Questions and concerns were addressed. After it was clear that Malia was fully informed about the procedure, the printed consent form was signed by the patient and myself. Malia was placed in the prone position on the fluoroscopy table and an automated blood pressure cuff, 3 lead EKG, and pulse oximeter were applied. The skin entry point for approaching the Left sacroiliac joint was identified under the most advantageous fluoroscopic view and marked. Following thorough Chlorhexadine preparation of the skin and draping with sterile surgical drapes, 2 mls of 1% lidocaine was infiltrated into the skin at the entry point and the surrounding subcutaneous tissues. Next, a 3.5 22G spinal needle was placed under fluoroscopic guidance into the Left sacroiliac joint. Intra-articular placement was confirmed by a clear arthrogram resulting from the injection of 0.25ml of Omnipaque-240. Next, 1 ml of Depo- Medrol 40 mg/ml was injected intra- articularly with an initial reproduction of a significant component of the usual pain. This was followed with 1 ml of 1% Lidocaine. The needle was then removed without difficulty. (49 ml of Omnipaque-240 was wasted). The exact procedure was completed on the opposite sacroiliac joint. Malia's vital signs were stable throughout the procedure and were as recorded in nursing records. Follow up plans and appointments were discussed with Malia. Post procedure instructions were given as documented in nursing records. Having met discharge criteria, Malia was discharged from the [facility]. COMMENTS: Post-procedure pain: VAS= 0/10. If the patient receives at least 50% improvement in pain and/or function for at least 3 months, this procedure can be repeated if needed. I personally performed this entire procedure. SUKHWINDER HUBER DO, MPH ABPMR-subspecialty board certification in Pain Medicine [facility] Coding Conscious Sedation used for procedure: No CPT Codes: SI Joint Inj; incl Fluoro - 89641 ([id number] ~G) 50 - BILATERAL PROCEDURE Additional Codes: Date of Service (38756) Date of service: 05/02/24
--- NOTE | 2024-05-02 14:35 | DI.RAD_ITS ---
Exam(s) XR PAIN CLINIC SACRIOILIAC 2V EXAM: XR PAIN CLINIC SACRIOILIAC 2V CLINICAL HISTORY: DX: Sacroiliac Joint Dysfunction. TECHNIQUE: Fluoroscopy was provided for the referring physician for guidance with performing pain cl inic injection procedure. COMPARISON: No exams were available for comparison FINDINGS: Please see procedure note for details. Fluoro time: 21.9 seconds RADIATION DOSE DELIVERED: Ka,r=5.57 mGy
[2024-05-02] MEDS: Nerve Block Tray 1 EACH MC (14:37)
[2024-05-02] MEDS: methylPREDNISolone ACETATE 80 MG/ML VIAL IJ (14:37)
== END 2024-05-02 13:29 | disposition home or self-care (01) ==
LOC: PC 13:30
PROVIDERS: PCP Nurse Practitioner Family; Visit Provider Preventive Medicine Occupational Medicine
DX: M53.3 Sacrococcygeal disorders, not elsewhere classified (principal)
CPT/HCPCS: 27096; 72200; J1010

== ENCOUNTER 2024-06-03 01:06 | Outpatient (CLI) | payer MEDICAID, SELFPAY ==
--- NOTE | 2024-06-03 07:00 | DI.MRI_ITS ---
Exam(s) MR THORACIC SPINE WO EXAM: MR THORACIC SPINE WO CLINICAL HISTORY: Worsening pain, failed PT,upper back pain,m54.9. TECHNIQUE: Multiplanar multisequence MRI of the Thoracic spine was performed. COMPARISON: MR MR thoracic spine wo from 04/12/2018 FINDINGS: Bones: The vertebral body heights are well maintained. There is a very mild right convex curvature of the thoracic spine. The signal characteristics are unremarkable. Cord: The thoracic cord is normal size and signal intensity. No intrinsic cord lesion is present. Discs: No disc herniation or bulge is present. Soft tissues: Note is made of a simple cyst in the superior pole of the right kidney. No follow-up is recommended. T1-2: No disc herniation or bulge is identified. No central spinal canal or neural foraminal stenosi s. T2-3: No disc herniation or bulge is identified. No central spinal canal or neural foraminal stenosi s. T4-5: No disc herniation or bulge is identified. No central spinal canal or neural foraminal stenosi s. T5-6: No disc herniation or bulge is identified. No central spinal canal or neural foraminal stenosis . T6-7: No disc herniation or bulge is identified. No central spinal canal or neural foraminal stenosis . T7-8: No disc herniation or bulge is identified. No central spinal canal or neural foraminal stenosis . T8-9: No disc herniation or bulge is identified. No central spinal canal or neural foraminal stenosis . T9-10: No disc herniation or bulge is identified. No central spinal canal or neural foraminal stenosi s. T10-11:No disc herniation or bulge is identified. No central spinal canal or neural foraminal stenosi s. T11-12: No disc herniation or bulge is identified. No central spinal canal or neural foraminal stenos is. T12-L1: No disc herniations or bulges are present. No central spinal canal or neural foraminal steno sis. IMPRESSION: No focal disc herniation, central spinal canal or neural foraminal stenosis in the thoracic spine. DATA REPOSITORY:
--- NOTE | 2024-06-03 07:00 | DI.MRI_ITS ---
Exam(s) MR CERVICAL SPINE WO EXAM: MR CERVICAL SPINE WO CLINICAL HISTORY: Worsening pain, failed PT,upper back pain,m54.9 TECHNIQUE: Multiplanar multisequence MRI of the cervical spine was performed without intravenous con trast. COMPARISON: No exams were available for comparison FINDINGS: BONES: Vertebral body heights are maintained. Intervertebral disc spaces are normal. Alignment is nor mal. Bone marrow signal intensity is within normal limits. CERVICAL CORD: Craniovertebral junction is unremarkable. The cervical cord is normal size and signal intensity. SOFT TISSUES: Unremarkable. C2-3: No disc herniation or bulge is identified. No significant central spinal canal or neural forami nal stenosis. C3-4: No disc herniation or bulge is identified. No significant central spinal canal or neural forami nal stenosis C4-5: No disc herniation or bulge is identified. No significant central spinal canal or neural forami nal stenosis C5-6: There is mild prominence of the osteophyte disc complex. There is mild narrowing of the centra l spinal canal. There is normal signal in the spinal cord.. There is mild narrowing of the left valeria ral foramen. There is also mild narrowing of the right neural foramen. C6-7: There is mild prominence of the osteophyte disc complex. No significant central spinal canal s tenosis is seen. There is mild narrowing of the right neural foramen. No significant left neural fo raminal stenosis is seen. C7-T1: No disc herniation or bulge is identified. No significant central spinal canal or neural harvey inal stenosis IMPRESSION: Mild degenerative changes seen at C5-6 and C6-7 resulting in mild C5-C6 central spinal canal narrowin g and neural foraminal narrowing at C5-6 and C6-C7 as described above.. DATA REPOSITORY:
--- NOTE | 2024-06-03 07:08 | DI.MRI_ITS ---
Exam(s) MR LUMBAR SPINE WO EXAM: MR LUMBAR SPINE WO CLINICAL HISTORY: Worsening pain, failed PT,low back pain,m54.50. TECHNIQUE: Multiplanar multisequence MRI of the Lumbar spine was performed. COMPARISON: MR MR LUMBAR SPINE WO from 10/30/2023 FINDINGS: Bones: The last intervertebral disc space is designated the L5/S1 level for the numbering purpose of this examination. The Schmorl's node in the superior endplate of L3 is unchanged. Alignment is sat isfactory. Degenerative endplate signal changes are seen in the lumbar spine. Cord: The conus tip ends at the T12 level. It is of normal size and signal intensity. T12-L1: No disc herniations or bulges are present. No central spinal canal or neural foraminal stenos is. L1-2: No disc herniations or bulges are present. No central spinal canal or neural foraminal stenosis . L2-3: There is a mild diffuse disc bulge present. No significant central spinal canal stenosis is se en. No significant right neural foraminal stenosis. There is mild left neural foraminal stenosis. No central spinal canal or neural foraminal stenosis. L3-4: There is a mild diffuse disc bulge at this level. No significant central spinal canal or right neural foraminal stenosis. There is mild left neural foraminal narrowing. L4-5: No disc herniations or bulges are present. No central spinal canal or neural foraminal stenosis . L5-S1: No disc herniations or bulges are present. No central spinal canal or neural foraminal stenosi s. Soft tissues: The visualized SI joints and sacrum are well maintained. The paraspinal soft tissues ar e unremarkable. IMPRESSION: Mild degenerative changes seen at L2-3 and L3-L4 as described above. DATA REPOSITORY:
== END 2024-06-03 01:26 ==
LOC: DI 01:06
PROVIDERS: PCP Nurse Practitioner Family; Visit Provider Nurse Practitioner Family
DX: M51.360 Other intervertebral disc degeneration, lumbar region with discogenic back pain only (principal); G89.29 Other chronic pain
CPT/HCPCS: 72141; 72146; 72148

== ENCOUNTER 2024-06-07 06:06 | Day surgery (SDC) | payer MEDICAID, SELFPAY ==
--- NOTE | 2024-06-06 16:31 | W.PM.DSUDISC ---
Date of service: 06/07/24 Discharge Plan Disposition Patient Disposition: Home Condition: Good Discharge Details Reason For Visit: Screening colonoscopy Attending Provider: Satya Barker Primary Care Provider: Hunter Don Home Meds and New Rx's Prescriptions: Continued trazodone 100 mg tablet 200 mg PO QHS vilazodone [Viibryd] 20 mg tablet 20 mg PO DAILY Rx Instructions: must administer with a meal/food prazosin 5 mg capsule 10 mg PO QHS nitroglycerin [Nitrostat] 0.4 mg tablet, sublingual 0.4 mg Sublingual Q5 MIN PRN X3 PRN (Reason: chest pain) Qty: 1 0RF Patient Comments: prn carbamazepine 200 mg tablet 400 mg PO HS nystatin 100,000 unit/gram cream 1 applic TP BID PRN (Reason: intertrigo) Qty: 15 3RF Patient Comments: prn Rx Instructions: Apply thin film to affected area (abdominal skin folds) twice daily until resolution (DME) blood-glucose meter [OneTouch Ultra2 Meter] Misc See Rx Instructions .Route Qty: 1 3RF Rx Instructions: Daily (DME) OneTouch Ultra Test Strip See Rx Instructions .Route Qty: 100 3RF Rx Instructions: Daily Jardiance 25 mg tablet 25 mg PO DAILY Qty: 90 3RF (DME) lancets [OneTouch Delica Plus Lancet] 30 gauge misc See Rx Instructions .Route Qty: 100 3RF Rx Instructions: Daily atenolol 25 mg tablet 25 mg PO DAILY Qty: 90 3RF esomeprazole magnesium 40 mg capsule,delayed release(DR/EC) 40 mg PO DAILY Qty: 90 3RF Rx Instructions: Take 40 mg once daily in the morning at least 20-30 minutes before first meal. aspirin 81 mg tablet,delayed release (DR/EC) 81 mg PO DAILY Qty: 90 3RF atorvastatin 40 mg tablet 40 mg PO DAILY Qty: 90 3RF amlodipine 5 mg tablet 5 mg PO BID Qty: 180 3RF Rx Instructions: to lower blood pressure lorazepam [Ativan] 1 mg tablet 1 mg PO DAILY Qty: 1 0RF Rx Instructions: Take prior to MRI ondansetron HCl 4 mg tablet 4 mg PO Q8H PRN (Reason: nausea and vomiting) Qty: 20 0RF Patient Comments: prn Discontinued polyethylene glycol 3350 17 gram/dose powder 17 g PO ONCE Qty: 238 0RF Rx Instructions: Take per colonoscopy instructions provided by ordering providers office bisacodyl [Dulcolax (bisacodyl)] 5 mg tablet,delayed release (DR/EC) 5 mg PO ONCE Qty: 8 0RF Rx Instructions: Colonoscopy Bowel Prep- Per Instructions Discharge Instructions Instructions: Colon polyps Additional Instructions: It was very nice meeting you today, and I hope you are comfortable throughout the procedure. Everything went smoothly, your prep was excellent and I could see everything fine. I did find, and removed in total, 6 polyps today. 1 was a little bit large, but none of the appearances were particularly worrisome to the naked eye. All of these polyps will be sent off for testing, and once the pathologist reports the nature of them, I will be in touch with recommendations for your next colonoscopy. Expect to have a little bit of blood in your stools for the first couple bowel movements after the colonoscopy. That is extremely common. If it seems to be increasing over the next 48 hours, please let me know. I do not expect that, but I am certainly here if anything concerns you. If you need anything else, or have any questions, please let me know, otherwise we will be in touch once we have the pathology report. 1. If tolerated, consume a soft, low fiber diet for 1-2 days. 2[address] Do not drive, drink alcohol, operate machinery, make critical decisions, or do activities that require coordination or balance for 24 hours. 3. Because air was put into your colon during the procedure, expelling air from your rectum (passing gas or farting) is normal. 4. You may not have a bowel movement for 1-3 days because of the colonoscopy prep. This is normal. 5. Go directly to the emergency room if you notice any of the following: Develop chills (warm to touch), or if you have a thermometer and your temperature is above 101 Difficulty breathing or difficultly swallowing Persistent vomiting Severe abdominal pain, other than gas cramps Severe chest pain Black, tarry stools Any bleeding ? exceeding one tablespoon 6. Call your physician if the site where your intravenous was started becomes red, swollen, painful, and warm to touch. 7. Your physician has reviewed your pre-procedure medications. Please continue to take those medications as previously ordered. You will be given specific information/education regarding any changes to your medications before leaving. Activity:: Activity as Tolerated Diet:: As Tolerated Discharge Orders Discharge Orders: Discharge Order (Routine); Ordered 06/06/24 Ordered By: Satya Barker DS: Diagnosis Discharge Diagnosis (1) Encounter for screening colonoscopy: Status: Acute Asessment and Plan: Follow-up on polypectomy results
--- NOTE | 2024-06-06 16:32 | W.COLOREPORT ---
Date of service: 06/07/24 Time of Service: 08:13 Colonoscopy Report Date of procedure: 06/07/24 Pre-op diagnosis general: Screening colonoscopy Post-op diagnosis procedure note: other (Colon polyps) Procedure: Colonoscopy with polypectomy Surgeon: Satya Barker Anesthesia Type: General:No Airway Estimated blood loss (mL): 10 Pathology: other (0.5 cm flat cecal polyp, 3 polyps at 65 cm: 0.25 cm, 0.25 cm, 0.75 cm pedunculated, 0.25 cm polyp at 50 cm, 0.25 cm flat rectal polyp) Complications: None Disposition: same day Indications: Malia is a 58-year-old woman who is here for her next screening colonoscopy Prep: Miralax/Dulcolax Procedure Start Time: 07:28 Procedure End Time: 08:02 Retraction Time: 24 Findings: 0.5 cm flat cecal polyp, 3 polyps at 65 cm: 0.25 cm, 0.25 cm, 0.75 cm pedunculated, 0.25 cm polyp at 50 cm, 0.25 cm flat rectal polyp Procedure Description: After the induction of anesthesia, and with the patient in left lateral decubitus position, I began by performing an external anorectal exam.? Perineum and skin were normal, as was the anal verge.? There was no evidence of external hemorrhoids.? Next, I performed a digital rectal exam.? I did not appreciate any abnormal findings.? Next, I advanced a colonoscope into the rectal vault.? I performed retroflexion.? This appeared normal.? Using irrigation, I then advanced the colonoscope beyond the rectal folds and into the sigmoid colon before advancing towards the cecum.? The quality of the prep was excellent.? The scope was noted to be in the cecum by identification of the ileocecal valve and appendiceal orifice.? I then began withdrawing the colonoscope using repeated irrigation as necessary for full evaluation of the colonic mucosa. Within the upper portion of the cecum was a 0.5 cm flat polyp. This was removed with cold forceps. There was no significant bleeding from the polypectomy site. Around 65 cm from the anal verge was an area of 3 polyps. 2 of these were about 0.25 cm and flat. The third was about 0.75 cm and pedunculated. The flat polyps were removed with cold forceps, and the larger polyp was removed with inner GI snare polypectomy. There was minimal bleeding from the sites as well. Another 0.25 cm polyp was found at 50 cm from the anal verge. This was also removed with cold forceps without issues. once the scope was withdrawn to the level of the rectum, great care was taken to examine portions of the rectal folds.? In the upper portion of the rectal vault was 1 last polyp. This was about 0.25 cm and flat. This was removed with cold forceps. Finally, the scope was withdrawn and the patient was brought to the same-day surgery recovery unit as the anesthetic wore off. ?The findings and instructions were shared with the patient prior to discharge. [place] Bowel Prep [place] Bowel Prep Right Colon: 3 Left Colon: 3 Transverse Colon: 3 Total Score: 9
[2024-06-07 06:21] VITALS: BP 105/74; PULSE 70; RESP 18; TEMP 36.8; O2SAT 100
[2024-06-07] MEDS: Lactated Ringers 1,000 ML 80 ML IV (06:35)
--- NOTE | 2024-06-07 07:16 | W.ANESPRE ---
General Info Date of Service Date Performed: 06/07/24 Height: 5 ft 6 in Weight: 86.6 kg Body Mass Index (BMI): 30.8 Surgical Procedure: Operation Date: 06/07/24 07:35 Proposed Procedure Side Surgeon p Colonoscopy Satya Barker MD Actual Procedure Side Surgeon p Colonoscopy Not Applicable Satya Barker MD Meds Allergies and Home Medications Allergies Allergy/AdvReac Type Severity Reaction Status Date / Time Iodine and Iodide Containing Allergy Mild Skin Rash Verified 06/07/24 06:18 Produc codeine AdvReac Intermediate Nausea Verified 06/07/24 06:18 prochlorperazine edisylate AdvReac Intermediate Nausea Verified 06/07/24 06:18 (From Compazine) prochlorperazine maleate AdvReac Intermediate Nausea Verified 06/07/24 06:18 (From Compazine) oxycodone HCl (From Percocet) AdvReac Mild Nausea Verified 06/07/24 06:18 CHLORA PREP Allergy Intermediate skin Uncoded 06/07/24 06:18 blisters STERI STRIPS Allergy Intermediate skin Uncoded 06/07/24 06:18 blisters Home Medication ?Medication ?Instructions ?Recorded nitroglycerin 0.4 mg sublingual 0.4 mg sublingual Q5 MIN PRN X3 03/25/19 tablet (Nitrostat) PRN chest pain ##1 carbamazepine 200 mg tablet 400 mg PO HS 05/08/19 nystatin 100,000 unit/gram topical 1 applic topical BID PRN 05/03/21 cream intertrigo #15 grams blood sugar diagnostic ([employer] #100 ea 03/29/23 Ultra Test strips) blood-glucose meter (OneTouch #1 ea 03/29/23 Ultra2 Meter) prazosin 5 mg capsule 10 mg PO QHS 06/21/23 trazodone 100 mg tablet 200 mg PO QHS 06/21/23 vilazodone 20 mg tablet (Viibryd) 20 mg PO DAILY 06/21/23 empagliflozin 25 mg tablet 25 mg PO DAILY #90 tab-caps 08/30/23 (Jardiance) lancets 30 gauge ([employer] Lori #100 ea 10/30/23 Plus Lancet) atenolol 25 mg tablet 25 mg PO DAILY #90 tabs 12/18/23 esomeprazole magnesium 40 mg 40 mg PO DAILY #90 caps 12/18/23 capsule,delayed release aspirin 81 mg tablet,delayed 81 mg PO DAILY #90 tab-caps 02/21/24 release atorvastatin 40 mg tablet 40 mg PO DAILY #90 tab-caps 03/13/24 amlodipine 5 mg tablet 5 mg PO BID #180 tab-caps 03/20/24 lorazepam 1 mg tablet (Ativan) 1 mg PO DAILY #1 tab 05/29/24 ondansetron HCl 4 mg tablet 4 mg PO Q8H PRN nausea and 05/30/24 vomiting #20 tabs Current Visit Medications: Current Medications Generic Name Dose Route Start Last Admin Trade Name Freq PRN Reason Stop Dose Admin Ringer's Solution 1,000 mls @ 80 mls/hr 06/07/24 06:00 IV 06/07/24 23:59 [facility] IV Miscellaneous Supplies 1 each 06/07/24 06:00 Iv Access IV 06/07/24 23:59 DIRECTED MICA Ondansetron HCl 4 mg 06/06/24 16:33 Ondansetron 4 Mg/2 Ml Vial IVP 07/06/24 16:32 Q4H PRN PRN Nausea / Vomiting Sodium Chloride 0 ml 06/07/24 06:00 Normal Saline Flush 10 Ml Syr IV 06/07/24 23:59 PRN PRN Sodium Chloride 0 ml 06/07/24 06:00 Normal Saline 10 Ml Vial IJ 06/07/24 23:59 DIRECTED PRN Sterile Water 0 ml 06/07/24 06:00 Water,Injection,Sterile 10 Ml Vial IJ 06/07/24 23:59 DIRECTED PRN PFSH Active Problems Active Problems: Problem Status Onset Code Encounter for screening colonoscopy Acute Z12.11 Upper back pain Acute M54.9 Trigger thumb, right thumb Acute M65.311 Right hamstring muscle strain Acute S76.311A Trigger finger Acute M65.30 Vaginal bleeding Acute N93.9 Hematuria Acute R31.9 Right leg pain Acute M79.604 Bilateral hip pain Acute M25.551, M25.552 Low back pain Acute M54.50 Onycholysis Acute L60.1 Left leg pain Acute M79.605 Insomnia Acute G47.00 History of migraine headaches Acute Hypertension Chronic 10/28/14 I10 Hyperlipidemia Acute 10/28/14 E78.5 Gastroesophageal reflux disease with esophagitis Acute K21.0 Allergic rhinitis Acute 10/28/14 J30.9 Adult BMI > 30 Chronic Bipolar affective disorder Chronic F31.9 LEISA (obstructive sleep apnea) Chronic 09/21/14 G47.33 PTSD (post-traumatic stress disorder) Chronic F43.10 History of suicide attempt Acute 10/28/14 Z91.5 Type 2 diabetes mellitus, with long-term current use of insulin Chronic E11.9, Z79.4 Aortic regurgitation Chronic I35.1 Medical History Medical History Vulvitis Patellar tendinitis of right knee Internal derangement of right knee Varicose veins of bilateral lower extremities with pain Mixed stress and urge urinary incontinence 04/2019. WWC. no evidence of pelvic organ prolapse to explain patient's symptoms. Chronic pain Drug overdose (10/28/14) History of colonic polyps (06/11/15) Fatty liver (02/05/15) GI consult, probable metabolic syndrome Controlled substance agreement signed (06/25/14) broken CSA 08/12/2014 Cholelithiasis (10/28/14) Sacroiliac joint dysfunction of right side Surgical History Surgical History Hx of umbilical hernia repair History of cardiac cath 2017 History of vein stripping partial hysterectomy retained ovaries per pt Revision L carpal tunnel release (04/18/14) Flexor tenosynovectomy, hardware removal, Dr Ocasio [facility] ORIF radial fx (10/05/15) [facility] 1998 or 1999 de Quervain's release left wrist Dr [id number] L distal radius and ulna Left heart Catheterization, Angiography (06/01/17) Excision, Lipoma (06/12/08) right back EGD with biopsy (09/08/08) EGD w/biopsies (06/11/15) Reji Dumont MD Colonscopy (06/11/15) Reji Dumont Cholecystectomy (04/09/12) Arthroplasty of knee (01/22/16) L with limited medial femoral chondroplasty. Dr. Stearns. Tobacco Smoking/Tobacco Use Status: Never Passive smoking exposure: No Second hand exposure: Yes Alcohol Alcohol Intake: never Substance Use Substance use: Never Substance use type: does not use Prental History History 2 Para Hx # Term Pregnancies 2 Multiple births Hx # Pregnancies Ectopic pregnancies AB induced Hx Number of Living Children 2 AB spontaneous Vital Signs and Lab Results Vital Signs Most Recent Vital Signs in EMR: Most Recent Vital Signs Temp Pulse Resp BP Pulse Ox 36.8 C 70 18 105/74 100 06/07/24 06:21 06/07/24 06:21 06/07/24 06:21 06/07/24 06:21 06/07/24 06:21 Point of Care Results Point of Care Results: Finger Stick Blood Glucose 135 06/07/24 06:32 Lab Results Blood Type / Crossmatch: No Data to Display Complete Blood Count: No Data to Display Complete Metabolic Panel: No Data to Display Liver Function Panel: No Data to Display Coagulation Panel: No Data to Display Cardiac Panel: No Data to Display Arterial Blood Gas: No Data to Display Venous Blood Gas: No Data to Display Pancreas Panel: No Data to Display Thyroid Panel: No Data to Display Infectious Disease: No Data to Display Blood Cultures: No Data to Display Toxicology Panel: No Data to Display Imaging and Studies Imaging and Studies Study information below may be from another EMR and interpreted by another provider. Please see original notes in EMR for more complete details. EKG Summary: 08/25: sinus. Stress Test Summary: 2020: ekg is non-diagnostic, LVEF 64%, no WMA, small fixed defect likely artifact, no evidence of ischemia. Echocardiogram Summary: 2018: LVEF 60-65%, no WMA. mild-moderate AR, mild MR, PAS 38 mmhg. Cardiac Catheterization Summary: 2018: normal. Anesthesia Assessment and Plan Anesthesia History Personal History: PONV Family History: No Family History of Anesthesia Complications Exercise Tolerance Exercise Tolerance: Metabolic Equivalents>4 Pertinent Negatives Pertinent Negatives: No Symptoms of GERD, No Major Cardiovascular Symptoms or Complaints, No Major Pulmonary Symptoms or Complaints and No History of CVA/TIA Cardiac & Pulmonary Exam Cardiac Exam: Normal S1/S2 Heart Sounds Pulmonary Exam: Clear Bilateral Breath Sounds Implantable Cardiac Device Does patient have a Pacemaker or an ICD?: No Airway Exam Known Difficult Airway: Yes Mallampati Class: 2 Mouth Opening: Normal (> 3cm) Thyromental Distance: Greater than 3 cm Neck Range of Motion: Full ROM Neck Circumference: Normal Teeth Condition: Normal Dentition ASA Classification ASA Score: ASA 2 Emergency Case?: No NPO Status NPO Status: NPO Clears >2 hours, Solids >8 hours Anesthesia Plan Resuscitation Status: Full Code Anesthesia Technique: General Anesthesia Airway Planned: Natural Airway Monitors Used: Standard Monitors
[2024-06-07 07:20] VITALS: BMI 30.8
--- NOTE | 2024-06-07 07:35 | BOWEL_PTH ---
PATIENT: Malia Wynne LOC: [facility] U#:[id number] AGE/SX: 58/F ROOM: RE06/07/[address]: Satya Barker MD : 1965 BED: DIS: 06/07/2024 SPEC #: [id number] RECD: 06/07/24 13:03 STATUS: TJ RE #: [id number] DEMETRIA: 06/07/24 07:[address]: Satya Barker DEPT: Surgical Specimen RECD BY: Liset Medrano ENTERED: 06/07/24 13:04 SP TYPE: Bowel OTHR DR: Hunter Don, SATIN FINISHER Tissues: 1 - BIOPSY BOWEL 2 - BIOPSY BOWEL 3 - BIOPSY BOWEL 4 - BIOPSY BOWEL Procedures: GROSS AND MICRO LEVEL 4 Comments: [id number]
[2024-06-07 08:08] VITALS: BP 99/68; PULSE 59; RESP 20; TEMP 36.6; O2SAT 95
--- NOTE | 2024-06-07 08:29 | W.ANESPOSTOP ---
Postoperative Evaluation Date, Time and Location Date Performed: 06/07/24 Time Performed: 08:30 Patient Location: Day Surgery Unit Vital Signs Most Recent Imported Vital Signs: Most Recent Vital Signs Temp Pulse Resp BP Pulse Ox 36.6 C 59 L 20 99/68 L 95 06/07/24 08:08 06/07/24 08:08 06/07/24 08:08 06/07/24 08:08 06/07/24 08:08 Pain Score Most Recent Pain Score: Most Recent Pain Score Pain Level 0 06/07/24 08:08 Assessment Mental Status: Awake (Alert & Oriented to Patient Baseline) Airway and Respiratory Function: Patent airway with normal (patient baseline) respiratory exam Cardiovascular Function: Hemodynamically Stable Hydration Status: Adequately Hydrated Nausea & Vomiting: Active Nausea or Vomiting Present Nausea and Vomiting Management: Nausea and vomiting active, being addressed with medication Pain: Pt. Denies Any Pain Peripheral Nerve Block: Patient did not receive a nerve block
[2024-06-07] MEDS: Ondansetron 4 MG/2 ML VIAL IVP (08:35)
[2024-06-07 08:40] VITALS: BP 144/77; PULSE 55; RESP 16; TEMP 36.5; O2SAT 95
== END 2024-06-07 08:53 | disposition home or self-care (01) ==
LOC: SUR 06:07
PROVIDERS: PCP Nurse Practitioner Family; Visit Provider Surgery
PROC: 0DJD8ZZ Inspection of Lower Intestinal Tract, Via Natural or Artificial Opening Endoscopic (ICD-10-PCS; CPT 45378; principal; 2024-06-07 07:30)
DX: Z12.11 Encounter for screening for malignant neoplasm of colon (principal); D12.0 Benign neoplasm of cecum; D12.4 Benign neoplasm of descending colon; D12.5 Benign neoplasm of sigmoid colon
CPT/HCPCS: 45380; 88305; J2003; J2405; J2704

== ENCOUNTER 2024-06-10 02:02 | Outpatient (CLI) | payer MEDICAID, SELFPAY ==
--- NOTE | 2024-06-10 06:45 | DI.MAMMO_ITS ---
Exam(s) MAMMO SCREENING EXAM: MAMMO SCREENING CLINICAL HISTORY: screening,z12.39 TECHNIQUE: Mammograms were interpreted according to the usual protocol including computer analysis w [employer] CAD system, tomosynthesis and C-view imaging. COMPARISON: 2014 through 2020 FINDINGS: The breasts are composed of scattered fibroglandular densities, Breast Density category B. No suspicious masses or suspicious microcalcifications are seen. No skin thickening or abnormal axillary lymph nodes are seen. There has been no significant change from prior exams. IMPRESSION: BI-RADS Category 1, Negative mammogram Yearly screening mammography is recommended. Breast Density - Category B, scattered fibroglandular densities. A negative radiographic report should not delay biopsy if a dominant or clinically suspicious mass is present. Up to ten percent of cancers are not identified on mammography. A negative report may reinforce clinical impression. Adenosis and dense breasts may obscure an underlying neoplasm. False positive reports average 6 to 10%. Patient will receive a letter notifying them of these results.
== END 2024-06-10 02:22 ==
LOC: DI 02:02
PROVIDERS: PCP Nurse Practitioner Family; Visit Provider Nurse Practitioner Family
DX: Z12.31 Encounter for screening mammogram for malignant neoplasm of breast (principal); R92.323 Mammographic fibroglandular density, bilateral breasts
CPT/HCPCS: 77063; 77067